=== PATIENT | male | born 1935 | race Caucasian/White ===

== ENCOUNTER 2018-11-12 11:46 | Inpatient (IN) | payer OTHER ==
[2018-11-12] MEDS ORDERED: NA CHLORIDE 0.9% 500 ML ONE (12:29)
[2018-11-12 12:35] LABS: Absolute Lymphocytes (CBC) 0.4 K/uL (0.7-4.9); Absolute Monocytes 0.5 K/uL (0.1-1.3); Absolute Neutrophil 9.8 K/uL (1.8-8.0); Basophils % 0.1 % (0-1.3); Eosinophils % 0.1 % (0-4.4); Hematocrit 33.9 % (39.6-49.0); Lymphocytes % 3.3 % (15.3-44.8); MPV 8.3 fL (7.6-11.3); Monocytes % 4.3 % (3.3-12.3); RBC Red Blood Cell Count 3.61 M/uL (4.33-5.43)
[2018-11-12 12:52] LABS: Albumin 3.4 g/dL (3.4-5.0); Bilirubin Direct 0.2 mg/dL (0-0.2); Bilirubin Total 0.4 mg/dL (0.2-1.0); Potassium 4.3 mmol/L (3.5-5.1); Protein, Total 7.2 g/dL (6.4-8.2); Troponin (Emerg Dept Use Only) 0.26 ng/mL (0.0-0.045)
--- NOTE | 2018-11-12 12:55 | EKG ---
Test Date: 2018-10-12 Test Time: 12:23:55 Mushroom Laborer: LAKESHIA MEASUREMENT RESULTS: Intervals: Rate: 116 NE: 174 QRSD: 94 QT: 324 QTc: 450 [place]: P: 32 NE: 174 QRS: -9 T: 45 INTERPRETIVE STATEMENTS: Sinus tachycardia with premature supraventricular complexes Otherwise normal ECG Compared to ECG 10/25/2011 06:12:33 Atrial premature complex(es) now present Sinus rhythm no longer present Electronically Signed On 11-12-18 12:54:27 KING MAKER by Aaron Mccarty
[2018-11-12 13:58] LABS: Urine White Blood Cell Casts OK
[2018-11-12 13:59] LABS: Blood Morphology Comment NOT SEEN (NOT SEEN); Platelet Estimate ADEQ
--- NOTE | 2018-11-12 14:16 | ER ---
Nurse's Notes [facility] Name: Sheng Mix Age: 82 yrs Sex: Male : 1935 Arrival Date: 11/12/2018 Time: 11:50 Bed 14 Private MD: Diagnosis: Near Syncope;Dehydration;Weakness Presentation: 11/12 11:53 Presenting complaint: EMS states: pt states he went to the park this morning and then tw2 he couldn't get back into his truck, said his knees hurt, denies chest pain, he was sitting on the ground vomiting when we arrived, we gave 4 mg Zofran IV. Transition of care: patient was not received from another setting of care. Onset of symptoms was November 12, 2018. Risk Assessment: Do you want to hurt yourself or someone else? Patient reports no desire to harm self or others. Initial Sepsis Screen: Does the patient meet any 2 criteria? No. Patient's initial sepsis screen is negative. Does the patient have a suspected source of infection? No. Patient's initial sepsis screen is negative. Care prior to arrival: IV initiated. 20 GA, in the left antecubital area. 11:53 Method Of Arrival: EMS: [facility] tw2 11:53 Acuity: HUGO 3 tw2 Historical: - Allergies: 11:56 No Known Allergies; tw2 - Home Meds: 11:56 unknown bp med [Active]; tw2 - PMHx: 11:56 Hypertension; tw2 - PSHx: 11:56 None; tw2 - Immunization history:: Adult Immunizations. - Social history:: Smoking status: . - Ebola Screening: : Patient denies travel to an Ebola-affected area in the 21 days before illness onset. - Family history:: not pertinent. - Hospitalizations: : No recent hospitalization is reported. Screenin:57 Abuse screen: Denies threats or abuse. Nutritional screening: No deficits noted. tw2 Tuberculosis screening: No symptoms or risk factors identified. Fall Risk None identified. Assessment: 12:15 General: Appears in no apparent distress. comfortable, well groomed, Behavior is calm, ph cooperative, appropriate for age, Denies fever, feeling ill. Pain: Complains of pain in allyn knees and R elbow. Neuro: Level of Consciousness is awake, alert, obeys commands, Oriented to person, place, time, situation, Denies weakness dizziness, headache. Cardiovascular: Reports nausea, vomiting, Denies chest pain, lightheadedness, palpitations, shortness of breath, Capillary refill < 3 seconds in bilateral fingers Patient's skin is warm and dry. Edema is 1+ to left midcalf, left ankle, right midcalf and right ankle Rhythm is sinus tachycardia. Respiratory: Airway is patent Respiratory effort is even, unlabored, Respiratory pattern is regular, symmetrical. GI: Reports nausea, vomiting, Patient currently denies abdominal pain, diarrhea. Derm: Skin is fragile, is thin, Skin is pink, warm \\T\\ dry. Derm: Wound noted R elbow and L forearm Wound is skin tears, bleeding controlled. Musculoskeletal: Circulation, motion, and sensation intact. Range of motion: intact in all extremities. 13:30 Reassessment: Patient appears in no apparent distress at this time. Patient and/or ph family updated on plan of care and expected duration. Pain level reassessed. Patient is alert, oriented x 3, equal unlabored respirations, skin warm/dry/pink. Pt cleaned of urinary incontinence and placed in clean gown and brief, attempted to use urinal at bedside but unable to urinate at this time, states, " It feel like I need to go." Pt reports hx of prostate issues. Vital Signs: 11:55 BP 143 / 83; Pulse 117; Resp 19; Temp 100.0(O); Pulse Ox 95% on R/A; Pain 0/10; tw2 13:16 BP 133 / 82; Pulse 122; Resp 22; Pulse Ox 99% on R/A; ph 13:56 BP 133 / 82; Pulse 98; Resp 30; Pulse Ox 98% ; ms 15:08 BP 146 / 92; Pulse 123; Resp 20; Pulse Ox 100% on R/A; ph 15:38 BP 139 / 79; Pulse 123; Resp 20; Temp 100.2(O); Pulse Ox 100% on R/A; ph ED Course: 11:50 Patient arrived in ED. tw2 11:52 Shay Carey MD is Attending Physician. rn 11:53 Bed in low position. Call light in reach. Side rails up X2. monitoring manager on. Pulse tw2 ox on. NIBP on. 11:54 Triage completed. tw2 11:56 Arm band placed on. tw2 12:06 Tere Bernard, RN is Primary Nurse. ph 12:47 EKG done, by pharmacy technician trainee. reviewed by Shay Carey MD. at1 14:15 Jacob Wilson DO is Hospitalizing Provider. rn 15:05 X-ray completed. Portable x-ray completed in exam room. Patient tolerated procedure sw well. 15:10 XRAY Chest (1 view) In Process Unspecified. EDMS 16:11 No provider procedures requiring assistance completed. Patient admitted, IV remains in ph place. Administered Medications: 13:14 Drug: NS 0.9% 500 ml Route: IV; Rate: bolus; Site: left antecubital; ph 15:57 Follow up: Response: No adverse reaction; IV Status: Completed infusion ph 15:57 Drug: Tylenol 500 mg Route: PO; ph 15:57 Follow up: Response: No adverse reaction ph Outcome: 14:15 Discharge ordered by MD. rn 14:15 Decision to Hospitalize by Provider. rn 16:11 Admitted to Tele accompanied by tech, via wheelchair, room 228, with chart. ph 16:11 Condition: stable 16:11 Instructed on the need for admit. 16:12 Patient left the ED. ph Signatures: Dispatcher [employer] EDNC Julee Rodriguez ms, Roman, MD MD rn Gonzales, Amanda, business management associate EKG Tat1 Tere Bernard, RN RN Gabby Acosta Tara, RN RN tw2
--- NOTE | 2018-11-12 14:17 | EDPHYS ---
Physician Documentation [facility] Name: Sheng Mix Age: 82 yrs Sex: Male : 1935 Arrival Date: 11/12/2018 Time: 11:50 Bed 14 Private MD: ED Physician Shay Carey HPI: 11/12 12:27 This 82 yrs old Male presents to ER via EMS with complaints of weakness. rn 12:27 Reports generalized weakness, states knees gave out, sat down on ground, no assoc rn headache/focal neurological complaint/chest pain/sob/syncope/abd pain. Did throw up once, given zofran IV by EMS, now asymptomatic. Reports congestion and decreased appetite for 2 days.. Onset: The symptoms/episode began/occurred 2 day(s) ago. Severity of symptoms: At their worst the symptoms were moderate in the emergency department the symptoms have improved. The patient has not experienced similar symptoms in the past. The patient has not recently seen a physician. Historical: - Allergies: 11:56 No Known Allergies; tw2 - Home Meds: 11:56 unknown bp med [Active]; tw2 - PMHx: 11:56 Hypertension; tw2 - PSHx: 11:56 None; tw2 - Immunization history:: Adult Immunizations. - Social history:: Smoking status: . - Ebola Screening: : Patient denies travel to an Ebola-affected area in the 21 days before illness onset. - Family history:: not pertinent. - Hospitalizations: : No recent hospitalization is reported. ROS: 12:27 Constitutional: + fever Eyes: Negative for injury, pain, redness, and discharge, Neck: rn Negative for injury, pain, and swelling. 12:29 Cardiovascular: Negative for chest pain, palpitations, and edema, Respiratory: Negative rn for shortness of breath, cough, wheezing, and pleuritic chest pain, Abdomen/GI: Negative for abdominal pain, diarrhea, and constipation, MS/Extremity: Negative for injury and deformity, Skin: Negative for injury, rash, and discoloration, Neuro: Negative for headache, numbness, tingling, and seizure. Exam: 12:29 Constitutional: This is a well developed, well nourished patient who is awake, alert, rn and in no acute distress. Head/Face: Normocephalic, atraumatic. Eyes: Pupils equal round and reactive to light, extra-ocular motions intact. Lids and lashes normal. Conjunctiva and sclera are non-icteric and not injected. Cornea within normal limits. Periorbital areas with no swelling, redness, or edema. ENT: dry MM Neck: Trachea midline, no thyromegaly or masses palpated, and no cervical lymphadenopathy. Supple, full range of motion without nuchal rigidity, or vertebral point tenderness. No Meningismus. Cardiovascular: tachycardic, regular, no murmur Respiratory: Lungs have equal breath sounds bilaterally, clear to auscultation and percussion. No rales, rhonchi or wheezes noted. No increased work of breathing, no retractions or nasal flaring. Abdomen/GI: soft, non-tender Skin: Warm, dry. + skin tears to bilateral elbows, no active bleeding. MS/ Extremity: Pulses equal, no cyanosis. Neurovascular intact. Full, normal range of motion. Equal circumference. Neuro: Awake and alert, GCS 15, oriented to person, place, time, and situation. Cranial nerves II-XII grossly intact. Motor strength 5/5 in all extremities. Sensory grossly intact. Cerebellar exam normal. Vital Signs: 11:55 BP 143 / 83; Pulse 117; Resp 19; Temp 100.0(O); Pulse Ox 95% on R/A; Pain 0/10; tw2 13:16 BP 133 / 82; Pulse 122; Resp 22; Pulse Ox 99% on R/A; ph 13:56 BP 133 / 82; Pulse 98; Resp 30; Pulse Ox 98% ; ms 15:08 BP 146 / 92; Pulse 123; Resp 20; Pulse Ox 100% on R/A; ph 15:38 BP 139 / 79; Pulse 123; Resp 20; Temp 100.2(O); Pulse Ox 100% on R/A; ph MDM: 11:52 Patient medically screened. rn 14:12 Differential Diagnosis altered mental status, sepsis, flu, MT, near syncope, rn dehydration. Data reviewed: vital signs, nurses notes, lab test result(s), EKG, and as a result, I will. 14:13 Counseling: I had a detailed discussion with the patient and/or guardian regarding: the rn historical points, exam findings, and any diagnostic results supporting the discharge/admit diagnosis, lab results, the need for further work-up and treatment in the hospital. Response to treatment: the patient's symptoms have mildly improved after treatment, and as a result, I will admit patient. Admission orders: after a detailed discussion of the patient's condition and case, the admit orders are written by me. ED course: Pt with unclear etiology of near syncope and weakness, + CKD and elevated troponin, will admit to [facility] for serial markers and cardiology consult. . 11/12 12:00 Order name: Basic Metabolic Panel; Complete Time: 13:22 rn 11/12 12:00 Order name: CBC with Diff; Complete Time: 14:06 rn 11/12 12:00 Order name: Hepatic Function; Complete Time: 13: rn 11/12 12:00 Order name: Lipase; Complete Time: : rn 11/12 12:00 Order name: Troponin (emerg Dept Use Only); Complete Time: 13: rn 11/12 12:29 Order name: Flu; Complete Time: 14: rn 11/12 12:00 Order name: IV Start; Complete Time: 12:24 rn 11/12 12:00 Order name: EKG; Complete Time: 12:02 rn 11/12 12:00 Order name: Cardiac monitoring; Complete Time: 12:15 rn 11/12 12:08 Order name: EKG Electrocardiogram EDMS 11/12 12:52 Order name: CBC Smear Scan; Complete Time: 14:06 EDMS 11/12 14:12 Order name: XRAY Chest (1 view); Complete Time: 16:12 rn 11/12 12:00 Order name: EKG - Nurse/Tech; Complete Time: 12:24 rn 11/12 12:00 Order name: Labs collected and sent; Complete Time: 12:24 rn 11/12 12:00 Order name: NPO; Complete Time: 12:15 rn 11/12 12:00 Order name: O2 Per Protocol; Complete Time: 12:15 rn 11/12 12:00 Order name: O2 Sat Monitoring; Complete Time: 12:24 rn Administered Medications: 13:14 Drug: NS 0.9% 500 ml Route: IV; Rate: bolus; Site: left antecubital; ph 15:57 Follow up: Response: No adverse reaction; IV Status: Completed infusion ph 15:57 Drug: Tylenol 500 mg Route: PO; ph 15:57 Follow up: Response: No adverse reaction ph Disposition: 11/12/18 14:15 Hospitalization ordered by [facility] for Inpatient Admission. Preliminary diagnosis are Near Syncope, Dehydration, Weakness. - Bed requested for Telemetry/MedSurg (Inpatient). - Status is Inpatient Admission. ph - Condition is Stable. - Problem is new. - Symptoms have improved. UTI on Admission? No Signatures: Dispatcher [employer] EDMS Mata Patricia Mary Constantino RN RN dw Nieto, Roman, MD MD rn BernardTere RN RN Streeter, DANNA Bragg RN tw2 Corrections: (The following items were deleted from the chart) 14:15 14:15 11/12/2018 14:15 Discharged to Home. Impression: Near Syncope; Dehydration. rn Condition is Stable. Forms are Medication Reconciliation Form, Thank You Letter, Antibiotic Education, Prescription Opioid Use. Follow up: Private Physician; When: As needed; Reason: Recheck today's complaints, Re-evaluation by your physician. Problem is new. Symptoms have improved. rn 15:13 14:15 Hospitalization Ordered by Jacob Mandel DO for Inpatient Admission. Preliminary bd diagnosis is Near Syncope; Dehydration; Weakness. Bed requested for Telemetry/MedSurg (Inpatient). Status is Inpatient Admission. Condition is Stable. Problem is new. Symptoms have improved. UTI on Admission? No. rn 15:15 15:13 11/12/2018 14:15 Hospitalization Ordered by Jacob Mandel DO for Inpatient dw Admission. Preliminary diagnosis is Near Syncope; Dehydration; Weakness. Bed requested for Telemetry/MedSurg (Inpatient). Status is Inpatient Admission. Condition is Stable. Problem is new. Symptoms have improved. UTI on Admission? No. bd 16:12 15:15 11/12/2018 14:15 Hospitalization Ordered by Jacob Mandel DO for Inpatient ph Admission. Preliminary diagnosis is Near Syncope; Dehydration; Weakness. Bed requested for Telemetry/MedSurg (Inpatient). Status is Inpatient Admission. Condition is Stable. Problem is new. Symptoms have improved. UTI on Admission? No. dw
--- NOTE | 2018-11-12 14:45 | P.HP ---
Certification for Inpatient Patient admitted to: Inpatient With expected LOS: >2 Midnights Patient will require the following post-hospital care: None Practitioner: I am a practitioner with admitting privileges, knowledge of patient current condition, hospital course, and medical plan of care. Services: Services provided to patient in accordance with Admission requirements found in Title 42 Section 412.3 of the Code of Federal Regulations Patient History Date of Service: 11/12/18 Primary Care Provider: [facility] Reason for admission: Fall, nausea/vomiting History of Present Illness: 82 yo male presented to the emergency room after a fall with nausea and vomiting. Patient reports that he was getting to his vehicle after walking in the park. He reports that his knees gave way and he fell. He had an episode of vomiting with nausea at that time. He denied any syncope, presyncope, chest pain. When EMS arrived his blood pressure was low. Patient reports a history of hypertension. He only takes 1 blood pressure medication. He denies any significant cardiac issues. He is seen at the [facility]. Patient denies any significant palpitation, abdominal pain, shortness of breath. In the ER the patient was evaluated. Blood pressure stable. He was with sinus tachycardia with some PVCs. Initial cardiac enzymes elevated at 0.26. White count 10.6, hemoglobin 11.4. BUN of 29, creatinine 1.8 with a GFR 36. Sodium 140, potassium 4.3. Chest x-ray unremarkable. The patient was admitted for further evaluation. When I saw the patient the ER, he appeared comfortable. He denied any significant chest pain or shortness of breath. Patient reports pedal edema to the lower extremities left greater than right. Home medications list reviewed: Yes - Past Medical/Surgical History Diabetic: No -: Hypertension Past Surgical History: Patient denies surgical history Psychosocial/ Personal History: Patient is a . He has 1 child. - Family History Family History: Reviewed- Non-Contributory - Social History Smoking Status: Never smoker Alcohol use: No CD- Drugs: No Caffeine use: No Place of Residence: Home Review of Systems General: As per HPI Eyes: Unremarkable ENT: Unremarkable Respiratory: Unremarkable Cardiovascular: Edema (Pedal edema to the lower extremities), As per HPI Gastrointestinal: Unremarkable Genitourinary: Unremarkable Musculoskeletal: Pedal edema, As per HPI Neurological: Unremarkable Lymphatics: Unremarkable Physical Examination - Physical Exam General: Alert, In no apparent distress, Oriented x3, Cooperative HEENT: Atraumatic, Normocephalic, PERRLA, Mucous membr. moist/pink Neck: Supple, No Thyromegaly Respiratory: Clear to auscultation bilaterally, Normal air movement Cardiovascular: Abnormal pulses (Sinus tachycardia) Gastrointestinal: Normal bowel sounds, Soft and benign, Non-distended, No tenderness, No masses, No rebound, No guarding Musculoskeletal: No erythema, No tenderness, No warmth Integumentary: Tenderness/swelling (Pedal edema to the lower extremities left greater than right) Neurological: Normal speech, Normal strength at 5/5 x4 extr, Normal tone, Normal affect - Studies Laboratory Data (last 24 hrs) 11/12/18 12:20: WBC 10.6, Hgb 11.4 L, Hct 33.9 L, Plt Count 185 11/12/18 12:20: Sodium 140, Potassium 4.3, BUN 29 H, Creatinine 1.82 H, Glucose 134 H, Total Bilirubin 0.4, AST 14 L, ALT 15, Alkaline Phosphatase 73, Lipase 279 Microbiology Data (last 24 hrs): 11/12/18 13:10 Nasopharnyx Influenza Type A Antigen Screen - Final 11/12/18 13:10 Nasopharnyx Influenza Type B Antigen Screen - Final Assessment and Plan - Plan Impression: Fall with noted nausea, vomiting, and low blood pressure with noted elevated troponin and sinus tachycardia with PVCs likely secondary to NSTEMI Hypertension Pedal edema left greater than right Acute on chronic renal failure Plan: Fall with noted nausea, vomiting, and low blood pressure with noted elevated troponin and sinus tachycardia with PVCs likely secondary to NSTEMI: Patient will be admitted for further evaluation. Will continue monitor cardiac enzymes. Will start Lovenox at 1 milligram/kilogram subcu twice daily-renal dose. Will provide aspirin, Lipitor, metoprolol, nitroglycerin and morphine. Will maintain oxygen saturations above 90%. Will monitor closely. Will obtain echocardiogram. Cardiology consulted to further evaluate. Hypertension: Will obtain home medication. Will start metoprolol twice daily. Pedal edema left greater than right: Will send for Doppler study to evaluate for possible DVT. Acute on chronic renal failure: Will obtain renal ultrasound. Will monitor closely. Will provide IV fluids low dose. Will consult nephrology for further recommendation. Discharge Plan: Home Plan to discharge in: 72 Hours - Advance Directives Does patient have a Living Will: No Does patient have a Durable POA for Healthcare: No - Code Status/Comfort Care Code Status Assessed: Yes (Patient full code.) Time Spent Managing Pts Care (In Minutes): 55
--- NOTE | 2018-11-12 15:24 | RAD REPORT ---
EXAM DESCRIPTION: Estelita Single View11/12/2018 3:18 pm CLINICAL HISTORY: Palpitation COMPARISON: none FINDINGS: The lungs appear clear of acute infiltrate. The heart is normal size Aorta is tortuous/ectatic. Mediastinum is rotated limiting evaluation somewhat IMPRESSION: No acute abnormalities displayed
[2018-11-12] MEDS ORDERED: ACETAMINOPHEN 500 MG TAB ONE (16:00)
[2018-11-12] MEDS ORDERED: ACETAMINOPHEN 500 MG TAB PO PRN (16:36)
[2018-11-12] MEDS ORDERED: MORPHINE 2 MG/ML SYR IV PRN (16:36)
[2018-11-12] MEDS ORDERED: NITROGLYCERIN 0.4 MG/TAB SL PRN (16:36)
[2018-11-12] MEDS ORDERED: ONDANSETRON 4 MG/2 ML VIAL IV PRN (16:36)
[2018-11-12 17:50] LABS: CKMB Creatine Kinase MB 6.6 ng/mL (0.3-3.6); Thyroid Stimulating Hormone 1.59 uIU/mL (0.360-3.740)
[2018-11-12] MEDS: METOPROLOL TAR 25 MG TAB PO SCH (18:03)
[2018-11-12] MEDS: NA CHLORIDE 0.9% 1,000 ML IV SCH (18:03)
[2018-11-12 18:11] VITALS: BMI 27.8
[2018-11-12 18:16] LABS: Troponin I 3.49 ng/mL (0.0-0.045)
--- NOTE | 2018-11-12 19:44 | RAD REPORT ---
EXAM DESCRIPTION: USExtrem Venous W Compress Bil11/12/2018 7:33 pm CLINICAL HISTORY: Bilateral leg swelling COMPARISON: none FINDINGS: The common femoral, superficial femoral, popliteal and posterior tibial veins bilaterally are compressible and demonstrate augmentation. Doppler demonstrates good flow. IMPRESSION: No evidence of deep venous thrombosis involving either lower extremity.
--- NOTE | 2018-11-12 19:48 | RAD REPORT ---
EXAM DESCRIPTION: US - Renal Ultrasound-Complete - 11/12/2018 7:33 pm CLINICAL HISTORY: . Acute renal failure/chronic renal failure COMPARISON: None. FINDINGS: The right kidney measures 9 cm with a normal echotexture. The left kidney measures 9 cm with a normal echotexture. Hydronephrosis is not seen. No gross abnormality of bladder is noted IMPRESSION: Unremarkable renal ultrasound.
[2018-11-12 20:49] LABS: Urine Appearance CLOUDY; Urine Bilirubin NEGATIVE (NEG); Urine Blood 3+ (NEG); Urine Color DK YELLOW; Urine Glucose NEGATIVE (NEG); Urine Protein 2+ (NEG); Urine Specific Gravity 1.025 (1.005-1.030)
[2018-11-12 21:02] LABS: Urine Microscopic Reflex ORDER UMIC
[2018-11-12 21:44] LABS: Urine Bacteria <20 /HPF (NONE SEEN); Urine Culture Reflex Order REFLEXED; Urine RBC >50 /HPF (NONE SEEN)
[2018-11-12] MEDS: ATORVASTATIN 40 MG TAB PO SCH (22:08)
[2018-11-12] MEDS: ENOXAPARIN 100 MG/ML SYR SQ SCH (22:08)
[2018-11-13] MEDS ORDERED: NA CHLORIDE 0.9% 500 ML IV ONE (00:02)
[2018-11-13 01:45] LABS: CKMB Creatine Kinase MB 5.6 ng/mL (0.3-3.6)
[2018-11-13 01:48] LABS: Troponin I 5.13 ng/mL (0.0-0.045)
--- NOTE | 2018-11-13 04:02 | CON ---
Date of Consultation: 11/12/2018 Chief Complaint: Acute kidney. History Of Present Illness: The patient was found to have moderately severe acute kidney injury associated with prerenal azotemia and lower urinary tract symptoms. The patient was evaluated with ultrasound, which did not show hydronephrosis, although he is complaining of difficulty voiding, and bladder scan will be ordered to rule out urinary retention. Nephrology consultation is requested for acute on chronic kidney injury. The patient was found to have moderately severe acute kidney injury. Lab work on admission to the hospital revealed creatinine of 1.8, BUN of 29, and electrolytes as follows; sodium 140, potassium 4.3, chloride 107, CO2 23, BUN 29, and calcium 8.5. The patient was found to have acute coronary syndrome. Troponin level was 3.49, CK level 226. The patient is 82-year-old man, presented to emergency room after he sustained fall. He was complaining of nausea and vomiting. The patient reports that he was getting out of his car after walking in the park. He reported that his knee gave away and he fell. He had episode of vomiting and nausea at that time. He denies syncope, denies chest pain. EMS arrived and the patient was found to have hypotension. The patient although has history of hypertension, he took blood pressure medication this morning. He has history of hypertension , but he denies history of coronary artery disease. He has been seen by [facility] for primary care and he denies previous history of kidney disease. In the emergency room, the patient was found to have sinus tachycardia with PVCs. Enzymes were elevated and troponin was 0.26. Subsequently, second set of troponin was at 3 range. Currently, the patient denies chest pain and denies fever. He looks comfortable. Review of Systems: Constitutional: Denies fever or chills. Eyes: Denies vision changes. Ears, Nose, Mouth, and Throat: Denies sore throat, earache. Respiratory: Denies wheezing. Cardiovascular: Denies chest pain. GI: Denies melena, hematemesis. Has nausea and vomiting. Denies abdominal pain. : He has some difficulty voiding. Denies hematuria or dysuria. All other systems reviewed and all are negative. Past Medical History: Hypertension. Denies history of diabetes. Does not have a history of coronary artery disease. Family History: No kidney disease in the family. Social History: Denies tobacco, alcohol, or illicit drugs. Physical Examination: General: The patient is awake, alert, follows commands. Eyes: Anicteric sclerae. EOMI. Ears, Nose, Mouth, and Throat: Oral mucosa moist. No pallor. Neck: Supple. No JVD. No bruits. Lungs: Clear to auscultation bilaterally. No wheezing. No rhonchi. Cardiovascular: No pericardial friction rub. S1, S2, 2/6 systolic murmur on the left lower sternal border. GI: Abdomen is soft, benign, and nontender. No rebound. No guarding. Musculoskeletal: No erythema. No tenderness. No increased warmth. Neurological: Moving extremities. Cranial nerves intact. Psychiatric: Alert and oriented x3. Normal affect. Laboratory Data: Hemoglobin 11.4, hematocrit 33.9. Platelet count is 185,000. WBC 10.6. Sodium 140, potassium 4.3, BUN 29, creatinine 1.82, and glucose 134. Total bilirubin 0.4, ALT is 14, AST 15, and lipase 279. Impression And Plan: 1. Status post fall. Recommend to continue to monitor electrolytes and CK level to rule out rhabdomyolysis, although the patient was found to have acute coronary syndrome and this may be contributory to cardiorenal syndrome and acute renal failure. The patient had tachycardia with PVC. He will be consulted by [facility] machine operator for [id number] myocardial infarction. The patient is evaluated by Cardiology team. 2. Hypertension. Hold blood pressure medication if systolic blood pressure is below 110 to prevent renal hypoperfusion. 3. Pedal edema, greater in the left lower extremity. Recommend to check for any evidence of DVT. 4. Acute on chronic renal failure. 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 Monitor for an evidence of nephritis, although in view of current illness, the patient likely has prerenal azotemia with renal hypoperfusion and cardiorenal syndrome. Avoid nonsteroidal anti-inflammatory medication. CHRISTIANE/TODD Voice ID: [id number] Report ID: [id number] LULA
[2018-11-13] MEDS: METOPROLOL TAR 25 MG TAB PO SCH (05:34)
[2018-11-13 06:37] LABS: Absolute Lymphocytes (CBC) 1.1 K/uL (0.7-4.9); Absolute Monocytes 0.8 K/uL (0.1-1.3); Absolute Neutrophil 9.9 K/uL (1.8-8.0); Basophils % 0.2 % (0-1.3); Hematocrit 30.8 % (39.6-49.0); Lymphocytes % 9.4 % (15.3-44.8); MPV 7.9 fL (7.6-11.3); RBC Red Blood Cell Count 3.31 M/uL (4.33-5.43)
[2018-11-13 07:00] LABS: Magnesium 2.1 mg/dL (1.8-2.4)
[2018-11-13] MEDS ORDERED: METOPROLOL TAR 25 MG TAB PO SCH (08:19)
[2018-11-13] MEDS: ENOXAPARIN 100 MG/ML SYR SQ SCH ×2 (09:37→20:35)
[2018-11-13] MEDS: ASPIRIN EC 81 MG TAB PO SCH (09:37)
[2018-11-13] MEDS: ACETYLCYST 20% 800 MG/4 ML VIAL PO SCH ×2 (09:49→20:41)
--- NOTE | 2018-11-13 12:21 | ECHO ---
HEIGHT: 6 ft 1 in WEIGHT: 211 lb 8 oz DATE OF STUDY: 11/13/[address]: Jacob Wilson DO 2-DIMENSIONAL: YES M.MODE: YES DOPPLER: YES COLOR FLOW: YES TDS: YES PORTABLE: NO DEFINITY: NO BUBBLE STUDY: NO DIAGNOSIS: NSTEMI CARDIAC HISTORY: CATHERIZATION: NO SURGERY: NO PROSTHETIC VALVE: NO PACEMAKER: NO MEASUREMENTS (cm) DIASTOLIC (NORMALS) SYSTOLIC (NORMALS) IVSd 0.9 (0.6-1.2) LA Diam 2.4 (1.9-4.0) LVEF 34% LVIDd 2.4 (3.5-5.7) LVIDs 2.0 (2.0-3.5) %FS 15% LVPWd 1.0 (0.6-1.2) Ao Diam 3.0 (2.0-3.7) 2 DIMENSIONAL ASSESSMENT: RIGHT ATRIUM: NORMAL LEFT ATRIUM: NORMAL RIGHT VENTRICLE: NORMAL LEFT VENTRICLE: NORMAL TRICUSPID VALVE: NORMAL MITRAL VALVE: NORMAL PULMONIC VALVE: NORMAL AORTIC VALVE: NORMAL PERICARDIAL EFFUSION: NONE AORTIC ROOT: NORMAL LEFT VENTRICULAR WALL MOTION: ANTERIOR APICAL HYPOKINESIS. DOPPLER/COLOR FLOW: MILD MITRAL, TRICUSPID REGURGITATION. NORMAL RIGHT VENTRICULAR SYSTOLIC PRESSURE. COMMENTS: DEPRESSED LEFT VENTRICULAR EJECTION FRACTION WITH WALL MOTION ABNORMALITY. MILD MITRAL AND TRICUSPID REGURGITATION. TECHNICALLY DIFFICULT STUDY. TECHNOLOGIST: SHINE MOORE
[2018-11-13 12:25] LABS: Urine Protein/Creatinine Ratio 0.62 ratio (<0.15)
--- NOTE | 2018-11-13 12:59 | CON ---
History Of Present Illness: Mr. Mix came to the hospital because of some excessive weakness in his legs and falling. Normally, he ambulates with a walker. He has had some workups trying to see why h is legs are so weak, but there has not been anything found definitively to help him. Yesterday, he w as trying to get in his car, could not, somebody tried to help him into the car, that did not work, s o an ambulance was called. He was not having chest pain or shortness of breath. There was no loss o f consciousness, but he was found to have a lot of evidence of a non-ST elevation MA. His troponins were 0.26 on arrival, another 5.13. Mr. Mix has never had any vascular disease before. Does not us e tobacco or illegal drugs. His only outpatient medication is metoprolol 25 mg once a day. He takes that for blood pressure. Does not have a history of coronary heart disease, stroke, myocardial infa rction, dyslipidemia, diabetes. He is unaware of having renal insufficiency. Physical Examination: General: He is alert, oriented, pleasant, 6 feet 1 inch, 211 pounds. HEENT: Normal. Neck: No carotid bruit. Lungs: Clear. Heart: Within normal limits. Abdomen: Soft. Extremities: Palpable but diminished distal pulses. No cyanosis, clubbing, or edema. Vital Signs: Blood pressure 98/55. Impression: The patient probably needs a cardiac cath. With his creatinine at 1.9, we want to limit how much contrast we give. We will try the radial approach tomorrow, pre-treat him with Mucomyst to see if we can minimize the amount of renal insult he gets that way, but I think we are obliged to do a cardiac cath and see exactly what is wrong. He probably had a coronary event without feeling ches t pain. He may have very severe CAD, and the most prudent thing is to do a cardiac cath tomorrow. GERDA/TODD Voice ID: [id number] Report ID: [id number]
[2018-11-13] MEDS: NA CHLORIDE 0.9% 1,000 ML IV SCH (13:50)
[2018-11-13] MEDS: CEFTRIAXONE/SWI 1gm 1 GM/10 ML SYR IV SCH (13:50)
--- NOTE | 2018-11-13 15:16 | P.PN ---
Subjective Date of Service: 11/13/18 Primary Care Provider: [facility] Chief Complaint: Fall, nausea/vomiting Subjective: Doing well Physical Examination - Vital Signs Temperature: 97.7 F Blood Pressure: 120/66 Pulse: 86 Respirations: 18 Pulse Ox (%): 94 - Physical Exam General: Alert, In no apparent distress, Oriented x3, Cooperative HEENT: Atraumatic Neck: Supple Respiratory: Clear to auscultation bilaterally, Normal air movement Cardiovascular: Normal pulses, Regular rate/rhythm Gastrointestinal: Normal bowel sounds, Soft and benign, Non-distended Musculoskeletal: No erythema, No tenderness, No warmth Integumentary: No erythema, No warmth, No cyanosis Neurological: Normal speech, Normal strength at 5/5 x4 extr, Normal tone, Normal affect - Studies Microbiology Data (last 24 hrs): 11/12/18 13:10 Nasopharnyx Influenza Type A Antigen Screen - Final 11/12/18 13:10 Nasopharnyx Influenza Type B Antigen Screen - Final Medications List Reviewed: Yes Assessment & Plan Discharge Plan: Home Plan to discharge in: 24 Hours Physician Review Additional Text: Impression: Fall with noted nausea, vomiting, and low blood pressure with noted elevated troponin and sinus tachycardia with PVCs likely secondary to NSTEMI with possible underlying CAD Hypertension Pedal edema left greater than right Acute on chronic renal failure, stage III Plan: Fall with noted nausea, vomiting, and low blood pressure with noted elevated troponin and sinus tachycardia with PVCs likely secondary to NSTEMI with possible underlying CAD: Spoke with nephrology and cardiology. Cardiology plans for cardiac catheterization to evaluate for underlying CAD. Continue with current medications. Will provide IV fluids as per Nephrology recommendation. Hypertension: Will continue with medication and adjust appropriately Pedal edema left greater than right: Doppler study negative Acute on chronic renal failure, stage 3: Case discussed with nephrology. Patient will be provided IV fluids prior to heart catheterization. Time Spent Managing Pts Care (In Minutes): 55
--- NOTE | 2018-11-13 16:53 | CON ---
Date of Consultation: 11/13/2018 Additional Consulting Physician: Dr. Wilson. Reason For Consultation: Elevated BUN and creatinine, fluid management. History Of Present Illness: This is a pleasant 82-year-old gentleman with significant past medical h istory of hypertension, chronic kidney disease. Reviewing the record, creatinine back in 2013, 1.6 G FR of 40. The patient denied knowing any history of chronic kidney disease. The patient followup [facility] the ID. According to him, he do lab almost twice a year. The patient came to the hospital compla ining of nausea and vomiting, found to have low blood pressure down to the 80s and found to have elev ation of troponin, non-ST elevation PR, for that reason the patient was admitted to the hospital. Pr imary workup showed elevation in BUN and creatinine with creatinine 1.8, GFR of 36, for that reason, we have been consulted. The patient denied taking any nonsteroidal. No recent change in medication. No IV contrast. The patient planned for possible cardiac cath after stabilization. Past Medical History: Include: 1.Hypertension. 2.Chronic kidney disease, baseline creatinine 1.6, GFR of 40 back in 2013. The patient not aware ab out it. Family History: Positive for hypertension. Social History: Denied smoking. Denied drinking. Denied drugs abuse. Home Medication: Metoprolol. Review of Systems: Head and Neck: No red eye. No ear pain. GI: Has nausea and vomiting. : Has nocturia. Cytotechnologist/Histotechnologist: Not applicable. Respiratory: Has shortness of breath. Cardiovascular: Has low blood pressure. Neuro: No neuropathy. Musculoskeletal: Has knee pain. Endocrine: No polydipsia. Skin: No rash. Physical Examination: Vital Signs: When I saw the patient, the patient on IV fluid, 50 of normal saline. Blood pressure o f 107/56, pulse of 82, afebrile. Earlier blood pressure was in the mid 90. Chest: Faint crackles on the base. Heart: S1, S2. Regular. Abdomen: Soft, nontender. Extremity: No edema. Laboratory Data: Renal ultrasound; echogenic kidney, 06/17. No hydronephrosis. WBC 11.9, H and H 10. 4/30.8, platelets 174. Sodium 139, potassium 4, bicarb 22, BUN 32, creatinine 1.9, GFR of 33, calciu m 8.2, magnesium 2.1. Troponin 5.3. TSH 1.5. Urinalysis; specific gravity of 1.025, rbc more than 50, wbc of 10. Current Medications: In the hospital include: 1.Aspirin. 2.Lovenox. 3.Metoprolol. 4.Nitroglycerin. 5.IV fluid. 6.Mucomyst. Assessment And Plan: 1.Acute kidney injury on chronic kidney disease secondary to prerenal, cardiogenic, slightly on the wet side. I had long discussion with the patient, as the patient possible can need cardiac cath, abo ut the risks, benefits, and alternative about the cardiac cath explained possible shut down the kidne y with the catheterization. The patient understand, verbalized understanding. We will go ahead and start gentle hydration 12 hours before and after. We will follow up. We will stop the patient on Mu comyst even though there is no strong data to support that. 2.Hypertension, currently hypotension. Hold blood pressure medication. We will start gentle hydrat ion. 3.Anemia, possible secondary to chronic kidney disease, in the presence of renal failure, I am going to send for the workup. 4.Non-ST elevation myocardial infarction as by Primary and Cardiology. 5.Hypomagnesemia, we will supplement. Thank you Dr. Wilson for allowing us to participate in the care of your patient. MIN Voice ID: [id number] Report ID: [id number]
[2018-11-13] MEDS: ATORVASTATIN 40 MG TAB PO SCH (20:40)
[2018-11-14] MEDS: NA CHLORIDE 0.9% 1,000 ML IV SCH (06:01)
[2018-11-14 06:23] LABS: Absolute Lymphocytes (CBC) 1.1 K/uL (0.7-4.9); Absolute Monocytes 1.1 K/uL (0.1-1.3); Absolute Neutrophil 7.8 K/uL (1.8-8.0); Basophils % 0.2 % (0-1.3); Hematocrit 32.1 % (39.6-49.0); Lymphocytes % 11.4 % (15.3-44.8); MPV 8.7 fL (7.6-11.3); Monocytes % 10.5 % (3.3-12.3); RBC Red Blood Cell Count 3.46 M/uL (4.33-5.43)
[2018-11-14 07:47] LABS: Albumin 2.7 g/dL (3.4-5.0); Ferritin 437.1 ng/mL (26-388); Folic Acid, (Folate) 16.7 ng/mL (3.1-17.5); Phosphorus 2.5 mg/dL (2.5-4.9); Potassium 3.8 mmol/L (3.5-5.1); Uric Acid 6.5 mg/dL (3.5-7.2)
[2018-11-14] MEDS: ACETYLCYST 20% 800 MG/4 ML VIAL PO SCH ×2 (08:05→22:38)
[2018-11-14] MEDS: ASPIRIN EC 81 MG TAB PO SCH (08:05)
[2018-11-14] MEDS: CEFTRIAXONE/SWI 1gm 1 GM/10 ML SYR IV SCH (08:06)
[2018-11-14 09:55] LABS: Rheumatoid Factor NEG (NEG)
[2018-11-14] MEDS ORDERED: MIDAZOLAM HCL 2 MG/2 ML INJ ONE ×2 (09:59→10:11)
[2018-11-14] MEDS ORDERED: FENTANYL CITR 100 MCG/2 ML ONE ×2 (09:59→10:11)
[2018-11-14] MEDS ORDERED: HEPA 1000U/500MLS 2,000 UNIT/1,000 ML BAG IV ONE (10:10)
[2018-11-14] MEDS ORDERED: METOPROLOL TARTRATE 5 MG/5 ML INJ IV ONE (10:11)
[2018-11-14] MEDS ORDERED: NA CHLORIDE 0.9% 0 ML ONE (10:11)
--- NOTE | 2018-11-14 11:17 | P.PN ---
Subjective Date of Service: 11/14/18 Primary Care Provider: [facility] Chief Complaint: Fall, nausea/vomiting Subjective: Other (Patient stable. No complaints noted.) Physical Examination - Vital Signs Temperature: 98.9 F Blood Pressure: 169/81 Pulse: 117 Respirations: 20 Pulse Ox (%): 90 - Physical Exam General: Alert, In no apparent distress, Oriented x3, Cooperative HEENT: Atraumatic Neck: Supple Respiratory: Clear to auscultation bilaterally, Normal air movement Cardiovascular: Normal pulses, Regular rate/rhythm Gastrointestinal: Normal bowel sounds, Soft and benign, Non-distended Musculoskeletal: No erythema, No tenderness, No warmth Integumentary: No erythema, No warmth, No cyanosis Neurological: Normal speech, Normal strength at 5/5 x4 extr, Normal tone - Studies Medications List Reviewed: Yes Assessment & Plan Discharge Plan: Home Plan to discharge in: Greater than 2 days Physician Review Additional Text: Impression: Fall with noted nausea, vomiting, and low blood pressure with noted elevated troponin and sinus tachycardia with PVCs secondary to NSTEMI with possible underlying CAD Hypertension Pedal edema left greater than right Acute on chronic systolic CHF, EF 34% Acute on chronic renal failure, stage III Anemia with noted iron/B12 deficiency Plan: Fall with noted nausea, vomiting, and low blood pressure with noted elevated troponin and sinus tachycardia with PVCs secondary to NSTEMI with possible underlying CAD: Patient had heart catheterization this morning. Cardiology mentioned a lesion to the RCA region. Cardiology plans for delayed stent due to current renal function. Cardiology will go back on Monday for stent placement. Patient will have cardiac stress test tomorrow to further assess. Case discussed with nephrology. Continue with recommendations from cardiology and nephrology. Hypertension: Will continue with medication and adjust appropriately Pedal edema left greater than right: Doppler study negative Acute on chronic systolic CHF, EF 34%: Continue with diuretic therapy. Will adjust IV fluids. Acute on chronic renal failure, stage 3: Case discussed with nephrology. Nephrology to adjust IV fluids due to CHF. Continue as above. Anemia with noted iron/B12 deficiency: Will provide supplementation. Patient will need GI workup as an outpatient. Time Spent Managing Pts Care (In Minutes): 55
[2018-11-14] MEDS ORDERED: POTASSIUM CL SA 10 MEQ TAB PO ONE (11:32)
--- NOTE | 2018-11-14 16:50 | PN ---
Date of Progress Note: 11/14/2018 NEPHROLOGY FOLLOWUP Subjective: The patient was admitted with non-ST elevation MS with acute kidney injury secondary to cardiorenal poor perfusion, ATN. The patient underwent cardiac cath, a plan for stenting Monday. Bl ood pressure has been stabilized. Physical Examination: Vital Signs: Blood pressure 140/90, pulse of 102, afebrile. The patient had good urine output of 12 00. Chest: Faint crackles bilateral base. Heart: S1 and S2, regular. Systolic murmur. Abdomen: Soft, nontender. Extremities: No edema. Laboratory Data: H and H of 11 and 32.1. Sodium 139, potassium 3.8, bicarb 19, BUN 30, creatinine 1 .5, GFR of 42, calcium 7.8, TSAT of 6.5, ferritin 437, albumin 2.7, folate of 16. B12 within normal limit. TSH 1.5, PTH 110, protein creatinine of 0.6. Current Medications: The patient on it includes IV fluid normal saline 50 per hour, ceftriaxone 1 g daily, aspirin, Plavix, atorvastatin, metoprolol 25 b.i.d., nitroglycerin, Zofran, and KCl. Assessment And Plan: 1.Acute kidney injury secondary to cardiorenal poor perfusion, acute tubular necrosis, low blood pre ssure, recovered back close to possible baseline. I think, he is euvolemic to the wet side. I am go ing to continue IV fluid for another 12 hours after catheterization. Then after that, we will try to start diuresing the patient to establish better volume control and we will monitor. 2.Hypertension. The patient was resumed on beta vernell. We will follow up with the primary. 3.Congestive heart failure with recent myocardial infarction, status post catheterization, tolerated first contrast. Plan for another catheterization with stent Monday. We will follow up with Cardiolaney velazco. 4.Iron-deficiency anemia. We will start the patient on oral iron. 5.Urinary tract infection. Follow up culture. Continue cephalosporin. 6.Secondary hyperparathyroid. Calcium and phosphorus within normal limit. No need for vitamin D. We will follow up vitamin D level. BRANDON/TDOD Voice ID: [id number] Report ID: [id number]
--- NOTE | 2018-11-14 17:11 | EKG ---
Test Date: 2018-11-14 Test Time: 09:27:30 Net Manager: MARY MEASUREMENT RESULTS: Intervals: Rate: 118 [place]: QRSD: 94 QT: 382 QTc: 535 [place]: P: KS: QRS: -13 T: -80 INTERPRETIVE STATEMENTS: Sinus tachycardia T wave abnormality, consider inferior ischemia T wave abnormality, consider anterolateral ischemia Abnormal ECG Compared to ECG 10/12/2018 12:23:55 T-wave abnormality now present Possible ischemia now present Sinus tachycardia no longer present Atrial premature complex(es) no longer present Electronically Signed On 11-14-18 17:10:24 FISH HATCHERY ASSISTANT by Aaron Mccarty
[2018-11-14] MEDS: METOPROLOL TAR 25 MG TAB PO SCH (17:14)
--- NOTE | 2018-11-14 21:08 | OP ---
Surgeon: Aaron Mccarty MD Mr. Mix is 82. He had evidence of a non-ST elevation KS. Procedures: Left heart catheterization with coronary angiography. No LV-gram was done because of se javier renal impairment. Findings: The patient's left coronary artery was free of any significant disease. He has a typical right dominant anatomy. His right coronary has an ostial lesion that is 60-70%, and there was a 10 m m pullback gradient with the catheter across the lesion. We decided not to put a stent in the lesion because of his renal impairment, and we elected to do a stent in that artery, based on results of a nuclear stress test and making sure that we give whatever dye is required to do the stent at a separa te setting, so we do not pile up and end up with a large volume of dye given today. 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 Barbeau test indicated no good ulnar pulse, so we recomm ended doing a femoral approach. Right femoral artery identified, anesthetized with lidocaine, entere d with an 18-gauge needle. Short J-wire was used to place a 4-Nigerien sheath. We used a 4-Nigerien JL4 , 4-Nigerien 3DRC to do the angiography. At the end of the procedure, catheters and wires were removed . A sheath shot was done. We found that adequate anatomy was seen, so we will do an Angio-Seal clos ure. If we end up doing the angioplasty, it will be from the left femoral approach or perhaps a radi al approach. GERDA/TODD Voice ID: [id number] Report ID: [id number]
[2018-11-14] MEDS: FERROUS SULFATE 325 MG TAB PO SCH (22:38)
[2018-11-14] MEDS: ATORVASTATIN 40 MG TAB PO SCH (22:38)
[2018-11-15] MEDS: NA CHLORIDE 0.9% 1,000 ML IV SCH (04:36)
[2018-11-15] MEDS: METOPROLOL TAR 25 MG TAB PO SCH (05:53)
[2018-11-15 06:52] LABS: Absolute Lymphocytes (CBC) 1.1 K/uL (0.7-4.9); Absolute Monocytes 0.8 K/uL (0.1-1.3); Absolute Neutrophil 7.7 K/uL (1.8-8.0); Basophils % 0.2 % (0-1.3); Eosinophils % 0.1 % (0-4.4); Hematocrit 32.9 % (39.6-49.0); Lymphocytes % 11.7 % (15.3-44.8); Monocytes % 8.6 % (3.3-12.3); RBC Red Blood Cell Count 3.54 M/uL (4.33-5.43)
[2018-11-15 07:09] LABS: Albumin 2.5 g/dL (3.4-5.0); Magnesium 2.1 mg/dL (1.8-2.4); Phosphorus 2.1 mg/dL (2.5-4.9); Potassium 4.1 mmol/L (3.5-5.1)
[2018-11-15] MEDS: ASPIRIN EC 81 MG TAB PO SCH (08:12)
[2018-11-15] MEDS: FERROUS SULFATE 325 MG TAB PO SCH ×2 (08:12→21:20)
[2018-11-15] MEDS: CLOPIDOGREL 75 MG TABLET PO SCH (08:12)
[2018-11-15] MEDS: CEFTRIAXONE/SWI 1gm 1 GM/10 ML SYR IVP SCH (08:13)
--- NOTE | 2018-11-15 13:19 | PN ---
Mr. Mix's blood test look a lot better today. His creatinine has come down to 1.41, and that despit e having his cardiac cath with x-ray contrast used yesterday, so I am very encouraged about the kidne y function. I plan to do an angioplasty of the ostium of the right coronary on Monday that would be November 18 or November 19 and after that, we will see if he can be discharged the following day. In the meantime, he will stay on beta blockers, aspirin, Plavix, and statin. GERDA/TODD Voice ID: [id number] Report ID: [id number]
--- NOTE | 2018-11-15 13:47 | P.PN ---
Subjective Date of Service: 11/15/18 Primary Care Provider: [facility] Chief Complaint: Fall, nausea/vomiting Subjective: Doing well (No complaints noted.) Physical Examination - Vital Signs Temperature: 97.8 F Blood Pressure: 134/77 Pulse: 102 Respirations: 20 Pulse Ox (%): 92 - Physical Exam General: Alert, In no apparent distress, Oriented x3, Cooperative HEENT: Atraumatic Neck: Supple Respiratory: Clear to auscultation bilaterally, Normal air movement Cardiovascular: Normal pulses, Regular rate/rhythm Gastrointestinal: Normal bowel sounds, Soft and benign, Non-distended, No masses , No rebound, No guarding Musculoskeletal: No erythema, No tenderness, No warmth Integumentary: No erythema, No warmth, No cyanosis Neurological: Normal speech, Normal strength at 5/5 x4 extr, Normal tone - Studies Medications List Reviewed: Yes Assessment & Plan Discharge Plan: Home Plan to discharge in: Greater than 2 days Physician Review Additional Text: Impression: Fall with noted nausea, vomiting, and low blood pressure with noted elevated troponin and sinus tachycardia with PVCs secondary to NSTEMI with 60-70% right Coronary ostial lesion Hypertension Pedal edema left greater than right Acute on chronic systolic CHF, EF 34% Acute on chronic renal failure, stage III Anemia with noted iron/B12 deficiency Possible UTI Plan: Fall with noted nausea, vomiting, and low blood pressure with noted elevated troponin and sinus tachycardia with PVCs secondary to NSTEMI with 60-70% right Coronary ostial lesion noted: Patient is post heart catheterization. Cardiology plans for stent on Monday or Monday of next week. Cardiology wants to have his renal function to his maximum in preparation for heart catheterization. Will continue with aspirin, Plavix, statin medication and beta -vernell therapy. Will continue to monitor closely. Will provide IV fluids 12 hr prior to heart catheterization. Case discussed with nephrology. Hypertension: Will continue with medication and adjust appropriately Pedal edema left greater than right: Doppler study negative Acute on chronic systolic CHF, EF 34%: Continue with diuretic therapy. Will adjust IV fluids. Acute on chronic renal failure, stage 3: Case discussed with nephrology. Renal function has improved. Patient will be provided IV fluids 12 hr prior to heart catheterization. Anemia with noted iron/B12 deficiency: Will provide supplementation. Patient will need GI workup as an outpatient. Possible UTI: Continue with antibiotic therapy. Await urine culture results. Time Spent Managing Pts Care (In Minutes): 55
[2018-11-15] MEDS: METOPROLOL TAR 50 MG TAB PO SCH (17:10)
[2018-11-15] MEDS: ATORVASTATIN 40 MG TAB PO SCH (21:20)
--- NOTE | 2018-11-15 21:43 | P.PN ---
Subjective Date of Service: 11/15/18 Primary Care Provider: [facility] Chief Complaint: Fall, nausea/vomiting Subjective: No new changes The patient was admitted with non-ST elevation [place] with acute kidney injury cardiac cath on 11/14 Cr down to 1.4 p;maricruz for cardiac cath on Monday hold IVF and lasix Start NS 60ml hr on Monday night and cont 12hrs after cardiac cath Physical Examination - Vital Signs Temperature: 98.1 F Blood Pressure: 132/65 Pulse: 94 Respirations: 18 Pulse Ox (%): 93 - Physical Exam General: In no apparent distress, Oriented x3 HEENT: Atraumatic Neck: Supple, JVD not distended, Without JVD or thyroid abnormality Respiratory: Clear to auscultation bilaterally Cardiovascular: No edema, Regular rate/rhythm, Normal S1 S2 Gastrointestinal: Normal bowel sounds, Soft and benign Integumentary: No rashes - Studies Medications List Reviewed: Yes Assessment And Plan - Current Problems (Diagnosis) (1) KARIME (acute kidney injury) Current Visit: Yes Status: Acute - Plan KARIME Improving Cont gentle hydration FU SPEP and serology UA +2 pfot and bld UPC 0.5 S/p cardiac cath on 11/14 Cr 1.4 cardiac cath again on Monday Hydration on Monday night Anemia STIVEN : IV iron B12 def : B12 Sq UTI F?U cultures Rocephin
[2018-11-16 05:29] LABS: Albumin 2.7 g/dL (3.4-5.0); Magnesium 2.4 mg/dL (1.8-2.4); Phosphorus 2.2 mg/dL (2.5-4.9)
[2018-11-16] MEDS: METOPROLOL TAR 50 MG TAB PO SCH ×2 (05:29→17:03)
[2018-11-16] MEDS: ASPIRIN EC 81 MG TAB PO SCH (10:07)
[2018-11-16] MEDS: CYANOCOBALAMIN 1000MCG/ML INJ SQ SCH (10:07)
[2018-11-16] MEDS: CEFTRIAXONE/SWI 1gm 1 GM/10 ML SYR IVP SCH (10:08)
[2018-11-16] MEDS: SOD FERRIC GLUC COMPLX/SUCROSE 125 MG in NA CHLORIDE 0.9% 100 ML IV SCH (10:08)
[2018-11-16] MEDS: CLOPIDOGREL 75 MG TABLET PO SCH (10:11)
--- NOTE | 2018-11-16 11:38 | PN ---
Mr. Mix remains asymptomatic. No further chest pain. Creatinine is stabilizing around 1.4. If abl e, we will do a right coronary ostial stent on Monday. GERDA/TODD Voice ID: [id number] Report ID: [id number]
--- NOTE | 2018-11-16 13:19 | P.PN ---
Subjective Date of Service: 11/16/18 Primary Care Provider: [facility] Chief Complaint: Fall, nausea/vomiting Subjective: Doing well Physical Examination - Vital Signs Temperature: 97.2 F Blood Pressure: 134/85 Pulse: 89 Respirations: 19 Pulse Ox (%): 94 - Physical Exam General: Alert, In no apparent distress, Oriented x3, Cooperative HEENT: Atraumatic Neck: Supple Respiratory: Clear to auscultation bilaterally, Normal air movement Cardiovascular: Normal pulses, Regular rate/rhythm Gastrointestinal: Normal bowel sounds, Soft and benign, Non-distended Musculoskeletal: No erythema, No tenderness, No warmth Integumentary: No erythema, No warmth, No cyanosis Neurological: Normal speech, Normal strength at 5/5 x4 extr, Normal tone, Normal affect - Studies Medications List Reviewed: Yes Assessment & Plan Discharge Plan: Home Plan to discharge in: Greater than 2 days Physician Review Additional Text: Impression: Fall with noted nausea, vomiting, and low blood pressure with noted elevated troponin and sinus tachycardia with PVCs secondary to NSTEMI with 60-70% right Coronary ostial lesion Hypertension Pedal edema left greater than right Acute on chronic systolic CHF, EF 34% Acute on chronic renal failure, stage III Anemia with noted iron/B12 deficiency Possible UTI Plan: Fall with noted nausea, vomiting, and low blood pressure with noted elevated troponin and sinus tachycardia with PVCs secondary to NSTEMI with 60-70% right Coronary ostial lesion noted: Patient doing well post heart catheterization. Cardiology plans for stent on Monday and likely home Monday of next week. Cardiology wants to have his renal function to his maximum in preparation for heart catheterization. Will continue with aspirin, Plavix, statin medication and beta-vernell therapy. Will continue to monitor closely. Will provide IV fluids 12 hr prior to heart catheterization. Case discussed with nephrology. Hypertension: Will continue with medication and adjust appropriately Pedal edema left greater than right: Doppler study negative Acute on chronic systolic CHF, EF 34%: Continue with diuretic therapy. Will adjust IV fluids. Acute on chronic renal failure, stage 3: Case discussed with nephrology. Renal function has improved. Patient will be provided IV fluids 12 hr prior to heart catheterization. Anemia with noted iron/B12 deficiency: Will provide supplementation. Patient will need GI workup as an outpatient. Possible UTI: Continue with antibiotic therapy. Await urine culture results. Time Spent Managing Pts Care (In Minutes): 55
[2018-11-16 18:04] LABS: HIV 1/2 Antibody Diff Not indicated.; HIV AG/AB 4TH GEN Non-reactive (Non-reactive)
[2018-11-16 19:51] LABS: Hepatitis C Virus RNA (PCR)log <1.18 log IU/mL
[2018-11-16] MEDS: ATORVASTATIN 40 MG TAB PO SCH (21:26)
--- NOTE | 2018-11-16 23:34 | P.PN ---
Subjective Date of Service: 11/16/18 Primary Care Provider: [facility] Chief Complaint: Fall, nausea/vomiting Subjective: No new changes The patient was admitted with non-ST elevation [place] with acute kidney injury cardiac cath on 11/14 Cr down to 1.4 p;maricruz for cardiac cath on Monday hold IVF and lasix Start NS 60ml hr on Monday night and cont 12hrs after cardiac cath Physical Examination - Vital Signs Temperature: 97.2 F Blood Pressure: 150/86 Pulse: 104 Respirations: 18 Pulse Ox (%): 92 - Physical Exam General: In no apparent distress, Oriented x3 HEENT: Atraumatic Neck: Supple, Without JVD or thyroid abnormality Respiratory: Clear to auscultation bilaterally, Normal air movement Cardiovascular: No edema, Regular rate/rhythm, Normal S1 S2 Gastrointestinal: Normal bowel sounds, Soft and benign - Studies Medications List Reviewed: Yes Assessment And Plan - Current Problems (Diagnosis) (1) KARIME (acute kidney injury) Current Visit: Yes Status: Acute - Plan KARIME Improving Cont gentle hydration FU SPEP and serology UA +2 pfot and bld UPC 0.5 S/p cardiac cath on 11/14 Cr 1.4 now, Cr 1.6 in 2013 cardiac cath again on Monday Hydration on Monday Anemia STIVEN : IV iron B12 def : B12 Sq UTI Ucx: staph coagulase -ve cont Rocephin for total of 7days
[2018-11-16 23:36] LABS: Vitamin D 1,25-Dihydroxy Total 15 pg/mL (18-72); Vitamin D,1,25-OH2, D2 <8 pg/mL
[2018-11-17 04:56] LABS: Albumin, (SPE) 2.8 g/dL (3.8-4.8); Alpha-1-Globulins 0.4 g/dL (0.2-0.3); Alpha-2-Globulins 0.9 g/dL (0.5-0.9); Gamma Globulins 0.8 g/dL (0.8-1.7); INTERPRETATION REPORT
[2018-11-17 06:26] LABS: Albumin 2.5 g/dL (3.4-5.0); Magnesium 2.4 mg/dL (1.8-2.4); Phosphorus 2.6 mg/dL (2.5-4.9); Potassium 3.9 mmol/L (3.5-5.1)
[2018-11-17] MEDS: METOPROLOL TAR 50 MG TAB PO SCH ×2 (06:35→17:52)
[2018-11-17] MEDS ORDERED: POTASSIUM CL SA 10 MEQ TAB PO ONE (09:00)
[2018-11-17] MEDS: CEFTRIAXONE/SWI 1gm 1 GM/10 ML SYR IVP SCH (09:41)
[2018-11-17] MEDS: CYANOCOBALAMIN 1000MCG/ML INJ SQ SCH (09:41)
[2018-11-17] MEDS: CLOPIDOGREL 75 MG TABLET PO SCH (09:42)
[2018-11-17] MEDS: ASPIRIN EC 81 MG TAB PO SCH (09:42)
[2018-11-17] MEDS: SOD FERRIC GLUC COMPLX/SUCROSE 125 MG in NA CHLORIDE 0.9% 100 ML IV SCH (09:42)
--- NOTE | 2018-11-17 10:31 | P.PN ---
Subjective Date of Service: 11/17/18 Primary Care Provider: [facility] Chief Complaint: Fall, nausea/vomiting Subjective: Improving, Doing well Physical Examination - Vital Signs Temperature: 96.8 F Blood Pressure: 140/81 Pulse: 87 Respirations: 16 Pulse Ox (%): 96 - Physical Exam General: Alert, In no apparent distress, Oriented x3, Cooperative HEENT: Atraumatic Neck: Supple Respiratory: Clear to auscultation bilaterally, Normal air movement Cardiovascular: Normal pulses, Regular rate/rhythm Gastrointestinal: Normal bowel sounds, Soft and benign, Non-distended Neurological: Normal speech, Normal strength at 5/5 x4 extr, Normal tone - Studies Medications List Reviewed: Yes Assessment & Plan Discharge Plan: Home Plan to discharge in: 72 Hours Physician Review Additional Text: Impression: Fall with noted nausea, vomiting, and low blood pressure with noted elevated troponin and sinus tachycardia with PVCs secondary to NSTEMI with 60-70% right Coronary ostial lesion Hypertension Pedal edema left greater than right Acute on chronic systolic CHF, EF 34% Acute on chronic renal failure, stage III Anemia with noted iron/B12 deficiency UTI with culture positive Staph epidermidis Plan: Fall with noted nausea, vomiting, and low blood pressure with noted elevated troponin and sinus tachycardia with PVCs secondary to NSTEMI with 60-70% right Coronary ostial lesion noted: Patient doing well post heart catheterization. No complaints noted today. Cardiology plans for stent on Monday and likely home Monday of next week. Cardiology wants to have his renal function to his baseline status in preparation for heart catheterization. Will continue with aspirin, Plavix, statin medication and beta-vernell therapy. Will continue to monitor closely. Will provide IV fluids 12 hr prior to heart catheterization. Case discussed with nephrology. Hypertension: Will continue with medication and adjust appropriately Pedal edema left greater than right: Doppler study negative. No significant edema noted. Acute on chronic systolic CHF, EF 34%: Continue with diuretic therapy. Acute on chronic renal failure, stage 3: Case discussed with nephrology. Renal function has improved. Patient will be provided IV fluids 12 hr prior to heart catheterization. Anemia with noted iron/B12 deficiency: Will provide supplementation. Patient will need GI workup as an outpatient. UTI with culture positive Staph epidermidis: Antibiotic coverage changed to doxycycline. Time Spent Managing Pts Care (In Minutes): 55
--- NOTE | 2018-11-17 13:21 | PN ---
Mr. Mix is not having angina, seems to be getting stronger. We plan to do a percutaneous coronary intervention of an ostial right coronary stenosis on Monday morning. His creatinine is not going up again, so I am hopeful that we can do it without injuring his kidneys. We will use a minimal amount of contrast, and the reason we did not do it acutely was because of the renal failure. I think it was hooker to stage this. GERDA/TODD Voice ID: [id number] Report ID: [id number] MTDD
--- NOTE | 2018-11-17 17:18 | PN ---
Date of Progress Note: 11/17/2018 Chief Complaint: Cardiorenal syndrome, acute kidney injury. History Of Present Illness: The patient was admitted with non-ST elevation myocardial infarction. Selina silva was found to have nonoliguric acute kidney injury and he underwent cardiac catheterization on 6. Creatinine level has improved to 1.4. The patient is currently on normal saline infusion aft er he had cardiac catheterization. Review of Systems: Denies complaints. Denies fever, chills, chest pain. Physical Examination: Lungs: Clear to auscultation bilaterally. Heart: S1 and S2. ABDOMEN: Soft, benign. Extremities: No edema. Impression And Plan: 1.Acute kidney injury. Renal function is improving. Continue monitor electrolytes and fluid balanc e. The patient had workup done to rule out monoclonal gammopathy of unknown significance. Serum pro tein electrophoresis, result is pending. 2.Anemia of mild degree. Monitor hemoglobin level. 3.Proteinuria. Urinalysis showed 2+ protein, protein creatinine ratio is 0.62. Serologic test for MGUS is pending. Hepatitis panel and other immunologic tests are pending. 4.Hypertension. Continue blood pressure medication. Continue beta- blockers for cardiorenal syndrome and acute kidney injury with acute coronary syndrome. CHRISTIANE/TODD Voice ID: [id number] Report ID: [id number]
[2018-11-17 20:45] LABS: HBsAG Nonreactive (Nonreactive)
[2018-11-17] MEDS: DOXYCYCLINE 100 MG CAP PO SCH (21:48)
[2018-11-17] MEDS: ATORVASTATIN 40 MG TAB PO SCH (21:48)
[2018-11-18 05:23] LABS: Albumin 2.6 g/dL (3.4-5.0); Magnesium 2.3 mg/dL (1.8-2.4); Phosphorus 2.6 mg/dL (2.5-4.9); Potassium 3.9 mmol/L (3.5-5.1)
[2018-11-18] MEDS: METOPROLOL TAR 50 MG TAB PO SCH ×2 (06:11→17:36)
[2018-11-18] MEDS ORDERED: POTASSIUM CL SA 10 MEQ TAB PO ONE (09:00)
[2018-11-18] MEDS: ASPIRIN EC 81 MG TAB PO SCH (09:39)
[2018-11-18] MEDS: CYANOCOBALAMIN 1000MCG/ML INJ SQ SCH (09:39)
[2018-11-18] MEDS: DOXYCYCLINE 100 MG CAP PO SCH ×2 (09:39→21:35)
[2018-11-18] MEDS: SOD FERRIC GLUC COMPLX/SUCROSE 125 MG in NA CHLORIDE 0.9% 100 ML IV SCH (09:40)
[2018-11-18] MEDS: CLOPIDOGREL 75 MG TABLET PO SCH (09:40)
--- NOTE | 2018-11-18 11:49 | P.PN ---
Subjective Date of Service: 11/18/18 Primary Care Provider: [facility] Chief Complaint: Fall, nausea/vomiting Subjective: Doing well Physical Examination - Vital Signs Temperature: 97 F Blood Pressure: 122/60 Pulse: 71 Respirations: 20 Pulse Ox (%): 97 - Physical Exam General: Alert, In no apparent distress, Oriented x3, Cooperative HEENT: Atraumatic Neck: Supple Respiratory: Clear to auscultation bilaterally, Normal air movement Cardiovascular: Normal pulses, Regular rate/rhythm Gastrointestinal: Normal bowel sounds, Soft and benign, Non-distended, No masses , No rebound, No guarding Musculoskeletal: No erythema, No tenderness, No warmth Integumentary: No tenderness/swelling, No erythema, No warmth, No cyanosis Neurological: Normal speech, Normal strength at 5/5 x4 extr, Normal tone, Normal affect - Studies Medications List Reviewed: Yes Assessment & Plan Discharge Plan: Home Plan to discharge in: 48 Hours Physician Review Additional Text: Impression: Fall with noted nausea, vomiting, and low blood pressure with noted elevated troponin and sinus tachycardia with PVCs secondary to NSTEMI with 60-70% right Coronary ostial lesion Hypertension Pedal edema left greater than right Acute on chronic systolic CHF, EF 34% Acute on chronic renal failure, stage III Anemia with noted iron/B12 deficiency UTI with culture positive Staph epidermidis Plan: Fall with noted nausea, vomiting, and low blood pressure with noted elevated troponin and sinus tachycardia with PVCs secondary to NSTEMI with 60-70% right Coronary ostial lesion noted: Patient doing well post heart catheterization. No complaints noted today. Cardiology plans for stent on tomorrow and likely home Monday. Cardiology wants to have his renal function to his baseline status in preparation for heart catheterization. Will continue with aspirin, Plavix, statin medication and beta-vernell therapy. Will continue to monitor closely. Will provide IV fluids 12 hr prior to heart catheterization. Case discussed with nephrology and cardiology. I will turn the service over to Dr. Bangura tomorrow. I will go over the plan of care with her. Hypertension: Will continue with medication and adjust appropriately Pedal edema left greater than right: Doppler study negative. No significant edema noted. Acute on chronic systolic CHF, EF 34%: Continue with diuretic therapy. Acute on chronic renal failure, stage 3: Case discussed with nephrology. Renal function has improved. Patient will be provided IV fluids 12 hr prior to heart catheterization. Anemia with noted iron/B12 deficiency: Will provide supplementation. Patient will need GI workup as an outpatient. UTI with culture positive Staph epidermidis: Antibiotic coverage changed to doxycycline. Time Spent Managing Pts Care (In Minutes): 55
--- NOTE | 2018-11-18 14:49 | PN ---
He is not having any symptoms. The plan is to do a cardiac cath tomorrow, use left femoral approach and place a stent in the ostium of the right coronary, which showed about a 70% stenosis last Vidhya RUIZ Voice ID: [id number] Report ID: [id number]
[2018-11-18 20:02] LABS: P-ANCA Anti-Myeloperoxidase Ab <1.0 AI (<1.0)
[2018-11-18] MEDS: NA CHLORIDE 0.9% 1,000 ML IV SCH (21:35)
[2018-11-18] MEDS: ATORVASTATIN 40 MG TAB PO SCH (21:35)
--- NOTE | 2018-11-19 01:26 | PN ---
Date of Progress Note: 11/18/2018 Chief Complaint: Cardiorenal syndrome, acute kidney injury. History Of Present Illness: The patient was admitted with [id number] myocardial infarction. Selina silva was found to have nonoliguric acute kidney injury and underwent cardiac catheterization on November 14. Creatinine level has improved to 1.4. The patient is currently on IV fluids, and after cardia c catheterization, he completed IV fluids. Today, he denies complaints. Review of Systems: Denies fever or chills. Physical Examination: Lungs: Clear to auscultation bilaterally. Heart: S1, S2. Abdomen: Soft, benign. Extremities: No edema. Laboratory Data: Sodium 142, potassium 3.9, chloride 110, CO2 of 23, BUN 26, creatinine 1.4, calcium 8.2, phosphorus 2.6, magnesium 2.3. Impression And Plan: 1.Acute kidney injury. Renal function has improved. The patient has underlying chronic kidney dise ase stage 3. Renal function has been stable over the last 48 hours. The patient has nonoliguric uri ne output. Electrolytes are stable. There is no evidence of metabolic acidosis. There is some prer enal azotemia corresponding with cardiorenal syndrome. The patient will continue low-sodium diet and adjust blood pressure medication to have systolic blood pressure target 120. 2.Proteinuria. Workup is pending. To rule out monoclonal gammopathy of unknown significance. 3.Congestive heart failure, cardiorenal syndrome, acute kidney injury with acute coronary syndrome, and cardiorenal syndrome. Continue beta-vernell. CHRISTIANE/TODD Voice ID: [id number] Report ID: [id number]
[2018-11-19] MEDS: METOPROLOL TAR 50 MG TAB PO SCH ×2 (06:08→17:59)
[2018-11-19 06:28] LABS: Potassium 4.6 mmol/L (3.5-5.1)
[2018-11-19] MEDS ORDERED: MIDAZOLAM HCL 2 MG/2 ML INJ ONE (07:58)
[2018-11-19] MEDS ORDERED: ATROPINE SULF 1 MG/10 ML SYR IV ONE (07:59)
[2018-11-19] MEDS ORDERED: NA CHLORIDE 0.9% 50 ML ONE (07:59)
[2018-11-19] MEDS ORDERED: FENTANYL CITR 100 MCG/2 ML ONE (07:59)
[2018-11-19] MEDS: ASPIRIN EC 81 MG TAB PO SCH (08:38)
[2018-11-19] MEDS: CLOPIDOGREL 75 MG TABLET PO SCH (08:39)
[2018-11-19] MEDS ORDERED: PRASUGREL (EFFIENT) 10 MG TAB ONE (08:40)
[2018-11-19] MEDS: TAMSULOSIN 0.4 MG SR CAP PO SCH (09:00)
[2018-11-19] MEDS: CYANOCOBALAMIN 1000MCG/ML INJ SQ SCH (09:49)
[2018-11-19] MEDS: DOXYCYCLINE 100 MG CAP PO SCH ×2 (09:49→21:02)
[2018-11-19] MEDS: SOD FERRIC GLUC COMPLX/SUCROSE 125 MG in NA CHLORIDE 0.9% 100 ML IV SCH (09:49)
[2018-11-19] MEDS: NA CHLORIDE 0.9% 1,000 ML IV SCH (12:40)
--- NOTE | 2018-11-19 15:45 | P.PN ---
Subjective Date of Service: 11/19/18 Primary Care Provider: [facility] Chief Complaint: Fall, nausea/vomiting Subjective: No C/O voiced, Improving Patient seen and examined at bedside. No family at bedside. Chart reviewed and case discussed with nursing staff. Review of Systems 10-point ROS is otherwise unremarkable Physical Examination - Vital Signs Temperature: 97.1 F Blood Pressure: 125/67 Pulse: 79 Respirations: 20 Pulse Ox (%): 97 - Physical Exam General: Alert, In no apparent distress, Oriented x3 HEENT: Atraumatic, PERRLA, EOMI Neck: Supple, JVD not distended Respiratory: Clear to auscultation bilaterally, Normal air movement Cardiovascular: Regular rate/rhythm, Normal S1 S2 Gastrointestinal: Normal bowel sounds, No tenderness Musculoskeletal: No tenderness Integumentary: No rashes Neurological: Normal speech, Normal tone, Normal affect Lymphatics: No axilla or inguinal lymphadenopathy - Studies Medications List Reviewed: Yes Assessment And Plan - Current Problems (Diagnosis) (1) NSTEMI (non-ST elevated myocardial infarction) Current Visit: Yes Status: Acute (2) Hypertension Current Visit: Yes Status: Chronic Qualifiers: Hypertension type: essential hypertension Qualified Code(s): I10 - Essential (primary) hypertension (3) Pedal edema Current Visit: Yes Status: Acute (4) Congestive heart failure Current Visit: Yes Status: Acute Qualifiers: Heart failure type: systolic Heart failure chronicity: acute on chronic Qualified Code(s): I50.23 - Acute on chronic systolic (congestive) heart failure (5) Chronic renal failure Current Visit: Yes Status: Chronic Qualifiers: Chronic kidney disease stage: stage 3 (moderate) Qualified Code(s): N18.3 - Chronic kidney disease, stage 3 (moderate) (6) Anemia Current Visit: Yes Status: Chronic Qualifiers: Anemia type: unspecified type Qualified Code(s): D64.9 - Anemia, unspecified (7) UTI (urinary tract infection), bacterial Current Visit: Yes Status: Acute - Plan NSTEMI with 60-70% right Coronary ostial lesion noted: Patient is status post heart catheterization on 11/15/2018. Cardiology was waiting for improvement in kidney function and now patient is status post stent placement (11/19/2018). Patient doing well post heart catheterization. No complaints noted today. We Will continue with aspirin, Plavix, statin medication and beta-vernell therapy. Will continue to monitor closely. Hypertension: Will continue with current medications and adjust appropriately Pedal edema left greater than right: Doppler study negative. No significant edema noted. Acute on chronic systolic CHF, EF 34%: Continue with diuretic therapy. Acute on chronic renal failure, stage 3: Case discussed with nephrology. Renal function has improved. Anemia with noted iron/B12 deficiency: Will provide supplementation. Patient will need GI workup as an outpatient. UTI with culture positive Staph epidermidis: We will continue Antibiotic coverage with doxycycline. DVT prophylaxis: Lovenox GI prophylaxis: Protonix Diet: Heart healthy Disposition: Pending clinical improvement. Likely discharge home in the next 24 hr if he remains stable overnight. Discharge Plan: Home Plan to discharge in: 24 Hours Time Spent Managing PTS Care (In Minutes): 35
--- NOTE | 2018-11-19 20:02 | OP ---
Surgeon: Aaron Mccarty MD Playground Worker: Antonia German Procedure: Mr. Mix had an angioplasty of the ostium of the right coronary with a stent. Indication: Non-ST elevation WI with near syncope and an ostial right coronary stenosis of about 70% . Procedure Findings: The ostial RCA stenosis was successfully dilated, stented and the angiographic r esult was excellent. There was less than 10% residual stenosis. About 1 mm of stent material extend ed beyond the ostium into the ascending aorta. It was too easy to engage the right coronary ostium w ith a 6-Indian catheter. Procedure In Detail: The patient was brought to the cardiac chemical lab technician in a fasting state, sedated wit h Versed and fentanyl, prepared and draped in usual sterile fashion. Left femoral artery was used be cause he has no ulnar pulse, we avoided a radial approach and we used the right femoral approach 5 da ys ago and did a staged procedure. Arteries around the left femoral artery were anesthetized with 1% lidocaine. The artery was entered using an 18-gauge needle, cannulated with a short J-wire and a 6- Indian sheath was used. The sheath was flushed. Angiomax was given, activated clotting time over 35 0 seconds demonstrated. We used a 3DRC 6-Indian guide catheter. We crossed the lesion using a Couga r wire. We used a Synergy 3.0 x 12 stent across the lesion, took the guide catheter completely out o f the ostium and positioned the catheter as well as we could, inflated it to 12 atmospheres and ended up with an excellent angiographic result. At the end of the procedure, no complications. Catheter and wire were withdrawn. After final angiograms, a sheath shot was done. Adequate anatomy was seen and when the ACT was less than 250, we closed using Angio-Seal device. Estimated Blood Loss: 10 cc. Complications: None. SH/MODL Voice ID: [id number] Report ID: [id number]
[2018-11-19] MEDS: ATORVASTATIN 80 MG TAB PO SCH (21:02)
--- NOTE | 2018-11-20 03:50 | PN ---
Date of Progress Note: 11/19/2018 Chief Complaint: Acute kidney injury, cardiorenal syndrome. History Of Present Illness: The patient presented to the hospital because of generalized weakness, status post fall. He was found to have non ST elevation myocardial infarction. He was found to have nonoliguric acute kidney injury, underwent cardiac catheterization. Subsequently, he received IV fluids and serum creatinine improved to 1.4. Currently, the patient is tolerating p.o. intake. Review of Systems: Denies fever, chills. Physical Examination: Lungs: Clear to auscultation bilaterally. Heart: S1, S2. Abdomen: Soft, benign. Extremities: No edema. Laboratory Work: Sodium 142, potassium 4.6, chloride 112, CO2 23, BUN 21, creatinine 1.35, and calcium 8.4. Impression And Plan: 1. Hljbp-ij-uegyuuc kidney injury, cardiorenal syndrome. Renal function is gradually improving. The patient has underlying chronic kidney stage 3 due to benign nephrosclerosis. Monitor urine output and fluid balance. 2. Proteinuria. Workup pending to rule out monoclonal gammopathy of unknown significance. 3. Congestive heart failure, cardiorenal syndrome, acute kidney injury complicated by acute coronary syndrome and cardiorenal syndrome. Continue beta- vernell. CHRISTIANE/TODD Voice ID: [id number] Report ID: [id number] LULA
[2018-11-20] MEDS: NA CHLORIDE 0.9% 1,000 ML IV SCH (04:49)
[2018-11-20] MEDS: METOPROLOL TAR 50 MG TAB PO SCH ×2 (06:15→17:34)
[2018-11-20] MEDS: SOD FERRIC GLUC COMPLX/SUCROSE 125 MG in NA CHLORIDE 0.9% 100 ML IV SCH (09:25)
[2018-11-20] MEDS: CLOPIDOGREL 75 MG TABLET PO SCH (09:25)
[2018-11-20] MEDS: DOXYCYCLINE 100 MG CAP PO SCH ×2 (09:25→21:14)
[2018-11-20] MEDS: ASPIRIN EC 81 MG TAB PO SCH (09:25)
[2018-11-20] MEDS: TAMSULOSIN 0.4 MG SR CAP PO SCH (09:25)
--- NOTE | 2018-11-20 09:47 | PN ---
Mr. Mix's stent yesterday went well. The puncture site looks well. He feels fine. He is ready to be discharged home. He has a good understanding of the procedure that we did, and he is stable enoug h to be discharged. He will have new medications for beta-blockers, atorvastatin, aspirin, and Plavi x. GERDA/TODD Voice ID: [id number] Report ID: [id number]
--- NOTE | 2018-11-20 10:01 | P.DS ---
Admission Date: 11/12/18 Discharge Date: 11/21/18 Primary Care Provider: [facility] Disposition: ROUTINE DISCHARGE Discharge Condition: GOOD Reason for Admission: Fall, nausea/vomiting Consultations: Cardiology Nephrology Procedures: 11/14/2018: Heart catheterization 11/19/2018: Heart catheterization with PCI to RCA - Problems (1) NSTEMI (non-ST elevated myocardial infarction) Current Visit: Yes Status: Acute (2) Hypertension Current Visit: Yes Status: Chronic Qualifiers: Hypertension type: essential hypertension Qualified Code(s): I10 - Essential (primary) hypertension (3) Pedal edema Current Visit: Yes Status: Acute (4) Congestive heart failure Current Visit: Yes Status: Acute Qualifiers: Heart failure type: systolic Heart failure chronicity: acute on chronic Qualified Code(s): I50.23 - Acute on chronic systolic (congestive) heart failure (5) Chronic renal failure Current Visit: Yes Status: Chronic Qualifiers: Chronic kidney disease stage: stage 3 (moderate) Qualified Code(s): N18.3 - Chronic kidney disease, stage 3 (moderate) (6) Anemia Current Visit: Yes Status: Chronic Qualifiers: Anemia type: unspecified type Qualified Code(s): D64.9 - Anemia, unspecified (7) UTI (urinary tract infection), bacterial Current Visit: Yes Status: Acute Brief History of Present Illness: Patient reports that he was getting to his vehicle after walking in the park. He reports that his knees gave way and he fell. He had an episode of vomiting with nausea at that time. He denied any syncope, presyncope, chest pain. When EMS arrived his blood pressure was low. Patient reports a history of hypertension. He only takes 1 blood pressure medication. He denies any significant cardiac issues. He is seen at the [facility]. Patient denies any significant palpitation, abdominal pain, shortness of breath. In the ER the patient was evaluated. Blood pressure stable. He was with sinus tachycardia with some PVCs. Initial cardiac enzymes elevated at 0.26. White count 10.6, hemoglobin 11.4. BUN of 29, creatinine 1.8 with a GFR 36. Sodium 140, potassium 4.3. Chest x-ray unremarkable. The patient was admitted for further evaluation. Hospital Course: Patient was admitted to the hospital for NSTEMI. His cardiac enzymes increased from 3.49-5.13. Patient was started on Lovenox, aspirin, Lipitor, metoprolol, nitroglycerin and morphine. He was given oxygen as needed, morphine and nitro stat for pain control as needed. Cardiology was consulted. Patient underwent a cardiac catheterization to evaluate for underlying coronary artery disease. He was found to have a lesion in the RCA region and a delayed cardiac stent placement was planned because of his underlying renal function. He was started on aggressive IV fluids, per nephrology. After maximizing his kidney function, a coronary stent was placed on 11/19/2018. Patient was monitored for 24 hr, no complications or symptoms noted. He remained hemodynamically stable, alert oriented x4 and without any cardiac symptoms. A renal ultrasound was done for his chronic renal failure, stage III. It was noted that he had some underlying chronic renal disease, nephrology was consulted. His creatinine/kidney function improved, remained stable prior to discharge. A Doppler study was also done due to his pedal edema, left greater than right, which was negative for a DVT. An echo was obtained. He was continued on diuretic therapy for his acute on chronic systolic CHF, with an ejection fraction 34%. He was also noted to have anemia with iron and B12 deficiency. He will have an outpatient follow up with GI for further workup for this. He was found to have a UTI a with culture positive staph epidermidis. He was started on antibiotics, changed /adjusted to doxycycline. He will complete a course of 7 days of doxycycline. Prior to discharge, patient was alert oriented x3, hemodynamically stable, asymptomatic. Will his symptoms/disease/procedures were explained to him in detail, all questions were answered and patient verbalized understanding. He will have outpatient follow up with nephrology for his chronic renal disease. He will also be following up with GI as an outpatient for further workup of his anemia and B12 deficiency. Vital Signs/Physical Exam: Temp Pulse Resp BP Pulse Ox 97.1 F 74 17 114/62 96 11/20/18 08:00 11/20/18 08:00 11/20/18 08:00 11/20/18 08:00 11/20/18 08:00 General: Alert, In no apparent distress, Oriented x3 HEENT: Atraumatic, PERRLA, EOMI Neck: Supple, JVD not distended Respiratory: Clear to auscultation bilaterally, Normal air movement Cardiovascular: No edema, Regular rate/rhythm, Normal S1 S2 Gastrointestinal: Normal bowel sounds, No tenderness Musculoskeletal: No tenderness Integumentary: Skin lesion (On lower extremity, venous stasis ulcers) Neurological: Normal speech, Normal tone, Normal affect Lymphatics: No axilla or inguinal lymphadenopathy Laboratory Data at Discharge: WBC 9.7 K/uL (4.3-10.9) 11/15/18 05:50 Hgb 11.3 g/dL (13.6-17.9) L 11/15/18 05:50 Hct 32.9 % (39.6-49.0) L 11/15/18 05:50 Plt Count 191 K/uL (152-406) 11/15/18 05:50 Sodium 142 mmol/L (136-145) 11/20/18 07:21 Potassium 4.0 mmol/L (3.5-5.1) 11/20/18 07:21 BUN 20 mg/dL (7-18) H 11/20/18 07:21 Creatinine 1.34 mg/dL (0.55-1.3) H 11/20/18 07:21 Glucose 106 mg/dL (74-106) 11/20/18 07:21 Uric Acid 6.5 mg/dL (3.5-7.2) 11/14/18 05:48 Phosphorus 2.6 mg/dL (2.5-4.9) 11/18/18 04:24 Magnesium 2.3 mg/dL (1.8-2.4) 11/18/18 04:24 Total Bilirubin 0.4 mg/dL (0.2-1.0) 11/12/18 12:20 AST 14 U/L (15-37) L 11/12/18 12:20 ALT 15 U/L (12-78) 11/12/18 12:20 Alkaline Phosphatase 73 U/L (45-117) 11/12/18 12:20 Troponin I 5.13 ng/mL (0.0-0.045) H* D 11/13/18 00:50 Triglycerides 71 mg/dL (<150) 11/13/18 06:23 Cholesterol 128 mg/dL (<200) 11/13/18 06:23 HDL Cholesterol 62 mg/dL (40-60) H 11/13/18 06:23 Cholesterol/HDL Ratio 2.06 11/13/18 06:23 Lipase 279 U/L (73-393) 11/12/18 12:20 Home Medications: Aspirin [Aspirin EC 81 MG] 81 mg PO DAILY #30 tablet. 11/20/18 RX: Atorvastatin Calcium [Lipitor] 80 mg PO BEDTIME #30 tab 11/20/18 RX: Clopidogrel Bisulfate [Plavix*] 75 mg PO DAILY #30 tablet 11/20/18 RX: Metoprolol Tartrate [Lopressor*] 50 mg PO BID 6AM 6PM #60 tab 11/20/18 RX: Nitroglycerin [Nitrostat*] 0.4 mg SL UD PRN #15 tab 11/20/18 RX: Doxycycline Hyclate [Vibramycin] 100 mg PO BID #6 capsule 11/21/18 New Medications: Aspirin [Aspirin EC 81 MG] 81 mg PO DAILY #30 tablet. RX: Atorvastatin Calcium [Lipitor] 80 mg PO BEDTIME #30 tab RX: Clopidogrel Bisulfate [Plavix*] 75 mg PO DAILY #30 tablet RX: Doxycycline Hyclate [Vibramycin] 100 mg PO BID #6 capsule RX: Metoprolol Tartrate [Lopressor*] 50 mg PO BID 6AM 6PM #60 tab RX: Nitroglycerin [Nitrostat*] 0.4 mg SL UD PRN #15 tab PRN Reason: Pain Scale 2-4 (Mild) Patient Discharge Instructions: NSTEMI: He will continue to take atorvastatin, Plavix, metoprolol, aspirin after your stent placement. Prescriptions provided to you. Please follow up with the primary care physician in 1 week. Please follow up with electrical instrument maker in 2 weeks. Chronic renal failure, stage III: Please follow up with nephrology for further management/evaluation. Information provided to you. Anemia with iron and B12 deficiency: Continue iron and B12 supplementation. Please follow up with outpatient gastroenterology for further evaluation. Information for Gastroenter[facility] Clinic provided to you. Urinary tract infection: He will complete a course of doxycycline (antibiotic) for 7 days. Prescription provided to you. Diet: AHA Activity: No lifting more than 10 lbs Followup: Dulce Patel MD [ACTIVE - CAN ADMIT] - (Please call the clinic to schedule an appointment for 2 weeks.) Aaron Mccarty MD [ACTIVE - CAN ADMIT] - 1-2 Weeks (Please call the clinic to schedule an appointment) Andreas Gamino MD [ASSOCIATE-ACTIVE - CAN ADMIT] - (Please call their office to make an appointment) Time spent managing pt's care (in minutes): 55
--- NOTE | 2018-11-20 10:12 | P.PN ---
Subjective Date of Service: 11/20/18 Primary Care Provider: [facility] Chief Complaint: Fall, nausea/vomiting Subjective: No C/O voiced, Improving Patient seen and examined at bedside. No family at bedside. Chart reviewed and case discussed with nursing staff. Review of Systems 10-point ROS is otherwise unremarkable Physical Examination - Vital Signs Temperature: 97.1 F Blood Pressure: 114/62 Pulse: 74 Respirations: 17 Pulse Ox (%): 96 - Physical Exam General: Alert, In no apparent distress, Oriented x3 HEENT: Atraumatic, PERRLA, EOMI Neck: Supple, JVD not distended Respiratory: Clear to auscultation bilaterally, Normal air movement Cardiovascular: Regular rate/rhythm, Normal S1 S2 Gastrointestinal: Normal bowel sounds, No tenderness Musculoskeletal: No tenderness Integumentary: No rashes Neurological: Normal speech, Normal tone, Normal affect Lymphatics: No axilla or inguinal lymphadenopathy - Studies Medications List Reviewed: Yes Assessment And Plan - Current Problems (Diagnosis) (1) NSTEMI (non-ST elevated myocardial infarction) Current Visit: Yes Status: Acute (2) Hypertension Current Visit: Yes Status: Chronic Qualifiers: Hypertension type: essential hypertension Qualified Code(s): I10 - Essential (primary) hypertension (3) Pedal edema Current Visit: Yes Status: Acute (4) Congestive heart failure Current Visit: Yes Status: Acute Qualifiers: Heart failure type: systolic Heart failure chronicity: acute on chronic Qualified Code(s): I50.23 - Acute on chronic systolic (congestive) heart failure (5) Chronic renal failure Current Visit: Yes Status: Chronic Qualifiers: Chronic kidney disease stage: stage 3 (moderate) Qualified Code(s): N18.3 - Chronic kidney disease, stage 3 (moderate) (6) Anemia Current Visit: Yes Status: Chronic Qualifiers: Anemia type: unspecified type Qualified Code(s): D64.9 - Anemia, unspecified (7) UTI (urinary tract infection), bacterial Current Visit: Yes Status: Acute - Plan NSTEMI with 60-70% right Coronary ostial lesion noted: Patient is status post heart catheterization on 11/15/2018. Cardiology was waiting for improvement in kidney function and now patient is status post stent placement (11/19/2018). Patient doing well post heart catheterization. No complaints noted today. We Will continue with aspirin, Plavix, statin medication and beta-vernell therapy. Will continue to monitor closely. Hypertension: Will continue with current medications and adjust appropriately Pedal edema left greater than right: Doppler study negative. No significant edema noted. Acute on chronic systolic CHF, EF 34%: Continue with diuretic therapy. Acute on chronic renal failure, stage 3: Case discussed with nephrology. Renal function has improved; observe 24 more hr for changes to creatinine after the catheterization. Anemia with noted iron/B12 deficiency: Will provide supplementation. Patient will need GI workup as an outpatient. UTI with culture positive Staph epidermidis: We will continue Antibiotic coverage with doxycycline. DVT prophylaxis: Lovenox GI prophylaxis: Protonix Diet: Heart healthy Disposition: Pending clinical improvement. Likely discharge home in the next 24 hr if he remains stable overnight. Discharge Plan: Home Plan to discharge in: 24 Hours
--- NOTE | 2018-11-20 11:22 | RAD REPORT ---
EXAM DESCRIPTION: RAD - Chest Single View - 11/20/2018 10:56 am CLINICAL HISTORY: COPD Chest pain. COMPARISON: Chest Single View dated 11/12/2018; CHEST SINGLE VIEW dated 10/27/2011; CHEST SINGLE VIEW d ated 10/25/2011; CHEST SINGLE VIEW dated 10/24/2011 FINDINGS: Portable technique limits examination quality. Since the comparative study, a small opacity has developed in the right lung base laterally associate d with a small pleural effusion, this may represent developing pneumonia or aspiration. The heart is upper limit normal in size. No displaced fractures.
--- NOTE | 2018-11-20 20:03 | PN ---
Date of Progress Note: 11/20/2018 Subjective: The patient is status post angioplasty yesterday, tolerated the procedure. Physical Examination: Vital Signs: Blood pressure 111/60, pulse of 85, afebrile. The patient had good urine output of 130 0. Chest: Clear to auscultation. Heart: S1, S2. Regular. Systolic murmur. Abdomen: Soft, nontender. Extremity: Trace edema. Laboratory Data: WBC 9.7, H and H 11.3/32.5, platelet 191. Sodium 142, potassium 4, bicarb 23, BUN 20, creatinine 1.3. GFR of 51, calcium 8.5. Current Medications: Include; 1.Aspirin. 2.Doxycycline. 3.Flomax. 4.IV iron. 5.Plavix 75. 6.Metoprolol 60 b.i.d. 7.Atorvastatin. 8.Nitroglycerin. 9.Zofran. Assessment And Plan: 1.Acute kidney injury on chronic kidney disease secondary to cardiorenal look to me. Start to being euvolemic. The patient just got cardiac cath yesterday. We will watch for another 24 hour to compl ete 48 hours after contrast, then if kidney function stays stable the patient okay to be discharged t o followup in the office in 2-3 weeks. 2.Hypertension, controlled, optimal. Continue current medication. 3.Coronary artery disease with non-ST elevation myocardial infarction and congestive heart failure e xacerbation. The patient euvolemic currently. We will keep holding on IV fluid. Keep holding diuresis. We will monitor the patient. BRANDON/TODD Voice ID: [id number] Report ID: [id number]
[2018-11-20] MEDS: ATORVASTATIN 80 MG TAB PO SCH (21:14)
[2018-11-21 06:06] LABS: Absolute Lymphocytes (CBC) 1.3 K/uL (0.7-4.9); Absolute Monocytes 0.8 K/uL (0.1-1.3); Absolute Neutrophil 6.1 K/uL (1.8-8.0); Basophils % 0.7 % (0-1.3); Eosinophils % 2.5 % (0-4.4); Hematocrit 29.3 % (39.6-49.0); Lymphocytes % 14.9 % (15.3-44.8); MPV 7.7 fL (7.6-11.3); Monocytes % 9.5 % (3.3-12.3); RBC Red Blood Cell Count 3.14 M/uL (4.33-5.43)
[2018-11-21 06:15] LABS: Albumin 2.6 g/dL (3.4-5.0); Bilirubin Total 0.4 mg/dL (0.2-1.0); Potassium 3.9 mmol/L (3.5-5.1); Protein, Total 6.1 g/dL (6.4-8.2)
[2018-11-21] MEDS: METOPROLOL TAR 50 MG TAB PO SCH (06:17)
[2018-11-21] MEDS ORDERED: POTASSIUM CL SA 10 MEQ TAB PO ONE (09:00)
[2018-11-21] MEDS: ASPIRIN EC 81 MG TAB PO SCH (09:17)
[2018-11-21] MEDS: SOD FERRIC GLUC COMPLX/SUCROSE 125 MG in NA CHLORIDE 0.9% 100 ML IV SCH (09:17)
[2018-11-21] MEDS: DOXYCYCLINE 100 MG CAP PO SCH (09:17)
[2018-11-21] MEDS: CLOPIDOGREL 75 MG TABLET PO SCH (09:17)
[2018-11-21] MEDS: TAMSULOSIN 0.4 MG SR CAP PO SCH (09:17)
[2018-11-21 09:57] VITALS: TEMP 97.4
[2018-11-21 11:10] VITALS: O2SAT 94
[2018-11-21 14:07] VITALS: BP 125/64
--- NOTE | 2018-11-21 17:28 | PN ---
Date of Progress Note: 11/21/2018 Subjective: The patient is feeling well, status post cardiac cath on , tolerated well. The annel ent has no shortness of breath. Physical Examination: Vital Signs: Blood pressure 121/63, pulse of 74, afebrile. Chest: Clear to auscultation. Heart: S1, S2. Regular. Systolic murmur. Abdomen: Soft, nontender. Extremities: Trace edema. Laboratory Data: H and H 9.9/29.3. Sodium 142, potassium 3.9, bicarb 23, BUN 19, creatinine 1.3. V itamin D less than 8. PTH 110. Current Medications: The patient on its include: 1.Aspirin. 2.Doxycycline. 3.Flomax. 4.IV iron. 5.Plavix. 6.Nitroglycerin. 7.Atorvastatin. 8.Metoprolol 50 b.i.d. Assessment And Plan: 1.Acute kidney injury secondary to cardiorenal, recovered, resolved, back to baseline. 2.Chronic kidney disease secondary to cardiorenal. Normal volume. Continue current medication. 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 No need for vitamin D analogue. 4.Vitamin D deficiency. The patient will be started on ergocalciferol. Hopefully as outpatient, we will consider to place the patient on [facility] and we will follow up. 5.Coronary artery disease, [id number] myocardial infarction, congestive heart failure, status post cardiac cath, tolerated the contrast. Okay from the Renal standpoint for discharge to follow up in the office in [address] [facility]. MIN Voice ID: [id number] Report ID: [id number]
[2018-11-22] MEDS ORDERED: VITAMIN D 5,000 UNIT CAP PO SCH (09:00)
== END 2018-11-21 14:57 | disposition home or self-care (01) | DRG 246 ==
LOC: ER 11:46 → 2ND 16:01
PROVIDERS: ADMIT Family Medicine; ATTEND Family Medicine
PROC: 4A023N7 Measurement of Cardiac Sampling and Pressure, Left Heart, Percutaneous Approach (ICD-10-PCS; 2018-11-14)
PROC: B211YZZ Fluoroscopy of Multiple Coronary Arteries using Other Contrast (ICD-10-PCS; 2018-11-14)
PROC: 027034Z Dilation of Coronary Artery, One Artery with Drug-eluting Intraluminal Device, Percutaneous Approach (ICD-10-PCS; principal; 2018-11-19)
DX: I21.4 Non-ST elevation (NSTEMI) myocardial infarction (principal); I50.23 Acute on chronic systolic (congestive) heart failure; N17.0 Acute kidney failure with tubular necrosis; N17.9 Acute kidney failure, unspecified; I13.0 Hypertensive heart and chronic kidney disease with heart failure and stage 1 through stage 4 chronic kidney disease, or unspecified chronic kidney disease; N39.0 Urinary tract infection, site not specified; N25.81 Secondary hyperparathyroidism of renal origin; R60.9 Edema, unspecified; I95.9 Hypotension, unspecified; I24.9 Acute ischemic heart disease, unspecified; N18.3 Chronic kidney disease, stage 3 (moderate); E83.42 Hypomagnesemia; D50.9 Iron deficiency anemia, unspecified; D51.9 Vitamin B12 deficiency anemia, unspecified; B95.7 Other staphylococcus as the cause of diseases classified elsewhere; R80.9 Proteinuria, unspecified; I25.10 Atherosclerotic heart disease of native coronary artery without angina pectoris
CPT/HCPCS: 36415; 71045; 76770; 80048; 80053; 80061; 80069; 80076; 81003; 81015; 82550; 82553; 82570; 82607; 82652; 82728; 82746; 83520; 83540; 83690; 83735; 83970; 84156; 84165; 84439; 84443; 84466; 84484; 84550; 85025; 85044; 85347; 86021; 86038; 86160; 86225; 86317; 86430; 86704; 86706; 87077; 87086; 87088; 87186; 87340; 87389; 87522; 87804; 93005; 93306; 93454; 93970; 96360; 96361; 99285; C1725; C1760; C1893; C9600; J0583; J0696; J1650; J2250; J2916; J3010; J3420; J7030

== ENCOUNTER 2022-05-26 10:59 | Emergency (ER) | payer OTHER ==
--- OUTSIDE RECORDS SUMMARY | 2022-05-26 11:01 | XMS REPORT | Continuity of Care Document ---
:1935 Author Organization [facility] t Address [address] [place] [address] Care Team Providers Name Role Phone MICHAEL GRAY Attending Clinician Unavailable Payers Payer Name Policy Type Policy Number Effective Date Expiration Date S ource [employer] CHOICE [id number] 00:00:00 Problems This patient has no known problems. Allergies, Adverse Reactions, Alerts Allergy Allergy Status Severity Reaction(s) Onset Inactive Treating Comm ents Source Name Type Date Date Clinician NO KNOWN Drug Active [facility] ALLERGIE Class [facility] Medications This patient has no known medications. Procedures This patient has no known procedures. Encounters Start End Encounter Admission Attending Care Care Encounter Source Date/Time Date/Time Type Type Clinicians Facility Department ID 2021-01-03 2021-01-03 Outpatient [facility] [id number] [facility] 15:15:00 15:15:00 [facility] 2020-12-06 2020-12-06 Outpatient Logan GRAY [facility] [id number] [facility] 15:05:00 15:05:00 MICHAEL [facility] Results This patient has no known results.
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
[2022-05-26 12:57] VITALS: BP 155/73; O2SAT 100
== END 2022-05-26 12:40 | disposition home or self-care (01) ==
LOC: ER 10:59
DX: S51.812A Laceration without foreign body of left forearm, initial encounter (principal); S51.811A Laceration without foreign body of right forearm, initial encounter; V47.5XXA Car driver injured in collision with fixed or stationary object in traffic accident, initial encounter; I10 Essential (primary) hypertension
CPT/HCPCS: 70450; 72125; 99284

== ENCOUNTER 2022-10-07 08:04 | Inpatient (IN) | payer OTHER ==
--- OUTSIDE RECORDS SUMMARY | 2022-10-07 08:07 | XMS REPORT | Continuity of Care Document ---
:1935 Author Organization [facility] t Address [address] [place] [address] Care Team Providers Name Role Phone MICHAEL GRAY Attending Clinician Unavailable Payers Payer Name Policy Type Policy Number Effective Date Expiration Date S ource [employer] CHOICE [id number] 00:00:00 Problems This patient has no known problems. Allergies, Adverse Reactions, Alerts Allergy Allergy Status Severity Reaction(s) Onset Inactive Treating Comm ents Source Name Type Date Date Clinician NO KNOWN Drug Active [facility]ERGIE Class [facility] Medications This patient has no known medications. Procedures This patient has no known procedures. Encounters Start End Encounter Admission Attending Care Care Encounter Source Date/Time Date/Time Type Type Clinicians Facility Department ID 2021-01-03 2021-01-03 Outpatient [facility] [id number] [facility] 15:15:00 15:15:00 [facility] 2020-12-06 2020-12-06 Outpatient Logan GRAY [facility] [id number] [facility] 15:05:00 15:05:00 MICHAEL [facility] Results This patient has no known results.
[2022-10-07] MEDS ORDERED: LORazepam 2 MG/ML VIAL ONE (09:41)
[2022-10-07 10:20] LABS: Absolute Lymphocytes (CBC) 0.6 K/uL (0.7-4.9); Hematocrit 32.1 % (39.6-49.0); Lymphocytes % 5.2 % (15.3-44.8); MPV 7.6 fL (7.6-11.3); RBC Red Blood Cell Count 3.41 M/uL (4.33-5.43)
[2022-10-07 10:28] LABS: Protime INR 0.99
[2022-10-07 10:42] LABS: Albumin 3.8 g/dL (3.4-5.0); Bilirubin Total 0.5 mg/dL (0.2-1.0); Potassium 4.6 mmol/L (3.5-5.1); Protein, Total 7.6 g/dL (6.4-8.2)
[2022-10-07 11:01] LABS: SARS-COV-2 RT PCR NEGATIVE (NEGATIVE)
--- NOTE | 2022-10-07 11:25 | RAD REPORT ---
EXAM DESCRIPTION: RAD - Chest Single View - 10/07/2022 10:55 am CLINICAL HISTORY: AMS, fall COMPARISON: Portable 11/20/2018 TECHNIQUE: AP portable chest image was obtained 10/07/2022 10:55 am . FINDINGS: Shallow inspiration and supine position accentuate the cardiomediastinal silhouette and ac centuate the interstitial pattern. No focal consolidation is seen. Central vasculature is prominent. A mild failure or volume overload is possible. Patient has a mild diffuse pulmonary edema appearance which is exaggerated by the exam limitations. No measurable pleural effusion and no pneumothorax. No acute bony abnormality seen. No acute aortic f indings suspected. IMPRESSION: Exam is limited but does show evidence for a mild pulmonary edema. This could be failure or volume overload. No pneumothorax or traumatic changes to the chest identifiable.
[2022-10-07 11:45] LABS: Urine Blood 3+ (Negative); Urine Glucose Negative (Negative); Urine Protein 3+ (Negative); Urine Specific Gravity >=1.030 (1.005-1.030); Urine pH 5.5 (5.0-7.0)
[2022-10-07 11:52] LABS: Urine Bacteria None Seen /HPF (<20); Urine RBC <5 /HPF (None Seen)
--- NOTE | 2022-10-07 11:54 | RAD REPORT ---
EXAM DESCRIPTION: CT - Head C Spine Cap Wo Con - 10/07/2022 11:26 am CLINICAL HISTORY: unwitinessed fall, AMS, began yesterday COMPARISON: Head C Spine Mpr Wo Con dated 05/26/2022Head C Spine Mpr Wo Con dated 05/26/2022 TECHNIQUE: Axial [address] head images were obtained. Axial [address] cervical spine images were obtain ed with sagittal and coronal reconstruction images reviewed. Axial 5 mm images of the chest, abdomen and pelvis were obtained. Oral contrast: None All CT scans are performed using dose optimization technique as appropriate and may include automated exposure control or mA/KV adjustment according to patient size. FINDINGS: No intracranial hemorrhage, mass or edema. No midline shift or abnormal fluid collection. Mastoid air cells and paranasal sinuses are clear. No skull fracture. The patient has moderate sever ity atrophy and chronic ischemic change stable findings from May 26. Ventricles are in proportion to the amount of volume loss. Arterial tree calcifications are present. Cervical spine assessment is limited due to motion. An acute fracture is not identifiable. No alignme nt change since the May examination. 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 No disc space narrowing with prominent anterior endplate spurring seen at T2-3. There i s prominent bony hypertrophy along the posterior aspect of C2-3. This creates critical spinal stenosi s approximately 5 mm with cord flattening certainly present.Cervical spine findings are not clearly d ifferent from prior imaging.No pathologic bone process. No prevertebral soft tissue thickening or par aspinal mass.Central canal detail is inherently limited on CT imaging. Motion limits chest imaging as well. No pneumothorax or pulmonary contusion suspected. Interstitial m arkings are prominent. Areas of airspace opacification are present in the mid and lower lung jessica m ore prominent on the right side. Small bilateral pleural effusions are present. These are suspected t o predate the fall. No mediastinal hematoma and the aorta and pulmonary arteries are unremarkable. Ma terial is seen in the mid esophagus. No chest will mass or abnormal axillary finding. No displaced ri b fracture or other significant bony finding. CT abdomen and pelvis show no injury to solid abdominal viscera. Gallbladder and biliary tree are unr emarkable. No bowel injury or significant finding. No free air, free fluid or abnormal stranding. No hernia, mass or bulky lymphadenopathy. No urinary bladder abnormality. Prominent bilateral hip joint degenerative change. No fracture of the bony pelvis. Ankylosing spondyl itis changes are present along the length of the thoracolumbar spine. Approximately 50% wedge heidi franki of the T12 is believed to be chronic. Irregular appearance to the cortex of the manubrium is bel ieved to be the affects of motion. True fracture of the sternum is unlikely. IMPRESSION: No acute intracranial finding identifiable. No change from prior imaging. Motion degraded cervical spine evaluation shows ankylosing spondylitis changes without identifiable f racture. Patient has clinical but stable spinal stenosis at the C2-3 level. Interstitial thickening with scattered patchy alveolar opacities in the lung jessica. Pattern is nonsp ecific. Pneumonia is possible and needs correlation with any supporting clinical or laboratory findin gs. A noninfectious pulmonary edema is possible. Aspiration cannot be excluded given the patient's ci rcumstances. No traumatic chest findings confirmed. No significant CT Abdomen and Pelvis finding. Ankylosing spondylitis changes throughout the spine without acute bone finding confirmed.
--- NOTE | 2022-10-07 12:02 | ER ---
Nurse's Notes [facility] Name: Sheng Mix Age: 86 yrs Sex: Male : 1935 Arrival Date: 10/07/2022 Time: 08:10 Bed 3 Private MD: Diagnosis: Altered mental status, unspecified;Pneumonia, unspecified organism;Dehydration Presentation: 10/07 08:26 Chief complaint: EMS states: Pt from [facility], last seen by staff yesterday evening ph between 4-6 pm for dinner, when they checked on pt this morning he was found on floor of apartment, responsive only to pain, oriented to none, lying on L side, had urinary and bowel incontinence, VSS, BGL 135, only medication found in apartment was metoprolol. Coronavirus screen: Vaccine status: Patient reports receiving the 1st dose of the Covid vaccine. Ebola Screen: No symptoms or risks identified at this time. Initial Sepsis Screen: Does the patient meet any 2 criteria? Altered Mental Status. HR > 90 bpm. Yes Does the patient have a suspected source of infection? Yes: Dysuria/Frequency/Urgency/UTI. Risk Assessment: Do you want to hurt yourself or someone else? Patient reports desire/thoughts of hurting themselves or someone else. Provider notified. Onset of symptoms was October 07, 2022. 08:26 Method Of Arrival: EMS: [facility] 08:26 Acuity: HUGO 2 ph Triage Assessment: 08:40 General: Appears in no apparent distress. Behavior is quiet, restless, uncooperative. ph Pain: Unable to use pain scale. Patient is disoriented. Neuro: Level of Consciousness is awake, confused, Oriented to none Pupils are PERRLA. Cardiovascular: Capillary refill < 3 seconds in bilateral fingers Patient's skin is warm and dry. Respiratory: Airway is patent Respiratory effort is even, unlabored. GI: Last BM was October 07, 2022. : pt had urinary incontinence. Derm: Skin has skin tears on multiple to bilateral arms Bruising that is bright red, dark purple, on left scapular area and left subscapular area. Musculoskeletal: Circulation, motion, and sensation intact. Range of motion: intact in all extremities. Historical: - Allergies: 08:39 No Known Allergies; ph - Home Meds: 08:39 Metoprolol Tartrate Oral [Active]; ph - PMHx: 08:39 Hypertension; ph - Immunization history:: Adult Immunizations unknown. - Social history:: Smoking status: unknown. - History obtained from: EMS. - Unable to obtain history due to: altered mental status. Screenin:43 [facility] ED Fall Risk Assessment (Adult) History of falling in the last 3 months, ph including since admission Yes- physiologic fall (2 pts) Confusion or Disorientation Yes (5 pts) Intoxicated or Sedated No (0 pts) Impaired Gait Yes (1 pt) Mobility Assist Device Used No (0 pt) Altered Elimination Yes (1 pt) Score/Fall Risk Level 3 or more points = High Risk Oriented to surroundings, Maintained a safe environment, Provided non-skid footwear, Activated bed/chair alarm. Abuse screen: Denies threats or abuse. Denies injuries from another. Nutritional screening: No deficits noted. Tuberculosis screening: No symptoms or risk factors identified. Assessment: 08:39 Reassessment: Code sepsis called overhead. ph 10:26 Reassessment: Patient appears in no apparent distress at this time. Patient and/or ph family updated on plan of care and expected duration. Pain level reassessed. Pt remains restless, oriented to none, unable to follow commands. 11:23 Reassessment: Patient appears in no apparent distress at this time. Patient and/or ph family updated on plan of care and expected duration. Pain level reassessed. Pt unable to follow commands and remain still r=for CT, IV ativan given per ERP order. 11:46 Reassessment: Patient appears in no apparent distress at this time. No changes from db previously documented assessment. Patient and/or family updated on plan of care and expected duration. Pain level reassessed. 13:00 Reassessment: Patient appears in no apparent distress at this time. Patient and/or db family updated on plan of care and expected duration. Pain level reassessed. Reassessment:. 14:36 Neuro: Level of Consciousness is confused. Respiratory: Airway is patent. db Vital Signs: 08:26 Pulse 111; Resp 20; Temp 98.8(O); Pulse Ox 98% ; Weight 73 kg; Height 6 ft. 0 in. ph (182.88 cm); 08:52 BP 167 / 111 LL (/lg); ph 10:26 BP 187 / 102; Pulse 108; Resp 22; Pulse Ox 92% on R/A; ph 12:45 BP 167 / 94; Pulse 98; Resp 18; Pulse Ox 96% ; db 13:00 BP 167 / 94; Pulse 98; Resp 18; Pulse Ox 96% on R/A; db 14:22 BP 145 / 127; Pulse 110; Resp 18; Pulse Ox 94% on R/A; db 08:26 Body Mass Index 21.83 (73.00 kg, 182.88 cm) ph 14:22 patient moving and boxing db Phoenix Coma Score: 14:47 Eye Response: spontaneous(4). Verbal Response: incomprehensible(2). Motor Response: db localizes pain(5). Total: 11. ED Course: 08:10 Patient arrived in ED. rn 08:10 Shay Carey MD is Attending Physician. rn 08:26 Tere Bernard RN is Primary Nurse. ph 08:38 Triage completed. ph 08:42 Arm band placed on Patient placed in an exam room, on a stretcher, on shelter monitor, ph on pulse oximetry. 08:46 Patient has correct armband on for positive identification. Placed in gown. Bed in low ph position. Call light in reach. Side rails up X 1. Client placed on continuous cardiac and pulse oximetry monitoring. NIBP monitoring applied. 09:30 Missed attempt(s): 20 gauge in right antecubital area. Bleeding controlled, band aid ph applied, catheter tip intact. 09:50 Missed attempt(s): 22 gauge in left upper arm. Bleeding controlled, band aid applied, ph catheter tip intact. 10:05 Initial lab(s) drawn, by me, sent to lab. Inserted saline lock: 22 gauge in left ph antecubital area, using aseptic technique. Blood collected. 10:56 Chest Single View XRAY In Process Unspecified. EDMS 11:27 Head C Spine Cap Wo Con In Process Unspecified. EDMS 11:40 Oliva cath inserted, using sterile technique, 16 Fr., by me, balloon inflated, to db gravity drainage, urine specimen collected. 12:01 Santy Cameron is Hospitalizing Provider. rn 14:30 Report given to DANNA Horne. db 14:48 No provider procedures requiring assistance completed. Patient admitted, IV remains in db place. Administered Medications: 09:45 Drug: Ativan (LORazepam) 0.5 mg Route: IM; Site: left deltoid; ph 14:49 Follow up: Response: No adverse reaction db 10:23 Drug: Ativan (LORazepam) 0.5 mg Route: IVP; Site: left antecubital; ph 14:28 Follow up: Response: No adverse reaction db 11:24 Drug: Ativan (LORazepam) 0.5 mg Route: IVP; Site: left antecubital; ph 14:29 Follow up: Response: No adverse reaction db 12:21 Drug: NS 0.9% 500 ml Route: IV; Rate: bolus; Site: left antecubital; ph 14:30 Follow up: Response: No adverse reaction; IV Status: Completed infusion; IV Intake: db 500ml 12:21 Drug: Rocephin (cefTRIAXone) 1 grams Route: IV; Rate: calculated rate; Site: left ph antecubital; 14:29 Follow up: Response: No adverse reaction; IV Status: Completed infusion; IV Intake: db 100ml 14:27 Drug: Zithromax (azithromycin) 500 mg Route: IVPB; Infused Over: 1 hrs; Site: left db antecubital; 14:41 Follow up: Response: No adverse reaction; IV Status: Infusion continued upon transfer db Medication: 08:46 VIS not applicable for this client. ph Intake: 14:29 IV: 100ml; Total: 100ml. db 14:30 IV: 500ml; Total: 600ml. db Outcome: 12:01 Decision to Hospitalize by Provider. rn 14:48 Admitted to Tele accompanied by nurse. db 14:48 Condition: stable 14:48 Instructed on the need for admit. 14:49 Patient left the ED. db Signatures: Dispatcher [employer] Shay Orozco MD MD rn Hall, Patricia, RN RN ph Benton, Danielle, RN RN nakul
--- NOTE | 2022-10-07 12:02 | EDPHYS ---
Physician Documentation [facility] Name: Sheng Mix Age: 86 yrs Sex: Male : 1935 Arrival Date: 10/07/2022 Time: 08:10 Bed 3 Private MD: ED Physician Shay Carey HPI: 10/07 11:29 This 86 yrs old Male presents to ER via EMS with complaints of AMS. rn 11:29 The patient presents with decreased responsiveness. Onset: The symptoms/episode rn began/occurred at an unknown time. Possible causes: unknown. Current symptoms: In the emergency department the patient's symptoms are unchanged from the initial presentation. Unable to obtain HPI due to altered mental status. It is unknown whether or not the patient has had similar symptoms in the past. It is unknown whether or not the patient has recently seen a physician. EMS reports AMS, found on floor at [facility], last seen at baseline yesterday early evening at dinner. Pt confused, found with urine and stool, had soiled himself. . Historical: - Allergies: 08:39 No Known Allergies; ph - Home Meds: 08:39 Metoprolol Tartrate Oral [Active]; ph - PMHx: 08:39 Hypertension; ph - Immunization history:: Adult Immunizations unknown. - Social history:: Smoking status: unknown. - History obtained from: EMS. - Unable to obtain history due to: altered mental status. ROS: 11:29 Unable to obtain ROS due to altered mental status. rn Exam: 11:29 Constitutional: This is a well developed, well nourished patient who is awake, rn confused, nonverbal Head/Face: Normocephalic Cardiovascular: Tachycardic, regular. No pulse deficits. Respiratory: Mild tachypnea, no retractions Abdomen/GI: Soft, non-tender, no ecchymosis Skin: Warm, dry, skin tear left arm, ecchymosis to left shoulder MS/ Extremity: Pulses equal, no cyanosis. Neurovascular intact. Full, normal range of motion. Equal circumference. Neuro: Confused, doesn't fallow commands, moves all 4 extremities, withdraws and localizes pain. 13:30 ECG was reviewed by the Attending Physician. rn Vital Signs: 08:26 Pulse 111; Resp 20; Temp 98.8(O); Pulse Ox 98% ; Weight 73 kg; Height 6 ft. 0 in. ph (182.88 cm); 08:52 BP 167 / 111 LL (/lg); ph 10:26 BP 187 / 102; Pulse 108; Resp 22; Pulse Ox 92% on R/A; ph 12:45 BP 167 / 94; Pulse 98; Resp 18; Pulse Ox 96% ; db 13:00 BP 167 / 94; Pulse 98; Resp 18; Pulse Ox 96% on R/A; db 14:22 BP 145 / 127; Pulse 110; Resp 18; Pulse Ox 94% on R/A; db 08:26 Body Mass Index 21.83 (73.00 kg, 182.88 cm) ph 14:22 patient moving and boxing db Moe Coma Score: 14:47 Eye Response: spontaneous(4). Verbal Response: incomprehensible(2). Motor Response: db localizes pain(5). Total: 11. MDM: 08:10 Patient medically screened. rn 12:00 Differential Diagnosis: CVA, electrolyte abnormality, hypoglycemia, intracranial bleed, rn pneumonia, sepsis, TIA, UTI, volume depletion. Data reviewed: vital signs, nurses notes, lab test result(s), radiologic studies, CT scan, plain films, and as a result, I will admit patient. Counseling: I had a detailed discussion with the patient and/or guardian regarding: the historical points, exam findings, and any diagnostic results supporting the discharge/admit diagnosis, lab results, radiology results, the need for further work-up and treatment in the hospital. Response to treatment: There is no appreciated change of the patient's symptoms at this time, and as a result, I will admit patient. Admission orders: after a detailed discussion of the patient's condition and case, the admit orders are written by me. 10/07 08:11 Order name: Blood Culture Adult (2) rn 10/07 08:11 Order name: CBC with Diff; Complete Time: 11: rn 10/07 08:11 Order name: CMP; Complete Time: 11: rn 10/07 08:11 Order name: Lactate w/ 2H reflex if indic.; Complete Time: 11: rn 10/07 08:11 Order name: Protime (+inr); Complete Time: 11: rn 10/07 08:11 Order name: Ptt, Activated; Complete Time: 11: rn 10/07 08:11 Order name: Urine Culture rn 10/07 08:11 Order name: Urine Microscopic Only; Complete Time: 11:56 rn 10/07 08:11 Order name: Chest Single View XRAY; Complete Time: 11:56 rn 10/07 08:11 Order name: COVID-19/FLU A+B; Complete Time: 11:56 rn 10/07 11:07 Order name: Head C Spine Cap Wo Con; Complete Time: 11:56 EDMS 10/07 11:45 Order name: Urine Dipstick-Ancillary; Complete Time: 11:56 EDMS 10/07 08:11 Order name: EKG; Complete Time: 08:13 rn 10/07 08:11 Order name: Accucheck; Complete Time: 10:23 rn 10/07 08:11 Order name: Cardiac monitoring; Complete Time: 10:23 rn 10/07 08:11 Order name: Cath; Complete Time: 11:45 rn 10/07 08:11 Order name: EKG - Nurse/Tech; Complete Time: 11:56 rn 10/07 08:11 Order name: IV Saline Lock - Large Bore; Complete Time: 10:23 rn 10/07 08:11 Order name: Labs collected and sent; Complete Time: 11:45 rn 10/07 08:11 Order name: O2 Per Protocol; Complete Time: 08:52 rn 10/07 08:11 Order name: O2 Sat Monitoring; Complete Time: 08:52 rn 10/07 08:11 Order name: Urine Dipstick-Ancillary (obtain specimen); Complete Time: 11:45 rn 10/07 08:11 Order name: Vital Signs; Complete Time: 08:52 rn EC:30 Rate is 115 beats/min. Rhythm is regular. QRS Elbert is Normal. RI interval is normal. rn QRS interval is normal. QT interval is normal. No Q waves. T waves are Normal. No ST changes noted. Clinical impression: Sinus tachycardia. Interpreted by me. Reviewed by me. Administered Medications: 09:45 Drug: Ativan (LORazepam) 0.5 mg Route: IM; Site: left deltoid; ph 14:49 Follow up: Response: No adverse reaction db 10:23 Drug: Ativan (LORazepam) 0.5 mg Route: IVP; Site: left antecubital; ph 14:28 Follow up: Response: No adverse reaction db 11:24 Drug: Ativan (LORazepam) 0.5 mg Route: IVP; Site: left antecubital; ph 14:29 Follow up: Response: No adverse reaction db 12:21 Drug: NS 0.9% 500 ml Route: IV; Rate: bolus; Site: left antecubital; ph 14:30 Follow up: Response: No adverse reaction; IV Status: Completed infusion; IV Intake: db 500ml 12:21 Drug: Rocephin (cefTRIAXone) 1 grams Route: IV; Rate: calculated rate; Site: left ph antecubital; 14:29 Follow up: Response: No adverse reaction; IV Status: Completed infusion; IV Intake: db 100ml 14:27 Drug: Zithromax (azithromycin) 500 mg Route: IVPB; Infused Over: 1 hrs; Site: left db antecubital; 14:41 Follow up: Response: No adverse reaction; IV Status: Infusion continued upon transfer db Disposition Summary: 10/07/22 12:01 Hospitalization Ordered Hospitalization Status: Inpatient Admission rn Provider: Santy Cameron rn Location: Telemetry/MedSurg (Inpatient) rn Condition: Stable rn Problem: new rn Symptoms: have improved rn Bed/Room Type: Standard rn Room Assignment: 201(10/07/22 13:29) eb Diagnosis - Altered mental status, unspecified rn - Pneumonia, unspecified organism rn - Dehydration rn Forms: - Medication Reconciliation Form rn - SBAR form rn Signatures: Dispatcher [employer] EDShay Bender MD MD rn Hall, Patricia, RN RN Dali Dorsey Danielle, RN RN db Corrections: (The following items were deleted from the chart) 11:07 08:16 Head C Spine CAP W Con+CT.RAD.BRZ ordered. EDMS EDMS 13:29 12:01 rn eb
[2022-10-07] MEDS ORDERED: AZITHROMYCIN 500 MG INJ IVPB ONE (12:15)
[2022-10-07] MEDS ORDERED: CEFTRIAXONE 1000 MG/VIAL ONE (12:15)
[2022-10-07] MEDS ORDERED: NA CHLORIDE 0.9% 250 ML ONE (12:15)
[2022-10-07] MEDS ORDERED: NA CHLORIDE 0.9% 500 ML ONE (12:15)
[2022-10-07] MEDS ORDERED: NA CHLORIDE 0.9% 100 ML IV ONE (12:16)
[2022-10-07] MEDS ORDERED: ONDANSETRON 4 MG/2 ML VIAL IV PRN (14:29)
[2022-10-07] MEDS ORDERED: ALBUTEROL 2.5 MG/3 ML NEB SOL NEB PRN (14:29)
[2022-10-07] MEDS: NA CHLORIDE 0.9% 1,000 ML IV SCH (15:35)
[2022-10-07 16:03] LABS: Albumin 3.6 g/dL (3.4-5.0); Bilirubin Direct 0.1 mg/dL (0-0.2); Bilirubin Total 0.6 mg/dL (0.2-1.0); CKMB Creatine Kinase MB 6.5 ng/mL (1.0-3.6); Protein, Total 7.2 g/dL (6.4-8.2); Thyroid Stimulating Hormone 2.67 uIU/mL (0.358-3.740)
--- NOTE | 2022-10-07 16:27 | P.HP ---
Certification for Inpatient With expected LOS: >2 Midnights Patient will require the following post-hospital care: [facility] Practitioner: I am a practitioner with admitting privileges, knowledge of patient current condition, hospital course, and medical plan of care. Services: Services provided to patient in accordance with Admission requirements found in Title 42 Section 412.3 of the Code of Federal Regulations Patient History Date of Service: 10/07/22 Primary Care Provider: unknown Reason for admission: AMS, Fall, Dehydration History of Present Illness: This 86 year old Male with PMH of HTN who presents to emergency room via EMS with complaints of AMS. The patient presents with decreased responsiveness. Per EMS, patient was found on floor at [facility], last seen at baseline yesterday early evening at dinner. Patient confused, found with urine and stool, had soiled himself. Unable to obtain history due to patients underlying mental state. Patient will be admitted to the hospital under Dr. Alejandro hodge. CXR shows mild pulmonary edema. We will consult pulmonology and infectious disease. We will trend troponins, CPK. Allergies No Known Allergies Allergy (Verified 11/12/18 18:05) Home Medications: Aspirin [Aspirin EC 81 MG] 81 mg PO DAILY #30 tablet. 11/20/18 Atorvastatin Calcium [Lipitor] 80 mg PO BEDTIME #30 tab 11/20/18 Clopidogrel Bisulfate [Plavix*] 75 mg PO DAILY #30 tablet 11/20/18 Metoprolol Tartrate [Lopressor*] 50 mg PO BID 6AM 6PM #60 tab 11/20/18 Nitroglycerin [Nitrostat*] 0.4 mg SL UD PRN #15 tab 11/20/18 Doxycycline Hyclate [Vibramycin] 100 mg PO BID #6 capsule 11/21/18 - Past Medical/Surgical History Diabetic: No Past Medical History: Unable to obtain -: Hypertension Past Surgical History: Unable to obtain -: Cataract sx allyn Psychosocial/ Personal History: Patient is a . He has 1 child. - Family History Family History: Reviewed- Non-Contributory - Social History Smoking Status: Unknown if ever smoked Alcohol use: Yes CD- Drugs: No Caffeine use: Yes Review of Systems is unable to be obtained Physical Examination - Vital Signs Temperature: 98.8 F Blood Pressure: 145/127 Pulse: 110 Respirations: 18 - Physical Exam General: Demented, Other (respond to painful stimuli) HEENT: Atraumatic Neck: Supple Respiratory: Crackles/rales, Expiratory wheezes Cardiovascular: Normal pulses Capillary refill: <2 Seconds Gastrointestinal: Normal bowel sounds Musculoskeletal: No clubbing Integumentary: No rashes Neurological: Other (respond to painful stimuli) Lymphatics: No axilla or inguinal lymphadenopathy - Studies Laboratory Data (last 24 hrs) 10/07/22 10:05: PT 10.9, INR 0.99, APTT 27.1 10/07/22 10:05: Sodium 140, Potassium 4.6, BUN 39 H, Creatinine 1.83 H, Glucose 146 H, Total Bilirubin 0.5, AST 18, ALT 24, Alkaline Phosphatase 68 10/07/22 10:05: WBC 11.30 H, Hgb 10.6 L, Hct 32.1 L, Plt Count 255 Assessment and Plan - Plan Assessment AMS Fall Community acquired pneumonia UTI Dehydration associated with acute renal injury HTN Plan AMS unknown etiology -CT - Head C Spine Cap Wo Con -No acute intracranial finding identifiable. No change from prior imaging -Motion degraded cervical spine evaluation shows ankylosing spondylitis changes without identifiable fracture. Patient has clinical but stable spinal stenosis at the C2-3 level. -Interstitial thickening with scattered patchy alveolar opacities in the lung jessica. Pattern is nonspecific. Pneumonia is possible and needs correlation with any supporting clinical or laboratory findings. A noninfectious pulmonary edema is possible. Aspiration cannot be excluded given the patient's circumstances. -No traumatic chest findings confirmed. No significant CT Abdomen and Pelvis finding. Ankylosing spondylitis changes throughout the spine without acute bone finding confirmed -Continue neuro check -Urinalysis pending, BCX pending -NPO, then consult speech for evaluation Fall, unwitnessed -CXR- Exam is limited but does show evidence for a mild pulmonary edema. This could be failure or volume overload. No pneumothorax or traumatic changes to the chest identifiable -CT - Head C Spine Cap Wo Con -No acute intracranial finding identifiable. No change from prior imaging -Motion degraded cervical spine evaluation shows ankylosing spondylitis changes without identifiable fracture. Patient has clinical but stable spinal stenosis at the C2-3 level. -Interstitial thickening with scattered patchy alveolar opacities in the lung jessica. Pattern is nonspecific. Pneumonia is possible and needs correlation with any supporting clinical or laboratory findings. A noninfectious pulmonary edema is possible. Aspiration cannot be excluded given the patient's circumstances. -No traumatic chest findings confirmed. No significant CT Abdomen and Pelvis finding. Ankylosing spondylitis changes throughout the spine without acute bone finding confirmed -Continue neuro check -Urinalysis pending, BCX pending, CPK pending rule out rhabdo -PT/OT when stable Community acquired pneumonia -CXR- Exam is limited but does show evidence for a mild pulmonary edema. This could be failure or volume overload. No pneumothorax or traumatic changes to the chest identifiable -Continue antibiotics, nebulizer treatments, oxygen support as needed -Encourage I/S when applicable -Pulmonology consulted, follow recommendations -BCX pending UTI -Continue antibiotics -ID consulted, follow recommendations -Urinalysis pending Dehydration associated with acute renal injury -Creatinine 1.8, BUN 39 -continue IV fluids HTN- PRN Metoprolol PPX- Heparin subq, PPI Discharge Plan: Other Plan to discharge in: 48 Hours - Advance Directives Does patient have a Living Will: Yes Does patient have a Durable POA for Healthcare: Yes - Code Status/Comfort Care Code Status Assessed: Yes (Full code) Critical Care: No Time Spent Managing Pts Care (In Minutes): 60
[2022-10-07] MEDS: FUROSEMIDE 40 MG/4 ML VIAL IV SCH (18:09)
[2022-10-07] MEDS: HEPARIN 5000 UNIT/ML 1 ML VIAL SQ SCH (18:14)
[2022-10-07] MEDS: Levofloxacin 250mg IV 250 MG/50 ML BAG IV SCH (18:15)
[2022-10-07] MEDS: METHYLPREDNISOLONE 40 MG INJ IV SCH (18:17)
[2022-10-07] MEDS: IPRATROPIUM BROM 0.5MG/2.5ML NEB SCH (20:00)
[2022-10-07] MEDS: METOPROLOL TARTRATE 5 MG/5 ML INJ IV PRN (20:54)
[2022-10-07] MEDS: PIPER TAZO 3.375 GM in NA CHLORIDE 0.9% 100 ML IV SCH (20:58)
[2022-10-07] MEDS ORDERED: HALOPERIDOL LACT 5 MG/ML INJ IV PRN (21:21)
[2022-10-08] MEDS: METHYLPREDNISOLONE 40 MG INJ IV SCH ×3 (00:49→11:39)
[2022-10-08] MEDS: HEPARIN 5000 UNIT/ML 1 ML VIAL SQ SCH ×3 (00:49→16:53)
[2022-10-08] MEDS: IPRATROPIUM BROM 0.5MG/2.5ML NEB SCH ×4 (01:20→20:00)
[2022-10-08 05:17] LABS: Absolute Lymphocytes (CBC) 0.3 K/uL (0.7-4.9); Hematocrit 29.3 % (39.6-49.0); Lymphocytes % 3.8 % (15.3-44.8); MCV 93.2 fL (80-100); RBC Red Blood Cell Count 3.15 M/uL (4.33-5.43)
[2022-10-08 05:29] LABS: Protime INR 1.08
[2022-10-08 05:42] LABS: Phosphorus 3.3 mg/dL (2.5-4.9); Potassium 4.1 mmol/L (3.5-5.1)
[2022-10-08 05:43] LABS: Magnesium 2.3 mg/dL (1.6-2.4)
[2022-10-08] MEDS: PIPER TAZO 3.375 GM in NA CHLORIDE 0.9% 100 ML IV SCH ×2 (08:25→21:41)
[2022-10-08] MEDS: FUROSEMIDE 40 MG/4 ML VIAL IV SCH ×2 (08:26→16:52)
[2022-10-08] MEDS: NA CHLORIDE 0.9% 1,000 ML IV SCH ×2 (11:00→21:42)
--- NOTE | 2022-10-08 11:51 | P.PN ---
Subjective Date of Service: 10/08/22 Primary Care Provider: unknown Chief Complaint: AMS, Fall, Dehydration Patient remained confused but not responding verbally. No agitation reported. Patient has not required any Haldol. Physical Examination - Vital Signs Temperature: 98.0 F Blood Pressure: 138/73 Pulse: 95 Respirations: 14 Pulse Ox (%): 100 - Physical Exam General: In no apparent distress, Confused, Obese HEENT: PERRLA, Mucous membr. moist/pink Neck: Supple, JVD not distended Respiratory: Clear to auscultation bilaterally, Normal air movement Cardiovascular: Normal S1 S2, Edema Gastrointestinal: Normal bowel sounds, Soft and benign, Non-distended Musculoskeletal: No tenderness Integumentary: No cyanosis Neurological: Other (No focal motor deficit.) Assessment And Plan - Plan AMS unknown etiology CT - Head C Spine shows no acute intracranial finding identifiable. CT chest-Interstitial thickening with scattered patchy alveolar opacities in the lung jessica. Pattern is nonspecific. Pneumonia is possible. Continue neuro check Urinalysis: No evidence of UTI. Urine culture is pending. Continue antibiotics-Levaquin and Zosyn Keep NPO, speech evaluation is pending. Fall, unwitnessed Imaging shows no acute fracture or contusion or bleed Continue neuro check Urinalysis negative for UTI. PT/OT when stable Pneumonia Suspect aspiration pneumonia Continue antibiotics-Levaquin and Zosyn, nebulizer treatments, oxygen support as needed Encourage I/S when applicable. BCX pending Acute renal failure Secondary to dehydration continue IV fluids and monitor renal function for improvement. HTN- PRN Metoprolol for now. DVT prophylax: Heparin subQ. Dementia with behavioral disturbance No agitation since last night. Haldol as needed for agitation.
[2022-10-08] MEDS: Levofloxacin 250mg IV 250 MG/50 ML BAG IV SCH (15:49)
--- NOTE | 2022-10-08 20:41 | CON ---
Date of Consultation: 10/08/2022 Reason For Consultation: Elevated troponin. History Of Present Illness: An 86-year-old male with history of hypertension, dyslipidemia, presente d with altered mental status, status post fall. He was found on the floor and last was seen early ev ening yesterday after dinner. Patient was confused, found with urine and stool. Saw him by bedside and he said he does not remember and he has no specific complaints. Past Medical History: As outlined above in the HPI. Medications: Refer reconciliation sheet for detailed list. Allergies: NO KNOWN DRUG ALLERGIES. Family History: No premature coronary artery disease or cancer. Social History: Does not smoke or drink. Does not use any drugs. Review of Systems: All systems reviewed were negative except what mentioned in HPI. Physical Examination: Vital Signs: Reviewed. Head and Neck: Pupils are equal, reactive to light. Intact eye movements. No JVD. No cervical lym phadenopathy. Neck: Supple. Thyroid is not enlarged. Lungs: Clear to auscultation bilaterally. No rhonchi, rales, or crackles. No accessory muscle use. Heart: Regular. No extra sounds. Abdomen: Soft, nontender. Bowel sounds positive. No organomegaly. No masses or hernia. No rigidi ty or rebound. Extremities: No edema, clubbing, cyanosis. Intact pulses. Skin: No rash. Neurologic: Alert, awake, oriented x3. No acute focal deficits appreciated. Investigations: Troponin is 201 and then 216, BUN 41, creatinine is 1.7. CK was 677. Hemoglobin is 10.1. Assessment And Recommendations: 1.Elevated troponin. This is likely demand ischemia. Trend troponin further until it trends down a nd obtain echocardiogram. Further recommendation to follow based on the above results. 2.Elevated NT-proBNP, likely history of chronic heart failure. We will obtain an echo and further r ecommendation to follow. SR/MODL Voice ID: [id number] Report ID: [id number]
--- NOTE | 2022-10-09 00:24 | CON ---
History Of Present Illness: This is an 86-year-old male I was consulted for possible pneumonia and u rinary tract infection. The patient has significant past medical history of hypertension, coming to the emergency room with altered mental status. The patient denies any headache, nausea, vomiting, ch est pain, abdominal pain, constipation, or diarrhea. Chest x-ray shows pulmonary infiltrates, possib ly pneumonia versus pulmonary edema. Past Medical History: As per HPI. Social History: Nonsmoker, nondrinker. Family History: Noncontributory. Medications: Levaquin. See MARs for other medications. Allergies: NO KNOWN DRUG ALLERGIES. Review of Systems: A 10-point review was performed. Physical Examination: General: This is an 86-year-old male, lying in bed, not in any acute cardiopulmonary distress. Vital Signs: Temperature 98, pulse 84, respirations 18, blood pressure 137/67. HEENT: Unremarkable. Neck: Supple. Lungs: Basal crackles. Heart S1, S2. Regular. Abdomen: Soft, nontender. Bowel sounds present. Extremities: No edema. Laboratory Data: WBC 9.1 down from 11.3, hemoglobin 10.1, platelets are 223. Elevated neutrophil an d low lymphocyte. Cultures are pending. Assessment And Plan: Altered mental status with bilateral pulmonary infiltrate. The patient is curr ently on Levaquin. Leukocytosis has improved. Urinary tract infection with no evidence on urinalysi s. Cultures are pending. Blood cultures are also pending. Moderate protein-calorie malnourishment and renal insufficiency. Continue supportive care and current treatment. Total course of antibiotic s of 7 days will be sufficient. Can be switched to oral antibiotic on discharge. We will follow the patient as needed. Thank you Dr. Cameron for consult. NF/MODL Voice ID: [id number] Report ID: [id number]
[2022-10-09] MEDS: HEPARIN 5000 UNIT/ML 1 ML VIAL SQ SCH ×3 (00:41→18:37)
[2022-10-09] MEDS: IPRATROPIUM BROM 0.5MG/2.5ML NEB SCH ×4 (02:00→20:45)
[2022-10-09 03:36] LABS: Absolute Lymphocytes (CBC) 1.1 K/uL (0.7-4.9); Hematocrit 30.3 % (39.6-49.0); Lymphocytes % 8.3 % (15.3-44.8); MCV 92.7 fL (80-100); MPV 7.7 fL (7.6-11.3); RBC Red Blood Cell Count 3.27 M/uL (4.33-5.43)
[2022-10-09 03:52] LABS: Potassium 3.8 mmol/L (3.5-5.1)
[2022-10-09] MEDS ORDERED: POTASSIUM CL SA 10 MEQ TAB PO ONE (05:01)
[2022-10-09] MEDS ORDERED: INFLUENZA VACCINE (for 6+ mo) 0.5 ML DOSE IMVAC ONE (08:00)
[2022-10-09] MEDS: FUROSEMIDE 40 MG/4 ML VIAL IV SCH ×2 (08:17→17:00)
[2022-10-09] MEDS: PIPER TAZO 3.375 GM in NA CHLORIDE 0.9% 100 ML IV SCH ×2 (08:17→22:48)
[2022-10-09 09:21] LABS: Specific Gravity 1.012 (1.005-1.030); Transitional Epithelial <5 /HPF (None Seen); Urine Bacteria 20-50 /HPF (<20); Urine Bilirubin NEGATIVE (Negative); Urine Blood 2+ (Negative); Urine Clarity Turbid (Clear); Urine Color Colorless (Yellow); Urine Glucose NEGATIVE (Negative); Urine Mucus Slight /HPF (None Seen); Urine Protein 1+ (Negative); Urine RBC 21-50 /HPF (None Seen); Urine Urobilinogen Normal (Normal)
--- NOTE | 2022-10-09 13:51 | P.PN ---
Subjective Date of Service: 10/09/22 Primary Care Provider: unknown Chief Complaint: AMS, Fall, Dehydration Patient is more awake and interactive today. He is responding appropriately to verbal. He is also tolerating diet. Physical Examination - Vital Signs Temperature: 97.2 F Blood Pressure: 163/83 Pulse: 85 Respirations: 14 Pulse Ox (%): 96 - Physical Exam General: In no apparent distress, Other (Awake) HEENT: Mucous membr. moist/pink Neck: JVD not distended Respiratory: Clear to auscultation bilaterally, Normal air movement Cardiovascular: No edema, Regular rate/rhythm, Normal S1 S2 Gastrointestinal: Soft and benign, Non-distended Musculoskeletal: No swelling Integumentary: No cyanosis Neurological: Other (No focal motor deficit) - Studies Microbiology Data (last 24 hrs): 10/07/22 11:43 Catheterized Urine [place] Count - Final No growth. 10/07/22 11:43 Catheterized Urine - Final No growth. Assessment And Plan - Plan AMS unknown etiology CT - Head C Spine shows no acute intracranial finding identifiable. CT chest-Interstitial thickening with scattered patchy alveolar opacities in the lung jessica. Pattern is nonspecific. Pneumonia is possible. Continue neuro check Urinalysis: No evidence of UTI. Urine culture is negative Continue antibiotics-Levaquin. AMS likely secondary to fall/concussion Fall, unwitnessed Imaging shows no acute fracture or contusion or bleed Continue neuro check Urinalysis negative for UTI. PT/OT when stable Pneumonia Suspect aspiration pneumonia Continue antibiotics-Levaquin and Zosyn, nebulizer treatments, oxygen support as needed Encourage I/S when applicable. Blood cultures: No growth to date. Speech therapy consult is pending. Acute renal failure Secondary to dehydration. KARIME is worse today. Discontinue IV Zosyn Increase IV fluid rate. Nephrology consult. HTN- Resume home antihypertensives. DVT prophylax: Heparin subQ. Dementia with behavioral disturbance No agitation since last night. Patient is more awake and alert.
[2022-10-09] MEDS: Levofloxacin 250mg IV 250 MG/50 ML BAG IV SCH (15:35)
--- NOTE | 2022-10-09 18:43 | PN ---
Date of Progress Note: 10/09/2022 Subjective: Seen by bedside. No chest pain. Fully alert, awake, and oriented. No shortness of ramiro ath. No nausea, vomiting, or diarrhea. All other systems reviewed and they were negative. Physical Examination: Vital Signs: Reviewed. Head and Neck: Pupils are equal, reactive to light. Intact eye movements. No JVD. No cervical lym phadenopathy. Neck is supple. Thyroid is not enlarged. Lungs: Clear to auscultation bilaterally. No rhonchi, wheezing, or crackles. No accessory muscle u se. Heart: Regular rate and rhythm. No extra sounds. Abdomen: Soft, nontender. Bowel sounds positive. No organomegaly. No masses or hernia. No rigidi ty or rebound. Extremities: No clubbing or cyanosis. Intact pulses. Skin: No rash. Neurologic: Alert, awake, oriented x3. No acute focal deficits appreciated. Investigations: BUN 55, creatinine 2.34, and hemoglobin is 10.4. Assessment And Recommendations: 1.Elevated troponin. This is demand ischemia. The patient has no symptoms. Obtain an echocardiogr am in the morning and further recommendations to follow. 2.Elevated NT-proBNP. Obtain an echocardiogram. The patient currently is on IV diuretics. I feel that he is euvolemic. His BUN and creatinine are worsening. I will hold on the Lasix and reassess l abs in the morning. 3.Acute on chronic renal failure. Definitely hold off the Lasix for now and reassess in the morning . SR/MODL Voice ID: [id number] Report ID: [id number]
--- NOTE | 2022-10-09 19:08 | EKG ---
Test Date: 2022-10-07 Test Time: 11:48:49 Container Coordinator: MARIALUISA MEASUREMENT RESULTS: Intervals: Rate: 115 TN: 160 QRSD: 122 QT: 378 QTc: 522 [place]: P: 47 TN: 160 QRS: -17 T: 46 INTERPRETIVE STATEMENTS: Sinus tachycardia with occasional premature ventricular complexes Nonspecific intraventricular conduction delay Nonspecific ST abnormality Abnormal ECG Compared to ECG 11/14/2018 09:27:30 Ventricular premature complex(es) now present Intraventricular conduction delay now present ST (T wave) deviation now present T-wave abnormality no longer present Possible ischemia no longer present Electronically Signed On 10-09-22 19:07:25 PASTE MAKER by Terry Raphael
--- NOTE | 2022-10-09 19:08 | EKG ---
Test Date: 2022-10-07 Test Time: 21:08:01 Sales Strategy Manager: MARC MEASUREMENT RESULTS: Intervals: Rate: 79 IN: 188 QRSD: 124 QT: 474 QTc: 543 [place]: P: 39 IN: 188 QRS: -11 T: -43 INTERPRETIVE STATEMENTS: Sinus rhythm with frequent and consecutive premature ventricular complexes RSR' or QR pattern in V1 suggests right ventricular conduction delay Nonspecific T wave abnormality Abnormal ECG Compared to ECG 10/07/2022 11:48:49 RSR' in V1 or V2 now present T-wave abnormality now present Sinus tachycardia no longer present Intraventricular conduction delay no longer present ST (T wave) deviation no longer present Electronically Signed On 10-09-22 19:06:52 FAC ENGINEER by Terry Raphael
[2022-10-10] MEDS: IPRATROPIUM BROM 0.5MG/2.5ML NEB SCH ×4 (01:30→18:50)
[2022-10-10] MEDS: HEPARIN 5000 UNIT/ML 1 ML VIAL SQ SCH ×3 (01:46→16:12)
[2022-10-10 03:48] LABS: Absolute Lymphocytes (CBC) 1.4 K/uL (0.7-4.9); Hematocrit 32.9 % (39.6-49.0); Lymphocytes % 12.7 % (15.3-44.8); MCV 93.3 fL (80-100); MPV 8.1 fL (7.6-11.3); RBC Red Blood Cell Count 3.53 M/uL (4.33-5.43)
[2022-10-10] MEDS: NA CHLORIDE 0.9% 1,000 ML IV SCH ×2 (05:41→23:00)
[2022-10-10] MEDS ORDERED: POTASSIUM CL SA 10 MEQ TAB PO ONE ×2 (09:00→16:03)
[2022-10-10] MEDS: PIPER TAZO 3.375 GM in NA CHLORIDE 0.9% 100 ML IV SCH ×2 (09:54→21:11)
--- NOTE | 2022-10-10 12:47 | PN ---
Subjective: The patient lying in bed. No new acute event. Chart reviewed. Objective: Vital Signs: Temperature 97, pulse 50, respiration 18, blood pressure 135/85. Lungs: Basal crackles. Heart: S1, S2. Regular. Abdomen: Soft, nontender. Bowel sounds present. Extremity: No edema. Laboratory Data: WBC 11.2, hemoglobin 11.2, platelets are 235. Chemistry shows BUN of 51, creatinin e 2.4. Albumin level is 3.6. Micro data; blood cultures are negative, urine culture is negative. U rinalysis shows 20 to 50 WBC. Medications: The patient currently being treated with Levaquin and Zosyn. Assessment And Plan: 1.Urosepsis. 2.Bilateral pulmonary infiltrates. Consider stopping Levaquin. Continue Zosyn. 3.Leukocytosis. Cultures are negative. 4.Moderate protein-calorie malnourishment, renal insufficiency. We will follow the patient closely. No other recommendation at this time. NF/MODL Voice ID: [id number] Report ID: [id number]
[2022-10-10] MEDS ORDERED: INFLUENZA VACCINE (for 6+ mo) 0.5 ML DOSE IMVAC ONE (13:00)
--- NOTE | 2022-10-10 13:23 | P.PN ---
Subjective Date of Service: 10/10/22 Primary Care Provider: unknown Chief Complaint: AMS, Fall, Dehydration Patient is is awake and communicating appropriately. He denies any complaint He is tolerating his diet Physical Examination - Vital Signs Temperature: 97.9 F Blood Pressure: 135/85 Pulse: 50 Respirations: 18 Pulse Ox (%): 96 - Physical Exam General: In no apparent distress, Oriented x2 HEENT: Mucous membr. moist/pink Neck: JVD not distended Respiratory: Clear to auscultation bilaterally, Normal air movement Cardiovascular: No edema, Regular rate/rhythm, Normal S1 S2 Gastrointestinal: Soft and benign, Non-distended, No tenderness Musculoskeletal: No swelling Integumentary: No rashes Neurological: Normal strength at 5/5 x4 extr - Studies Microbiology Data (last 24 hrs): 10/07/22 11:43 Catheterized Urine [place] Count - Final No growth. 10/07/22 11:43 Catheterized Urine - Final No growth. Assessment And Plan - Plan AMS unknown etiology CT - Head C Spine shows no acute intracranial finding identifiable. CT chest-Interstitial thickening with scattered patchy alveolar opacities in the lung jessica. Pattern is nonspecific. Pneumonia is possible. Continue neuro check Initial urinalysis: No evidence of UTI. Initial urine culture is negative. Repeat UA suggest UTI Continue antibiotics-Levaquin. AMS likely secondary to fall/concussion/UTI Fall, unwitnessed Imaging shows no acute fracture or contusion or bleed Continue neuro check PT and OT evaluation today. Pneumonia Suspect aspiration pneumonia Continue antibiotics-Levaquin and Zosyn, nebulizer treatments. Blood cultures: No growth to date. Speech therapy consult is pending. Acute renal failure Secondary to dehydration. Discontinue IV Lasix. Continue IV fluid Nephrology consult. UTI Continue Levaquin. HTN- Resume home antihypertensives. DVT prophylax: Heparin subQ. Dementia with behavioral disturbance No agitation since last night. Patient is more awake and alert and clinically improved.
[2022-10-10] MEDS: Levofloxacin 250mg IV 250 MG/50 ML BAG IV SCH (16:12)
--- NOTE | 2022-10-10 17:08 | PN ---
Date of Progress Note: 10/10/2022 Subjective: Seen by bedside. Continues to improve. Heart rate is controlled. No chest pain or norbert rtness of breath. Review of Systems: No chest pain, shortness of breath, orthopnea, cough. No nausea, vomiting, diarrhea. No dysuria, po lyuria, or urinary urgency. No skin rash or headache. All other systems reviewed and they were nega tive. Physical Examination: Vital Signs: Reviewed. Head and Neck: Pupils are equal, reactive to light. Intact eye movements. No JVD. No cervical lym phadenopathy. Neck is supple. Thyroid is not enlarged. Lungs: Clear to auscultation bilaterally. No rhonchi, wheezing, or crackles. No accessory muscle u se. Heart: Irregular. No extra sounds. Abdomen: Soft, nontender. Bowel sounds positive. No organomegaly. No masses or hernia. No rigidi ty or rebound. Extremities: No clubbing or cyanosis. No edema. Skin: No rash. Neurologic: Alert, awake, oriented x3. No acute focal deficits appreciated. Investigations: Labs were reviewed. Assessment And Recommendations: 1.Acute renal failure due to dehydration. Lasix was stopped and the patient's BUN and creatinine st abilizing. He might need a gentle hydration. 2.Elevated troponin due to demand ischemia. Await on echocardiogram and further recommendations to follow accordingly. SR/MODL Voice ID: [id number] Report ID: [id number]
--- NOTE | 2022-10-10 19:24 | P.PN ---
Date of Service: 10/11/22 Subjective: no acute events overnight more awake/alert, less confused feels he is improving ROS: A complete review of systems was performed and is negative except as mentioned above Physical Exam: Gen: NAD, AOx2 HEENT: normal conjunctiva, sclera anicteric CV: regular rate & rhythm, no edema Pulm: non-labored respirations, clear bilaterally Abd: soft, non-tender, non-distended Neuro: normal speech, normal affect, moves all extremities vitals reviewed Problem List AMS, acute metabolic encephalopathy Fall, unwitnessed Pneumonia UTI Acute renal failure hypokalemia HTN moderate protein calorie malnutrition AMS , acute metabolic encephalopathy unknown etiology; likely secondary to fall/concussion/UTI CT - Head C Spine shows no acute intracranial finding identifiable. CT chest-Interstitial thickening with scattered patchy alveolar opacities in the lung jessica. Pattern is nonspecific. Pneumonia is possible. Initial urinalysis: No evidence of UTI. Initial urine culture is negative. Repeat UA suggests UTI on Levaquin, zosyn; dc levaquin, transtion to augmentin 1/3 Fall, unwitnessed Imaging shows no acute fracture or contusion or bleed PT and OT consulted Pneumonia Suspect aspiration pneumonia Blood cultures: No growth to date Speech therapy consulted ID consulted Acute renal failure Secondary to dehydration / over-diuresis IV lasix dc'd, continue gentle IVF Nephrology consulted UTI Ur culture without growth, was on antibiotics HTN- Resume home antihypertensives. VTE: Heparin subQ. Code: full Dispo: SNF, patient is from [facility] Dementia with behavioral disturbance Patient is more awake and alert and clinically improving Time Spent Managing Pts Care (In Minutes): 35
[2022-10-11] MEDS: IPRATROPIUM BROM 0.5MG/2.5ML NEB SCH ×4 (01:40→20:40)
[2022-10-11] MEDS: HEPARIN 5000 UNIT/ML 1 ML VIAL SQ SCH ×3 (02:01→16:48)
[2022-10-11 06:21] LABS: Hematocrit 31.9 % (39.6-49.0); MCV 94.1 fL (80-100)
[2022-10-11 06:43] LABS: Magnesium 2.4 mg/dL (1.6-2.4); Potassium 3.2 mmol/L (3.5-5.1)
[2022-10-11] MEDS: PIPER TAZO 3.375 GM in NA CHLORIDE 0.9% 100 ML IV SCH (08:14)
[2022-10-11] MEDS: METOPROLOL TARTRATE 5 MG/5 ML INJ IV PRN ×2 (08:28→21:58)
[2022-10-11] MEDS ORDERED: POTASSIUM CL SA 10 MEQ TAB PO ONE (09:00)
--- NOTE | 2022-10-11 10:11 | P.PN ---
Subjective Date of Service: 10/11/22 Primary Care Provider: unknown Chief Complaint: AMS, Fall, Dehydration Patient sitting in bed pleasant. Denied having any chest pain, SOB, nausea, vomiting, diarrhea, or constipation. Physical Examination - Vital Signs Temperature: 97.8 F Blood Pressure: 179/77 Pulse: 86 Respirations: 18 Pulse Ox (%): 96 - Physical Exam General: In no apparent distress Respiratory: Clear to auscultation bilaterally Cardiovascular: Normal S1 S2 Gastrointestinal: Normal bowel sounds Musculoskeletal: No swelling Integumentary: Other (bialteral arms ecchymoses with right forearm skin tear) Neurological: Normal speech Assessment And Plan - Current Problems (Diagnosis) (1) UTI (urinary tract infection) Current Visit: Yes Status: Acute Plan: 10/07 UC: Pending for culture and currently on IV Zosyn and Levofloxacin. Will stop Levofloxacin and continue Zosyn, and can switch to Levofloxacin PO when d/c to SNF (2) Leukocytosis Current Visit: Yes Status: Acute Plan: Resolved. WBC 8.8 today (3) Moderate protein-calorie malnutrition Current Visit: Yes Status: Acute Plan: Encourage increasing oral intake (4) Renal insufficiency Current Visit: Yes Status: Acute Plan: BUN 56 and Cr 2.22 improving
[2022-10-11] MEDS ORDERED: KCL 20 MEQ/100 mL IVPB 20 MEQ/100 ML BAG IV SCH (13:00)
--- NOTE | 2022-10-11 13:37 | CON ---
Date of Consultation: 10/11/2022 Reason For Consultation: Elevated BUN and creatinine, fluid management. History Of Present Illness: This is an 86-year-old gentleman with significant past medical history o f hypertension, chronic kidney disease with the baseline creatinine 1.3 to 1.4 as of November 2018, h ypertension, hyperlipidemia, the patient came to the hospital with altered mental status and losing c onscious. The patient found to be with pulmonary edema and elevation in cardiac enzyme and elevation in BUN and creatinine. For that reason, we have been consulted. The patient admitted that he had b een feeling weak with polyuria. The patient denied any cough. No fever. Past Medical History: Includes; 1.Hypertension. 2.Chronic kidney disease, stage 3, secondary to hypertension nephrosclerosis. Baseline creatinine 1 .4-1.6, GFR of 50-40. 3.Hyperlipidemia. Family History: Positive for hypertension. Social History: Denied smoking, denied drinking, denied drugs abuse. Home Medications: Include metoprolol. Review of Systems: Head and Neck: No red eye. No ear pain. GI: Has nausea. No vomiting. : No polyuria. No dysuria. Has nocturia. Pit Supervisor: Not applicable. Respiratory: Has shortness of breath. Cardiovascular: Has orthopnea. Endocrine: No polydipsia. Skin: No rash. Neuro: No neuropathy. Has fall. Musculoskeletal: Generalized weakness. Physical Examination: Vital Signs: When I saw the patient; blood pressure 175/81, pulse of 51, afebrile. Chest: Clear to auscultation. Heart: S1, S2. Regular. Abdomen: Soft, nontender. Extremity: No edema. Neurologic: Alert. No focality. Laboratory Data: WBC 8.8, H and H 10.9/31.9. Sodium 146, potassium 3.1, bicarb 22, BUN 56, creatini ne 2.2, GFR of 28, calcium 8.5, magnesium 2.4. CK 461. Urinalysis; specific gravity 1.012, WBC of 5 0, +1 protein. Current Medications: The patient on include; 1.Augmentin. 2.Heparin. 3.Metoprolol. 4.Zofran. 5.IV fluid at 50 per hour. Assessment And Plan: 1.Acute kidney injury secondary to toxic ATN, poor perfusion ATN, questionable of cardiorenal syndro me. Looked to me the patient on the normal volume. I am going to go ahead and discontinue IV fluid and we will monitor the patient. 2.Obstructive uropathy has been ruled out. 3.Hypokalemia. We will supplement and I am going to go ahead and check on his magnesium. 4.Mild rhabdomyolysis. Discontinue IV fluid. 5.Coronary artery disease with congestive heart failure with exacerbation. Discontinue IV fluid and we will monitor. 6.Atypical pneumonia. Continue current antibiotic. 7.Urinary tract infection. Continue current antibiotic. We will follow up. MIN Voice ID: [id number] Report ID: [id number]
--- NOTE | 2022-10-11 14:21 | RAD REPORT ---
EXAM DESCRIPTION: RAD - Chest Single View - 10/11/2022 2:09 pm CLINICAL HISTORY: COPD COMPARISON: Chest Single View dated 10/07/2022; Chest Single View dated 11/20/2018; Chest Single View dated 11/12/2018; CHEST SINGLE VIEW dated 10/27/2011 FINDINGS: Lines: None. Lungs: No evidence of edema or pneumonia. Pleural: No significant pleural effusions or pneumothorax. Cardiac: The heart size is within normal limits. Mediastinum: Within normal limits. Bones: No acute fractures. Other: None IMPRESSION: No acute cardiopulmonary disease.
--- NOTE | 2022-10-11 14:35 | RAD REPORT ---
EXAM DESCRIPTION: US - Renal Ultrasound-Complete - 10/11/2022 2:08 pm CLINICAL HISTORY: KARIME COMPARISON: Renal Ultrasound-Complete dated 11/12/2018 FINDINGS: Both kidneys are normal in size, shape and echotexture. The right kidney measures 9.1 cm. Right lower pole renal cyst measuring 2.7 cm. No hydronephrosis. The left kidney measures 8.5 cm. No hydronephrosis, focal mass or perinephric fluid. The urinary bladder is incompletely distended without gross abnormality seen. IMPRESSION: No evidence of hydronephrosis. Right renal cyst.
[2022-10-11] MEDS: levoFLOXacin 250 MG TAB PO SCH (16:48)
--- NOTE | 2022-10-11 20:34 | PN ---
Date of Progress Note: 10/11/2022 Subjective: Seen at bedside. No new complaints. Review of Systems: No chest pain, shortness of breath, orthopnea, or cough. No nausea, vomiting, or diarrhea. All othe r systems reviewed and they are negative. Physical Examination: Vital Signs: Reviewed. Head And Neck: Pupils are equal and reactive to light. Intact eye movements. No JVD. No cervical lymphadenopathy. Neck is supple. Thyroid is not enlarged. Lungs: Clear to auscultation bilaterally. No rhonchi, wheezing, or crackles. No accessory muscle u se. Heart: Irregular. No extra sounds. Abdomen: Soft, nontender. Bowel sounds positive. No organomegaly. No masses or hernia. No rigidi ty or rebound. Extremities: No clubbing or cyanosis. Intact pulses. Skin: No rashes. Neurologic: Alert and awake. No acute focal deficits appreciated. Investigations: BUN is 56 and creatinine 2.2. Assessment/recommendation: 1.Elevated troponin, likely due to demand ischemia. The patient does not have any chest pain. Awai t on echo results. 2.[id number] renal failure, likely due to dehydration. BUN and creatinine are improving. Abdirashid mendenhall the diuretics on hold. SR/MODL Voice ID: [id number] Report ID: [id number]
[2022-10-11] MEDS ORDERED: AMOX/K CLAV 500 MG TAB PO SCH (21:00)
[2022-10-11] MEDS: MUPIROCIN 2% OINT 22GM TUBE TOP SCH (21:58)
[2022-10-12] MEDS: HEPARIN 5000 UNIT/ML 1 ML VIAL SQ SCH ×3 (00:44→16:38)
[2022-10-12] MEDS: IPRATROPIUM BROM 0.5MG/2.5ML NEB SCH ×4 (01:55→20:00)
[2022-10-12 06:31] LABS: RBC Red Blood Cell Count 3.3 M/uL (4.33-5.43)
--- NOTE | 2022-10-12 06:52 | P.PN ---
Date of Service: 10/12/22 Subjective: feeling better each day worked with PT diarrhea yesterday, but improving today ROS: A complete review of systems was performed and is negative except as mentioned above Physical Exam: Gen: NAD, AOx2 HEENT: normal conjunctiva, sclera anicteric CV: regular rate & rhythm, no edema Pulm: non-labored respirations, clear bilaterally Abd: soft, non-tender, non-distended Neuro: normal speech, normal affect, moves all extremities vitals reviewed Problem List AMS, acute metabolic encephalopathy Fall, unwitnessed Pneumonia UTI Acute renal failure hypokalemia HTN moderate protein calorie malnutrition AMS , acute metabolic encephalopathy unknown etiology; likely secondary to fall/concussion/UTI CT - Head C Spine shows no acute intracranial finding identifiable. CT chest-Interstitial thickening with scattered patchy alveolar opacities in the lung jessica. Pattern is nonspecific. Pneumonia is possible. Initial urinalysis: No evidence of UTI. Initial urine culture is negative. Repeat UA suggests UTI on Levaquin, zosyn diarrhea noted 10/11, so dc'd zosyn, continue levaquin diarrhea with some improvement / Dementia with behavioral disturbance - much improved Fall, unwitnessed Imaging shows no acute fracture or contusion or bleed PT and OT consulted Pneumonia Suspect aspiration pneumonia Blood cultures: No growth to date Speech therapy consulted - tolerating diet ID consulted Acute renal failure Secondary to dehydration / over-diuresis IV lasix dc'd, given gentle IVF - dc'd 10/11, KARIME improving Nephrology consulted UTI Ur culture without growth, was on antibiotics which would effect culture results HTN Resumed home antihypertensives. VTE: Heparin subQ. Code: full Dispo: SNF, patient is from [facility] Time Spent Managing Pts Care (In Minutes): 25
--- NOTE | 2022-10-12 06:56 | ECHO ---
HEIGHT: 6 ft 0 in WEIGHT: 208 lb 6.4 oz DATE OF STUDY: 10/11/[address]: Terry Raphael 2-DIMENSIONAL: YES M.MODE: YES DOPPLER: YES COLOR FLOW: YES TDS: PORTABLE: YES DEFINITY: BUBBLE STUDY: DIAGNOSIS: ELEVATED TROPONIN CARDIAC HISTORY: CATHERIZATION: NO SURGERY: NO PROSTHETIC VALVE: NO PACEMAKER: NO MEASUREMENTS (cm) DIASTOLIC (NORMALS) SYSTOLIC (NORMALS) IVSd 1.1 (0.6-1.2) LA Diam 2.3 (1.9-4.0) LVEF 43% LVIDd 2.9 (3.5-5.7) LVIDs 2.3 (2.0-3.5) %FS 21% LVPWd 1.2 (0.6-1.2) Ao Diam 2.8 (2.0-3.7) 2 DIMENSIONAL ASSESSMENT: RIGHT ATRIUM: NORMAL LEFT ATRIUM: NORMAL RIGHT VENTRICLE: NORMAL LEFT VENTRICLE: MILDLY DEPRESSED EJECTION FRACTION TRICUSPID VALVE: NORMAL MITRAL VALVE: MITRAL ANNULAR CALCIFICATION PULMONIC VALVE: NORMAL AORTIC VALVE: AORTIC VALVE SCLEROSIS, NO AORTIC STENOSIS PERICARDIAL EFFUSION: NONE AORTIC ROOT: NORMAL LEFT VENTRICULAR WALL MOTION: MILD GLOBAL HYPOKINESIS DOPPLER/COLOR FLOW: SEE BELOW COMMENTS: 1. POOR WINDOWS 2. LEFT VENTRICULAR EJECTION FRACTION APPEARS MILDLY DEPRESSED 40-45% 3. MILD GLOBAL HYPOKINESIS 4. AORTIC VALVE SCLEROSIS, NO AORTIC STENOSIS 5. MITRAL ANNULAR CALCIFICATION WITH MILD MITRAL REGURGITATION TECHNOLOGIST: SHINE ALSTON
[2022-10-12 07:13] LABS: Albumin 2.8 g/dL (3.4-5.0); Ferritin 140.8 ng/mL (26-388); Folic Acid, (Folate) 12.3 ng/mL (3.1-17.5); Phosphorus 2.9 mg/dL (2.5-4.9); Potassium 3.5 mmol/L (3.5-5.1); Uric Acid 6.2 mg/dL (3.5-7.2)
[2022-10-12 07:14] LABS: Thyroid Stimulating Hormone 3.91 uIU/mL (0.358-3.740)
[2022-10-12 07:24] LABS: Rheumatoid Factor NEG (NEG)
[2022-10-12] MEDS: levoFLOXacin 250 MG TAB PO SCH (08:19)
[2022-10-12] MEDS: MUPIROCIN 2% OINT 22GM TUBE TOP SCH ×2 (08:20→21:14)
[2022-10-12] MEDS ORDERED: POTASSIUM 25 MEQ EFFERV TAB PO ONE (09:00)
[2022-10-12] MEDS: METOPROLOL TARTRATE 5 MG/5 ML INJ IV PRN ×2 (09:19→21:14)
--- NOTE | 2022-10-12 09:47 | P.PN ---
Subjective Date of Service: 10/12/22 Primary Care Provider: unknown Chief Complaint: AMS, Fall, Dehydration Patient sitting in bed pleasant. Denied having any chest pain, SOB, nausea, vomiting, diarrhea, or constipation. No major events upon examination Physical Examination - Vital Signs Temperature: 97.4 F Blood Pressure: 196/75 Pulse: 72 Respirations: 18 Pulse Ox (%): 100 - Physical Exam General: In no apparent distress Respiratory: Clear to auscultation bilaterally Cardiovascular: Normal S1 S2 Gastrointestinal: Normal bowel sounds Musculoskeletal: No swelling Integumentary: Other (bilateral arms ecchymoses with left forearm skin tear and dressing in place) Neurological: Normal speech Assessment And Plan - Current Problems (Diagnosis) (1) UTI (urinary tract infection) Current Visit: Yes Status: Acute Plan: 10/07 UC: No growth and currently on PO Levofloxacin today (2) Leukocytosis Current Visit: Yes Status: Acute Plan: Resolved. WBC 8.8 today (3) Moderate protein-calorie malnutrition Current Visit: Yes Status: Acute Plan: Encourage increasing oral intake (4) Renal insufficiency Current Visit: Yes Status: Acute Plan: BUN 44 and Cr 1.82 improving. Nephrology is following the patient. - Plan Plan to d/c to SNF Case has been discussed with Hollis Jiang
[2022-10-12] MEDS ORDERED: levoFLOXacin 500 MG TAB PO ONE (10:00)
[2022-10-12 12:23] VITALS: BMI 28.2
--- NOTE | 2022-10-12 13:17 | PN ---
Date of Progress Note: 10/12/2022 Subjective: Patient was admitted to the hospital with acute kidney injury secondary to cardiorenal, mild rhabdo, and toxic ATN. Our suspicious, it was prerenal. IV fluid was discontinued yesterday. Workup did not show any obstructive uropathy. Patient is feeling much better today. Physical Examination: Vital Signs: When I saw the patient; blood pressure 138/79, pulse of 78, afebrile. Patient had good urine output of 700. Chest: Clear to auscultation. Heart: S1, S2 regular. Abdomen: Soft, nontender. Extremities: No edema. Laboratory Data: Hemoglobin 10.9. Sodium 145, potassium 3.5, bicarb 20, BUN 45, creatinine continue d to trend down to 1.8. GFR of 35. Calcium is 8.3. Phosphorus 2.9. Uric acid 6.2. Iron saturatio n 23, ferritin 140. Serum protein electrophoresis is still pending. TSH 3.9. PTH 130. PC ratio is still pending. Assessment And Plan: 1.Acute kidney injury, small size kidney 9.1/8.5 with proteinuric acute kidney injury secondary to c ardiorenal/prerenal on the recovery phase, looked to me on the normal side. I am going to go ahead a nd keep holding IV fluid. We will monitor the patient. 2.Pneumonia. Continue current antibiotic. 3.Urinary tract infection. Continue Levaquin. 4.Hypertension, controlled. Continue current treatment. 5.Secondary hyperparathyroidism with the current kidney function. I do not see the need for calcitr iol. 6.Hypernatremia secondary to depletion. Encourage p.o. intake. 7.Hypokalemia. We will supplement. 8.Rhabdomyolysis, recovered, resolved. BRANDON/JENNIFERL Voice ID: [id number] Report ID: [id number]
[2022-10-13] MEDS: HEPARIN 5000 UNIT/ML 1 ML VIAL SQ SCH ×3 (00:02→15:59)
[2022-10-13] MEDS: IPRATROPIUM BROM 0.5MG/2.5ML NEB SCH ×4 (02:30→19:15)
[2022-10-13 03:36] LABS: Hematocrit 31.1 % (39.6-49.0); MCV 93.7 fL (80-100); RBC Red Blood Cell Count 3.32 M/uL (4.33-5.43)
[2022-10-13 03:52] LABS: Albumin 2.9 g/dL (3.4-5.0); Phosphorus 2.7 mg/dL (2.5-4.9); Potassium 3.6 mmol/L (3.5-5.1)
--- NOTE | 2022-10-13 06:37 | P.PN ---
Date of Service: 10/13/22 Subjective: improving each day no new / worsening symptoms tolerating diet, afebrile working with PT ROS: A complete review of systems was performed and is negative except as mentioned above Physical Exam: Gen: NAD, AOx3, pleasant HEENT: normal conjunctiva, sclera anicteric CV: regular rate & rhythm, no edema Pulm: non-labored respirations, clear bilaterally Abd: soft, non-tender, non-distended Neuro: normal speech, normal affect, moves all extremities vitals reviewed Problem List AMS, acute metabolic encephalopathy Fall, unwitnessed Pneumonia UTI Acute renal failure hypokalemia HTN moderate protein calorie malnutrition AMS , acute metabolic encephalopathy Fall, unwitnessed unknown etiology; likely secondary to fall/concussion/UTI CT - Head C Spine shows no acute intracranial finding identifiable. CT chest-Interstitial thickening with scattered patchy alveolar opacities in the lung jessica. Pattern is nonspecific. Pneumonia is possible. Initial urinalysis: No evidence of UTI. Initial urine culture is negative. Repeat UA suggests UTI on Levaquin, zosyn diarrhea noted 10/11, so dc'd zosyn, continue levaquin diarrhea with some improvement / Dementia with behavioral disturbance - much improved / resolved Imaging shows no acute fracture or contusion or bleed PT and OT consulted Pneumonia Suspect aspiration pneumonia Blood cultures: No growth to date Speech therapy consulted - tolerating diet ID consulted Acute renal failure Secondary to dehydration / over-diuresis IV lasix dc'd, given gentle IVF - dc'd 10/11, KARIME improving Nephrology consulted UTI Ur culture without growth, was on antibiotics which would effect culture results HTN Resumed home antihypertensives. VTE: Heparin subQ. Code: full Dispo: SNF, patient is from [facility] once approved/accepted Time Spent Managing Pts Care (In Minutes): 25
[2022-10-13] MEDS: METOPROLOL XL 25 MG TAB PO SCH (09:28)
[2022-10-13] MEDS: MUPIROCIN 2% OINT 22GM TUBE TOP SCH ×2 (09:29→20:53)
--- NOTE | 2022-10-13 15:59 | PN ---
Subjective: The patient is lying in bed. No new acute event. Denies any headache, nausea, vomiting , chest pain, abdominal pain, constipation, or diarrhea. Objective: Vital Signs: Temperature 97.7, pulse 93, respiration 18, blood pressure 132/71 Lungs: Basal crackles. Heart: S1, S2. Regular. Abdomen: Soft, nontender. Bowel sounds present. Extremity: No edema. Laboratory Data: Reviewed. Assessment And Plan: Pneumonitis, urosepsis, leukocytosis resolved, renal insufficiency, moderate pr otein-calorie malnourishment. We will follow the patient as needed. NF/MODL Voice ID: [id number] Report ID: [id number]
[2022-10-13] MEDS ORDERED: POTASSIUM PHOS 10 MM in NA CHLORIDE 0.9% 250 ML IV ONE (16:00)
--- NOTE | 2022-10-13 22:26 | PN ---
Date of Progress Note: 10/13/2022 Subjective: Patient was admitted with acute kidney injury secondary to cardiorenal syndrome and hypo kalemia with rhabdo. The patient was started on treatment. Kidney function has been improved signif icantly. Creatinine back to close to baseline in the last 48 hours. We discontinued all IV fluids. Patient maintaining good urine output. Physical Examination: Vital Signs: Blood pressure 132/71, pulse of 93, afebrile. Chest: Clear to auscultation. Heart: S1, S2. Regular. Systolic murmur. Abdomen: Soft, nontender. Extremities: No edema. Neurologic: Alert. No focality. Laboratory Data: Sodium 143, potassium 3.6, bicarb 22, BUN 40, creatinine 1.7, calcium 8.5, phosphor us 2.7. Current Medications: The patient on include metoprolol 25, albuterol, heparin, Levaquin 500 daily, b reathing treatment. KCl. Assessment And Plan: 1.Acute kidney injury secondary to pre renal normal size kidney with minimal proteinuria, non nephro tic. Currently look to me normal volume side of IV fluid. We will continue to monitor. 2.Urinary tract infection. Continue current Levaquin dose, appropriate. 3.Hypertension, controlled, optimal. 4.Secondary hyperparathyroidism. Calcium, phosphorus, and PTH on the goal. 5.Hypernatremia secondary to depletion, resolved. 6.Hypokalemia, hypophosphatemia. I am going to go ahead and supplement. 7.Mild rhabdomyolysis, recovered, resolved. BRANDON/TODD Voice ID: [id number] Report ID: [id number]
[2022-10-14] MEDS: HEPARIN 5000 UNIT/ML 1 ML VIAL SQ SCH ×2 (00:27→09:16)
[2022-10-14] MEDS: METOPROLOL TARTRATE 5 MG/5 ML INJ IV PRN (00:28)
[2022-10-14] MEDS: IPRATROPIUM BROM 0.5MG/2.5ML NEB SCH ×3 (01:15→14:00)
[2022-10-14 06:29] LABS: Albumin 2.8 g/dL (3.4-5.0); Phosphorus 2.9 mg/dL (2.5-4.9); Potassium 3.3 mmol/L (3.5-5.1)
[2022-10-14 08:13] VITALS: O2SAT 95
[2022-10-14] MEDS ORDERED: POTASSIUM CL SA 10 MEQ TAB PO ONE (09:00)
[2022-10-14] MEDS ORDERED: levoFLOXacin 750 MG TAB PO SCH (09:00)
[2022-10-14] MEDS: METOPROLOL XL 25 MG TAB PO SCH (09:16)
[2022-10-14] MEDS: MUPIROCIN 2% OINT 22GM TUBE TOP SCH (09:17)
[2022-10-14 12:25] VITALS: BP 130/60; TEMP 97.2
--- NOTE | 2022-10-14 13:58 | P.PN ---
Subjective Date of Service: 10/14/22 Primary Care Provider: unknown Chief Complaint: AMS, Fall, Dehydration Subjective: Other (No urinary complaints.) Physical Examination - Vital Signs Temperature: 97.2 F Blood Pressure: 130/60 Pulse: 93 Respirations: 16 Pulse Ox (%): 98 - Physical Exam General: In no apparent distress HEENT: Atraumatic, Normocephalic Neck: Supple, JVD not distended Respiratory: Other (Symmetric chest expansion) Cardiovascular: No rubs, No murmurs Gastrointestinal: Soft and benign Musculoskeletal: No clubbing Integumentary: No warmth Neurological: Normal tone Urinary: Other (No bladder distention) External genitalia: Deferred Rectal: Deferred Assessment And Plan - Plan 1. Acute kidney injury secondary to prerenal normal size kidney with minimal proteinuria, non nephrotic. SCr improving. [place] po fluid intake. 2. UTI, pneumonia. Abx per primary team. 3. Hypertension. Cont current med regimen. 4. Secondary hyperparathyroidism. Calcium, phosphorus, and PTH at goal. Monitor. 5. Hypernatremia. Resolved, monitor. 6. Hypokalemia. KCl repletion prn. 7. AMS, mechanical fall, malnutriton. Per primary team.
[2022-10-14 14:22] LABS: Hepatitis C Virus RNA (PCR)log <1.18 log IU/mL
--- NOTE | 2022-10-14 16:23 | PN ---
Subjective: Patient is sitting up in bed, eating his lunch. Denies any headache, nausea, vomiting, chest pain, abdominal pain, constipation, or diarrhea. Objective: Vital Signs: Temperature 97, pulse 90, respirations 16, blood pressure 130/60. Lungs: Basal crackles. Heart: S1, S2. Regular. Abdomen: Soft, nontender. Bowel sounds present. Extremities: No edema. Laboratory Data: WBC 10.10, hemoglobin 10.6, platelets 183. Chemistry shows BUN of 33, creatinine 1 .55. Currently, patient is on Levaquin, tolerating well. Assessment And Plan: 1.Urinary tract infection and sepsis, improving. 2.Altered mental status, improved. 3.Pneumonitis, improved. 4.Leukocytosis, improved. 5.Renal insufficiency. 6.Moderate protein-calorie malnourishment. We will follow the patient as needed. NF/MODL Voice ID: [id number] Report ID: [id number]
--- NOTE | 2022-10-15 21:45 | P.DS ---
Admission Date: 10/07/22 Discharge Date: 10/14/22 Primary Care Provider: unknown Disposition: DC HOME/HOME HEALTH CARE Reason for Admission: AMS, Fall, Dehydration Consultations: ID - Dr. Castellanos Nephrology- Ester Vickers Brief History of Present Illness: 86 year old Male with PMH of HTN who presents to emergency room via EMS with complaints of AMS. The patient presents with decreased responsiveness. Per EMS, patient was found on floor at [facility], last seen at baseline yesterday early evening at dinner. Patient confused, found with urine and stool, had soiled himself. Unable to obtain history due to patients underlying mental state. Patient will be admitted to the hospital under Dr. Alejandro hodge. CXR shows mild pulmonary edema. We will consult pulmonology and infectious disease. We will trend troponins, CPK. Hospital Course: Problem List AMS, acute metabolic encephalopathy secondary to infection - UTI/pneumonia Fall, unwitnessed Pneumonia UTI Acute renal failure, resolived hypokalemia HTN moderate protein calorie malnutrition AMS , acute metabolic encephalopathy Fall, unwitnessed unknown etiology; likely secondary to fall/concussion/UTI CT - Head C Spine shows no acute intracranial finding identifiable. Imaging shows no acute fracture or contusion or bleed CT chest-Interstitial thickening with scattered patchy alveolar opacities in the lung jessica. Pattern is nonspecific. Pneumonia is possible. Initial urinalysis: No evidence of UTI. Initial urine culture is negative. Repeat UA suggests UTI, no growth on culture. Completed 7 days of IV antibiotics patient's mentation returned back to baseline, he was eating well, tolerating diet, ambulating with PT Initially looking to get him to SNF for PT and recovery, however he returned to baseline and was doing well while waiting for approval. Pneumonia Suspect mild aspiration pneumonia Blood cultures: No growth to date Speech therapy consulted - tolerating diet complete 7 days of IV antibiotics Acute renal failure Secondary to dehydration / over-diuresis Initially diuresed with lasix and lead to increase in creatinine. IV lasix dc'd, given gentle IVF for 2 days, and patient's renal function returned to baseline Continued to improve off IVF or lasix Continue to hold lasix. Restart as needed / after follow up with Nephrology Follow up: PCP within 1 week Nephrology in 2-3 weeks Vital Signs/Physical Exam: Temp Pulse Resp BP Pulse Ox 97.2 F 93 H 16 130/60 98 10/15/22 08:23 10/15/22 08:23 10/15/22 08:23 10/15/22 08:23 10/15/22 08:23 Physical Exam: Gen: NAD, AOx3, pleasant HEENT: normal conjunctiva, sclera anicteric CV: regular rate & rhythm, no edema Pulm: non-labored respirations, clear bilaterally Abd: soft, non-tender, non-distended Neuro: normal speech, normal affect, moves all extremities Laboratory Data at Discharge: WBC 10.10 K/uL (4.3-10.9) 10/13/22 03:07 Hgb 10.6 g/dL (13.6-17.9) L 10/13/22 03:07 Hct 31.1 % (39.6-49.0) L 10/13/22 03:07 Plt Count 183 K/uL (152-406) 10/13/22 03:07 PT 11.9 SECONDS (9.5-12.5) 10/08/22 04:24 INR 1.08 10/08/22 04:24 APTT 27.1 SECONDS (24.3-36.9) 10/07/22 10:05 Sodium 143 mmol/L (136-145) 10/14/22 05:57 Potassium 3.5 mmol/L (3.5-5.1) 10/14/22 15:02 BUN 33 mg/dL (7-18) H 10/14/22 05:57 Creatinine 1.55 mg/dL (0.70-1.30) H 10/14/22 05:57 Glucose 105 mg/dL (74-106) 10/14/22 05:57 Uric Acid 6.2 mg/dL (3.5-7.2) 10/12/22 06:10 Phosphorus 2.9 mg/dL (2.5-4.9) 10/14/22 05:57 Magnesium 2.4 mg/dL (1.6-2.4) 10/11/22 05:58 Total Bilirubin 0.6 mg/dL (0.2-1.0) 10/07/22 15:17 AST 28 U/L (15-37) 10/07/22 15:17 ALT 22 U/L (16-61) 10/07/22 15:17 Alkaline Phosphatase 67 U/L (45-117) 10/07/22 15:17 Triglycerides 54 mg/dL (<150) 10/08/22 04:24 Cholesterol 172 mg/dL (<200) 10/08/22 04:24 HDL Cholesterol 69 mg/dL (40-60) H 10/08/22 04:24 Cholesterol/HDL Ratio 2.49 10/08/22 04:24 Home Medications: Metoprolol Succinate [Toprol Xl*] 25 mg PO DAILY 10/12/22 Mupirocin Oint [Bactroban 2% Ointment*] 1 appl TOP BID tube 10/14/22 Physician Discharge Instructions: Problem List AMS, acute metabolic encephalopathy secondary to infection - UTI/pneumonia Fall, unwitnessed Pneumonia UTI Acute renal failure, resolived hypokalemia HTN moderate protein calorie malnutrition AMS , acute metabolic encephalopathy Fall, unwitnessed unknown etiology; likely secondary to fall/concussion/UTI CT - Head C Spine shows no acute intracranial finding identifiable. Imaging shows no acute fracture or contusion or bleed CT chest-Interstitial thickening with scattered patchy alveolar opacities in the lung jessica. Pattern is nonspecific. Pneumonia is possible. Initial urinalysis: No evidence of UTI. Initial urine culture is negative. Repeat UA suggests UTI, no growth on culture. Completed 7 days of IV antibiotics patient's mentation returned back to baseline, he was eating well, tolerating diet, ambulating with PT Initially looking to get him to SNF for PT and recovery, however he returned to baseline and was doing well while waiting for approval. Pneumonia Suspect mild aspiration pneumonia Blood cultures: No growth to date Speech therapy consulted - tolerating diet complete 7 days of IV antibiotics Acute renal failure Secondary to dehydration / over-diuresis Initially diuresed with lasix and lead to increase in creatinine. IV lasix dc'd, given gentle IVF for 2 days, and patient's renal function returned to baseline Continued to improve off IVF or lasix Continue to hold lasix. Restart as needed / after follow up with Nephrology Follow up: PCP within 1 week Nephrology in 2-3 weeks Followup: NONE,NONE [Primary Care Provider] - Time spent managing pt's care (in minutes): 45
[2022-10-16 12:23] LABS: Albumin, (SPE) 3.1 g/dL (3.8-4.8); Alpha-1-Globulins 0.4 g/dL (0.2-0.3); Alpha-2-Globulins 0.9 g/dL (0.5-0.9); Gamma Globulins 0.7 g/dL (0.8-1.7); INTERPRETATION REPORT
== END 2022-10-14 16:15 | disposition home health service (06) | DRG 871 ==
LOC: ER 08:04 → ERHOLD 12:57 → 2ND 14:39
PROVIDERS: ADMIT Internal Medicine; ATTEND Hospitalist
DX: A41.9 Sepsis, unspecified organism (principal); G93.41 Metabolic encephalopathy; N17.0 Acute kidney failure with tubular necrosis; I50.23 Acute on chronic systolic (congestive) heart failure; J69.0 Pneumonitis due to inhalation of food and vomit; F03.918 Unspecified dementia, unspecified severity, with other behavioral disturbance; E44.0 Moderate protein-calorie malnutrition; I24.8 Other forms of acute ischemic heart disease; N25.81 Secondary hyperparathyroidism of renal origin; E87.0 Hyperosmolality and hypernatremia; N39.0 Urinary tract infection, site not specified; I13.0 Hypertensive heart and chronic kidney disease with heart failure and stage 1 through stage 4 chronic kidney disease, or unspecified chronic kidney disease; M62.82 Rhabdomyolysis; N18.30 Chronic kidney disease, stage 3 unspecified; R65.20 Severe sepsis without septic shock; E78.5 Hyperlipidemia, unspecified; E87.6 Hypokalemia; E83.39 Other disorders of phosphorus metabolism; E86.0 Dehydration; I25.10 Atherosclerotic heart disease of native coronary artery without angina pectoris; R77.8 Other specified abnormalities of plasma proteins; Z88.8 Allergy status to other drugs, medicaments and biological substances; Z79.82 Long term (current) use of aspirin; Z68.28 Body mass index [BMI] 28.0-28.9, adult; Z79.02 Long term (current) use of antithrombotics/antiplatelets; Z79.899 Other long term (current) drug therapy; Z20.822 Contact with and (suspected) exposure to COVID-19; W18.30XA Fall on same level, unspecified, initial encounter
CPT/HCPCS: 0240U; 36415; 51702; 70450; 71045; 71250; 72125; 76770; 80048; 80053; 80061; 80069; 80076; 81001; 81003; 81015; 82550; 82553; 82607; 82728; 82746; 82947; 83520; 83540; 83605; 83735; 83880; 83970; 84100; 84132; 84165; 84439; 84443; 84466; 84484; 84550; 85025; 85027; 85044; 85610; 85730; 86021; 86038; 86160; 86225; 86430; 87040; 87086; 87088; 87522; 93005; 93306; 96365; 96366; 96372; 96375; 97116; 97161; 97530; 99251; 99285; J0456; J1644; J1940; J2543; J2920; J3480; J7030; J7040; J7050; J7644

== ENCOUNTER 2023-02-06 07:40 | Inpatient (IN) | payer OTHER ==
--- OUTSIDE RECORDS SUMMARY | 2023-02-06 07:43 | XMS REPORT | Continuity of Care Document ---
:1935 Author Organization [facility] t Address [address] [place] [address] Care Team Providers Name Role Phone MICHAEL GRAY Attending Clinician Unavailable Payers Payer Name Policy Type Policy Number Effective Date Expiration Date S ource [employer] CHOICE [id number] 00:00:00 Problems This patient has no known problems. Allergies, Adverse Reactions, Alerts Allergy Allergy Status Severity Reaction(s) Onset Inactive Treating Comm ents Source Name Type Date Date Clinician NO KNOWN Drug Active [facility] ALLERGIE Class [facility] [place] [place] Medications This patient has no known medications. Procedures This patient has no known procedures. Encounters Start End Encounter Admission Attending Care Care Encounter Source Date/Time Date/Time Type Type Clinicians Facility Department ID 2021-01-03 2021-01-03 Outpatient [facility] [id number] [facility] 15:15:00 15:15:00 [facility] 2020-12-06 2020-12-06 Outpatient Logan GRAY [facility] [id number] [facility] 15:05:00 15:05:[address] [facility] Results This patient has no known results.
[2023-02-06 08:46] LABS: Absolute Lymphocytes (CBC) 0.6 K/uL (0.7-4.9); Hematocrit 35.9 % (39.6-49.0); Lymphocytes % 3.8 % (15.3-44.8); MCV 92.5 fL (80-100); MPV 7.3 fL (7.6-11.3); RBC Red Blood Cell Count 3.88 M/uL (4.33-5.43)
[2023-02-06] MEDS ORDERED: NA CHLORIDE 0.9% 500 ML ONE (08:48)
[2023-02-06 08:49] LABS: Protime INR 1.03
[2023-02-06 08:51] LABS: Specific Gravity 1.018 (1.005-1.030); Urine Bacteria None Seen /HPF (<20); Urine Bilirubin NEGATIVE (Negative); Urine Blood 3+ (OVER) (Negative); Urine Clarity Clear (Clear); Urine Color Light-Yellow (Yellow); Urine Glucose NEGATIVE (Negative); Urine Mucus Slight /HPF (None Seen); Urine Protein 2+ (Negative); Urine Urobilinogen Normal (Normal); Urine pH 5.5 (5.0-7.0)
--- NOTE | 2023-02-06 08:56 | RAD REPORT ---
EXAM DESCRIPTION: CT - Head C Spine Cap Wo Con - 02/06/2023 8:34 am CLINICAL HISTORY: Trauma, head and neck injury. Chest, abdomen and pelvis pain. fall, unknown details, found in shower, confused COMPARISON: Head C Spine Cap Wo Con dated 10/07/2022 TECHNIQUE: CT head without contrast. CT cervical spine without contrast with coronal and sagittal reformatted images. CT chest, abdomen and pelvis with coronal and sagittal reformatted images of the spine. All CT scans are performed using dose optimization technique as appropriate and may include automated exposure control or mA/KV adjustment according to patient size. FINDINGS: CT HEAD WITHOUT CONTRAST: No intracranial hemorrhage, hydrocephalus or extra-axial fluid collection. No acute large vascular te rritory infarct. Cerebral atrophy. Chronic small vessel ischemic changes. The paranasal sinuses and mastoids are clear. The calvarium is intact. CT CERVICAL SPINE WITHOUT CONTRAST: No fracture or subluxation. 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 The prevertebral soft tissues are normal in thickness. CT CHEST, ABDOMEN, PELVIS: Thorax: Chest Wall: No abnormal mass Lungs: No acute abnormality. Pleura: Small left pleural effusion. Eneida/Mediastinum: No lymphadenopathy. Aorta/Pulmonary Arteries: Unremarkable Heart: Aortic valve and coronary artery calcifications. Abdomen/Pelvis: Liver: No acute abnormality or suspicious lesions. Biliary: Cholelithiasis. Stomach: No significant focal abnormality. Duodenum: No significant focal abnormality. Pancreas: No significant abnormality. Spleen: No significant abnormality. Adrenal: No suspicious lesions. Left adrenal thickening. Kidney/ureter: No hydronephrosis. No renal calculi. Too small to characterize and/or benign appearing renal lesions are noted. Retroperitoneum: No retroperitoneal adenopathy. Vascular: No aneurysm. 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 Bowel: No significant focal abnormality. Peritoneum: No ascites or free air. Bladder: Grossly unremarkable. Reproductive: Prostatomegaly. Bones: Bridging osteophytes present throughout the thoracic and lumbar spine. Remote T12 compression fracture. Age indeterminate fracture and at the ramus of the right ischium. Other: n/a IMPRESSION: 1. No acute intracranial abnormality. 2. No acute fracture or traumatic malalignment cervical spine. 3. Acute versus subacute nondisplaced fracture of the right ischial ramus. No other evidence of signi ficant trauma identified.
--- NOTE | 2023-02-06 09:08 | RAD REPORT ---
EXAM DESCRIPTION: RAD - Chest Single View - 02/06/2023 8:57 am CLINICAL HISTORY: confusion COMPARISON: Chest Single View dated 10/11/2022; Chest Single View dated 10/07/2022; Chest Single View dated 11/20/2018; Chest Single View dated 11/12/2018 FINDINGS: Lines: None. Lungs: No evidence of edema or pneumonia. Pleural: No significant pleural effusions or pneumothorax. Cardiac: Mild cardiomegaly. Mediastinum: Within normal limits. Bones: No acute fractures. Other: None IMPRESSION: No acute cardiopulmonary disease.
[2023-02-06 09:17] LABS: Albumin 3.8 g/dL (3.4-5.0); Bilirubin Total 0.6 mg/dL (0.2-1.0); Potassium 4.8 mEq/L (3.5-5.1); Protein, Total 7.7 g/dL (6.4-8.2)
--- NOTE | 2023-02-06 09:39 | EDPHYS ---
Physician Documentation [facility] Name: Sheng Mix Age: 87 yrs Sex: Male : 1935 Arrival Date: 02/06/2023 Time: 07:40 Bed 7 Private MD: ED Physician Shay Carey HPI: 02/06 08:32 This 87 yrs old Male presents to ER via EMS with complaints of Found on ground this rn morning. 08:32 The patient presents with confusion, decreased responsiveness. Onset: The rn symptoms/episode began/occurred at an unknown time. Possible causes: unknown. Current symptoms: In the emergency department the patient's symptoms are unchanged from the initial presentation. The patient has experienced a previous episode. The patient has not recently seen a physician. Pt found in bathroom on floor with water running, unknown when fell, patient does not recall events of fall. Lives by himself. Denies pain or injury. Family reports similar episode in past. Family states not at baseline. . Historical: - Allergies: 07:56 No Known Allergies; ld1 - PMHx: 07:56 Hypertension; Arthritis; ld1 - Immunization history:: Adult Immunizations up to date, Client reports receiving the 2nd dose of the Covid vaccine. - Social history:: Smoking status: Patient denies any tobacco usage or history of. Patient/guardian denies using alcohol. - Family history:: not pertinent. - Hospitalizations: : No recent hospitalization is reported. ROS: 08:32 Constitutional: Negative for fever, chills, and weight loss, Eyes: Negative for injury, rn pain, redness, and discharge, Neck: Negative for injury, pain, and swelling, Cardiovascular: Negative for chest pain, palpitations, and edema, Respiratory: Negative for shortness of breath, cough, wheezing, and pleuritic chest pain, Abdomen/GI: Negative for abdominal pain, nausea, vomiting, diarrhea, and constipation, Back: Negative for injury and pain, MS/Extremity: Negative for injury and deformity, Skin: Negative for injury, rash, and discoloration, Neuro: Negative for headache, numbness, tingling, and seizure. Exam: 08:32 Constitutional: This is a well developed, well nourished patient who is somnolent, rn awakens to voice Head/Face: Normocephalic, atraumatic. ENT: Dry MM Cardiovascular: Regular rate and rhythm. No pulse deficits. Respiratory: Mild tachypnea, no cough. Abdomen/GI: Soft, non-tender Back: No spinal tenderness. MS/ Extremity: Pulses equal, no cyanosis. Neurovascular intact. Full, normal range of motion. Equal circumference. Neuro: Somnolent, moves all 4 extremities with equal strength. Vital Signs: 07:53 BP 130 / 81; Pulse 86; Resp 21; Temp 97.7(A); Pain 0/10; ld1 08:34 BP 130 / 81; Pulse 84; Resp 19; Pulse Ox 94% on 2 lpm NC; Height 5 ft. 10 in. ; ld1 08:52 BP 154 / 124; Pulse 87; Resp 17; Pulse Ox 100% on 2 lpm NC; ld1 10:16 BP 171 / 139; Pulse 86; Resp 18; Pulse Ox 100% on R/A; ld1 12:10 Weight 97.98 kg; jl7 12:13 BP 154 / 62; Pulse 89; Resp 18; Pulse Ox 100% on 2 lpm NC; ld1 14:33 BP 141 / 70; Pulse 103; Resp 18; Pulse Ox 100% on 2 lpm NC; ld1 12:10 Body Mass Index 30.99 (97.98 kg, 177.8 cm) jl7 07:53 Pain Scale: Adult ld1 MDM: 07:54 Patient medically screened. rn 09:35 Differential Diagnosis: CVA, electrolyte abnormality, hypoglycemia, intracranial bleed, rn pneumonia, seizure, sepsis, TIA, UTI, volume depletion, rhabdomyolysis. Data reviewed: vital signs, nurses notes, lab test result(s), EKG, radiologic studies, CT scan, plain films, and as a result, I will admit patient. Consideration of Admission/Observation Patient was admitted/placed on observation. Escalation of care including admission/observation considered. Management of patient was discussed with the following: Hospitalist: . Counseling: I had a detailed discussion with the patient and/or guardian regarding: the historical points, exam findings, and any diagnostic results supporting the discharge/admit diagnosis, lab results, radiology results, the need for further work-up and treatment in the hospital. Response to treatment: There is no appreciated change of the patient's symptoms at this time, and as a result, I will admit patient. 02/06 08:05 Order name: Blood Culture Adult (2) rn 02/06 08:05 Order name: CBC with Diff; Complete Time: 09:18 rn 02/06 08:05 Order name: CMP; Complete Time: 09:18 rn 02/06 08:05 Order name: Lactate w/ 2H reflex if indic.; Complete Time: 09:18 rn 02/06 08:05 Order name: Protime (+inr); Complete Time: 09:18 rn 02/06 08:05 Order name: Ptt, Activated; Complete Time: 09:18 rn 02/06 08:05 Order name: Urinalysis w/ reflexes; Complete Time: 09:18 rn 02/06 08:05 Order name: BNP; Complete Time: 09:18 rn 02/06 08:05 Order name: COVID-19 SARS RT PCR; Complete Time: 09:18 rn 02/06 08:05 Order name: Flu; Complete Time: 09:18 rn 02/06 08:05 Order name: CK; Complete Time: 09:18 rn 02/06 09:33 Order name: Glucose, Ancillary Testing; Complete Time: 09:35 EDIL 02/06 11:53 Order name: Magnesium EDIL 02/06 11:53 Order name: Phosphorus EDIL 02/06 11:53 Order name: T4 Free EDIL 02/06 11:53 Order name: Thyroid Stimulating Hormone EDIL 02/06 11:53 Order name: Urinalysis w/ reflexes EDIL 02/06 11:53 Order name: Basic Metabolic Panel EDIL 02/06 11:53 Order name: Basic Metabolic Panel EDIL 02/06 11:53 Order name: CBC with Automated Diff EDMS 02/06 11:53 Order name: CBC with Automated Diff EDMS 02/06 11:53 Order name: Lipid Profile EDMS 02/06 11:53 Order name: Lipid Profile EDIL 02/06 08:05 Order name: Chest Single View XRAY; Complete Time: 09:18 rn 02/06 08:05 Order name: CT Traumagram (Head C Spine CAP wo con); Complete Time: 09:18 rn 02/06 08:05 Order name: EKG; Complete Time: 08:08 rn 02/06 11:53 Order name: Physical Therapy Consult EDIL 02/06 11:53 Order name: CONS Physician Consult EDIL 02/06 11:53 Order name: Heart Healthy EDMS 02/06 08:05 Order name: Accucheck; Complete Time: 09:22 rn 02/06 08:05 Order name: Cardiac monitoring; Complete Time: 08:07 rn 02/06 08:05 Order name: EKG - Nurse/Tech; Complete Time: 08:15 rn 02/06 08:05 Order name: IV Saline Lock - Large Bore; Complete Time: 08:07 rn 02/06 08:05 Order name: Labs collected and sent; Complete Time: 08:34 rn 02/06 08:05 Order name: O2 Per Protocol; Complete Time: 08:07 rn 02/06 08:05 Order name: O2 Sat Monitoring; Complete Time: 08:07 rn 02/06 08:05 Order name: Vital Signs; Complete Time: 08:07 rn Administered Medications: 08:46 Drug: NS 0.9% IV 500 ml Route: IV; Rate: bolus; Site: right antecubital; cm9 Disposition Summary: 02/06/23 09:39 Hospitalization Ordered Hospitalization Status: Inpatient Admission rn Provider: Arun Mario rn Condition: Stable rn Problem: new rn Symptoms: are unchanged rn Bed/Room Type: Standard rn Location: Telemetry/MedSurg (Inpatient)(02/06/23 14:16) bd Room Assignment: 205(02/06/23 14:16) bd Diagnosis - Altered mental status, unspecified rn - Acute kidney failure, unspecified rn - Rhabdomyolysis rn - Fall on same level, unspecified rn Forms: - Medication Reconciliation Form rn - SBAR form rn Signatures: Dispatcher [employer] EDIL Patricia August Shay Carey MD MD rn Leal, Jahala RN RN jl7 Rose Mary Verdugo, RN RN ld1 Wen Baptiste, RN RN cm9 Corrections: (The following items were deleted from the chart) 12:12 09:39 Telemetry/MedSurg (Inpatient) rn [email or web address] 12:12 09:39 rn josh7 14:16 12:12 [facility] ER HOLD jl7 bd 14:16 12:12 ERHOLD- jl7 bd
--- NOTE | 2023-02-06 09:39 | ER ---
Nurse's Notes [facility] Name: Sheng iMx Age: 87 yrs Sex: Male : 1935 Arrival Date: 02/06/2023 Time: 07:40 Bed 7 Private MD: Diagnosis: Altered mental status, unspecified;Acute kidney failure, unspecified;Rhabdomyolysis;Fall on same level, unspecified Presentation: 02/06 07:53 Chief complaint: EMS states: toned out to [facility] for patient found on floor this ld1 morning. Staff found patient laying on ground by toilet and shower. Pt disoriented - unable to report fall or if he hit his head. Coronavirus screen: At this time, the client does not indicate any symptoms associated with coronavirus-19. Ebola Screen: No symptoms or risks identified at this time. Initial Sepsis Screen: Does the patient meet any 2 criteria? No. Patient's initial sepsis screen is negative. Does the patient have a suspected source of infection? No. Patient's initial sepsis screen is negative. Risk Assessment: Do you want to hurt yourself or someone else? Patient reports no desire to harm self or others. Onset of symptoms was February 06, 2023. 07:53 Method Of Arrival: EMS: [facility] ld1 07:53 Acuity: HUGO 3 ld1 Triage Assessment: 07:56 General: Appears in no apparent distress. comfortable, Behavior is calm, cooperative. ld1 Pain: Denies pain. EENT: No signs and/or symptoms were reported regarding the EENT system. Neuro: Level of Consciousness is awake, alert, Oriented to person. Cardiovascular: Capillary refill < 3 seconds Patient's skin is warm and dry. Rhythm is irregular. Respiratory: Airway is patent Respiratory effort is even, unlabored. GI: Abdomen is flat, non-distended. : No signs and/or symptoms were reported regarding the genitourinary system. Derm: No signs and/or symptoms reported regarding the dermatologic system. Musculoskeletal: No signs and/or symptoms reported regarding the musculoskeletal system. Historical: - Allergies: 07:56 No Known Allergies; ld1 - PMHx: 07:56 Hypertension; Arthritis; ld1 - Immunization history:: Adult Immunizations up to date, Client reports receiving the 2nd dose of the Covid vaccine. - Social history:: Smoking status: Patient denies any tobacco usage or history of. Patient/guardian denies using alcohol. - Family history:: not pertinent. - Hospitalizations: : No recent hospitalization is reported. Screenin:34 [facility] ED Fall Risk Assessment (Adult) History of falling in the last 3 months, ld1 including since admission No falls in past 3 months (0 pts). Abuse screen: Denies threats or abuse. Denies injuries from another. Nutritional screening: No deficits noted. Tuberculosis screening: No symptoms or risk factors identified. Assessment: 07:58 Reassessment: ERP at bedside assessing patient. ld1 08:34 Reassessment: See triage assessment\E\. ld1 10:49 Reassessment: Latonya brown - [phone] - daughter. ld1 Vital Signs: 07:53 BP 130 / 81; Pulse 86; Resp 21; Temp 97.7(A); Pain 0/10; ld1 08:34 BP 130 / 81; Pulse 84; Resp 19; Pulse Ox 94% on 2 lpm NC; Height 5 ft. 10 in. ; ld1 08:52 BP 154 / 124; Pulse 87; Resp 17; Pulse Ox 100% on 2 lpm NC; ld1 10:16 BP 171 / 139; Pulse 86; Resp 18; Pulse Ox 100% on R/A; ld1 12:10 Weight 97.98 kg; jl7 12:13 BP 154 / 62; Pulse 89; Resp 18; Pulse Ox 100% on 2 lpm NC; ld1 14:33 BP 141 / 70; Pulse 103; Resp 18; Pulse Ox 100% on 2 lpm NC; ld1 12:10 Body Mass Index 30.99 (97.98 kg, 177.8 cm) jl7 07:53 Pain Scale: Adult ld1 ED Course: 07:52 Patient arrived in ED. ld1 07:53 Shay Carey MD is Attending Physician. rn 07:56 Triage completed. ld1 07:56 Arm band placed on right wrist. ld1 07:57 Cleaned of incontinence. Linen changed. Received patient soiled in feces and urine - ld1 cleaned of incontinence. 07:58 Rose Mary Verdugo, DANNA is Primary Nurse. ld1 07:58 Maintain EMS IV. Dressing intact. Good blood return noted. Site clean \T\ dry. Gauge \T\ ld 1 site: 20G RAC. 08:15 COVID-19 SARS RT PCR Sent. ld1 08:16 EKG done, by ED staff, reviewed by Shay Carey MD. em1 08:34 Patient has correct armband on for positive identification. Placed in gown. Bed in low ld1 position. Call light in reach. Side rails up X2. playground monitor on. Pulse ox on. NIBP on. Door closed. Noise minimized. Warm blanket given. Pillow given. 08:34 Blood Culture Adult (2) Sent. ld1 08:34 Lactate w/ 2H reflex if indic. Sent. ld1 08:34 Urinalysis w/ reflexes Sent. ld1 08:34 Inserted saline lock: 20 gauge in left antecubital area, using aseptic technique. Blood ld1 collected. 08:34 Straight cath inserted, using sterile technique, Returned clear yellow urine. ld1 08:36 CT Traumagram (Head C Spine CAP wo con) In Process Unspecified. EDMS 08:59 Chest Single View XRAY In Process Unspecified. EDMS 09:38 Arun Mario MD is Hospitalizing Provider. rn 15:21 No provider procedures requiring assistance completed. Patient admitted, IV remains in ld1 place. Administered Medications: 08:46 Drug: NS 0.9% IV 500 ml Route: IV; Rate: bolus; Site: right antecubital; cm9 Medication: 08:34 VIS not applicable for this client. ld1 Outcome: 09:39 Decision to Hospitalize by Provider. rn 15:21 Admitted to Med/surg accompanied by tech, via stretcher, room 205, with chart, Report ld1 called to DANNA Ramirez 15:21 Condition: stable 15:39 Patient left the ED. jl7 Signatures: Dispatcher [employer] EDMS Shay Carey MD MD rn Martinez, Eric em1 Yani Sanchez RN RN jl7 Rose Mary Verdugo RN RN ld1 Wen Baptiste RN RN cm9
[2023-02-06] MEDS ORDERED: TRAMADOL HCL 50 MG TAB PO PRN (11:46)
[2023-02-06] MEDS ORDERED: ACETAMINOPHEN 325 MG TABLET PO PRN (11:46)
[2023-02-06] MEDS ORDERED: ONDANSETRON 4 MG/2 ML VIAL IV PRN (11:50)
--- NOTE | 2023-02-06 12:07 | P.HP ---
Certification for Inpatient Patient admitted to: Inpatient With expected LOS: >2 Midnights Patient will require the following post-hospital care: None Practitioner: I am a practitioner with admitting privileges, knowledge of patient current condition, hospital course, and medical plan of care. Services: Services provided to patient in accordance with Admission requirements found in Title 42 Section 412.3 of the Code of Federal Regulations Patient History Date of Service: 02/06/23 Reason for admission: Fall History of Present Illness: Patient is an 87-year-old male with a past medical history significant for hypertension who presents with complaint of fall and altered mental status. Patient currently alert and oriented x1, confused and unable to provide any accurate history. Per family report patient was found seated in the shower. Fall was not witnessed. Is unclear if patient hit his head or not. Patient denies any other signs and symptoms. Symptoms are aggravated or relieved by nothing . Patient was brought to the hospital for medical evaluation. Of note, patient has been having frequent falls per family report. Allergies No Known Allergies Allergy (Verified 11/12/18 18:05) Home Medications: Metoprolol Succinate [Toprol Xl*] 25 mg PO DAILY 10/12/22 Mupirocin Oint [Bactroban 2% Ointment*] 1 appl TOP BID tube 10/14/22 - Past Medical/Surgical History Diabetic: No -: Hypertension -: Cataract sx allyn Psychosocial/ Personal History: Patient is a . He has 1 child. - Social History Smoking Status: Unknown if ever smoked Alcohol use: Yes CD- Drugs: No Caffeine use: Yes Place of Residence: Home Review of Systems is unable to be obtained (unable to assess.) Physical Examination - Physical Exam General: Alert, In no apparent distress, Oriented x1, Cooperative, Confused HEENT: Atraumatic, PERRLA, Mucous membr. moist/pink, EOMI, Sclerae nonicteric Neck: Supple, 2+ carotid pulse no bruit, No LAD, Without JVD or thyroid abnormality Respiratory: Diminished Cardiovascular: No edema, Regular rate/rhythm, Normal S1 S2 Capillary refill: <2 Seconds Gastrointestinal: Normal bowel sounds, No tenderness Musculoskeletal: No tenderness Integumentary: No rashes Neurological: Normal speech, Normal tone, Normal affect, Abnormal gait, Abnormal strength Lymphatics: No axilla or inguinal lymphadenopathy - Studies Laboratory Data (last 24 hrs) 02/06/23 08:29: PT 11.3, INR 1.03, APTT 25.2 02/06/23 08:29: Sodium 138, Potassium 4.8, BUN 60 H, Creatinine 2.30 H, Glucose 125 H, Total Bilirubin 0.6, AST 140 H, ALT 49, Alkaline Phosphatase 79 02/06/23 08:29: WBC 15.30 H, Hgb 11.8 L, Hct 35.9 L, Plt Count 318 Microbiology Data (last 24 hrs): 02/06/23 08:11 Nasopharnyx Influenza Type A Antigen Screen - Final 02/06/23 08:11 Nasopharnyx Influenza Type B Antigen Screen - Final Assessment and Plan - Plan --Nondisplaced fracture of the right ischial ramus. Noted on imaging. Surgeon consulted. Physical therapy eval and treat. We will await further recommendation from surgeon. Continue supportive care. --Acute pain. We will manage pain with current pain medication regimen. --Acute encephalopathy. Unclear etiology. Per family report patient has a history of intermittent confusion. CT head unremarkable for any acute intracranial abnormality. Continue supportive care. -- Anemia of chronic disease. H&H stable. We will continue to monitor hemoglobin and transfuse if less than 7.0. --Leukocytosis. Likely reactive. Will we will continue to monitor WBCs. --Acute on chronic systolic [place] [id number]. Patient placed on diuresis with Lasix. Daily weights and strict I/O. 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 Likely multifactorial secondary to dehydration versus cardio- renal syndrome. Nephrology consulted. Will await further recommendations. --Rhabdomyolysis. Likely secondary to fall. Further management per pneumatic tube fitter. We will reassess CPK in a.m. --DVT prophylaxis with Lovenox subQ. Discharge Plan: Home Plan to discharge in: Greater than 2 days - Advance Directives Does patient have a Living Will: No Does patient have a Durable POA for Healthcare: Yes - Code Status/Comfort Care Code Status Assessed: Yes Physician Review: Patient Assessed, Agree with Above Assessment and Plan Critical Care: No
[2023-02-06] MEDS ORDERED: HYDRALAZINE HCL 20 MG/ML VIAL IV PRN (12:53)
[2023-02-06 13:17] LABS: Magnesium 2.5 mg/dL (1.6-2.4); Phosphorus 5.4 mg/dL (2.5-4.9); Thyroid Stimulating Hormone 3.24 uIU/mL (0.358-3.740)
[2023-02-06] MEDS ORDERED: NA CHLORIDE 0.9% 1,000 ML IV SCH (16:00)
[2023-02-06 16:52] LABS: Hematocrit 34.4 % (39.6-49.0); Lymphocytes % 6.2 % (15.3-44.8); MCV 92.7 fL (80-100); MPV 7.7 fL (7.6-11.3); RBC Red Blood Cell Count 3.71 M/uL (4.33-5.43)
[2023-02-06] MEDS ORDERED: FUROSEMIDE 40 MG/4 ML VIAL IV SCH (17:00)
[2023-02-06 18:19] VITALS: BMI 30.9
[2023-02-06 20:40] LABS: Albumin 3.2 g/dL (3.4-5.0); Bilirubin Total 0.5 mg/dL (0.2-1.0); Magnesium 2.6 mg/dL (1.6-2.4); Potassium 4.6 mEq/L (3.5-5.1); Protein, Total 6.7 g/dL (6.4-8.2)
[2023-02-06] MEDS: NA CHLORIDE 0.9% 1,000 ML IV SCH (22:57)
--- NOTE | 2023-02-07 03:10 | CON ---
Date of Consultation: 02/06/2023 Chief Complaint: Owguk-iz-grfvlxr kidney injury, status post fall, shortness of breath. History Of Present Illness: The patient has multiple medical problems including history of chronic kidney disease, previous history of acute kidney injury, and rhabdomyolysis. The patient presented with complaints of generalized weakness and he was brought to the hospital due to the recent fall. The patient has been seen by [facility] for primary care. He was previously admitted to the hospital in [place] for acute kidney injury back in 2019, creatinine level was 1.8 and BUN 29. He, at that time, was complaining of difficulty voiding and the bladder scan was done to rule out urinary retention, although ultrasound did not show hydronephrosis. During this admission lab work showed elevated CK level . The patient is complaining of shortness of breath. BNP is elevated and the patient was started on Lasix. Chest x-ray did not show significant acute pulmonary changes. The patient has some pedal edema, which appeared to be chronic and previously he was to have evaluation done to rule out DVT. The patient received Lasix in the emergency room for volume control. He remains on O2 nasal cannula. He is an 87-year-old man with past medical history significant for hypertension who presented with complaints of fall and altered mental status. The patient is oriented x1. Remains confused. Unable to provide accurate previous medical history. Apparently, he did not have fever, but fall was not weakness, symptoms of balance problem aggravated sometimes by weakness. He denied chest pain and denies syncope. Past Medical History: Hypertension, cataracts bilaterally, acute kidney injury, and chronic kidney disease. Social History: Denies tobacco, alcohol, or illicit drugs. Family History: The patient cannot provide, previous family history unable to obtain. Review of Systems: The patient does not recall the events and review of systems cannot be obtained. Physical Examination: General: He is alert, arousable, oriented x1. Cooperative, confused. Eyes: Anicteric sclerae. EOMI. Ears, Nose, Mouth, And Throat: Oral mucosa moist. No pallor. Neck: Supple. No bruits. Lungs: Diminished breath sounds at the bases. Heart: S1, S2. Abdomen: Soft. Extremities: Slight edema in both pretibial areas. Laboratory Data: Sodium 138, potassium 4.8, BUN 60, creatinine 2.3, glucose 125, total bilirubin 0.6, ALT 140, and AST 49. Hemoglobin 11.8, WBC 15.3, and platelet count is 318. Impression And Plan: 1. The patient was found to have nondisplaced fracture of the right ischial ramus. The patient will be seen by Orthopedic Service. Continue pain control. Avoid nonsteroidal antiinflammatory medication. 2. Acute encephalopathy, of unclear etiology. Recommend Neurology consult. 3. Anemia of chronic kidney disease. Hemoglobin level is stable. Plan transfusion if hemoglobin is below 7. 4. Leukocytosis. Obtain blood culture and urine culture. 5. Syrar-ik-xsadarc systolic congestive heart failure exacerbation. BNP is elevated up to 4564. The patient received Lasix in ER. Continue daily weights. 6. Acute kidney injury, prerenal secondary to renal hypoperfusion, likely there is an element of chronic cardiorenal syndrome. 7. The patient was found to have rhabdomyolysis. CK level is elevated. Urine showed highly positive blood although there are some red blood cells present as well. Continue to monitor CPK level. Check magnesium and phosphorus level. Patient will start NS with 50 ml/hr in view of rhabdomyolysis. Patient will require work-up for microscopic hematuria. CHRISTIANE/TODD Voice ID: [id number] Report ID: [id number] LULA
[2023-02-07 07:14] LABS: Absolute Lymphocytes (CBC) 1.2 K/uL (0.7-4.9); Hematocrit 29.3 % (39.6-49.0); Lymphocytes % 10.5 % (15.3-44.8); MCV 94.2 fL (80-100); MPV 7.7 fL (7.6-11.3); RBC Red Blood Cell Count 3.11 M/uL (4.33-5.43)
[2023-02-07 07:34] LABS: Albumin 3.1 g/dL (3.4-5.0); Bilirubin Total 0.4 mg/dL (0.2-1.0); Magnesium 2.8 mg/dL (1.6-2.4); Potassium 4.3 mEq/L (3.5-5.1); Protein, Total 6.3 g/dL (6.4-8.2)
--- NOTE | 2023-02-07 07:37 | RAD REPORT ---
EXAM DESCRIPTION: USExtrem Venous W Compress Bil02/07/2023 5:45 am CLINICAL HISTORY: Leg swelling COMPARISON: 2019 FINDINGS: Echogenic material is present within the right common femoral vein extending into the very proximal right superficial femoral vein consistent with thrombus. Vein is partially compressible. The left common femoral, superficial femoral, greater saphenous, popliteal and posterior tibial veins bilaterally are compressible and demonstrate augmentation. Doppler demonstrates good flow. Grayscale, color and spectral analysis performed on all vessels IMPRESSION: Acute thrombus within distal right common femoral/very proximal right superficial femora l vein
[2023-02-07 07:44] LABS: Potassium 4.3 mEq/L (3.5-5.1)
--- NOTE | 2023-02-07 08:12 | EKG ---
Test Date: 2023-02-06 Test Time: 08:11:15 Sweetbread Trimmer: Christiano MONTERO MEASUREMENT RESULTS: Intervals: Rate: 89 OH: 152 QRSD: 114 QT: 418 QTc: 508 [place]: P: 43 OH: 152 QRS: -21 T: 57 INTERPRETIVE STATEMENTS: Normal sinus rhythm Nonspecific ST and T wave abnormality Abnormal ECG Compared to ECG 10/07/2022 21:08:01 ST (T wave) deviation now present Ventricular premature complex(es) no longer present T-wave abnormality no longer present Electronically Signed On 02-07-23 08:11:01 CDT by Fuentes Marrufo
[2023-02-07] MEDS ORDERED: VANCOMYCIN 1.75 GM in NA CHLORIDE 0.9% 500 ML IVPB ONE (09:00)
[2023-02-07] MEDS: ASPIRIN 81 MG CHEWABLE TABLET PO SCH (09:00)
[2023-02-07] MEDS: ENOXAPARIN 30 MG/0.3 ML SQ SCH (09:00)
[2023-02-07] MEDS ORDERED: VANCOMYCIN 1 GM in NA CHLORIDE 0.9% 250 ML IVPB ONE (09:00)
[2023-02-07] MEDS ORDERED: VANCOMYCIN 2 GM in NA CHLORIDE 0.9% 500 ML IVPB ONE (09:00)
--- NOTE | 2023-02-07 09:56 | RAD REPORT ---
EXAM DESCRIPTION: USCarotid Artery Bilateral02/07/2023 9:27 am CLINICAL HISTORY: syncope COMPARISON: None FINDINGS: The velocity of the right internal carotid artery equals 124 cm/sec. The right ICA/CCA rat io 0.7 The velocity of the left internal carotid artery equals 138 cm/sec. The left ICA/CCA ratio 1.3 Mild plaque is present within the carotid arteries. The vertebral arteries demonstrate antegrade flow IMPRESSION: Plaque is present within the left internal carotid artery which appears to result in an approximately 45% stenosis NASCET criteria used. Mild 0-49% stenosis Moderate 50-69% stenosis Severe 70-99% stenosis
[2023-02-07] MEDS: NA CHLORIDE 0.9% 1,000 ML IV SCH (12:17)
--- NOTE | 2023-02-07 13:34 | PN ---
Date of Progress Note: 02/07/2023 Subjective: The patient was admitted to the hospital because of fall. The patient has sacral ulcer. The patient had acute kidney injury secondary to rhabdo with altered mental status. The patient had nondisplaced ischial ramus. He is going to be seen by Ortho. Physical Examination: Vital Signs: When I saw the patient; blood pressure 127/59, pulse of 75, afebrile. Chest: Clear to auscultation. Heart: S1, S2. Systolic murmur. Abdomen: Soft, nontender. Extremity: Trace edema. Neuro: Alert. Pleasantly confused. No focality. Laboratory Data: WBC 11.5, H and H 9.5/29.3. Sodium 140, potassium 4.3, bicarb 20, BUN 75, creatinine 2.2, GFR 27, calcium 8.5, albumin 3.1, corrected calcium 9.3. Urinalysis negative for infection. PC ratio not done. CT abdomen was negative for any hydronephrosis. Current Medications: The patient on include; 1. Aspirin. 2. Vancomycin. 3. Lovenox. 4. Tylenol. 5. IV fluid at 75 per hour. 6. Hydralazine. Assessment And Plan: 1. Acute kidney injury secondary to rhabdomyolysis secondary to poor perfusion ATN, looked to me the patient started to be on the normal volume, CK trending down. I am going to go ahead and discontinue IV fluid and we will continue to monitor the patient. 2. Hypertension, controlled, optimal. Keep holding any EARNEST inhibitor or ARB. 3. Decubitus ulcer. Continue current antibiotic. We will follow up vancomycin trough. 4. Rhabdomyolysis. CK trending down. Kidney function stabilized. I will discontinue IV fluid. 5. Congestive heart failure with possible exacerbation. The patient on room air. I am going to keep holding the diuresis. For the time being, we are just going to discontinue IV fluid for today and we will follow up the patient closely. 6. Pelvis fracture. Follow up with Surgery. Continue supportive care. Time spent examining the patient [id number], reviewing data, lab and radiology, placing order, discussing the case with the patient and cps team lead including hospitalist and nurses more than 35 minutes. MIN Voice ID: [id number] Report ID: [id number] MTDD
[2023-02-07 14:55] LABS: Troponin High Sensitivity 190.2 pg/mL (<58.9)
[2023-02-08] MEDS: Meropenem 500 MG in NA CHLORIDE 0.9% 100 ML IV SCH ×3 (00:55→21:40)
--- NOTE | 2023-02-08 01:37 | CON ---
Date of Consultation: 02/07/2023 Reason For Consultation: Right hip pain. History Of Present Illness: Sheng is an 87-year-old male who presents to clinic after sustaining a f all. The patient had subsequent pain and was brought to the emergency room. Diagnostic studies in [facility] emergency room diagnosed him with a right pubic ramus fracture. The patient was also noted to hav e some altered mental status upon admission. He does have history of chronic kidney disease and the fall was not witnessed. Review of Systems: As above, otherwise negative. Past Medical History: Includes hypertension. Past Surgical History: Includes cataract surgeries. Medications: Metoprolol and Bactroban. Allergies: NO KNOWN DRUG ALLERGIES. Social History: Denies any tobacco use. Reports occasional alcohol use. Denies drug use. Lives at home. Physical Examination: General: No apparent distress. HEENT: Normocephalic, atraumatic. Neck: Supple. Cardiovascular: Brisk cap refill to all digits. Chest: Nonlabored breathing. Abdomen: Nondistended. Psychiatric: Responsive to exam. Musculoskeletal: Right lower extremity pain with range of motion of the right hip. No significant s welling or tenderness over the knee or ankle. Neurovascularly intact distally. Bilateral upper extr emities with functional range of motion without pain. No gross deformities. No obvious dislocations . Left lower extremity with functional range of motion without pain. No gross deformities. No obvi ous dislocations. Diagnostic Studies: Demonstrate a right-sided pubic ramus fracture with minimal displacement. Assessment And Plan: Sheng is an 87-year-old male with a right-sided pubic ramus fracture. No surgi rodrigo intervention is indicated at this time. Physical Therapy may be consulted today with mobilizatio n. The patient will be weightbearing as tolerated to bilateral lower extremities. He will follow up in clinic in 2 to 3 weeks for re-evaluation and x-rays of his pelvis. The patient may be a candidat e for inpatient rehabilitation and we will await their evaluation and insurance approval. VINICIO/TODD Voice ID: [id number] Report ID: [id number]
[2023-02-08 06:57] LABS: Hematocrit 30.2 % (39.6-49.0); Lymphocytes % 9.7 % (15.3-44.8); MCV 92.5 fL (80-100); MPV 7.9 fL (7.6-11.3); RBC Red Blood Cell Count 3.27 M/uL (4.33-5.43)
[2023-02-08 07:17] LABS: Bilirubin Total 0.5 mg/dL (0.2-1.0); Magnesium 2.5 mg/dL (1.6-2.4); Phosphorus 2.4 mg/dL (2.5-4.9); Potassium 3.8 mEq/L (3.5-5.1); Protein, Total 6.5 g/dL (6.4-8.2)
[2023-02-08 07:19] LABS: Troponin High Sensitivity 146.7 pg/mL (<58.9)
[2023-02-08] MEDS ORDERED: POTASSIUM PHOS IN 0.9 % NACL 15 MMOL/250 ML BAG IV ONE (08:14)
--- NOTE | 2023-02-08 08:27 | RAD REPORT ---
EXAM DESCRIPTION: RAD - Chest Single View - 02/08/2023 5:20 am CLINICAL HISTORY: pneumonia Chest pain. COMPARISON: Chest Single View dated 02/06/2023; Chest Single View dated 10/11/2022; Chest Single View da elmo 10/07/2022; Chest Single View dated 11/20/2018 FINDINGS: Portable technique limits examination quality. Mildly prominent interstitial lung markings. The heart is moderately enlarged. No displaced fractures . IMPRESSION: Mild CHF is possible.
--- NOTE | 2023-02-08 09:00 | CON ---
Date of Consultation: 02/07/2023 Reason For Consultation: Syncope. History Of Present Illness: Mr. Mix is 87. He was a patient of Dr. Mccarty at one point. In 2019, he underwent an ostial RCA stent, but has never come back for followup. He has a history of hyperten franki as well. He was found actually unresponsive, brought to the hospital. Workup so far revealed a 40% left ICA stenosis, white count of 15,000, creatinine is 2.3. His troponin was 190. BNP was 84, 000, DVT in acute common femoral vein was found. He is now on antibiotics, aspirin, Lovenox. Echoca rdiogram is pending. He does not himself remember having any chest pain. Past Medical History: As stated above. Allergies: NONE. Review of Systems: Negative. Social History: Negative. Family History: Negative. Medications: Present medications include antibiotics, aspirin, and Lovenox. Physical Examination: General: He was alert and oriented x3. HEENT: Negative. Neck: Supple with no bruit. Chest: Clear. Cardiac: Revealed a regular rhythm and rate with S4 gallops and an aortic sclerosis murmur. Abdomen: Benign. Extremities: Revealed no clubbing, cyanosis, or edema. Diagnostic Data: As stated earlier. Impression And Plan: 1.Syncope secondary to dehydration and renal failure. 2.History of coronary artery disease, status post ostial RCA stent. No followup since. 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 4.Acute deep vein thrombosis in the right common femoral vein. The patient needs to be on antibioti cs, needs to be hydrated, needs to be anticoagulation long-term. Echocardiogram is pending. If his mental status improves to normal, we will consider doing an outpatient Lexiscan. For now, we will co royer to follow, we will see what the echo shows. The elevated troponin and BNP may be demand ische hermann. NB/MODL Voice ID: [id number] Report ID: [id number]
[2023-02-08] MEDS: ASPIRIN 81 MG CHEWABLE TABLET PO SCH (10:18)
[2023-02-08] MEDS: ENOXAPARIN 30 MG/0.3 ML SQ SCH (10:18)
--- NOTE | 2023-02-08 10:42 | CON ---
Date of Consultation: 02/07/2023 Brief History Of Present Illness: The patient is an 87-year-old male with past medical history signi ficant for hypertension, who presented after a fall and altered mental status. He was confused in e ER, unable to provide a significant accurate history. He was apparently found seated in the shower , fall was not witnessed. It is unclear how long he was down. There were no complaints other than m ild pain to the tailbone area. He was brought to the hospital for medical evaluation. He had been h aving more frequent falls per report in the chart as reported by family. Past Medical History: Hypertension. Past Surgical History: Bilateral cataract surgery. Allergies: NO KNOWN DRUG ALLERGIES. Medications: Include metoprolol and mupirocin ointment. Social History: He is . He has 1 child. He denies smoking. Drinks alcohol recreationally. Lives at home. Review of Systems: Ten-point review of systems unable to obtain as the patient has low grade confusion. Physical Examination: General: At the time of my examination; the patient is awake, alert, and oriented x2. He has poor i nsight into his medical condition. HEENT: Otherwise normocephalic. His sclerae were anicteric. His mucous membranes are moist. His o ropharynx is clear. Neck: Supple without JVD. Chest: Expansion and excursion. Cardiovascular: Regular rate and rhythm. Pulmonary: Clear to auscultation bilaterally. Abdomen: Soft. Extremities: Focused examination of extremities; he has bilateral stage I pressure ulcers on bilater al heels. Focused examination of his sacrum; he has a black eschar in his sacrococcygeal region with necrotic tissue in his sole with stool at the time of my examination, but clearly necrotic tissue wa s evident with some surrounding cellulitis under his dressings which were applied. Laboratory Data: Revealed a white blood cell count of 11.5, hemoglobin 9.4, hematocrit of 29.3, plat elet count was 235, neutrophils 77%. His sodium of 140, potassium 4.3, chloride 114, carbon dioxide 20, BUN 75, creatinine 2.2, glucose 95, his calcium 8.5, magnesium 2.8, total bilirubin 0.4, AST 75, ALT 40, alkaline phosphatase was 58. His CK was 1174, it was 2939 on admission. His troponin was 19 0.2. His proBNP was 54,000 on admission, 18,000 on the day of the exam. Imaging: He had a CT head, C-spine, chest, abdomen, and pelvis on 02/06/2023 in the ER, which was of ficially read as CT of the head showed no intracranial hemorrhage, hydrocephalus, or extra-axial flui d collection. No acute large vascular territory infarct, cerebral atrophy and chronic small vessel i schemic changes. Calvarium is intact. 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 Paravertebral soft tissues are normal in ickness. 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 Bridging osteophytes present throughout the thoracic and lumbar region, remote T12 compression fracture and indeterminate fracture of the ramus of the right ischium. Assessment And Plan: This is an 87-year-old male, status post fall, who has a chronic pressure decub itus lesion of his sacral prominent with necrosis and cellulitis. 1.IV fluid hydration. 2.Medical management. 3.I have explained risks, benefits, and alternatives of debridement of the sacral wound including, b ut not limited to bleeding, infection, damage to surrounding tissue, need for further operation and p rocedures. We will review with the patient's family to ensure that everyone is in agreement to proce ed as the patient's mental status is variable at the time. Continue medical optimization prior to an y surgical intervention. We will speak with Dr. Mario regarding optimization. Thank you for this interesting consult. LISA/JENNIFERL Voice ID: [id number] Report ID: [id number]
[2023-02-08] MEDS: AMLODIPINE 10 MG TAB PO SCH (11:16)
[2023-02-08] MEDS: carvediloL 6.25 MG TAB PO SCH ×2 (11:16→21:40)
--- NOTE | 2023-02-08 11:42 | PN ---
Date of Progress Note: 02/08/2023 Subjective: The patient was admitted with fall, hip fracture. The patient had acute kidney injury secondary to rhabdo and prerenal. The patient was started on IV hydration. Kidney function has been improved. Yesterday, we discontinued IV fluid. Kidney function continued to improve. The patient feeling better. The patient on room air. The patient is scheduled for debridement for decubitus ulcer tomorrow. Physical Examination: Vital Signs: When I saw the patient; blood pressure 180/76, pulse of 100, afebrile. The patient had good urine output, voiding, on diaper. Chest: Clear to auscultation. Heart: S1, S2. Regular. Abdomen: Soft, nontender. Extremities: No edema. Neurologic: Alert. Pleasantly confused. Laboratory Data: Hemoglobin 10. Sodium 138, potassium 3.8, bicarb 19, BUN 70, creatinine down to 2, calcium 8.4, phosphorus 2.4, magnesium 2.5. Current Medications: The patient on include meropenem, vancomycin, hydralazine, Lovenox, Tylenol, Zofran, tramadol. Assessment And Plan: 1. Acute kidney injury, multifactorial, secondary to prerenal, poor perfusion ATN and rhabdomyolysis secondary to fall. Continued on the recovery of IV fluid, maintained very good. I am going to continue holding IV fluid. We will monitor the patient. 2. Hypertension. We will start the patient on Norvasc and carvedilol and we will follow up the patient. 3. Rhabdomyolysis, status post hydration. Kidney function continued to improve. CK down to 400. Off IV fluid. We will continue holding IV fluid. We will monitor the patient. 4. Acidosis. I am going to start the patient on oral bicarb. Mostly, it is secondary to IV fluid, non-anion gap. 5. Decubitus ulcer. Plan for debridement tomorrow. The patient cleared from the Renal standpoint for debridement as blood pressure systolic below 160, diastolic below 90. 6. Congestive heart failure, currently normal volume. Keep holding diuresis. Keep holding IV fluid. 7. Pelvic fracture. Continue supportive care. Time spent examining the patient [id number], reviewing data, lab and radiology, placing order, discussing the case with the patient and human resources team member including hospitalist and nurses more than 35 minutes. MIN Voice ID: [id number] Report ID: [id number]
[2023-02-08] MEDS: SODIUM BICARB 325 MG TAB PO SCH (21:39)
[2023-02-08] MEDS: MELATONIN 5 MG TABLET PO PRN (22:35)
[2023-02-08] MEDS: VANCOMYCIN 1.75 GM in NA CHLORIDE 0.9% 500 ML IVPB SCH (22:35)
[2023-02-09 04:18] LABS: Albumin 2.8 g/dL (3.4-5.0); Phosphorus 3.2 mg/dL (2.5-4.9); Potassium 3.9 mEq/L (3.5-5.1)
[2023-02-09] MEDS ORDERED: KCL 20 MEQ/100 mL IVPB 20 MEQ/100 ML BAG IV SCH (05:00)
[2023-02-09] MEDS ORDERED: NA CHLORIDE 0.9% 250 ML ONE (05:01)
[2023-02-09] MEDS: AMLODIPINE 10 MG TAB PO SCH (08:32)
[2023-02-09] MEDS: carvediloL 6.25 MG TAB PO SCH ×2 (08:32→21:50)
[2023-02-09] MEDS: ENOXAPARIN 30 MG/0.3 ML SQ SCH (08:33)
[2023-02-09] MEDS: ASPIRIN 81 MG CHEWABLE TABLET PO SCH (08:33)
[2023-02-09] MEDS: SODIUM BICARB 325 MG TAB PO SCH ×2 (08:34→21:50)
[2023-02-09] MEDS: Meropenem 500 MG in NA CHLORIDE 0.9% 100 ML IV SCH ×2 (08:37→21:50)
--- NOTE | 2023-02-09 10:16 | PN ---
Date of Progress Note: 02/09/2023 The patient is was seen today on 02/09/2023 as a followup following a hip fracture. He came in with some renal insufficiency. Troponin was slightly elevated, it is trending down. Creatinine is about the same. He has some rhabdomyolysis. He is known to have chronic systolic congestive heart failure with an ejection fraction of 40% without any cardiac symptoms at this point. He has decubitus ulcer s. He has hip fracture that for now is being treated conservatively. EKG showed nonspecific changes . His vital signs are stable. No cardiac complaints. When he goes home, we will make arrangements for outpatient event monitor and a Lexiscan because of his troponin elevation. We will sign off his case for now. LENI/TODD Voice ID: [id number] Report ID: [id number]
[2023-02-09] MEDS ORDERED: NA CHLORIDE 0.9% 500 ML ONE (12:16)
--- NOTE | 2023-02-09 12:40 | PN ---
Date of Progress Note: 02/09/2023 Subjective: The patient was admitted with acute kidney injury secondary to rhabdo secondary to fall with poor perfusion, ATN. The patient is status post decubitus ulcer debridement yesterday, tolerated well. Physical Examination: Vital Signs: Blood pressure 141/62, pulse of 89, afebrile. The patient had good urine output, voiding in diaper. Chest: Clear to auscultation. Heart: S1, S2. Systolic murmur. Regular. Abdomen: Soft, nontender. Extremity: Trace edema. Neurologic: Alert. Pleasantly confused. No focality. Laboratory Data: WBC 9.9, H and H 10/30.2. Sodium 137, potassium 3.9, bicarb 21, BUN 49, creatinine 2.2, GFR of 27, calcium 8.3, phosphorus 3.2, albumin 2.8. Corrected calcium 9.3. Current Medications: The patient on include; 1. Meropenem. 2. Vancomycin. 3. Lovenox. 4. Amlodipine 10 mg daily. 5. Carvedilol 6.25 b.i.d. 6. Sodium bicarb 650 b.i.d. 7. Zofran. 8. Melatonin. Assessment And Plan: 1. Acute kidney injury secondary to rhabdomyolysis. Continued to recover, looked to me normal volume, off IV fluid. I am going to keep holding IV fluid for the time being. 2. Hypertension, controlled, optimal. Continue current treatment. We will start the patient on the hydralazine and blood pressure has been better controlled. 3. Rhabdomyolysis, off IV fluid for the last 72 hours. Blood pressure stable and kidney function stable. We will continue to monitor. 4. Acidosis secondary to IV fluids, recovered, resolved. Continue oral bicarb. 5. Decubitus ulcer, status post debridement. We will follow up with Surgery. Continue current treatment. 6. Congestive heart failure. The patient normal volume. Keep holding diuresis. 7. Pelvic fracture. Continue supportive care. Time spent examining the patient [id number], reviewing data, lab and radiology, placing order, discussing the case with the patient and team otr truck driver including hospitalist and nurses more than 35 minutes. MIN Voice ID: [id number] Report ID: [id number] [facility]
[2023-02-09] MEDS ORDERED: BUPIVACAINE 0.25% PF 10 ML VIAL ONE (12:56)
[2023-02-09] MEDS ORDERED: FENTANYL CITR 100 MCG/2 ML ONE (13:17)
[2023-02-09] MEDS ORDERED: propofoL 200 MG/20 ML VIAL IV ONE (13:18)
[2023-02-09] MEDS ORDERED: LIDOCAINE 2% MPF 5 ML VIAL ONE (13:18)
[2023-02-09] MEDS ORDERED: ONDANSETRON 4 MG/2 ML VIAL ONE (13:25)
[2023-02-09] MEDS ORDERED: Phenylephrine HCl 10 MG/ML 1 ML VIAL ONE (13:32)
[2023-02-09] MEDS ORDERED: EPHEDRINE SULF 50 MG/ML VIAL ONE (13:35)
--- NOTE | 2023-02-09 14:04 | P.OP ---
Preoperative diagnosis: Sacral Pressure Ulcer Postoperative diagnosis: Sacral Pressure Ulcer Primary procedure: Wide Excision of Sacral Pressure Ulcer Anesthesia: GETA + Local Estimated blood loss: <5cc Specimen: debridement tissue, cultures Findings: ~ 4cm x 2 cm to facia ( stageIII) Complications: None Transferred to: Recovery Room Condition: Good
[2023-02-09] MEDS ORDERED: HYDROCODONE/APAP 5/325 MG TAB PO PRN (14:08)
--- NOTE | 2023-02-09 14:30 | OP ---
Date of Procedure: 02/09/2023 Surgeon: Flavio Sy MD, Preoperative Diagnosis: Sacral pressure ulcer. Postoperative Diagnosis: Sacral pressure ulcer. Procedure Performed: Wide local excision of sacral pressure ulcer, stage III. Anesthesia: General endotracheal plus local with 0.25% Marcaine. Estimated Blood Loss: Less than 5 cc. Specimen: Debridement of tissue, culture sent for both aerobic and anaerobic speciation. Findings: Approximately 4 cm x 2 cm sacral pressure ulcer down extending to the fascia, stage III, d ecubitus ulcer type. Complications: None. Disposition: The patient was transferred to the recovery room in good condition. Procedure In Detail: After informed consent obtained, the patient was prepped and draped in the usua l sterile fashion after adequate anesthesia was achieved. I made a curvilinear incision around the a matias of the obviously necrotic sacral tissue down to subcutaneous tissue using a 15 blade. I then cir cumferentially dissected using electrocautery down to expose and remove all necrotic tissue, which wa s sent off for pathologic examination. Some murky fluid was appreciated. This was cultured for both aerobic and anaerobic speciation at this time. The specimen was sent off for pathologic examination at this point. I then copiously irrigated the area, achieved hemostasis easily with electrocautery, and then packed the wound with Vashe-soaked Kerlix and sterile dressing placed over top. The patien t tolerated the procedure well without evidence of complication and transferred to PACU in good condition. All counts were correct at the end of the ca se. LISA/MODL Voice ID: [id number] Report ID: [id number]
[2023-02-09] MEDS: JUVEN PACKET PO SCH (21:50)
[2023-02-09] MEDS: MELATONIN 5 MG TABLET PO PRN (21:50)
[2023-02-09 22:03] VITALS: O2SAT 92
[2023-02-10] MEDS: SODIUM BICARB 325 MG TAB PO SCH (07:42)
[2023-02-10] MEDS: carvediloL 6.25 MG TAB PO SCH (07:43)
[2023-02-10] MEDS: ENOXAPARIN 30 MG/0.3 ML SQ SCH (07:43)
[2023-02-10] MEDS: ASPIRIN 81 MG CHEWABLE TABLET PO SCH (07:43)
[2023-02-10] MEDS: AMLODIPINE 10 MG TAB PO SCH (07:43)
[2023-02-10] MEDS: Meropenem 500 MG in NA CHLORIDE 0.9% 100 ML IV SCH (07:43)
[2023-02-10 07:44] VITALS: BP 135/71
[2023-02-10] MEDS: JUVEN PACKET PO SCH (07:44)
[2023-02-10 07:49] LABS: Albumin 2.9 g/dL (3.4-5.0); Potassium 4.4 mEq/L (3.5-5.1)
[2023-02-10] MEDS: VANCOMYCIN 1.75 GM in NA CHLORIDE 0.9% 500 ML IVPB SCH (08:15)
[2023-02-10 08:35] VITALS: TEMP 97.2
--- NOTE | 2023-02-10 08:44 | P.PN ---
Date of Service: 02/07/23 Subjective Patient denies any significant pain today. He is going to work with physical therapy. Patient mentation is much better. Patient's hemoglobin is stable as well. Patient renal function is still elevated so we will recommend continued with IV fluids. Patient has significant uremia so we will need to continue monitoring this closely. He has a eschar on his lower back. Patient will need cardiac clearance. Cardiology has been consulted. Will need surgery consultation for debridement of the wound. Physical Examination - Physical Exam General: Alert, In no apparent distress, Oriented x1, Cooperative, Confused Respiratory: Clear bilaterally Cardiovascular: No edema, Regular rate/rhythm, Normal S1 S2 Gastrointestinal: Normal bowel sounds, No tenderness Musculoskeletal: No tenderness; good range of motion Integumentary: Escar of the lower back; sacral decubitus ulcer Neurological: No focal deficits Assessment and Plan -Assessment/Plan --Nondisplaced fracture of the right ischial ramus. Continue with physical therapy; will work on inpatient rehab --Acute encephalopathy. Mental status is much better after hydration. Continue monitoring renal function closely. --Anemia of chronic disease. Patient's hemoglobin is stable at this time. --Leukocytosis. White blood cell count is stable --Acute on chronic systolic CHF exacerbation. Heart failure is compensated. 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 Appreciate nephrology consultation. Continue monitoring renal function closely --Rhabdomyolysis. CPK has improved --DVT prophylaxis with Lovenox subQ. Discharge Plan: Rehab Plan to discharge in: Greater than 2 days - Advance Directives Does patient have a Living Will: No Does patient have a Durable POA for Healthcare: Yes - Code Status/Comfort Care Code Status Assessed: Yes Physician Review: Patient Assessed, Agree with Above Assessment and Plan Critical Care: No
--- NOTE | 2023-02-10 08:46 | P.PN ---
Date of Service: 02/08/23 Subjective Patient doing well. Patient seen by cardiology and patient cleared for surgery for in the morning. No further cardiac work-up until discharge. Continue with working with inpatient rehab. After surgery patient should be able to go to inpatient rehabilitation. Patient renal function is still elevated so we will continue with gently hydrating and we will continue monitoring renal function closely. Physical Examination - Physical Exam General: Alert, In no apparent distress, Oriented x1, Cooperative, Confused Respiratory: Clear bilaterally Cardiovascular: No edema, Regular rate/rhythm, Normal S1 S2 Gastrointestinal: Normal bowel sounds, No tenderness Musculoskeletal: No tenderness; good range of motion Integumentary: Escar of the lower back; sacral decubitus ulcer Neurological: No focal deficits Assessment and Plan -Assessment/Plan --Nondisplaced fracture of the right ischial ramus. Continue working with physical therapy at inpatient rehab; insurance approval pending --Acute encephalopathy. Encephalopathy has improved. Mental status is much better. --Anemia of chronic disease. Patient's hemoglobin is stable; continue to monitor closely --Leukocytosis. White blood cell count is stable: Debridement of eschar in the morning --Acute on chronic systolic CHF exacerbation. Heart failure is compensated. We will go ahead and change Lasix to oral. 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 Appreciate nephrology consultation. Continue monitoring renal function closely --Rhabdomyolysis. CPK has improved --DVT prophylaxis with Lovenox subQ. Discharge Plan: Rehab Plan to discharge in: Greater than 2 days - Advance Directives Does patient have a Living Will: No Does patient have a Durable POA for Healthcare: Yes - Code Status/Comfort Care Code Status Assessed: Yes Physician Review: Patient Assessed, Agree with Above Assessment and Plan Critical Care: No
--- NOTE | 2023-02-10 08:48 | P.PN ---
Date of Service: 02/09/23 Subjective Patient to the OR today for debridement of eschar. Continue with physical therapy after treatment and outpatient cardiology and nephrology work-up. Renal function is remaining elevated so we will continue with monitoring volume status closely especially in the setting of heart failure. Cardiology consultation and rehab as well Physical Examination - Physical Exam General: Alert, In no apparent distress, Oriented x1, Cooperative, Confused Respiratory: Clear bilaterally Cardiovascular: No edema, Regular rate/rhythm, Normal S1 S2 Gastrointestinal: Normal bowel sounds, No tenderness Musculoskeletal: No tenderness; good range of motion Integumentary: Escar of the lower back; sacral decubitus ulcer Neurological: No focal deficits Assessment and Plan -Assessment/Plan --Nondisplaced fracture of the right ischial ramus. Accepted to inpatient reha b; insurance approval pending --Acute encephalopathy. Encephalopathy has improved. Mental status is much better. --Anemia of chronic disease. Patient's hemoglobin is stable; continue to monitor closely --Leukocytosis. White blood cell count is stable: Debridement of eschar in the morning --Acute on chronic systolic CHF exacerbation. Heart failure is compensated. Lasix and additional cardiac meds. 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 Appreciate nephrology consultation. Continue monitoring renal function closely. Stable --Rhabdomyolysis. CPK has improved --DVT prophylaxis with Lovenox subQ. Discharge Plan: Rehab Plan to discharge in: Greater than 2 days - Advance Directives Does patient have a Living Will: No Does patient have a Durable POA for Healthcare: Yes - Code Status/Comfort Care Code Status Assessed: Yes Physician Review: Patient Assessed, Agree with Above Assessment and Plan Critical Care: No
--- NOTE | 2023-02-10 08:53 | P.DS ---
Discharge Date: 02/10/23 Disposition: TRANSFER TO INPATIENT REHAB Discharge Condition: GOOD Reason for Admission: Fall Consultations: Nephrology Cardiology Brief History of Present Illness: Patient is an 87-year-old male with a past medical history significant for hypertension who presents with complaint of fall and altered mental status. Patient currently alert and oriented x1, confused and unable to provide any accurate history. Per family report patient was found seated in the shower. Fall was not witnessed. Is unclear if patient hit his head or not. Patient denies any other signs and symptoms. Symptoms are aggravated or relieved by nothing . Patient was brought to the hospital for medical evaluation. Of note, patient has been having frequent falls per family report. Hospital Course: Patient has done well during hospital stay. Patient status post debridement of eschar of the sacral wound. We will continue with monitoring renal function. Continue monitoring cardiac status to make sure patient's heart failure remains compensated. At this time, patient is doing well and anticipate discharge to inpatient rehab. Would advise continued follow-up with cardiology and nephrology to monitor volume status and renal function. Patient remains with significant uremia which may be somewhat related to refeeding but we need to monitor hemoglobin and labs closely. We will also need to continue with wound care. At this time, patient is stable for discharge home with outpatient follow-up. Vital Signs/Physical Exam: Temp Pulse Resp BP Pulse Ox 97.2 F 90 14 135/71 98 02/10/23 08:00 02/10/23 08:00 02/10/23 08:00 02/10/23 08:00 02/10/23 08:00 General: Alert, In no apparent distress, Oriented x3 Laboratory Data at Discharge: WBC 9.90 thou/uL (4.3-10.9) 02/08/23 06:38 Hgb 10.0 g/dL (13.6-17.9) L 02/08/23 06:38 Hct 30.2 % (39.6-49.0) L 02/08/23 06:38 Plt Count 196 thou/uL (152-406) 02/08/23 06:38 PT 11.3 SECONDS (9.5-12.5) 02/06/23 08:29 INR 1.03 02/06/23 08:29 APTT 25.2 SECONDS (24.3-36.9) 02/06/23 08:29 Sodium 138 mEq/L (136-145) 02/10/23 07:02 Potassium 4.4 mEq/L (3.5-5.1) 02/10/23 07:02 BUN 77 mg/dL (7-18) H 02/10/23 07:02 Creatinine 2.31 mg/dL (0.70-1.30) H 02/10/23 07:02 Glucose 132 mg/dL (74-106) H 02/10/23 07:02 Phosphorus 3.0 mg/dL (2.5-4.9) 02/10/23 07:02 Magnesium 2.5 mg/dL (1.6-2.4) H 02/08/23 06:38 Total Bilirubin 0.5 mg/dL (0.2-1.0) 02/08/23 06:38 AST 50 U/L (15-37) H 02/08/23 06:38 ALT 38 U/L (16-61) 02/08/23 06:38 Alkaline Phosphatase 62 U/L (45-117) 02/08/23 06:38 Triglycerides 108 mg/dL (<150) 02/07/23 06:55 Cholesterol 176 mg/dL (<200) 02/07/23 06:55 HDL Cholesterol 66 mg/dL (40-60) H 02/07/23 06:55 Cholesterol/HDL Ratio 2.67 02/07/23 06:55 Home Medications: Acetaminophen [Tylenol*] 650 mg PO Q6H PRN tab 02/10/23 Amlodipine [Norvasc*] 10 mg PO DAILY tab 02/10/23 Aspirin Chewable [Aspirin Chewable*] 81 mg PO DAILY tab.chew 02/10/23 Enoxaparin Sodium [Lovenox 30 MG INJ*] 30 mg SQ DAILY syr 02/10/23 Hydrocodone 5/APAP 325 [[place] 5/325*] 1 tab PO Q6H PRN #0 tab 02/10/23 Reji [Reji*] 1 pkt PO BID #0 02/10/23 Melatonin 5 mg PO BEDTIME PRN PRN #0 02/10/23 Na Bicarb Tab [Sodium Bicarb 325 MG Tab*] 650 mg PO BID #0 tab 02/10/23 Na Chloride 0.9% [Ns 1000 ml Ivbag] 50 ml IV DAILY #1000 ml 02/10/23 carvediloL [Coreg*] 6.25 mg PO BID tab 02/10/23 levoFLOXacin [Levaquin] 500 mg PO DAILY #14 tab 02/10/23 New Medications: levoFLOXacin [Levaquin] 500 mg PO DAILY #14 tab Na Chloride 0.9% [Ns 1000 ml Ivbag] 50 ml IV DAILY #1000 ml Physician Discharge Instructions: -DC to inpatient rehab -Follow-up with PCP in 1 to 2 weeks -Follow-up with Nephrology and Cardiology in 1 to 2 weeks -Please call Dr. Mario at [phone] if any questions regarding hospital stay -Please call nursing station at [phone] if any nursing or medication questions -Return to the emergency room if symptoms worsen Diet: Renal (low sodium) Activity: Fall precautions Followup: NONE,NONE [Primary Care Provider] - Time spent managing pt's care (in minutes): 35
== END 2023-02-10 09:15 | DRG 463 ==
LOC: ER 07:40 → ERHOLD 11:41 → 2ND 15:03
PROVIDERS: ADMIT Hospitalist; ATTEND Hospitalist
PROC: 0JB70ZZ Excision of Back Subcutaneous Tissue and Fascia, Open Approach (ICD-10-PCS; principal; 2023-02-09 13:15)
DX: S32.691A Other specified fracture of right ischium, initial encounter for closed fracture (principal); G93.41 Metabolic encephalopathy; L89.153 Pressure ulcer of sacral region, stage 3; I50.23 Acute on chronic systolic (congestive) heart failure; N17.0 Acute kidney failure with tubular necrosis; I13.0 Hypertensive heart and chronic kidney disease with heart failure and stage 1 through stage 4 chronic kidney disease, or unspecified chronic kidney disease; M62.82 Rhabdomyolysis; I82.411 Acute embolism and thrombosis of right femoral vein; I96 Gangrene, not elsewhere classified; L03.818 Cellulitis of other sites; N18.32 Chronic kidney disease, stage 3b; D63.1 Anemia in chronic kidney disease; D63.8 Anemia in other chronic diseases classified elsewhere; L89.621 Pressure ulcer of left heel, stage 1; L89.611 Pressure ulcer of right heel, stage 1; L89.309 Pressure ulcer of unspecified buttock, unspecified stage; M19.90 Unspecified osteoarthritis, unspecified site; E86.0 Dehydration; I25.10 Atherosclerotic heart disease of native coronary artery without angina pectoris; Z60.2 Problems related to living alone; Z95.5 Presence of coronary angioplasty implant and graft; Z79.82 Long term (current) use of aspirin; Z91.81 History of falling; Z79.899 Other long term (current) drug therapy; W18.30XA Fall on same level, unspecified, initial encounter; Y93.9 Activity, unspecified; Y92.012 Bathroom of single-family (private) house as the place of occurrence of the external cause
CPT/HCPCS: 36415; 51702; 70450; 71045; 71250; 72125; 80048; 80053; 80061; 80069; 80202; 81001; 82550; 82947; 83605; 83735; 83880; 84100; 84145; 84439; 84443; 84484; 85025; 85610; 85730; 86021; 87040; 87070; 87075; 87077; 87186; 87205; 87804; 88304; 93005; 93880; 93970; 97110; 97161; 97530; 99285; J0360; J1650; J2001; J2370; J2405; J2704; J3010; J3480; J7040; J7050; U0003

== ENCOUNTER 2023-02-10 09:15 | Inpatient (IN) | payer OTHER ==
--- OUTSIDE RECORDS SUMMARY | 2023-02-10 09:21 | XMS REPORT | Continuity of Care Document ---
:1935 Author Organization [facility] t Address [address] [place] [address] Care Team Providers Name Role Phone MICHAEL GRAY Attending Clinician Unavailable Payers Payer Name Policy Type Policy Number Effective Date Expiration Date S ource [employer] CHOICE [id number] 00:00:00 Problems This patient has no known problems. Allergies, Adverse Reactions, Alerts Allergy Allergy Status Severity Reaction(s) Onset Inactive Treating Comm ents Source Name Type Date Date Clinician NO KNOWN Drug Active [facility] ALLERGIE Class [facility] Medications This patient has no known medications. Procedures This patient has no known procedures. Encounters Start End Encounter Admission Attending Care Care Encounter Source Date/Time Date/Time Type Type Clinicians Facility Department ID 2021-01-03 2021-01-03 Outpatient [facility] [id number] [facility] 15:15:00 15:15:00 [facility] 2020-12-06 2020-12-06 Outpatient Logan GRAY [facility] [id number] [facility] 15:05:00 15:05:00 MICHAEL [facility] Results This patient has no known results.
[2023-02-10] MEDS ORDERED: MELATONIN 5 MG TABLET PO PRN (10:24)
[2023-02-10] MEDS ORDERED: ACETAMINOPHEN 325 MG TABLET PO PRN (10:26)
[2023-02-10] MEDS: carvediloL 6.25 MG TAB PO SCH (20:07)
[2023-02-10] MEDS: SODIUM BICARB 325 MG TAB PO SCH (20:08)
[2023-02-10] MEDS: JUVEN PACKET PO SCH (20:08)
[2023-02-10] MEDS: APIXABAN 5 MG TABLET PO SCH (20:08)
--- NOTE | 2023-02-10 20:50 | HP ---
Date of Admission: 02/10/2023 [facility] Ad[facility] History And Physical Time Of Service: 10:30 a.m. Chief Complaint: Mr. Mix reports a fall and pain in the buttocks region and some mild confusion. History Of Present Illness: Mr. Mix is an 87-year-old patient with chronic kidney disease and hyper tension who was found in his shower confused after a fall. [facility], and his trauma series identified a right ischium ramus fracture where he h as severe pain. 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 The prevertebral soft tissues were normal. He had a Doppler study of the extremities, which identified acute thrombus in the distal right comm on femoral and in the proximal right superficial vein, he was put on anticoagulation for that. His e xamination also revealed an area of significant tissue breakdown in the sacral region for which he wa s evaluated by both the Orthopedic Service and General Surgery Service. Dr. Sy on the determined that he had a chronic pressure ulcer lesion in the sacral prominence with necrosis and c ellulitis. He did have elevated procalcitonin of 0.25 and lactic acid was normal at 1.7. His creati ne kinase was elevated to 485, creatinine was elevated to 2.02, beta natriuretic peptide elevated at 12,702, and troponin I elevated to 190. The patient was seen by Cardiology Service for myocardial in farction as well. Given the area of prominence and necrosis with cellulitis in the sacral region, he was taken to surgery by Dr. Sy for debridement on February 09, which was yesterday and he performed a wide local excision at the stage III pressure ulcer and packed the wound for healing. The patient 's cultures from the blood on the did grow gram-negative rods identified as Pseudomonas Stutzeri, which is found to be pansensitive. He was treated with Levaquin 500 mg daily, in addition to merope nem 100 mg every 12 hours and vancomycin 1.75 g every 36 hours. For his deep vein thrombosis, he was treated with Lovenox, he received 30 mg subcutaneously daily and aspirin 81 mg daily and now he was placed on Eliquis 5 mg twice daily. It should be noted the patient does have thin skin with easy bru ising. There is bleeding with minor tear of skin. Given his complicated course, the patient's sever e spinal stenosis, sepsis and with elevated white blood cell count of 15,000 along with the rhabdomyo lysis, the patient has become significantly incapacitated, requiring [id number] assist for trans fers, mobilization, and performance of activities of daily living. Previously he was in an independe nt living facility and at this point, he is unable to return there without aggressive therapy. It is likely he will require a 24 hour supervision, perhaps for a while given his severe stenosis of the c ervical region and the potential for significant worsening. As a result, he is admitted to the [facility] [place] [facility] for aggressive physical, occupational, and speech therapy along with custodial and daily medical management. 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 Past Surgical History: Bilateral cataract surgery. Allergies: NO KNOWN DRUG ALLERGIES. Family History: Noncontributory. Social History: He lives in a local independent living. He does occasionally drink alcohol and caff einated beverages. No tobacco. No illegal drugs. Medications: At home are Toprol-XL 25 mg daily and Bactroban ointment applied topically twice daily. Review of Systems: As noted, pain in the sacral area, mild shortness of breath, mild myalgias and arthralgias, and mild confusion. No rash. No psychiatric issues. No gastrointestinal issues. He does have some bruising noted in the arms and has easy bleeding from thin skin. Laboratory Studies: White blood cell count 9.9 on the 3rd and on the 1st it was 15.3, hemoglobin 10. 0 on the 3rd and on the 1st was 11.8, and platelets of 196. INR 1.03. Sodium 138, potassium 4.4, ch loride 114, carbon dioxide 21, BUN 77, creatinine 2.31, glucose 132, calcium 8.7, phosphorus 3.0, mag nesium 2.5, AST 50, ALT 38, alkaline phosphatase is 62. Creatine kinase is 485. Troponin I 146. Be ta natriuretic peptide 11,071. Total serum protein 6.5, albumin 2.9, and from the 2nd, procalcitonin 0.25. Urinalysis on the 1st with 5 to 10 red blood cells, 5 to 10 granular casts, 2+ protein, 3+ bl ood, and trace ketones. Vancomycin trough on 02/08/2023 is 11.5. Anti-proteinase 3 and anti-myelope roxidase studies pending. COVID testing is negative. X-ray/imaging: Chest x-ray from the 3rd showed mild CHF pattern. Doppler ultrasounds study done on 02/06/2023 shows acute thrombus within the distal right common femoral and very proximal right superf icial femoral artery. CT trauma series shows no intracranial hemorrhage, no hydrocephalus or extraax ial fluid, and no large vascular territory infarct. There is cerebral atrophy and chronic small vess el ischemic disease. Cervical spine study shows bridging osteophytes consistent with diffuse idiopat hic skeletal hyperostosis. There is calcification of posterior longitudinal ligament at C2-3 resulti ng in severe central spinal stenosis. The prevertebral soft tissues are normal in thickness. Review of Systems: Mr. Mix reports some mild pain in the sacral area where he had recent surgery. There are myalgias a nd arthralgias. Denies any other findings. Physical Examination: Neurologic: On cranial nerve examination, he has full jessica to confrontation and pupils are round a nd reactive to light and accommodation. Extraocular moves intact. His strength is diffusely weak in upper and lower extremities. No focal weakness. Stocking-glove loss to light touch and temperature . He does have some difficulty following complex commands. Extremities: Mild trace edema in lower extremities. Lungs: Decreased breath sounds bilaterally. Abdomen: Soft. Vital Signs: Blood pressure ranged 100 to 135/49 to 71, pulse ranged from 79 to 90, temperature 97.2 , O2 saturation 99% on room air. HEENT: He is normocephalic, atraumatic. Current Functional Status: Toilet hygiene is dependent, tub and shower transfer activity is at maxim um assistance level, upper body dressing with supervision, lower body dressing with maximum assistanc e, maximum assistance for footwear, sit to stand with moderate assistance, sitting on side of bed wit h moderate assistance, toilet transfer with maximal assistance, maximum assistance for ambulation at 5 feet with a rolling walker. Rehabilitation And Medical Assessment And Plan: Mr. Mix was admitted to the inpatient rehabilitatio n unit with 06 neurological condition as the rehabilitation impairment category. His rehabilitation impairment group code is 03.8, neuromuscular disorder. His etiologic diagnosis is rhabdomyolysis and active comorbids are acute renal injury, congestive heart failure, hypertension, metabolic acidosis, severe C2-3 cervical spinal stenosis, sacral decubital ulcer status post debridement, and nondisplac ed fracture of the right ischial ramus. Plan: 1.He will have physical and occupational therapy for 3 hours a day, 5 of 7 days along with speech th erapy 0.5 hours, 5 of 7 days. 2.His comorbid conditions will be managed by continuing Norvasc 5 mg daily for hypertension and Core g 6.25 mg twice daily as well. 3.For his fluid management for mild congestive heart failure, with Lasix 20 mg daily. 4.For his deep vein thrombosis, he will have Eliquis 5 mg twice daily. 5.For his positive bacterial cultures with rodriguez sensitivity, he will have levofloxacin orally continu ed. IV antibiotics have been finished. 6.For pain, [place] 5/325 along with Tylenol as needed. 7.Stool softener, Senokot-S. 8.For sleep, melatonin 3 at night. Impact Of Comorbids: Given his severe cervical spinal stenosis, he is at high risk of falls and inju ry and therefore should be ambulating with a walker at all times and with a gait belt. He will requi re assistance as he is transferring and may mobilize mostly by wheelchair until he is satisfactorily evaluated and cleared by Neurosurgery. In addition, he has deep vein thrombosis and is at risk for p ulmonary embolus and will be continued on Eliquis. He also has systemic infection with treatment wit h Levaquin. Rehabilitation Specific Plan: As noted, he will have aggressive physical, occupational, and speech t herapy 3.5 hours, 5 of 7 days to improve his ability to transfer from bed, to chair, to toilet, [facility]; to ambulate household distances safely 200 feet with independence, where he was previously and go up and down 10 steps independently; perform cognitive functioning independently and he will have s killed nursing to manage all of his medical issues with blood draws and vitals per shift and if need be, modification of medications for pain, for stool management, and for sleep. Mr. Mix has a good understanding and his daughter with whom I discussed his case, reason for admissi on to the inpatient rehabilitation unit and given his need for at least 2 and actually 3 of the disci plines, he will likely do well with those combined. Additionally, he will likely need continued medi rodrigo management and custodial. Also Respiratory Service, Cardiology Service, and General Surger y Service will be sought as he was being seen in the acute care floor by those services. Given the c omplex medical condition and risk of further medical complications, rehabilitation of Mr. Mix cannot be performed safely at a lower level of care such as custodial facility. Barriers To Discharge: Given his significant canal stenosis at C2-3, he is at high risk of falling a gain and actually he had reportedly fallen several times, in addition to the one in the shower that l ed to the fracture. He will have bed alarm appropriate and will have fall precautions at all times. Estimated Length Of Stay: 12 to 14 days. Disposition: Ideally he would go back to a facility where there is a 24 hour supervision, which may be Memory Care Unit if possible. Prognosis: Good, despite his complicated medical history. Rehabilitation Goals: 1.As noted, transfer from bed, toilet, shower, chair independently. 2.Ambulate 250 feet independently with a rolling walker. 3.Up and down 5 steps independently with bilateral handrails. 4.To perform cognitive functioning including speech interaction, memory, language independently. I acknowledge I have personally performed a full physical examination on Mr. Sheng Mix, no later alan n 24 hours after admission to the inpatient rehabilitation facility and determined he is able to tole rate the above course of treatment at the intensive level as stated. A detailed individualized plan of care for him will be completed by hospital day 4 based on the pre-admission screen, admission hist ory and physical, and therapy evaluations. UMER/TODD Voice ID: [id number]
[2023-02-11 07:38] LABS: Absolute Lymphocytes (CBC) 0.6 K/uL (0.7-4.9); Hematocrit 29.1 % (39.6-49.0); Lymphocytes % 6.2 % (15.3-44.8); MCV 92.4 fL (80-100); MPV 7.8 fL (7.6-11.3); RBC Red Blood Cell Count 3.15 M/uL (4.33-5.43)
[2023-02-11] MEDS ORDERED: levoFLOXacin 500 MG TAB PO SCH (08:00)
[2023-02-11] MEDS ORDERED: AMLODIPINE 10 MG TAB PO SCH (08:00)
[2023-02-11] MEDS: carvediloL 6.25 MG TAB PO SCH ×2 (08:39→19:49)
[2023-02-11] MEDS: APIXABAN 5 MG TABLET PO SCH ×2 (08:39→19:49)
[2023-02-11] MEDS: SODIUM BICARB 325 MG TAB PO SCH ×2 (08:39→19:49)
[2023-02-11] MEDS: FUROSEMIDE 20 MG TABLET PO SCH (08:39)
[2023-02-11 09:06] LABS: Prealbumin 8.6 mg/dL (20-40)
[2023-02-11 10:56] LABS: Potassium 4.6 mEq/L (3.5-5.1)
[2023-02-11 10:58] LABS: Albumin 2.9 g/dL (3.4-5.0); Magnesium 2.7 mg/dL (1.6-2.4)
[2023-02-11] MEDS ORDERED: levoFLOXacin 250 MG TAB PO ONE (11:00)
[2023-02-11] MEDS: JUVEN PACKET PO SCH ×2 (11:06→19:50)
[2023-02-12 06:28] LABS: Absolute Lymphocytes (CBC) 0.9 K/uL (0.7-4.9); Hematocrit 27.3 % (39.6-49.0); Lymphocytes % 9.3 % (15.3-44.8); MCV 92.6 fL (80-100); MPV 7.8 fL (7.6-11.3); RBC Red Blood Cell Count 2.95 M/uL (4.33-5.43)
[2023-02-12 06:45] LABS: Potassium 4.4 mEq/L (3.5-5.1)
[2023-02-12] MEDS: carvediloL 6.25 MG TAB PO SCH ×2 (08:10→19:26)
[2023-02-12] MEDS: FE SULF/FA/VIT B COMP & C TAB PO SCH (08:11)
[2023-02-12] MEDS: ZINC SULFATE 220 MG CAP PO SCH (08:11)
[2023-02-12] MEDS: SODIUM BICARB 325 MG TAB PO SCH ×2 (08:11→19:26)
[2023-02-12] MEDS: APIXABAN 5 MG TABLET PO SCH ×2 (08:11→19:26)
[2023-02-12] MEDS: ASCORBIC ACID 500 MG TABLET PO SCH (08:11)
[2023-02-12] MEDS: AMLODIPINE 5 MG TAB PO SCH (08:11)
[2023-02-12] MEDS: FERROUS SULFATE 325 MG TAB PO SCH (08:12)
[2023-02-12] MEDS: FUROSEMIDE 20 MG TABLET PO SCH (08:12)
[2023-02-12] MEDS: JUVEN PACKET PO SCH ×2 (08:13→19:27)
--- NOTE | 2023-02-12 12:17 | CON ---
Date of Consultation: 02/12/2023 Reason For Consultation: Elevated BUN and creatinine, fluid management. 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 The patient was treated with hydration, which recovered. The patient transferred to the rehab for further PT/OT. The patient was off diuresis. Past Medical History: Includes; 1. Hypertension. 2. Hyperlipidemia. 3. Congestive heart failure. 4. Chronic kidney disease, stage 3B, baseline creatinine according to the current admission in 2s-2.3 with GFR 25-30. Family History: Positive for hypertension. Social History: Denied smoking, denied drinking, denied drugs abuse. Current Medications: The patient on include; 1. Levofloxacin 750 q.48 hours. 2. Eliquis. 3. Ferrous sulfate. 4. Amlodipine 5 mg daily. 5. Carvedilol. 6. Tylenol. 7. Lasix 20 daily. 8. Sodium bicarb. 9. Melatonin. Review of Systems: Head and Neck: No red eye. No ear pain. GI: No nausea. No vomiting. : No polyuria. No dysuria. No hematuria. Storage Specialist: Not applicable. Respiratory: Has shortness of breath. Cardiovascular: No chest pain. Has leg swelling. Endocrine: No polydipsia. Skin: No rash. Neuro: Has fall. Musculoskeletal: Generalized body ache and weakness. Physical Examination: Vital Signs: Blood pressure 148/78, pulse of 77, afebrile. Chest: Crackles bilateral. Heart: S1, S2. Regular. Systolic murmur. Abdomen: Soft, nontender. Extremities: Plus edema. Dressing on the leg. Neurologic: Alert. Pleasantly confused. Laboratory Data: Sodium 138, potassium 4.4, bicarb 23, BUN 78, creatinine 2.4, GFR 25, calcium 8.6, hemoglobin of 9. Current Medications: The patient is on as above. Assessment And Plan: 1. Chronic kidney disease with acute kidney injury secondary to rhabdomyolysis, slightly on the wet side. I am going to go ahead and increase his Lasix to 40 mg and we will continue to monitor the patient. 2. Hypertension. Continue current medication, except increasing the Lasix. 3. Rhabdomyolysis, recovered, resolved. Last CK from the medical floor was down to 485. 4. Iron deficiency anemia, status post IV iron. 5. Secondary hyperparathyroidism, stable. Calcium, phosphorus, and PTH on the goal. 6. Deconditioning. Continue PT, OT. time spend exam the patient face to face , reviewing the DATA lab and Radiology, placing the order, discussing the case with the patient ,reviewing the care plan with operations team leader including the nursing staff , discussing with the hospitalist >75 min MIN Voice ID: [id number] Report ID: [id number] LULA
[2023-02-12] MEDS ORDERED: EPOETIN ALFA-EPBX 10,000 UNIT/ML VIAL SQ ONE (13:00)
--- NOTE | 2023-02-12 13:52 | RAD REPORT ---
EXAM DESCRIPTION: Estelita Single View02/12/2023 1:40 pm CLINICAL HISTORY: sob COMPARISON: February 08, 2023 FINDINGS: The lungs appear clear of acute infiltrate. The heart is mildly enlarged IMPRESSION: No acute abnormalities displayed
[2023-02-12] MEDS ORDERED: FUROSEMIDE 20 MG TABLET PO ONE (14:00)
[2023-02-12] MEDS: DOCUSATE NA/SENNA CONC 1 TAB PO PRN (20:17)
[2023-02-13] MEDS: carvediloL 6.25 MG TAB PO SCH ×2 (07:09→20:24)
[2023-02-13] MEDS: FE SULF/FA/VIT B COMP & C TAB PO SCH (07:10)
[2023-02-13] MEDS: APIXABAN 5 MG TABLET PO SCH ×2 (07:10→20:24)
[2023-02-13] MEDS: JUVEN PACKET PO SCH ×2 (07:10→20:24)
[2023-02-13] MEDS: levoFLOXacin 750 MG TAB PO SCH (07:10)
[2023-02-13] MEDS: FERROUS SULFATE 325 MG TAB PO SCH (07:10)
[2023-02-13] MEDS: ASCORBIC ACID 500 MG TABLET PO SCH (07:10)
[2023-02-13] MEDS: FUROSEMIDE 40 MG TABLET PO SCH (07:11)
[2023-02-13] MEDS: SODIUM BICARB 325 MG TAB PO SCH ×2 (07:11→20:24)
[2023-02-13] MEDS: ZINC SULFATE 220 MG CAP PO SCH (07:11)
[2023-02-13] MEDS: AMLODIPINE 5 MG TAB PO SCH (08:00)
[2023-02-13] MEDS ORDERED: levoFLOXacin 500 MG TAB PO SCH (08:00)
[2023-02-13] MEDS: HYDROCODONE/APAP 5/325 MG TAB PO PRN (08:25)
--- NOTE | 2023-02-13 09:11 | P.CNS ---
Date of Consult: 02/13/23 Reason for Consult: Painful toenails Allergies No Known Allergies Allergy (Verified 02/10/23 10:31) Home Medications: Acetaminophen [Tylenol*] 650 mg PO Q6H PRN tab 02/10/23 Amlodipine [Norvasc*] 10 mg PO DAILY tab 02/10/23 Apixaban [Eliquis *] 2.5 mg PO BID 02/10/23 Furosemide [Lasix*] 20 mg PO DAILY 02/10/23 Hydrocodone 5/APAP 325 [Pedro 5/325*] 1 tab PO Q6H PRN #0 tab 02/10/23 Melatonin 5 mg PO BEDTIME PRN PRN #0 02/10/23 Na Bicarb Tab [Sodium Bicarb 325 MG Tab*] 650 mg PO BID #0 tab 02/10/23 carvediloL [Coreg*] 6.25 mg PO BID tab 02/10/23 levoFLOXacin [Levaquin] 500 mg PO DAILY #14 tab 02/10/23 - Past Medical/Surgical History Diabetic: No -: Hypertension -: Cataract sx allyn Psychosocial/ Personal History: Patient is a . He has 1 child. - Social History Smoking Status: Unknown if ever smoked Alcohol use: Yes CD- Drugs: No Caffeine use: Yes Place of Residence: [place]term Review of Systems 10-point ROS is otherwise unremarkable Physical Examination Temp Pulse Resp BP Pulse Ox 97.6 F 83 18 140/65 93 02/13/23 07:22 02/13/23 07:22 02/13/23 08:25 02/13/23 07:22 02/13/23 08:25 General: Alert, In no apparent distress, Oriented x3 Cardiovascular: No edema, Abnormal pulses (0/4 dorsalis pedis and posterior tibial pulses bilateral) Capillary refill: >2 Seconds Musculoskeletal: No clubbing, No swelling, No contractures, No erythema, No tenderness, No warmth Integumentary: No rashes, No breakdown, No tenderness/swelling, No erythema, No warmth, No cyanosis, Other (Thickened hypertrophic nails with subungual debris x 10. Focal hyperkeratotic lesion sub 5th mpj bilateral. Absent hair growth noted) Neurological: Abnormal sensation - Problems (1) Tinea unguium Current Visit: Yes Status: Acute (2) Corns and callosities Current Visit: Yes Status: Acute (3) Generalized atherosclerosis without gangrene Current Visit: Yes Status: Acute Conclusions/Impression: Debridement of nails and callouses at bedside Physician Review: Patient Assessed, Agree with Above Assessment and Plan
[2023-02-13] MEDS ORDERED: POLYETHYL GLY 3350 17 GM/DOSE PO PRN (11:02)
--- NOTE | 2023-02-13 14:11 | PN ---
Date of Progress Note: 02/13/2023 Time Of Service: 8:30 a.m. Subjective: Mr. Mix is doing well. He has no new complaints. He is sitting in a chair beside bed, getting ready to start his morning session. He denied any pain. He did report some difficulty slee ping and would like an additional sleep aid. Otherwise, no subjective complaints. Review of Systems: No fevers, chills, nausea, vomiting. No significant myalgias, arthralgias, rash, headache, weight ch nolan. No active psychiatric issues, gastrointestinal issues, genitourinary issues. Physical Examination: Vital Signs: Blood pressure 140/65, pulse 83, respiratory rate 16, temperature 97.6, oxygen saturati on 93%. Weight 217 pounds. Height 6 feet 1 inch, BMI 28.7. General: Mr. Mix is sitting comfortably. He is in no acute distress. HEENT: Normocephalic, atraumatic. Sclerae anicteric. Oropharynx is moist. Neck: Supple. Chest: Clear. Heart: Regular. Extremities: Show no significant edema or cyanosis. Neurologic: Follows commands appropriately aside from diffuse weakness. No focal neurological defic its. Laboratory Studies: White blood cell count 9.4, hemoglobin 9.0, platelets 219. Chemistry; sodium 13 8, potassium 4.4, chloride 111, carbon dioxide 23, BUN 78, creatinine 2.44, glucose 114, calcium 8.6. X-ray/imaging: Chest x-ray on 02/12/2023 showed lungs are clear. No acute abnormalities. Consultations: He was seen by Dr. Patel on the Renal Service for fluid management along with his renal insufficiency. Their assessment is chronic kidney disease secondary to rhabdomyolysis, increas e Lasix and noted iron deficiency anemia. The patient did receive IV iron and we will continue to fo llow the patient from Renal Service. Medications: Tylenol 650 every 6 hours, [place] 5/325 every 6 hours as needed, Norvasc 5 mg daily, Kaylin kanika 5 mg twice daily, vitamin C 500 mg daily, Coreg 6.25 mg twice daily, ferrous sulfate 325 mg shaniqua y, Lasix 40 mg daily, levofloxacin 750 mg every 48 hours to end on 02/25, melatonin 5 mg at bedtime, Hemocyte-Plus 1 tab daily, Senokot-S 2 at bedtime, sodium bicarb 325 mg twice daily, trazodone 25 mg at bedtime, zinc sulfate 220 mg daily. Current Functional Status: Today [id number] transfers done with maximum assistance using a rolling walker. Did complete stand to step pivot into the wheelchair with maximal assistance, cuing needed. Transfer onto bed with maximum assistance. Performed lateral functional reach 2 times, 6 sets to i ncrease range of motion needed for activities of daily living independence. Progress Towards Rehabilitation Goals: Mr. Mix is beginning to make fair progress so far with his r ehabilitation goals of becoming independent with upper and lower body dressing, transferring, toileti ng, showering, and ambulating more than household distances 250 feet with independence, up and down 1 0 steps with independence, performing cognitive functioning with independence as well. Assessment: Mr. Mix is an 87-year-old patient, admitted to the inpatient rehabilitation unit with r habdomyolysis, renal injury, congestive heart failure, hypertension, metabolic acidosis, severe C2-3 cervical spinal stenosis, sacral decubital ulcer, status post debridement, and nondisplaced fracture of the right ischial ramus. Plan: 1.Continue physical, occupational therapy, and maybe speech therapy for a total of 3.5 hours, 5 of 7 days. 2.Norvasc for hypertension along with Coreg 6.25 mg twice daily. Norvasc is 5 mg daily. 3.Lasix was adjusted by the Renal Service for CHF. 4.Eliquis 5 mg twice daily with stroke and DVT risk reduction. 5.Levaquin for urinary tract infection. 6.[place] 5/325 and Tylenol for pain. 7.Senokot-S 2 at night for constipation. 8.Melatonin 3 mg and trazodone 25 mg up to 50 mg at night for insomnia. 9.His decubital ulcer is managed by dressing changes, dry and applying protective barrier. 10.Given his severe cervical spinal stenosis, he will have to ambulate very carefully with the rolli ng walker as he is a very high fall risk. Impact Of Comorbids: His comorbidities are continuing to impact rehabilitation process. Given his s evere C2-3 cervical spinal stenosis, he has a high risk of falls as he may not sense where his foot i s placed and signals may be interrupted towards his lower extremities resulting in high risk of falls , so he should ambulate at all times with a walker and care should be taken with a gait belt includin g all transfers done with gait belt and high care. He does have renal injury and Renal Service is saleem worthy. He has resolving rhabdomyolysis. It could potentially worsen and he does have deep vein th rombus and that could result in pulmonary embolus. He is on Eliquis and will be continued. UMER/TODD Voice ID: [id number] Report ID: [id number]
[2023-02-13] MEDS: DOCUSATE NA/SENNA CONC 1 TAB PO PRN (20:24)
[2023-02-13] MEDS: TRAZODONE 50 MG TABLET PO PRN (20:24)
[2023-02-13 22:48] LABS: Specific Gravity 1.011 (1.005-1.030); Urine Bacteria None Seen /HPF (<20); Urine Bilirubin NEGATIVE (Negative); Urine Blood 3+ (OVER) (Negative); Urine Clarity Clear (Clear); Urine Color Light-Yellow (Yellow); Urine Glucose NEGATIVE (Negative); Urine Protein TRACE (Negative); Urine RBC >50 /HPF (None Seen); Urine Urobilinogen Normal (Normal); Urine WBC Clump Rare /HPF (None Seen)
--- NOTE | 2023-02-14 02:05 | PN ---
Date of Progress Note: 02/13/2023 Chief Complaint: Chronic kidney disease, acute kidney injury, cardiorenal syndrome, rhabdomyolysis, status post fall. Subjective: The patient was transferred to rehab floor. He has history of coronary artery disease, history of hypertension, benign nephrosclerosis, and chronic kidney disease stage 3. He came to the hospital after he sustained a fall at home and was found to have acute kidney injury secondary to lexie al hypoperfusion, hypovolemia, cardiorenal syndrome, and rhabdomyolysis. The patient was treated wit h gentle hydration for rhabdomyolysis and CK level has improved. The patient is undergoing physical therapy. He denies chest pain or palpitations. Denies nausea or vomiting. Objective: Abdomen: Soft, benign, nontender. Heart: S1, S2. No pericardial friction or rub. Extremities: Slight edema. Impression And Plan: 1.Chronic kidney disease with acute kidney injury with underlying rhabdomyolysis and cardiorenal syn drome. Continue Lasix for volume control. 2.Hypertension. Continue blood pressure medication. Lasix was increased for volume control. 3.Rhabdomyolysis. The patient recovered and CK level has improved to 485. The patient denies myalg ia. 4.Secondary hyperparathyroidism. Monitor calcium, phosphorus, and PTH. EB/MODL Voice ID: [id number] Report ID: [id number]
[2023-02-14] MEDS ORDERED: BISACODYL 10 MG RECTAL SUPP PR PRN (05:52)
[2023-02-14] MEDS: FUROSEMIDE 40 MG TABLET PO SCH (07:35)
[2023-02-14] MEDS: FERROUS SULFATE 325 MG TAB PO SCH (07:36)
[2023-02-14] MEDS: JUVEN PACKET PO SCH ×2 (07:36→19:39)
[2023-02-14] MEDS: FE SULF/FA/VIT B COMP & C TAB PO SCH (07:36)
[2023-02-14] MEDS: ZINC SULFATE 220 MG CAP PO SCH (07:36)
[2023-02-14] MEDS: APIXABAN 5 MG TABLET PO SCH ×2 (07:36→19:38)
[2023-02-14] MEDS: ASCORBIC ACID 500 MG TABLET PO SCH (07:36)
[2023-02-14] MEDS: SODIUM BICARB 325 MG TAB PO SCH ×2 (07:36→19:38)
[2023-02-14] MEDS: carvediloL 6.25 MG TAB PO SCH ×2 (08:00→19:38)
[2023-02-14] MEDS: AMLODIPINE 5 MG TAB PO SCH (08:00)
[2023-02-14] MEDS: HYDROCODONE/APAP 5/325 MG TAB PO PRN ×2 (08:22→19:38)
[2023-02-14] MEDS: DOCUSATE NA/SENNA CONC 1 TAB PO PRN (19:37)
[2023-02-14] MEDS: TRAZODONE 50 MG TABLET PO PRN (19:38)
--- NOTE | 2023-02-14 23:58 | PN ---
Date of Progress Note: 02/14/2023 [facility] Progress Note Visit Time Of Service: 1:30 p.m. Subjective: Mr. Mix is resting in his room between therapy sessions. He has no complaints. He is happy with his progress as he improved his strength in the lower extremities. He is eating and sleep ing and bowel movements are in good order. Review of Systems: No fevers, chills, nausea, vomiting, myalgias, arthralgias, rash, headache, or weight change. No psy chiatric issues. Physical Examination: Vital Signs: Blood pressure 144/67, pulse 96, respiratory rate 16, temperature 97.3, and oxygen satu ration 94%. General: Mr. Mix is resting comfortably. He is in no significant distress. HEENT: He is normocephalic, atraumatic. Sclerae anicteric. Oropharynx pink and moist. Neck: Supple. Lungs: Clear. Heart: Regular. Extremities: No significant edema or cyanosis. He does have diffuse weakness in the upper and lower extremities. Laboratory Studies: No new laboratory studies. X-ray/imaging: No new x-ray or imaging. Consultations: He is followed by the Renal Service, Dr. Lynn and again yesterday evaluation by Dr. Mela ceballos, nursing coordinator. Kidney Service actually is managing him with Lasix for volume overload, adjusted h is Lasix and noted that his rhabdomyolysis is improving and is monitoring the rest of his comorbids. Medications: His medications have been reviewed and are unchanged compared to yesterday. Current Functional Status: Today he ambulated 150 feet with a rolling walker and another 40 feet wit h a rolling walker with contact guard assist. He did require verbal cues to stay upright. He also c ompleted mobilization of wheelchair by covering 100 feet with standby assistance and verbal cues were required. With his occupational therapy, with showering, he required moderate assistance for cuing and to address all body regions. Upper body dressing done independently and moderate assistance for lower body dressing. He had improved attention with transfer training and carry over. With speech, working memory was used during different functional reading tasks and recall information. He needed aywjluzu-hy-gezemxb cues to recall and locate information within a written format with 70% accuracy. He demonstrated knowledge of cause and effect relationship with 73% accuracy and moderate cues. He had delayed speech processing. Progress Towards Rehabilitation Goals: Mr. Mix is making fair progress overall with his goals of be coming independent with upper and lower body dressing, transferring, toileting, showering, ambulating 250 feet with modified independence, up and down 10 steps with modified independence, and performing cognitive functioning independently. Assessment: Mr. Mix is admitted to the rehabilitation unit with rhabdomyolysis, kidney failure, con gestive heart failure, hypertension, metabolic acidosis, severe C2-3 cervical spinal stenosis, sacral decubitus ulcer status post debridement, and nondisplaced fracture of the right ischial ramus. Plan: 1.Continue with physical, occupational, and speech therapy, 3.5 hours, 5 of 7 days. 2.His comorbids are addressed by continuing Norvasc and Coreg for hypertension, Lasix for fluid jessie gement, Eliquis 5 mg twice daily for DVT and stroke risk reduction, complete Levaquin for urinary tra ct infection, Mcmillan for pain, Senokot for constipation, melatonin for insomnia and that is also along with trazodone for insomnia. 3.Dressing changes to the decubital ulcer region. 4.Ambulate with a rolling walker at all times, given his high risk of complications due to his sever e C2-3 spinal stenosis if he were to fall. Impact Of Comorbids On His Rehabilitation Process: As noted, he has severe C2-3 spinal stenosis and is at high risk of falling with injury that could lead him to be quadriplegic. He is ambulating with a rolling walker at all times. He does have renal insufficiency and Renal Service is following that . His rhabdomyolysis is improving and he is on Eliquis for DVT prophylaxis. UMER/TODD Voice ID: [id number] Report ID: [id number]
[2023-02-15] MEDS: FUROSEMIDE 40 MG TABLET PO SCH (07:50)
[2023-02-15] MEDS: HYDROCODONE/APAP 5/325 MG TAB PO PRN (07:51)
[2023-02-15] MEDS: APIXABAN 5 MG TABLET PO SCH ×2 (07:52→19:46)
[2023-02-15] MEDS: FERROUS SULFATE 325 MG TAB PO SCH (07:52)
[2023-02-15] MEDS: SODIUM BICARB 325 MG TAB PO SCH (07:52)
[2023-02-15] MEDS: ASCORBIC ACID 500 MG TABLET PO SCH (07:52)
[2023-02-15] MEDS: ZINC SULFATE 220 MG CAP PO SCH (07:52)
[2023-02-15] MEDS: FE SULF/FA/VIT B COMP & C TAB PO SCH (07:52)
[2023-02-15] MEDS: JUVEN PACKET PO SCH ×2 (07:53→19:46)
[2023-02-15] MEDS: levoFLOXacin 750 MG TAB PO SCH (07:53)
[2023-02-15] MEDS: AMLODIPINE 5 MG TAB PO SCH (08:00)
[2023-02-15] MEDS: carvediloL 6.25 MG TAB PO SCH ×2 (08:00→19:46)
--- NOTE | 2023-02-15 13:29 | PN ---
Date of Progress Note: 02/15/2023 Subjective: The patient was admitted with acute kidney injury secondary to cardiorenal. The patient was treated. The patient also had rhabdo secondary to the Oliva, treated, recovered. The patient t ransferred to rehab. Physical Examination: Vital Signs: Blood pressure 101/50, pulse of 87. Chest: Clear to auscultation. Heart: S1, S2. Regular. Abdomen: Soft, nontender. Extremities: Trace edema. Neuro: Alert. Pleasantly confused. Laboratory Data: Hemoglobin 9. Sodium 138, potassium 4.4, bicarb 23, BUN 78, creatinine 2.4, GFR of 20, calcium 8.6. Current Medications: The patient on include; 1.Levofloxacin 750 q.48 hours. 2.Ferrous sulfate. 3.Amlodipine. 4.Carvedilol. 5.Tylenol. 6.Lasix 40 daily. 7.Sodium bicarb 325 b.i.d. 8.Zinc sulfate. 9.Bisacodyl. 10.Melatonin. Assessment And Plan: 1.Acute kidney injury secondary to rhabdomyolysis, recovered, resolved. 2.Hypertension, controlled, optimal. Continue current treatment. 3.Cardiorenal syndrome. Continue Lasix current dose. 4.Acidosis, recovered, resolved. Discontinue bicarb. 5.Rhabdomyolysis secondary to fall, resolved. MIN Voice ID: [id number] Report ID: [id number]
--- NOTE | 2023-02-16 01:30 | PN ---
Date of Progress Note: 02/15/2023 Qwpu[facility][id number]-Nvwv Progress Note Time Of Service: 1:30 p.m. Subjective: Mr. Mix is doing well, resting in between therapy sessions. No complaints. Review of Systems: No significant fevers, chills, myalgias, or arthralgias. He is improving in strength, although slowl y. Physical Examination: Vital Signs: Blood pressure 120/46, pulse 89, respiratory rate 18, temperature 97.3, and oxygen satu ration 100%. Neurologic: Mr. Mix has no focal deficits. He has diffuse weakness in the lower and upper extremities, improvin g slowly. He denies any significant pain or any other new findings on examination. Laboratory Studies: No new laboratory studies. X-ray/imaging: No new x-ray or imaging. Consultations: He is followed by the Renal Service. Dr. Patel saw him today noting that his rhab domyolysis and acute kidney failure have resolved. Hypertension is controlled and is still following as needed. Current Functional Status: Today sit to stand done with moderate assistance, also with a rolling wal ker. Transfers done with moderate assistance. With gait, he ambulated 80 feet, 25 feet, and 40 feet with minimum assistance. Wheelchair mobilization 75 feet with minimum assistance and verbal cues. With speech, he demonstrated working memory with 90% accuracy and moderate assistance for repetition of words and with questions. With occupational therapy, he did perform lower body dressing while lyi ng on his side with moderate assistance and rolling left to right while donning his pants with maximu m assistance. Progress Towards Rehabilitation Goals: Mr. Sheng Mix has made fair progress so far with goals of tr sedrick to be independent with upper and lower body dressing, transferring, toileting, showering, and am bulating household distances with modified independence and also performed cognitive functioning with modified independence and fair progress. Assessment: Mr. Mix is an 87-year-old patient in the rehabilitation unit with rhabdomyolysis, kidne y failure, congestive heart failure, hypertension, metabolic acidosis, severe C2-[address]osis, sacral decubital ulcer status post debridement, and nondisplaced fracture of the right ischia l ramus. Plan: 1.Continue with physical, occupational, and speech therapy for 3.5 hours, 5 of 7 days. 2.Continue with management of his comorbid conditions with Norvasc and Coreg along with Lasix for hy pertension and fluid management, Eliquis 5 mg twice daily for DVT and stroke risk reduction, [place] Day fo r pain, Senokot for constipation, and melatonin for insomnia, and dressing changes to his decubital u lcer. 3.He will be ambulating with a walker given his significant spinal stenosis. Comorbids That Continue To Impact His Rehabilitation Process: He does have spinal stenosis, which pu ts him at significant risk of falling and becoming quadriplegic and he should be ambulating with a ro lling walker at all times. Otherwise, his other comorbids are managed well including with help from the Renal Service. UMER/TODD Voice ID: [id number] Report ID: [id number]
[2023-02-16 04:21] LABS: Absolute Lymphocytes (CBC) 0.6 K/uL (0.7-4.9); Lymphocytes % 4.9 % (15.3-44.8); MCV 91.6 fL (80-100); MPV 7.6 fL (7.6-11.3); RBC Red Blood Cell Count 2.73 M/uL (4.33-5.43)
[2023-02-16 04:33] LABS: Albumin 2.3 g/dL (3.4-5.0); Magnesium 2.6 mg/dL (1.6-2.4); Potassium 4.5 mEq/L (3.5-5.1); Prealbumin 5.9 mg/dL (20-40)
[2023-02-16] MEDS: AMLODIPINE 5 MG TAB PO SCH (08:00)
[2023-02-16] MEDS: FUROSEMIDE 40 MG TABLET PO SCH (08:49)
[2023-02-16] MEDS: FERROUS SULFATE 325 MG TAB PO SCH (08:49)
[2023-02-16] MEDS: ZINC SULFATE 220 MG CAP PO SCH (08:49)
[2023-02-16] MEDS: FE SULF/FA/VIT B COMP & C TAB PO SCH (08:49)
[2023-02-16] MEDS: ASCORBIC ACID 500 MG TABLET PO SCH (08:50)
[2023-02-16] MEDS: APIXABAN 5 MG TABLET PO SCH (08:50)
[2023-02-16] MEDS: carvediloL 6.25 MG TAB PO SCH ×2 (11:44→19:13)
[2023-02-16] MEDS: JUVEN PACKET PO SCH ×2 (11:45→19:14)
[2023-02-16] MEDS: NA CHLORIDE 0.9% 1,000 ML IV SCH (12:17)
--- NOTE | 2023-02-16 12:27 | PN ---
Date of Progress Note: 02/16/2023 Subjective: The patient was admitted to the rehab for deconditioning, PT, OT. The patient had acute kidney injury secondary to fall secondary to rhabdo. Today, kidney function significantly declined. Physical Examination: Vital Signs: When I saw the patient; blood pressure 115/58, pulse of 84, afebrile. The patient still voiding. Chest: Clear to auscultation. Heart: S1, S2. Regular. Abdomen: Soft, nontender. Extremities: Trace edema. Neurologic: Alert. No focality. No tremor. Laboratory Data: Sodium 138, potassium 4.5, bicarb 23, BUN 124, creatinine 4.1, calcium 8.3, magnesium 2.6, albumin 2.3. Current Medications: The patient on include; 1. Amlodipine 5 mg. 2. Carvedilol 6.25. 3. Ferrous sulfate oral. 4. Eliquis 5 mg b.i.d. 5. Tylenol. 6. Lasix 40 daily. 7. Zinc sulfate. 8. Docusate. 9. Bisacodyl. 10. Melatonin. 11. Vitamin C. Assessment And Plan: 1. Acute kidney injury. I am going to go ahead discontinue Lasix and discontinue amlodipine to establish better blood pressure and to avoid any prerenal. We will start the patient on gentle hydration and I am going to go ahead and send for the workup and we will follow up the patient closely. 2. Hypertension with the presence of acute kidney injury. Discontinue Lasix, discontinue amlodipine. 3. Rhabdomyolysis, resolved. 4. Anemia of chronic kidney disease, stable. 5. Deconditioning. Continue PT, OT. time spend exam the patient face to face , reviewing the DATA lab and Radiology, placing the order, discussing the case with the patient ,reviewing the care plan with nut steamer including the nursing staff , discussing with the hospitalist >35 min BRANDON/TODD Voice ID: [id number] Report ID: [id number] LULA
--- NOTE | 2023-02-16 14:21 | RAD REPORT ---
EXAM DESCRIPTION: US - Renal Ultrasound-Complete - 02/16/2023 1:44 pm CLINICAL HISTORY: KARIME COMPARISON: Renal Ultrasound-Complete dated 10/11/2022; Head C Spine Cap Wo Con dated 02/06/2023 FINDINGS: Both kidneys are normal in size, shape and echotexture. The right kidney measures 8.4 cm. Mild right-sided hydronephrosis . Right lower pole renal cyst. The left kidney measures 11 cm. Mild left-sided hydronephrosis. Distended bladder with trabeculation and debris. IMPRESSION: Mild bilateral hydronephrosis with distended bladder could indicate bladder outlet obstr uction.
[2023-02-16] MEDS: APIXABAN 2.5 MG TABLET PO SCH (19:13)
--- NOTE | 2023-02-16 20:45 | PN ---
[facility] Progress Note Subjective: Mr. Mix is doing well, resting in bed. He has no new complaints. He did have an ultra sound of the kidneys done today ordered by the Renal Service. His BUN is significantly elevated. Hi s renal ultrasound that showed bilateral hydronephrosis with distended bladder, which could indicate bladder outlet obstruction. Review of Systems: Mr. Mix does report some diffuse myalgias. He is somewhat weaker today, but has no rash. No active psychiatric issues. No gastrointestinal or genitourinary issues, although some difficulty with urin ation. Physical Examination: Vital Signs: Blood pressure 115/58, pulse 84, respiratory rate 16, and temperature 97.2. General: Mr. Mix is resting in bed. He came back from renal ultrasound, which as noted suggested b ilateral hydronephrosis with obstruction. The patient is under Renal Service and may have Urology in volved as needed. Neurologic: He has no focal deficits in the upper and lower extremities, diffuse weakness proximally more than distally and his sensory examination shows again no focal deficits there. Laboratory Studies: His blood work did reveal a very elevated BUN that increased to 124, creatinine increased to 4.1, and prealbumin decreased to 5.9. Magnesium is elevated at 2.6. Sodium 138, potass ium 4.5, and chloride 111. White blood cell count 11.9, hemoglobin 8.4, and platelets 264. X-ray/imaging: As noted, renal ultrasound as mentioned. Medications: His medications have been reviewed and remained unchanged. Renal Service again is in c onsultation. Current Functional Status: Today he ambulated 75 feet twice with contact guard assistance, did requi re verbal cues to improve posture. He mobilized the wheelchair 75 feet with minimal assistance and v erbal cues. Phlylz-ks-qym transfers done with moderate assistance. Iaa-pw-erjox transfers with mini mum assistance using a rolling walker. With his occupational therapy, sit to stand, with the bed jeremy vated, with moderate assistance. With speech therapy, he demonstrated organizational think task by ramírez muse 5 abstract category members with 60% accuracy and moderate cues. Assessment: Mr. Mix is an 87-year-old patient in the rehabilitation unit with rhabdomyolysis and ki dney failure. He has had significant worsening of his BUN and creatinine and his renal ultrasound id entifies possible obstruction of outflow and hydronephrosis, which is managed by the Renal Service. He is making fair progress with his physical, occupational, and speech therapy. He does have hyperte nsion, metabolic acidosis, severe C2-3 cervical spinal stenosis, and sacral decubital ulcer. We will actually have the surgeon Dr. Sy come back to take a look at it as the nurses did indicate ther e was some extra drainage from his decubital debridement site. He does have a fracture of the right ischial ramus. Plan: 1.Continue physical, occupational, and speech therapy for 3.5 hours, 5 of 7 days. 2.The sacral decubital ulcer that has been debrided will be followed up by Dr. Sy. 3.His renal hydronephrosis will be followed by the Renal Service. 4.Continue Eliquis for DVT prophylaxis. 5.Traver for pain. 6.Senokot for constipation. 7.Melatonin for insomnia. Comorbids That Continue To Impact Rehabilitation Process: At this point, his renal function and poss ible outflow obstruction is potentially a significant impacting factor and may require further evalua tion by the Nephrology Service with possible perhaps stent or dilatation to address outflow. In addition, the decubital ulcer area is being evaluated by the Wound Care and the surgeon Dr. Sy. UMER/TODD Voice ID: [id number] Report ID: [id number]
[2023-02-17 05:47] LABS: Absolute Lymphocytes (CBC) 0.6 K/uL (0.7-4.9); Lymphocytes % 5.9 % (15.3-44.8); MCV 91.6 fL (80-100); MPV 7.2 fL (7.6-11.3); RBC Red Blood Cell Count 2.62 M/uL (4.33-5.43)
[2023-02-17 06:07] LABS: Albumin 2.2 g/dL (3.4-5.0); Phosphorus 4.2 mg/dL (2.5-4.9); Potassium 4.2 mEq/L (3.5-5.1); Uric Acid 10.2 mg/dL (3.5-7.2)
[2023-02-17] MEDS: ASCORBIC ACID 500 MG TABLET PO SCH (07:35)
[2023-02-17] MEDS: APIXABAN 2.5 MG TABLET PO SCH ×2 (07:35→19:56)
[2023-02-17] MEDS: carvediloL 6.25 MG TAB PO SCH ×2 (07:35→19:56)
[2023-02-17] MEDS: FERROUS SULFATE 325 MG TAB PO SCH (07:35)
[2023-02-17] MEDS: ZINC SULFATE 220 MG CAP PO SCH (07:35)
[2023-02-17] MEDS: FE SULF/FA/VIT B COMP & C TAB PO SCH (07:35)
[2023-02-17] MEDS: NA CHLORIDE 0.9% 1,000 ML IV SCH (07:37)
[2023-02-17] MEDS: JUVEN PACKET PO SCH ×2 (08:00→19:57)
--- NOTE | 2023-02-17 08:22 | P.RH.PN ---
Estimated Length of Stay: 13 Expected Discharge Date: 02/22/23 Discharge Disposition Plan: Home Family Support: Yes [facility] Goal: Mobility, Transfers, Self Care Vital Signs: Last Vital Signs Temp 97.0 F 02/17/23 07:16 Pulse 81 02/17/23 07:35 Resp 18 02/17/23 07:16 BP 121/59 L 02/17/23 07:35 Pulse Ox 93 02/17/23 07:16 Laboratory: Laboratory Last Values WBC 10.30 thou/uL (4.3-10.9) 02/17/23 05:28 RBC 2.62 M/uL (4.33-5.43) L 02/17/23 05:28 Hgb 8.2 g/dL (13.6-17.9) L 02/17/23 05:28 Hct 24.0 % (39.6-49.0) L 02/17/23 05:28 MCV 91.6 fL (80-100) 02/17/23 05:28 MCH 31.3 pg (27.0-35.0) 02/17/23 05:28 MCHC 34.1 g/dL (32.0-36.0) 02/17/23 05:28 RDW 14.5 % (12.1-15.2) 02/17/23 05:28 Plt Count 279 thou/uL (152-406) 02/17/23 05:28 MPV 7.2 fL (7.6-11.3) L 02/17/23 05:28 Neutrophils % 84.9 % (41.7-73.7) H 02/17/23 05:28 Lymphocytes % 5.9 % (15.3-44.8) L 02/17/23 05:28 Monocytes % 7.1 % (3.3-12.3) 02/17/23 05:28 Eosinophils % 1.4 % (0-4.4) 02/17/23 05:28 Basophils % 0.7 % (0-1.3) 02/17/23 05:28 Absolute Neutrophils 8.7 K/uL (1.8-8.0) H 02/17/23 05:28 Absolute Lymphocytes 0.6 K/uL (0.7-4.9) L 02/17/23 05:28 Absolute Monocytes 0.7 K/uL (0.1-1.3) 02/17/23 05:28 Absolute Eosinophils 0.1 K/uL (0-0.5) 02/17/23 05:28 Absolute Basophils 0.1 K/uL (0-0.5) 02/17/23 05:28 Sodium 137 mEq/L (136-145) 02/17/23 05:28 Potassium 4.2 mEq/L (3.5-5.1) 02/17/23 05:28 Chloride 109 mEq/L (98-107) H 02/17/23 05:28 Carbon Dioxide 22 mEq/L (21-32) 02/17/23 05:28 Anion Gap 10.2 mEq/L (5.0-15.0) 02/17/23 05:28 BUN 113 mg/dL (7-18) H 02/17/23 05:28 Creatinine 4.24 mg/dL (0.70-1.30) H 02/17/23 05:28 Est GFR (CKD-EPI) 13 ml/min (=/>90) L 02/17/23 05:28 Glucose 109 mg/dL (74-106) H 02/17/23 05:28 Uric Acid 10.2 mg/dL (3.5-7.2) H 02/17/23 05:28 Calcium 8.1 mg/dL (8.5-10.1) L 02/17/23 05:28 Phosphorus 4.2 mg/dL (2.5-4.9) 02/17/23 05:28 Magnesium 2.6 mg/dL (1.6-2.4) H 02/16/23 03:44 Creatine Kinase 30 U/L (39-308) L 02/17/23 05:28 Albumin 2.2 g/dL (3.4-5.0) L 02/17/23 05:28 Prealbumin 5.9 mg/dL (20-40) L 02/16/23 03:44 Urine Color Light-yellow (Yellow) 02/13/23 21:45 Urine Clarity Clear (Clear) 02/13/23 21:45 Urine pH 5.0 (5.0-7.0) 02/13/23 21:45 Ur Specific [place] 1.011 (1.005-1.030) 02/13/23 21:45 Glucose (UA)(Auto) Negative (Negative) 02/13/23 21:45 Urine Ketones Negative (Negative) 02/13/23 21:45 Urine Blood 3+ (over) (Negative) H 02/13/23 21:45 Urine Nitrite Negative (Negative) 02/13/23 21:45 Urine Bilirubin Negative (Negative) 02/13/23 21:45 Urine Urobilinogen Normal (Normal) 02/13/23 21:45 Ur Leukocyte Esterase Negative Eduard/uL (Negative) 02/13/23 21:45 Urine RBC >50 /HPF (None Seen) H 02/13/23 21:45 Urine WBC 5-10 /HPF (<5) 02/13/23 21:45 Urine WBC Clumps Rare /HPF (None Seen) 02/13/23 21:45 Ur Squamous Epith Cells <5 /HPF (None Seen) 02/13/23 21:45 Urine Bacteria None seen /HPF (<20) 02/13/23 21:45 Urine Culture Reflexed Not needed 02/13/23 21:45 Urine Total Protein Trace (Negative) H 02/13/23 21:45 Weight: 217 lb 3.2 oz Wound Present: Yes Closed Surgical Incision Present: Yes Negative Pressure Wound Therapy Present: No Physician Update: His decubital wound may be contaminated with stool at times. The surgeon looked at the wound and does not recomment a colostomy at this time. He gave orders to change care of the wound. He appears to decline in cognitive functioning, decreasing. His renal ultrasound showed obstructive urine outflow. He is moderate assistance with mobilization and ADLs. He has declined with his cognition due to his kidney issues. 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 Please see the Rehabilitation Signature page for all necessary signatures.
[2023-02-17] MEDS: COLLAGENASE 30 GM OINTMENT TOP SCH (09:54)
[2023-02-17] MEDS: levoFLOXacin 750 MG TAB PO SCH (09:56)
--- NOTE | 2023-02-17 13:42 | P.CNS ---
Date of Consult: 02/17/23 Reason for Consult: KARIME, CKD Requesting Physician: Higinio Artis Chief Complaint: Generalized weakness History of Present Illness: 87M w/ PMHx of [id number] presumed to be 2/2 Htn nephrosclerosis, Htn, CAD, & HLD who recently had KARIME from ATN & rhabdo, improved. Transferred to rehab flr for PT/OT. SCr worsened. Renal US showed obstructive uropathy. Catherine placed today. Allergies No Known Allergies Allergy (Verified 02/10/23 10:31) Home Medications: Acetaminophen [Tylenol*] 650 mg PO Q6H PRN tab 02/10/23 Amlodipine [Norvasc*] 10 mg PO DAILY tab 02/10/23 Apixaban [Eliquis *] 2.5 mg PO BID 02/10/23 Furosemide [Lasix*] 20 mg PO DAILY 02/10/23 Hydrocodone 5/APAP 325 [[place] 5/325*] 1 tab PO Q6H PRN #0 tab 02/10/23 Melatonin 5 mg PO BEDTIME PRN PRN #0 02/10/23 Na Bicarb Tab [Sodium Bicarb 325 MG Tab*] 650 mg PO BID #0 tab 02/10/23 carvediloL [Coreg*] 6.25 mg PO BID tab 02/10/23 - Past Medical/Surgical History Diabetic: No -: Hypertension -: Cataract sx allyn Psychosocial/ Personal History: Patient is a . He has 1 child. - Social History Smoking Status: Unknown if ever smoked Alcohol use: Yes CD- Drugs: No Caffeine use: Yes Place of Residence: [facility] Review of Systems General: Weakness Eyes: Unremarkable ENT: Unremarkable Respiratory: Unremarkable Cardiovascular: Unremarkable Gastrointestinal: Unremarkable Genitourinary: Retention Musculoskeletal: Other (weakness) Integumentary: Unremarkable Neurological: Weakness Lymphatics: Unremarkable Physical Examination Temp Pulse Resp BP Pulse Ox 97.0 F 81 18 121/59 L 93 02/17/23 07:16 02/17/23 07:35 02/17/23 07:16 02/17/23 07:35 02/17/23 07:16 General: Other (Chronically ill-appearing) HEENT: Atraumatic, Normocephalic Neck: Supple Respiratory: Other (Symmetric chest expansion) Cardiovascular: No rubs, No murmurs Gastrointestinal: Soft and benign, No guarding Musculoskeletal: No clubbing Integumentary: No warmth Neurological: Normal speech, Normal tone Lymphatics: No axilla or inguinal lymphadenopathy Urinary: Other (No catherine) External genitalia: Deferred Rectal: Deferred Laboratory Data (last 24 hrs) 02/17/23 05:28: WBC 10.30, Hgb 8.2 L, Hct 24.0 L, Plt Count 279 02/17/23 05:28: Sodium 137, Potassium 4.2, BUN 113 H, Creatinine 4.24 H, Glucose 109 H, Uric Acid 10.2 H, Phosphorus 4.2 Conclusions/Impression: 1. Recurrent KARIME 2/2 obstructive uropathy. Renal ultrasound on 02/16 showed mild bilateral hydronephrosis and distended urinary bladder. Has mild proteinuria 1.1g. Urine chem non-prerenal. Insert catherine. IV fluid NS at 50 cc/hr. 2. CKD 3b, baseline GFR 35-43 as of 10/14/2022, presumed to be 2/2 Htn nephrosclerosis. Monitor renal panel. 2. Hypertension. Cont current med regimen. 3. Rhabdomyolysis, resolved. 4. Anemia of chronic kidney disease, stable. 5. Deconditioning. Continue PT, OT.
--- NOTE | 2023-02-17 14:55 | RAD REPORT ---
EXAM DESCRIPTION: RAD - Chest Single View - 02/17/2023 2:47 pm CLINICAL HISTORY: TB Check Chest pain. COMPARISON: <Comparisons> FINDINGS: Portable technique limits examination quality. The lungs are grossly clear. No finding typical of TB. The heart is enlarged with a tortuous thoracic aorta. No displaced fractures.
[2023-02-17 16:13] LABS: Specific Gravity 1.011 (1.005-1.030); Urine Bacteria None Seen /HPF (<20); Urine Bilirubin NEGATIVE (Negative); Urine Blood 3+ (OVER) (Negative); Urine Clarity Clear (Clear); Urine Color Light-Yellow (Yellow); Urine Glucose NEGATIVE (Negative); Urine Protein TRACE (Negative); Urine RBC 21-50 /HPF (None Seen); Urine Urobilinogen Normal (Normal); Urine WBC Clump Rare /HPF (None Seen)
[2023-02-17 16:23] LABS: UR PROTEIN 49.6 mg/dL (<11.9); Urine Protein/Creatinine Ratio 1.08 ratio (<0.15)
[2023-02-17] MEDS: NEPRO SHAKE 237 ML CAN PO SCH (19:57)
[2023-02-18] MEDS: NA CHLORIDE 0.9% 1,000 ML IV SCH ×2 (01:53→22:21)
[2023-02-18 05:26] LABS: Absolute Lymphocytes (CBC) 0.6 K/uL (0.7-4.9); Hematocrit 23.6 % (39.6-49.0); Lymphocytes % 6.9 % (15.3-44.8); MCV 91.4 fL (80-100); MPV 7.3 fL (7.6-11.3); RBC Red Blood Cell Count 2.58 M/uL (4.33-5.43)
[2023-02-18 05:36] VITALS: BMI 28.0
[2023-02-18 05:37] LABS: Albumin 2.1 g/dL (3.4-5.0); Phosphorus 3.6 mg/dL (2.5-4.9); Potassium 3.9 mEq/L (3.5-5.1)
[2023-02-18] MEDS: NEPRO SHAKE 237 ML CAN PO SCH ×2 (08:00→19:44)
[2023-02-18] MEDS: JUVEN PACKET PO SCH ×2 (08:00→19:44)
[2023-02-18] MEDS: FERROUS SULFATE 325 MG TAB PO SCH (08:37)
[2023-02-18] MEDS: ZINC SULFATE 220 MG CAP PO SCH (08:37)
[2023-02-18] MEDS: ASCORBIC ACID 500 MG TABLET PO SCH (08:37)
[2023-02-18] MEDS: FE SULF/FA/VIT B COMP & C TAB PO SCH (08:38)
[2023-02-18] MEDS: APIXABAN 2.5 MG TABLET PO SCH ×2 (08:38→19:43)
[2023-02-18] MEDS: carvediloL 6.25 MG TAB PO SCH ×2 (08:38→19:43)
[2023-02-18] MEDS: COLLAGENASE 30 GM OINTMENT TOP SCH (08:40)
--- NOTE | 2023-02-18 20:44 | PN ---
Date of Progress Note: 02/18/2023 Chief Complaint: Acute kidney injury. Patient has history of chronic kidney disease stage 3B advanc ing to stage 4 secondary to hypertension, benign nephrosclerosis. Subjective: Patient has multiple medical problems including coronary artery disease, hyperlipidemia, hypertension. He recently recovered from acute kidney injury. He was found to have ATN and rhabdom yolysis, which improved with IV fluids. Patient subsequently was transferred to rehab for physical t herapy. A serum creatinine has worsened and renal ultrasound showed obstructive uropathy. Oliva cat heter was placed yesterday. Serum creatinine level is improving slightly over last 24 hours. Urine output is improving as well. Patient has nonoliguric urine output. Review of Systems: Denies fevers or chills. Physical Examination: Lungs: Diminished breath sounds at the bases. Heart: S1, S2. Abdomen: Soft. Extremities: Bilateral mild edema in both ankles. Laboratory Data: Sodium 137, potassium 4.2, BUN 113, creatinine 4.24, glucose 109, uric acid 10.2, p hosphorus 4.2. Impression And Plan: Recurrent acute kidney injury secondary to obstructive uropathy. Ultrasound on February 16 showed mild bilateral hydronephrosis, distended urinary bladder. Patient has mild proteinuri a of nonnephrotic range. Urine chemistry consistent with hyperazotemia and non-prerenal acute kidney injury. A Oliva catheter was inserted, and IV fluids with normal saline is started for hydration an d to manage acute kidney injury. Patient has underlying chronic kidney disease stage 3B. Baseline G FR is 35 to 43 secondary to hypertension and nephrosclerosis complicated by mild proteinuria. Contin ue to re-evaluate proteinuria and monitor for any evidence of rhabdomyolysis. According to recent la b, rhabdomyolysis resolved and recent acute kidney injury is secondary to bladder outlet obstruction. Patient may need a urology consultation. Currently, Oliva catheter is inserted for management of b ladder outlet obstruction. Plan is to monitor renal function and continue hydration. EB/MODL Voice ID: [id number] Report ID: [id number]
[2023-02-19 06:58] LABS: Absolute Lymphocytes (CBC) 0.9 K/uL (0.7-4.9); Hematocrit 23.3 % (39.6-49.0); MCV 91.4 fL (80-100); RBC Red Blood Cell Count 2.55 M/uL (4.33-5.43)
[2023-02-19 07:09] LABS: Albumin 2.2 g/dL (3.4-5.0); Phosphorus 3.2 mg/dL (2.5-4.9); Potassium 3.9 mEq/L (3.5-5.1)
[2023-02-19] MEDS: carvediloL 6.25 MG TAB PO SCH ×2 (07:38→20:09)
[2023-02-19] MEDS: levoFLOXacin 750 MG TAB PO SCH (07:38)
[2023-02-19] MEDS: ASCORBIC ACID 500 MG TABLET PO SCH (07:38)
[2023-02-19] MEDS: FE SULF/FA/VIT B COMP & C TAB PO SCH (07:38)
[2023-02-19] MEDS: ZINC SULFATE 220 MG CAP PO SCH (07:39)
[2023-02-19] MEDS: FERROUS SULFATE 325 MG TAB PO SCH (07:39)
[2023-02-19] MEDS: APIXABAN 2.5 MG TABLET PO SCH ×2 (07:39→20:09)
[2023-02-19] MEDS: JUVEN PACKET PO SCH ×2 (07:40→20:00)
[2023-02-19] MEDS: NEPRO SHAKE 237 ML CAN PO SCH ×2 (07:40→20:00)
[2023-02-19] MEDS: COLLAGENASE 30 GM OINTMENT TOP SCH (10:18)
[2023-02-19] MEDS: NA CHLORIDE 0.9% 1,000 ML IV SCH (17:53)
--- NOTE | 2023-02-20 02:37 | PN ---
Date of Progress Note: 02/19/2023 Chief Complaint: Acute kidney injury. History Of Present Illness: The patient has history of chronic kidney disease stage 3B, advancing to stage 4 secondary to hypertension, benign nephrosclerosis. The patient has multiple medical problem s including history of coronary artery disease, hyperlipidemia, hypertension. He recently recovered from acute kidney injury which was due to ATN and rhabdomyolysis. Renal function improved with IV fl uids. The patient did not require dialysis. Recent lab work showed elevated serum creatinine 11 and ultrasound showed obstructive uropathy and urinary retention. Patient had a Oliva catheter placed f or urinary retention and the renal function is gradually improving. There is no hyperkalemia and no evidence of metabolic acidosis. Review of Systems: Denies fever or chills. Physical Examination: Lungs: Clear to auscultation bilaterally. Heart: S1, S2. Abdomen: Soft. Extremities: Mild bilateral edema. Impression And Plan: Recurrent acute kidney injury secondary to obstructive uropathy. Ultrasound on February 16 showed mild bilateral hydronephrosis, distended urinary bladder. Patient has mild proteinuri a of nonnephrotic range. Urine chemistry consistent with hyperazotemia and non-prerenal kidney injur y. Oliva catheter was inserted and IV fluids with normal saline were started for hydration. The pat ient has underlying chronic kidney disease stage 3B. Baseline GFR is 35 to 43 secondary to hypertens ion and benign nephrosclerosis associated with mild proteinuria. Continue adequate hydration. Diego nue Oliva catheter. Evaluate lab work in few days. Patient currently needs a Oliva catheter to prev ent bladder outlet obstruction. Plan is to monitor renal function and continue hydration. EB/MODL Voice ID: [id number] Report ID: [id number]
[2023-02-20 04:23] LABS: Absolute Lymphocytes (CBC) 1.2 K/uL (0.7-4.9); Hematocrit 23.6 % (39.6-49.0); Lymphocytes % 12.6 % (15.3-44.8); MCV 91.2 fL (80-100); MPV 6.9 fL (7.6-11.3); RBC Red Blood Cell Count 2.59 M/uL (4.33-5.43)
[2023-02-20 04:36] LABS: Albumin 2.1 g/dL (3.4-5.0); Phosphorus 2.6 mg/dL (2.5-4.9); Potassium 3.9 mEq/L (3.5-5.1)
[2023-02-20] MEDS: ZINC SULFATE 220 MG CAP PO SCH (07:10)
[2023-02-20] MEDS: FE SULF/FA/VIT B COMP & C TAB PO SCH (07:10)
[2023-02-20] MEDS: APIXABAN 2.5 MG TABLET PO SCH ×2 (07:10→19:44)
[2023-02-20] MEDS: carvediloL 6.25 MG TAB PO SCH ×2 (07:10→19:44)
[2023-02-20] MEDS: NEPRO SHAKE 237 ML CAN PO SCH (07:11)
[2023-02-20] MEDS: ASCORBIC ACID 500 MG TABLET PO SCH (07:11)
[2023-02-20] MEDS: FERROUS SULFATE 325 MG TAB PO SCH (07:11)
[2023-02-20] MEDS: JUVEN PACKET PO SCH (07:11)
[2023-02-20] MEDS: COLLAGENASE 30 GM OINTMENT TOP SCH (13:49)
--- NOTE | 2023-02-20 14:05 | PN ---
Date of Progress Note: 02/20/2023 Time Of Service: 8:30 a.m. Subjective: Mr. Mix is in the dining area having breakfast. He denies any complaints, problems, or issues. Says his therapy is going well. He did note he just wanted some coffee instead of a full b reakfast. Review of Systems: No fevers or chills. No myalgias, arthralgias. No significant rash, headache, or weight change. He is having improved strength. Physical Examination: Vital Signs: Blood pressure 133/63, pulse 63, respiratory rate 16, temperature 97.6, ox saturation 9 8%. Weight 212 pounds, height 6 feet 1 inch, BMI 28. General: Mr. Mix is resting comfortably. Neuro: Cranial nerves, no focal motor, coordination, or gait or sensory deficits. Lungs: Clear to auscultation. Abdomen: Soft. Extremities: Show no significant edema, cyanosis. Laboratory Studies: White blood cell count 9.3, hemoglobin 7.9, platelets 292. Chemistry: Sodium 1 39, potassium 3.9, chloride 112, carbon dioxide 23, BUN 51, creatinine 2.17, it the best creatinine s sary he was admitted. Glucose 102, calcium 8.0. Phosphorus 2.6. Albumin 2.1. X-ray Imaging: No new x-rays or imaging studies. Consultations: He is followed by the renal service for renal failure and the renal service when eval uating the patient had renal ultrasounds that showed obstructive uropathy with distended urinary blad rayna, mild hydronephrosis with mild proteinuria. He did have a Oliva catheter inserted and was receiv ing normal saline. The patient is not yet on hemodialysis, but is being monitored. Medications: Eliquis 2.5 mg twice daily, vitamin C 500 mg daily, Coreg 6.25 mg daily, ferrous sulfat e 325 mg daily, melatonin 5 mg at bedtime, levofloxacin 750 mg every 48 hours, zinc sulfate 220 mg da carla, Senokot S 2 at bedtime. Current Functional Status: He was able to ambulate 75 feet with contact guard assistance using a rol ling walker, did stand and pivot transfers with minimum assistance using a rolling walker. Performs supine and sit transfers with minimum assistance. Goals for next week will be to ambulate 150 feet w ith standby assist using a rolling walker, to perform car transfer with contact guard assistance usin g a rolling walker, to stand pivot transfer with standby assistance using a rolling walker. Progress Towards Rehabilitation Goals: Mr. Mix is making good progress towards his goals as noted a nd the plan is for him to continue with therapy even after his discharge. However, he should be in g ood enough condition to be able to go home and continue with home health for his therapy. Assessment: Mr. Mix is an 87-year-old patient in the rehabilitation unit with rhabdomyolysis and ac barbara on chronic kidney failure. He is followed by the renal service. He does have obstructive uropat hy with hydronephrosis. He has made very good progress so far with physical, occupational, and speec h therapy. He does have severe C2-3 cervical spinal stenosis and sacral decubital ulcer, which was s een and followed by Dr. Sy. He indicated that the patient does not require a colostomy as the w ound looks okay despite the wound being close to where there is stool. Plan: 1.Continue physical, occupational, speech therapy for 3.5 hours, 5 of 7 days. 2.Continue with management of the sacral decubital ulcer by Dr. Sy. 3.Continue with management of hydronephrosis and obstructive uropathy by the renal service. 4.Eliquis for DVT. 5.[place] for pain. 6.Senokot for constipation. 7.Melatonin for insomnia. Comorbidities That Continue To Impact Rehabilitation Process: His obstructive uropathy is being foll owed by renal service and he is not yet requiring dialysis. In addition, he does have a significant wound in the sacral area and there is a chance it may become infected. It is followed by Dr. Suarez. Selina silva is on antibiotics. LB/MODL Voice ID: [id number] Report ID: [id number]
[2023-02-20] MEDS: NA CHLORIDE 0.9% 1,000 ML IV SCH (15:44)
[2023-02-20] MEDS: AMINO ACIDS/PROTEIN HYDROLYS 30 ML LIQUID.PKT PO SCH (19:45)
[2023-02-20] MEDS: ENSURE HIGH PROTEIN 237 ML CAN PO SCH (19:45)
--- NOTE | 2023-02-21 04:15 | PN ---
Date of Progress Note: 02/20/2023 Chief Complaint: Acute kidney injury secondary to urinary retention. Subjective: Patient came to the hospital because of generalized weakness. Patient was found to have rhabdomyolysis due to recent fall. There was also an element of acute tubular necrosis secondary to renal hypoperfusion. Patient received IV fluids and he did not require dialysis. Renal function leslie s improved to baseline. Ultrasound at that time showed obstructive uropathy and urinary retention and Oliva catheter was plac ed for urinary retention and renal function is gradually improving. Patient denies fever or chills. Physical Examination: Lungs: Clear to auscultation bilaterally. Heart: S1-S2. Abdomen: Soft. Extremities: Slight edema. Impression And Plan: Recurrent acute kidney injury secondary to obstructive uropathy. Ultrasound on February 16 showed mild bilateral hydronephrosis and distended urinary bladder. The patient has mild pro teinuria of nonnephrotic range. Urine prerenal kidney injury. Oliva catheter was inserte d and IV fluids will be used for hydration. Patient will continue as tolerated. The patient has chronic kidney disease stage 3B. Monitor renal function, fluid balance, avoid nephrot oxic medication. The patient has underlying medications. EB/MODL Voice ID: [id number] Report ID: [id number]
[2023-02-21 04:29] LABS: Absolute Lymphocytes (CBC) 1.3 K/uL (0.7-4.9); Hematocrit 23.6 % (39.6-49.0); Lymphocytes % 12.1 % (15.3-44.8); MCV 90.3 fL (80-100); MPV 6.9 fL (7.6-11.3); RBC Red Blood Cell Count 2.62 M/uL (4.33-5.43)
[2023-02-21 04:38] LABS: Albumin 2.2 g/dL (3.4-5.0); Phosphorus 2.8 mg/dL (2.5-4.9); Potassium 3.7 mEq/L (3.5-5.1)
[2023-02-21] MEDS: ENSURE HIGH PROTEIN 237 ML CAN PO SCH (08:00)
[2023-02-21] MEDS: AMINO ACIDS/PROTEIN HYDROLYS 30 ML LIQUID.PKT PO SCH ×2 (08:00→19:36)
[2023-02-21] MEDS: COLLAGENASE 30 GM OINTMENT TOP SCH (08:11)
[2023-02-21] MEDS: levoFLOXacin 750 MG TAB PO SCH (08:12)
[2023-02-21] MEDS: APIXABAN 2.5 MG TABLET PO SCH ×2 (08:12→19:15)
[2023-02-21] MEDS: ASCORBIC ACID 500 MG TABLET PO SCH (08:12)
[2023-02-21] MEDS: FE SULF/FA/VIT B COMP & C TAB PO SCH (08:12)
[2023-02-21] MEDS: carvediloL 6.25 MG TAB PO SCH ×2 (08:12→19:16)
[2023-02-21] MEDS: ZINC SULFATE 220 MG CAP PO SCH (08:12)
[2023-02-21] MEDS: FERROUS SULFATE 325 MG TAB PO SCH (08:12)
--- NOTE | 2023-02-21 13:29 | CON ---
Date of Consultation: 02/17/2023 Brief History Of Present Illness: The patient is an 87-year-old male known to me from previous surge ry approximately 2 weeks prior whereby he had a stage III sacral pressure ulcer which I debrided in t he OR approximately 2 weeks prior, who is now in the rehab facility and has been up, moving around. He had a wound care with Vashe and Santyl. However, his wound care had been modified somewhat on the rehabilitation floor as the patient was not being seen by me at this time. His wound care was not b eing as closely monitored by myself personally. Patient had some significant soilage of the wound on multiple occasions, and as such, concern for wound infection was noted. As such, I am consulted to see the patient regarding this. Patient has no specific complaints, but is incontinent of stool. 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 Past Surgical History: Bilateral cataract surgery and sacral stage III decubitus ulcer debridement. Allergies: NO KNOWN DRUG ALLERGIES. Family History: Reviewed and noncontributory. Social History: He is in local independent living. Does drink alcohol occasionally. No tobacco. N o illicit drugs. Medications: At home include Toprol, and Bactroban ointment to the sacral area. Review of Systems: 10-point review of systems other than HPI, denies. Physical Examination: At the time of my examination: General: He is awake, alert, and oriented. Psychiatric: Appropriate, conversive. HEENT: Normocephalic. Sclerae anicteric. Mucous membranes are moist. Oropharynx is clear. Neck: Supple. No JVD. Chest: Normal expansion and excursion. Skin: Focused examination of his buttock area, there is some soiling of his wound, but no obvious in fection necrosis. There is some fibrin buildup. The wound was not packed appropriately as it was no t tight enough, but no obvious need for debridement. There is good granulation tissue with simple fi brinous buildup. The remainder of skin exam is unremarkable. Assessment And Plan: This is an 87-year-old male who presents after debridement of a sacral ulcer, w ho is currently in the rehabilitation floor. 1.Continue medical management. 2.Continue local wound care with Santyl a nickel thickness applied to the sacral wound daily with Va she soaked damp to dry, packed tightly into the wound. 3.Pressure reduction strategies. 4.Continue frequent checks and fecal management with Benefiber or similar fiber to allow for binding of stool and redirection of flow. An impervious dressing should be applied to prevent cross contami nation of stool to the wound and continue pressure reduction strategies. 5.Discussion of fecal diversion has been addressed at this point. The patient is not in favor of leslie ving any fecal diversion at this point. I have discussed the risks, benefits, and alternatives of pl acement of a temporary or permanent colostomy, including but not limited to, bleeding, infection, dam age to surrounding tissues, need for further operative procedures. The patient wants to wait at this point and does not want to submit to a surgical procedure for a colostomy diversion at this time. Sudhakar silva will revisit in the future should the patient have continued issues related to his wound and see if the patient is a better surgical candidate at that time per his purview. Thank you for this interesting consult. LISA/TODD Voice ID: [id number] Report ID: [id number]
[2023-02-21] MEDS: NA CHLORIDE 0.9% 1,000 ML IV SCH (13:39)
--- NOTE | 2023-02-21 16:54 | P.CNS ---
Date of Consult: 02/21/23 Reason for Consult: Hydronephrosis Requesting Physician: Higinio Artis Chief Complaint: Generalized weakness History of Present Illness: 87-year-old gentleman with CKD stage IV and hypertension who was found in his shower confused after having taken a fall. He was seen in the emergency department 02/06/2023 where a right ischial ramus fracture was observed and he was in severe pain. There was also severe central spinal stenosis C2-3. An acute right common femoral DVT was observed and he was started on anticoagulation. He also had evidence of sacral decubitus ulcer formation. Evidence of CHF was also present and he was evaluated by cardiology for acute WA. He underwent surgical debridement of the ulcer 02/09/2023 and is currently under care and wound management. Since that time, he had progressively developed worsening issues with his lower urinary tract symptoms resulting in significant incontinence. Eventually, an ultrasound was obtained and a Oliva catheter was placed with over 1900 cc of urine emitted on 02/17/2023. Despite the absence of any significant gross hematuria, subsequently the catheter failed to drain properly, and required irrigation where an additional 700 to 900 cc did drain. While the patient is oriented to person and place, he did not recall a significant degree of history relevant to his lower urinary tract. He does not recall significant bothersome LUTS outside of the hospital but acknowledges some significant LUTS since he has been in the hospital over the last few days. Past medical history: CKD stage IV, CAD with stent, sacral decubitus ulcer, right common femoral DVT, C2-3 severe central cord stenosis Past surgical history: Cataract surgery, sacral ulcer debridement No known drug allergies Social history: Independent living with no tobacco use. Examination: Patient well-appearing, well-nourished, well-developed and in no acute distress He was alert and awake, oriented to person and place No dyspnea or sign of respiratory distress Abdomen soft, nontender Phallus circumcised with orthotopic meatus and urethral Oliva catheter in place draining clear yellow urine 02/13/2023 urinalysis 3+ heme, greater than 50 RBCs per hpf, 5-10 WBCs per hpf 02/19/2023 hemoglobin 7.7/hematocrit 23.3, white blood count 7.2, platelets 277, creatinine 2.63 with EGFR 23 range creatinine 2.3-4.24 Apparently the rise in his creatinine associated with the incontinence prompted urethral Oliva catheter placement as recommended by nephrology. 02/06/2023 CT head, chest abdomen and pelvis: I reviewed the images in detail with the following findings: Bilateral atrophic renal units without hydronephrosis or nephrolithiasis. Bladder decompressed with evident prostatomegaly. Radiologist impression: No acute intracranial abnormality. No acute fracture or traumatic malalignment of the cervical spine. Acute versus subacute nondisplaced fracture of the right ischial ramus. No other significant evidence of trauma identified. Findings: Adrenals normal with left adrenal thickening only. No hydronephrosis or renal calculi. Bladder grossly unremarkable. 02/16/2023 renal ultrasound revealed mild bilateral hydronephrosis Assessment and recommendation: 87-year-old gentleman with CKD stage IV, hypertension, CAD with stent, right common femoral DVT on Eliquis, C2-3 spinal stenosis severe, and sacral decubitus ulcer p debridement 02/09/2023 with postoperative acute urinary retention resulting in overflow incontinence and mild hydronephrosis in the setting of prostatomegaly with microscopic hematuria. -Recommend leave the urethral Oliva catheter in place for at least 7 to 10 days, given the large volume, greater than 1900 cc, urine evacuated upon initial catheter placement. Patient may be arranged for voiding trial in the urology clinic after 02/25/2023 -Flomax 0.4 mg daily recommended at bedtime given the prostatomegaly seen -Follow-up for cystoscopy intervally with PSA done prior to the cystoscopic evaluation -Likely a role for finasteride, which will be determined after the above evaluation complete. Allergies No Known Allergies Allergy (Verified 02/10/23 10:31) Home medications list reviewed: Yes Home Medications: Acetaminophen [Tylenol*] 650 mg PO Q6H PRN tab 02/10/23 Amlodipine [Norvasc*] 10 mg PO DAILY tab 02/10/23 Apixaban [Eliquis *] 2.5 mg PO BID 02/10/23 Furosemide [Lasix*] 20 mg PO DAILY 02/10/23 Hydrocodone 5/APAP 325 [[place] 5/325*] 1 tab PO Q6H PRN #0 tab 02/10/23 Melatonin 5 mg PO BEDTIME PRN PRN #0 02/10/23 Na Bicarb Tab [Sodium Bicarb 325 MG Tab*] 650 mg PO BID #0 tab 02/10/23 carvediloL [Coreg*] 6.25 mg PO BID tab 02/10/23 - Past Medical/Surgical History Diabetic: No -: Hypertension -: Cataract sx allyn Psychosocial/ Personal History: Patient is a . He has 1 child. - Social History Smoking Status: Unknown if ever smoked Alcohol use: Yes CD- Drugs: No Caffeine use: Yes Place of Residence: Residential Physical Examination Temp Pulse Resp BP Pulse Ox 97.6 F 83 17 124/53 L 98 02/20/23 21:27 02/21/23 08:12 02/20/23 21:27 02/21/23 08:12 02/20/23 21:27 Laboratory Data (last 24 hrs) 02/21/23 03:54: WBC 11.00 H, Hgb 7.8 L, Hct 23.6 L, Plt Count 314 02/21/23 03:54: Sodium 138, Potassium 3.7, BUN 40 H, Creatinine 1.95 H, Glucose 105, Phosphorus 2.8 Conclusions/Impression: see HPI A&P Critical Care: No Time Spent Managing Pts care (In Minutes): 45
[2023-02-21] MEDS: ENSURE CLEAR 200 ML CAN PO SCH (19:36)
[2023-02-21] MEDS ORDERED: TAMSULOSIN 0.4 MG SR CAP PO SCH (21:00)
--- NOTE | 2023-02-21 22:51 | PN ---
Date of Progress Note: 02/21/2023 [facility] Progress Note Visit Time Of Service: 1:30 p.m. Subjective: Mr. Mix is resting in bed between therapy sessions. He has no new complaints. He had visits from Dr. Flavio Sy, Dr. Thai Nathan, and the Renal Service, Dr. Thomas. Dr. Nathan was called because of obstructive uropathy with retention of urine. He recommended leaving the Oliva catheter in place as the patient did have a large volume of urine upon initial catheter placement an d he recommended Flomax 0.4 mg daily and a followup of cystoscope with PSA and also a possibility of being treated with finasteride. Review of Systems: No recent fevers or chills. Again, the urinary retention with the Oliva in place. No significant my algias, those are improving. No arthralgias that are significant. No rash. No headache or weight c hange. No other complaints. Physical Examination: Vital Signs: Blood pressure 136/66, pulse 95, respiratory rate 18, temperature 97.3, and oxygen satu ration 100%. General: Mr. Mix is resting in bed. He is in no significant distress. HEENT: He appears normocephalic, atraumatic. Sclerae anicteric. Oropharynx is moist. Neck: Supple. Chest: Clear. Heart: Regular. Extremities: No significant edema or cyanosis. Laboratory Studies: White blood cell count 11, hemoglobin 7.8, and platelets 314. Sodium 138, potas sium 3.7, chloride 113, BUN 40, creatinine 1.95, glucose 105, and albumin 2.2. X-ray/imaging: No new x-ray or imaging. It should be noted that he was also seen by Dr. Flavio Sy. He did recommend, due to his significan t sacral wound that was debrided, that a diversion with colostomy may be needed, but the patient has refused that. The patient is now having Santyl in nickel thickness applied to the sacral wound daily with Vashe soaked damp-to-dry eye packing into the wound and the patient will reconsider potential f or the procedure to remove the stool from the area by having a diversion colostomy. Medications: Have been reviewed and remain unchanged. Current Functional Status: Currently, Mr. Mix was able to ambulate 250 feet twice and 150 feet twic e with standby assistance requiring verbal cues. He mobilized a wheelchair 100 feet independently. With speech therapy, he recalled 4/4 words after 5 minutes. Using verbal rehearsal, he provided 5 it ems in abstract category to improve organizational thinking with 88% accuracy and minimum assistance. He was able to 10 [id number] transfers with a rolling walker at varying heights with supervision. Progress Towards Rehabilitation Goals: Mr. Mix is making excellent progress towards his goals of be coming independent with upper and lower body dressing, transferring, toileting, ambulating 250 feet i ndependently, and performing activities of daily living independently. He does, however, have signif icant medical needs to address his sacral wound and his bladder outflow obstruction. He is seen by [facility] and by the Surgical Service along with the Renal Service for his renal insufficien cy. Assessment: Mr. Mix is an 87-year-old patient in the rehabilitation unit with rhabdomyolysis, acute -on-chronic renal failure, obstructive uropathy, hydronephrosis, severe C2-3 cervical spinal stenosis , and sacral decubital ulcer. He is making excellent progress with his physical and occupational the rapy. Plan: He will possibly have to go to [facility] because of his medical needs, despite doing ana y well with his physical, occupational, and speech therapy. He will continue with management of his sacral decubital ulcer by Dr. Sy. Continue with obstructive uropathy management by Dr. Nathan and the Renal Service will keep managing the patient. As noted, the patient will have to have wound care. Therefore, he will likely require [facility] instead of going home. Comorbids That Continue To Impact Rehabilitation Process: Obstructive uropathy and sacral wound are factors that continue to impact him, but he is still doing very well with all therapy despite this. LB/MODL Voice ID: [id number] Report ID: [id number]
[2023-02-22 04:30] LABS: Absolute Lymphocytes (CBC) 1.5 K/uL (0.7-4.9); Hematocrit 23.4 % (39.6-49.0); Lymphocytes % 15.6 % (15.3-44.8); MCV 91.6 fL (80-100); MPV 6.7 fL (7.6-11.3); RBC Red Blood Cell Count 2.56 M/uL (4.33-5.43)
[2023-02-22 07:15] VITALS: BP 142/63; TEMP 97.1
[2023-02-22] MEDS: AMINO ACIDS/PROTEIN HYDROLYS 30 ML LIQUID.PKT PO SCH (08:00)
[2023-02-22] MEDS: ENSURE CLEAR 200 ML CAN PO SCH (08:00)
[2023-02-22] MEDS: ZINC SULFATE 220 MG CAP PO SCH (08:13)
[2023-02-22] MEDS: FERROUS SULFATE 325 MG TAB PO SCH (08:13)
[2023-02-22] MEDS: APIXABAN 2.5 MG TABLET PO SCH (08:13)
[2023-02-22] MEDS: carvediloL 6.25 MG TAB PO SCH (08:13)
[2023-02-22] MEDS: ASCORBIC ACID 500 MG TABLET PO SCH (08:13)
[2023-02-22] MEDS: FE SULF/FA/VIT B COMP & C TAB PO SCH (08:13)
[2023-02-22] MEDS: COLLAGENASE 30 GM OINTMENT TOP SCH (09:42)
[2023-02-22] MEDS: NA CHLORIDE 0.9% 1,000 ML IV SCH (10:06)
--- NOTE | 2023-02-22 12:28 | PN ---
Date of Progress Note: 02/22/2023 Subjective: The patient was admitted to the hospital with acute kidney injury. The patient had bounce back on his acute kidney injury secondary to obstructive uropathy. Oliva was inserted. Kidney function back to normal to baseline. Physical Examination: Vital Signs: Blood pressure 142/63, pulse of 83. Chest: Clear to auscultation. Heart: S1, S2. Regular. Abdomen: Soft, nontender. Extremities: No edema. Neurologic: Alert. No focality. Laboratory Data: Hemoglobin 8. Sodium 140, potassium 4, bicarb 25, BUN 34, creatinine 2, calcium 8. Current Medications: The patient on include; 1. Levaquin. 2. Flomax. 3. Eliquis. 4. Carvedilol 6.25. 5. Tylenol. 6. IV fluid. Assessment And Plan: 1. Acute kidney injury secondary to obstructive uropathy/prerenal looked to me normal volume. Discontinue IV fluid. Continue Oliva, continue Flomax, and we will monitor. 2. Obstructive uropathy. Continue current Oliva. Continue Flomax. 3. Chronic kidney disease stage 3B/4, status post acute kidney injury as above. 4. Hypertension, controlled, optimal. Continue current treatment. 5. Rhabdomyolysis, resolved. 6. Anemia of chronic kidney disease, stable. 7. Deconditioning. Continue PT/OT. 8. Hypokalemia, status post supplement, resolved. time spend exam the patient face to face , reviewing the DATA lab and Radiology, placing the order, discussing the case with the patient ,reviewing the care plan with steamtable attendant railroad including the nursing staff , discussing with the hospitalist >35 min MIN Voice ID: [id number] Report ID: [id number] LULA
--- NOTE | 2023-02-22 18:51 | P.PN ---
Subjective Date of Service: 02/21/23 Chief Complaint: Generalized weakness Subjective: Improving (Patient has no complaints with respect to wounds) Physical Examination - Vital Signs Temperature: 97.1 F Blood Pressure: 142/63 Pulse: 82 Respirations: 18 Pulse Ox (%): 98 - Physical Exam General: Alert, In no apparent distress, Cooperative Integumentary: Other (sacral wound is stable, not-soiled, clean, granulating, no infection) - Studies Laboratory Data (last 24 hrs) 02/22/23 04:13: Sodium 140, Potassium 4.0, BUN 34 H, Creatinine 2.09 H, Glucose 106 02/22/23 04:13: WBC 9.90, Hgb 8.0 L, Hct 23.4 L, Plt Count 305 Assessment And Plan - Plan Patient has intermittent soilage of his wound with stool contents - I have discussed surgical options for fecal diversion, but patient does not want this procedure @ this time - continue ongoing wound care with with protection of wound from fecal stream - continue current treatment plan - I remain available to revisit treatment options Physician Review: Patient Assessed, Agree with Above Assessment and Plan
== END 2023-02-22 18:10 | DRG 557 ==
LOC: 5TH 09:15
PROVIDERS: ADMIT Psychiatry & Neurology Neurology with Special Qualifications in Child Neurology; ATTEND Psychiatry & Neurology Neurology with Special Qualifications in Child Neurology
PROC: 0HBRXZZ Excision of Toe Nail, External Approach (ICD-10-PCS; principal; 2023-02-13)
PROC: 0HBRXZZ Excision of Toe Nail, External Approach (ICD-10-PCS; 2023-02-13)
PROC: 0HBRXZZ Excision of Toe Nail, External Approach (ICD-10-PCS; 2023-02-13)
PROC: 0HBRXZZ Excision of Toe Nail, External Approach (ICD-10-PCS; 2023-02-13)
PROC: 0HBRXZZ Excision of Toe Nail, External Approach (ICD-10-PCS; 2023-02-13)
PROC: 0HBRXZZ Excision of Toe Nail, External Approach (ICD-10-PCS; 2023-02-13)
PROC: 0HBRXZZ Excision of Toe Nail, External Approach (ICD-10-PCS; 2023-02-13)
PROC: 0HBRXZZ Excision of Toe Nail, External Approach (ICD-10-PCS; 2023-02-13)
PROC: 0HBRXZZ Excision of Toe Nail, External Approach (ICD-10-PCS; 2023-02-13)
PROC: 0HBRXZZ Excision of Toe Nail, External Approach (ICD-10-PCS; 2023-02-13)
PROC: 0T9B70Z Drainage of Bladder with Drainage Device, Via Natural or Artificial Opening (ICD-10-PCS; 2023-02-17)
DX: M62.82 Rhabdomyolysis (principal); L89.153 Pressure ulcer of sacral region, stage 3; N17.0 Acute kidney failure with tubular necrosis; I13.0 Hypertensive heart and chronic kidney disease with heart failure and stage 1 through stage 4 chronic kidney disease, or unspecified chronic kidney disease; E87.20 Acidosis, unspecified; N25.81 Secondary hyperparathyroidism of renal origin; N13.30 Unspecified hydronephrosis; N18.4 Chronic kidney disease, stage 4 (severe); I82.411 Acute embolism and thrombosis of right femoral vein; M17.9 Osteoarthritis of knee, unspecified; I50.9 Heart failure, unspecified; M48.02 Spinal stenosis, cervical region; S32.601D Unspecified fracture of right ischium, subsequent encounter for fracture with routine healing; I25.10 Atherosclerotic heart disease of native coronary artery without angina pectoris; D50.9 Iron deficiency anemia, unspecified; B35.1 Tinea unguium; L84 Corns and callosities; I70.91 Generalized atherosclerosis; D63.1 Anemia in chronic kidney disease; G47.00 Insomnia, unspecified; K59.00 Constipation, unspecified; N13.9 Obstructive and reflux uropathy, unspecified; E78.5 Hyperlipidemia, unspecified; N32.0 Bladder-neck obstruction; E87.6 Hypokalemia; Z20.822 Contact with and (suspected) exposure to COVID-19
CPT/HCPCS: 36415; 71045; 76770; 80048; 80069; 81001; 82040; 82550; 82570; 83735; 83935; 84132; 84134; 84156; 84300; 84550; 85025; 87086; 87088; 92523; 94010; 97110; 97112; 97116; 97129; 97162; 97165; 97530; 97542; J3590; J7030; Q5106; U0003

== ENCOUNTER 2023-04-14 18:24 | Inpatient (IN) | payer OTHER ==
--- OUTSIDE RECORDS SUMMARY | 2023-04-14 18:27 | XMS REPORT | Continuity of Care Document ---
:1935 Author Organization [facility] t Address [address] [place] [address] Care Team Providers Name Role Phone Pcp, Patient Does Not Have A Primary Care Physician +[id number] Doctor Unassigned, [place] Attending Clinician Unavailable MICHAEL GRAY Attending Clinician Unavailable Payers Payer Name Policy Type Policy Number Effective Date Expiration Date S ource Problems This patient has no known problems. Allergies, Adverse Reactions, Alerts Allergy Allergy Status Severity Reaction(s) Onset Inactive Treating Comm ents Source Name Type Date Date Clinician NO KNOWN Drug Active Univers ALLERGIE Class ity of S [facility] Social History Social Habit Start Date Stop Date Quantity Comments Source Tobacco use and 2019-08-28 2019-08-28 Smokeless tobacco Un iversity of exposure 00:00:00 00:00:00 non-user [facility] Sex Assigned At [birth year] Univers[facility] y of 00:00:00 00:00:00 [facility] Smoking Status Start Date Stop Date Source Never smoked tobacco [facility] Medications Ordered Filled Start Stop Current Ordering Indication Dosage Frequency Signature Comments Components Source Medication Medication Date Date Medication? Clinician (SIG) Name Name atorvastati Yes Univer s n 80 mg 9-30 ity of tablet 00:00: [place] 00 [facility] clopidogrel 2019-0 Yes Univer s 75 mg 9-30 ity of tablet 00:00: [address] [place] [address] Immunizations Ordered Filled Immunization Date Status Comments Sour e Immunization Name Name SARS-COV-2 COVID-19 2021-01-04 Completed Unive rsity of MODERNA 12+ YRS 00:00:00 [facility] ical VACCINE Branch SARS-COV-2 COVID-19 2020-12-06 Completed Unive rsity of MODERNA 12+ YRS 00:00:00 [facility] VACCINE Branch Procedures Procedure Date / Time Performed Performing Clinician Sour e HOME HEALTH - OTHER 2023-04-06 05:01:00 Doctor Unassigned, No Un iversity of [facility] Encounters Start End Encounter Admission Attending Care Care Encounter Source Date/Time Date/Time Type Type Clinicians Facility Department ID 2023-04-06 2023-04-06 Orders Doctor PHAN [id number] Univers 00:00:00 00:00:00 Only Unassigned, KELBY [id number] ity of [place] [facility] [id number] Nilesh as [id number] [address] 2021-01-03 2021-01-03 Outpatient [facility] [id number] Univers 15:15:00 15:15:00 ity of [facility] 2020-12-06 2020-12-06 Outpatient Logan GRAY [facility] [id number] Univers 15:05:00 15:05:00 MICHAEL ity [facility] Results This patient has no known results.
[2023-04-14 19:12] LABS: Absolute Lymphocytes (CBC) 0.9 K/uL (0.7-4.9); Hematocrit 27.3 % (39.6-49.0); Lymphocytes % 4.2 % (15.3-44.8); MCV 87.6 fL (80-100); MPV 6.6 fL (7.6-11.3); RBC Red Blood Cell Count 3.12 M/uL (4.33-5.43)
[2023-04-14 19:18] LABS: Protime INR 1.84
[2023-04-14 19:54] LABS: Albumin 2.3 g/dL (3.4-5.0); Bilirubin Total 0.4 mg/dL (0.2-1.0); Potassium 3.4 mEq/L (3.5-5.1); Protein, Total 6.2 g/dL (6.4-8.2)
--- NOTE | 2023-04-14 20:02 | RAD REPORT ---
EXAM DESCRIPTION: RADChest Single View04/14/2023 7:18 pm CLINICAL HISTORY: hypotensive COMPARISON: Chest Single View dated 02/17/2023; Chest Single View dated 02/12/2023; Chest Single View d ated 02/08/2023; Chest Single View dated 02/06/2023 TECHNIQUE: Portable AP view of the chest. FINDINGS: The lungs are clear. No pneumothorax or effusion. The cardiomediastinal contours are unch anged. IMPRESSION: No acute cardiopulmonary process.
[2023-04-14 20:21] LABS: SARS-CoV-2 Antigen Rapid Res Negative (Negative)
--- NOTE | 2023-04-14 21:08 | RAD REPORT ---
EXAM DESCRIPTION: CT - Abdomen Pelvis Wo Contrast - 04/14/2023 8:20 pm CLINICAL HISTORY: sacral wound COMPARISON: CTSTONE PROTOCOL dated 08/26/2014 TECHNIQUE: Thin cut axial CT imaging of the abdomen and pelvis was performed without IV contrast. Mu ltiplanar reformats were generated and reviewed. All CT scans are performed using dose optimization technique as appropriate and may include automated exposure control or mA/KV adjustment according to patient size. FINDINGS: No suspicious findings in the lung bases. The liver, spleen, and pancreas show no suspicious findings. Cholelithiasis. No evidence of intra or extrahepatic biliary ductal dilation. Linear mineralization along the right adrenal gland is stable, and could relate to sequelae of prior hemorrhage or infarct. Symmetric renal contour, without suspicious parenchymal findings within limits of noncontrast techniq ue. Mild right hydroureter and hydronephrosis without evidence of obstructing calculi. Prostatomegaly . Mild colonic diverticulosis. Wall thickening, asymmetrically more pronounced on the right, along the anal canal, with adjacent fat stranding. No appreciable fluid collections within limits of noncontras t CT. Short segments of bowel wall thickening along the proximal and distal sigmoid colon with minima l adjacent fat stranding. No dilated bowel loops. No free air, free fluid or inflammatory stranding. No hernia, mass or bulky lymphadenopathy. Pericystic fat stranding, and wall thickening throughout most of the bladder. Numerous bladder divert icula, many of which are increased in size since the prior exam. Diffuse osteopenia which limits evaluation. Subtle lucency a right inferior pubic ramus, could repres ent a healing fracture. Anterior wedge compression deformity at T12, appears stable. Left paramidline ulcer overlying the lower sacral segments. Underlying soft tissue thickening. Subtle sclerosis within the underlying bone at S5 level and the coccygeal segments. No soft tissue gas or a ppreciable fluid collections. IMPRESSION: Wall thickening, asymmetrically more pronounced on the right, along the anal canal, with adjacent fat stranding. Short segments of bowel wall thickening along the proximal and distal sigmoi d colon with minimal adjacent fat stranding. Findings are suggestive of segmental colitis and proctit is. No appreciable fluid collections within limits of noncontrast CT. Bladder wall thickening and pericystic fat stranding. Numerous bladder diverticula. Mild right hydrou reter and hydronephrosis without evidence of obstructing calculi. Findings are suggestive of cystitis , with or without ascending right urinary tract infection. Please correlate clinically and with urina lysis results. Left paramidline decubitus ulcer. Subtle osseous sclerosis within the underlying S5 and coccygeal seg ments, appears progressive since the prior exam, and raises concern for acute osteomyelitis. Questionable healing right inferior pubic ramus fracture. Other stable findings as above.
--- NOTE | 2023-04-14 21:16 | ER ---
Nurse's Notes [facility] Name: Sheng Mix Age: 87 yrs Sex: Male : 1935 Arrival Date: 04/14/2023 Time: 18:24 Bed 4 Private MD: Diagnosis: Severe sepsis without septic shock;Acidosis;Osteomyelitis, unspecified;UTI/ Urinary tract infection, site not specified;Infectious gastroenteritis and colitis, unspecified Presentation: 04/14 18:36 Chief complaint: EMS states: They were called to [facility] for pt cm10 that was hypotensive and was showing signs of being septic. Pt has a stage 4 decubitus ulcer. Per EMS report when they arrived pt was found to have a BP of 88/54 which then dropped to 78/53. Heart rate was 120-130s. Pt received 1L of NS en Route and BP increased and heart rate decreased. Upon arrival pt is A\T\Ox4, has not complaints. Coronavirus screen: Vaccine status: Patient reports receiving the 2nd dose of the covid vaccine. Ebola Screen: No symptoms or risks identified at this time. Initial Sepsis Screen: Does the patient meet any 2 criteria? Systolic BP < 90 mmHg. Mean Arterial Pressure (MAP) < 65. HR > 90 bpm. Yes Does the patient have a suspected source of infection? Yes: Skin breakdown/wound. Risk Assessment: Do you want to hurt yourself or someone else? Patient reports no desire to harm self or others. Onset of symptoms was April 14, 2023. 18:36 Method Of Arrival: EMS: [facility] cm10 18:36 Acuity: HUGO 2 cm10 19:02 Care prior to arrival: Medication(s) given: Normal saline infusion, 1000 mL, IV cm10 initiated. 18 GA, 20 GA, in the left in the right antecubital area. Historical: - Allergies: 18:43 No Known Allergies; cm10 - PMHx: 18:43 Arthritis; Hypertension; cm10 - Immunization history:: Adult Immunizations unknown. - Social history:: Smoking status: unknown. - Family history:: not pertinent. - Hospitalizations: : No recent hospitalization is reported. Screenin:19 [facility] ED Fall Risk Assessment (Adult) History of falling in the last 3 months, rv including since admission No falls in past 3 months (0 pts) Confusion or Disorientation No (0 pts) Intoxicated or Sedated No (0 pts) Impaired Gait No (0 pts) Mobility Assist Device Used No (0 pt) Altered Elimination No (0 pt) Score/Fall Risk Level 0 - 2 = Low Risk Oriented to surroundings, Maintained a safe environment, Educated pt \T\ family on fall prevention, incl call for assistance when getting out of bed, Assessed \T\ reinforced patient's understanding of fall precautions, Provided non-skid footwear, Hourly rounding (assess needs \T\ fall precautionary measures) done, Used ambulatory aids as needed (educated on \T\ assisted with), Used gait belt as appropriate. Abuse screen: Denies threats or abuse. Denies injuries from another. Nutritional screening: No deficits noted. Tuberculosis screening: No symptoms or risk factors identified. Assessment: 19:00 General: Appears uncomfortable, Behavior is calm, cooperative. rv 19:00 Pain: Denies pain. Neuro: Level of Consciousness is awake, alert, obeys commands, rv Oriented to person, place, time, situation. Cardiovascular: Capillary refill < 3 seconds. Respiratory: Airway is patent Respiratory effort is even, unlabored. GI: No signs and/or symptoms were reported involving the gastrointestinal system. : No signs and/or symptoms were reported regarding the genitourinary system. Vital Signs: 18:36 BP 136 / 65; Pulse 111; Resp 18; Temp 98.6(O); Pulse Ox 100% on R/A; cm10 20:00 BP 110 / 52; Pulse 96; Resp 16; Pulse Ox 100% on R/A; rv 21:00 BP 113 / 85; Pulse 94; Resp 16; Pulse Ox 100% on R/A; rv 22:00 BP 100 / 51; Pulse 94; Resp 18; Pulse Ox 97% on R/A; rv ED Course: 18:29 Patient arrived in ED. ds4 18:37 Shay Carey MD is Attending Physician. rn 18:40 Radiology exam delayed due to lab results not completed at this time. (BUN/Creatinine) jg10 IV insertion attempt and/or patient not having appropriate IV at this time. 18:43 Triage completed. cm10 18:43 Arm band placed on Patient placed in an exam room, on a stretcher. cm10 19:00 Patient has correct armband on for positive identification. Placed in gown. Bed in low rv position. Call light in reach. Side rails up X 1. Client placed on continuous cardiac and pulse oximetry monitoring. NIBP monitoring applied. forensics analyst on. 19:00 No provider procedures requiring assistance completed. Maintain EMS IV. Dressing rv intact. Good blood return noted. Site clean \T\ dry. Gauge \T\ site: g18 RAC. 19:00 Maintain EMS IV. Dressing intact. Good blood return noted. Site clean \T\ dry. Gauge \T\ rv site: G20 LAC. 19:04 Ptt, Activated Sent. cm10 19:04 Protime (+inr) Sent. cm10 19:04 Lactate w/ 2H reflex if indic. Sent. cm10 19:05 CMP Sent. cm10 19:05 CBC with Diff Sent. cm10 19:20 Chest Single View XRAY In Process Unspecified. EDMS 20:21 Abdomen In Process Unspecified. EDMS 20:41 Maxi Springer RN is Primary Nurse. rv 21:15 Kyle Lares MD is Hospitalizing Provider. rn 21:30 Oliva cath inserted, using sterile technique, 16 Fr., by nc, balloon inflated, urine rv specimen collected. returned cloudy urine. Patient tolerated well. 22:20 Patient admitted, IV remains in place. rv Administered Medications: 20:42 Drug: NS 0.9% IV 1000 ml Route: IV; Rate: 1000 ml; Site: right antecubital; rv 22:13 Follow up: IV Status: Completed infusion; IV Intake: 1000ml rv 21:28 Drug: Cefepime IVPB 1 grams Route: IVPB; Rate: 200 ml/hr; Infused Over: 30 mins; Site: rv right antecubital; 22:00 Follow up: Response: No adverse reaction; IV Status: Completed infusion rv 22:00 Drug: vancoMYCIN IVPB 1 grams Route: IVPB; Infused Over: 2 hrs; Site: right antecubital;rv 22:22 Follow up: IV Status: Infusion continued upon admission rv Medication: 22:19 VIS not applicable for this client. rv Intake: 22:13 IV: 1000ml; Total: 1000ml. rv Outcome: 21:16 Decision to Hospitalize by Provider. rn 22:20 Admitted to Tele accompanied by [facility], via stretcher, room 403, with chart, Report rv called to LAKESHIA 22:20 Condition: improved 22:20 Instructed on the need for admit. 22:22 Patient left the ED. rv Signatures: Dispatcher [employer] EDShay Bender MD MD rn Swanson, Donovan ds4 Maxi Springer RN RN Camilla Davisg10 Jacy Rodrigeuz RN RN cm10
--- NOTE | 2023-04-14 21:16 | EDPHYS ---
Physician Documentation [facility] Name: Sheng Mix Age: 87 yrs Sex: Male : 1935 Arrival Date: 04/14/2023 Time: 18:24 Bed 4 Private MD: ED Physician Shay Carey HPI: 04/14 19:58 This 87 yrs old Male presents to ER via EMS with complaints of low blood pressure. rn 19:58 EMS reports fdc called 911 for hypotension. No fever. Has deep sacral ulcer. rn No vomiting/diarrhea. + generalized weakness. Given 300cc fluid bolus by EMS and BP improving. No trauma. . Onset: The symptoms/episode began/occurred at an unknown time. Severity of symptoms: At their worst the symptoms were moderate in the emergency department the symptoms have improved. The patient has experienced similar episodes in the past. The patient has not recently seen a physician. Historical: - Allergies: 18:43 No Known Allergies; cm10 - PMHx: 18:43 Arthritis; Hypertension; cm10 - Immunization history:: Adult Immunizations unknown. - Social history:: Smoking status: unknown. - Family history:: not pertinent. - Hospitalizations: : No recent hospitalization is reported. ROS: 19:58 Constitutional: Negative for fever, chills, and weight loss, Cardiovascular: Negative rn for chest pain, palpitations, and edema, Respiratory: Negative for shortness of breath, cough, wheezing, and pleuritic chest pain, Abdomen/GI: + nausea Back: Negative for injury and pain, MS/Extremity: Negative for injury and deformity, Skin: + sacral ulcer Neuro: + generalized weakness Exam: 19:58 Constitutional: This is a well developed, well nourished patient who is awake, alert, rn answering all questions Head/Face: Normocephalic, atraumatic. ENT: dry MM Cardiovascular: Tachycardic, regular Respiratory: No increased work of breathing, no retractions or nasal flaring. Abdomen/GI: soft, non-tender, dark green stool on exam, no blood, no melena Skin: Warm, dry MS/ Extremity: Pulses equal, no cyanosis. Neuro: Awake and alert, GCS 15, oriented to person, place, time, and situation. Cranial nerves II-XII grossly intact. Vital Signs: 18:36 BP 136 / 65; Pulse 111; Resp 18; Temp 98.6(O); Pulse Ox 100% on R/A; cm10 20:00 BP 110 / 52; Pulse 96; Resp 16; Pulse Ox 100% on R/A; rv 21:00 BP 113 / 85; Pulse 94; Resp 16; Pulse Ox 100% on R/A; rv 22:00 BP 100 / 51; Pulse 94; Resp 18; Pulse Ox 97% on R/A; rv MDM: 18:37 Patient medically screened. rn 21:13 Differential Diagnosis sepsis, UTI, osteomyelitis, dehydration, colitis. Data reviewed: rn vital signs, nurses notes, lab test result(s), radiologic studies, CT scan, plain films, and as a result, I will admit patient. Consideration of Admission/Observation Patient was admitted/placed on observation. Escalation of care including admission/observation considered. Counseling: I had a detailed discussion with the patient and/or guardian regarding: the historical points, exam findings, and any diagnostic results supporting the discharge/admit diagnosis, lab results, radiology results, the need for further work-up and treatment in the hospital. Response to treatment: the patient's symptoms have mildly improved after treatment, and as a result, I will admit patient. 04/14 18:38 Order name: Blood Culture Adult (2) 04/14 18:38 Order name: CBC with Diff; Complete Time: 19:55 04/14 18:38 Order name: CMP; Complete Time: 19:55 04/14 18:38 Order name: Lactate w/ 2H reflex if indic.; Complete Time: 19:55 04/14 18:38 Order name: Protime (+inr); Complete Time: 19:55 04/14 18:38 Order name: Ptt, Activated; Complete Time: 19:55 04/14 18:38 Order name: Urinalysis w/ reflexes rn 04/14 18:48 Order name: Wound Culture 04/14 18:48 Order name: Flu; Complete Time: 20:37 04/14 18:48 Order name: SARS RAPID; Complete Time: 20:27 04/14 20:58 Order name: Stool Culture 04/14 21:12 Order name: CDIFF rn 04/14 21:41 Order name: Urine Culture EDNH 04/14 18:38 Order name: Chest Single View XRAY; Complete Time: 20:27 rn 04/14 20:06 Order name: Abdomen ; Complete Time: 21:09 EDMS 04/14 18:38 Order name: EKG; Complete Time: 18:39 rn 04/14 18:38 Order name: Accucheck; Complete Time: 20:42 rn 04/14 18:38 Order name: Cardiac monitoring; Complete Time: 20:42 rn 04/14 18:38 Order name: Cath; Complete Time: 21:31 rn 04/14 18:38 Order name: EKG - Nurse/Tech; Complete Time: 21:31 rn 04/14 18:38 Order name: IV Saline Lock - Large Bore; Complete Time: 20:43 rn 04/14 18:38 Order name: Labs collected and sent; Complete Time: 20:42 rn 04/14 18:38 Order name: O2 Per Protocol; Complete Time: 20:42 rn 04/14 18:38 Order name: O2 Sat Monitoring; Complete Time: 20:42 rn 04/14 18:38 Order name: Vital Signs; Complete Time: 20:42 rn Administered Medications: 20:42 Drug: NS 0.9% IV 1000 ml Route: IV; Rate: 1000 ml; Site: right antecubital; rv 22:13 Follow up: IV Status: Completed infusion; IV Intake: 1000ml rv 21:28 Drug: Cefepime IVPB 1 grams Route: IVPB; Rate: 200 ml/hr; Infused Over: 30 mins; Site: rv right antecubital; 22:00 Follow up: Response: No adverse reaction; IV Status: Completed infusion rv 22:00 Drug: vancoMYCIN IVPB 1 grams Route: IVPB; Infused Over: 2 hrs; Site: right antecubital;rv 22:22 Follow up: IV Status: Infusion continued upon admission rv Disposition Summary: 04/14/23 21:16 Hospitalization Ordered Hospitalization Status: Inpatient Admission rn Provider: Kyle Lares [facility]n [facility]n Condition: Stable rn Problem: new rn Symptoms: have improved rn Bed/Room Type: Standard rn Room Assignment: 403(04/14/23 21:49) cg Diagnosis - Severe sepsis without septic shock rn - Acidosis rn - Osteomyelitis, unspecified rn - UTI/ Urinary tract infection, site not specified rn - Infectious gastroenteritis and colitis, unspecified rn Forms: - Medication Reconciliation Form rn - SBAR form chief crna time excluding procedures: 21:15 Critical care time: Bedside Care: 35 minutes, Family Intervention: 5 minutes. Total rn time: 40 minutes Signatures: Dispatcher [employer] [facility] Shay Carey MD MD rn Garcia, Cindy, RN RN cg Maxi Springer, RN RN Jacy Patten, RN RN cm10 Corrections: (The following items were deleted from the chart) 20:06 18:39 Abdomen Pelvis W Con+CT.RAD.BRZ ordered. [facility] 21:11 19:58 Constitutional: This is a well developed, well nourished patient who is awake, rn alert, answering all questions Head/Face: Normocephalic, atraumatic. ENT: dry MM Cardiovascular: Tachycardic, regular Respiratory: No increased work of breathing, no retractions or nasal flaring. Abdomen/GI: soft, non-tender Skin: Warm, dry MS/ Extremity: Pulses equal, no cyanosis. Neuro: Awake and alert, GCS 15, oriented to person, place, time, and situation. Cranial nerves II-XII grossly intact. rn 21:49 21:16 rn jorge
[2023-04-14] MEDS ORDERED: CEFEPIME 2 GM VIAL ONE (21:30)
[2023-04-14] MEDS ORDERED: VANCOMYCIN 1 GM/VIAL ONE (21:31)
[2023-04-14] MEDS ORDERED: NA CHLORIDE 0.9% 250 ML ONE (21:31)
[2023-04-14] MEDS ORDERED: NA CHLORIDE 0.9% 100 ML ONE ×2 (21:31→21:33)
[2023-04-14] MEDS ORDERED: CEFEPIME 1 GM/VIAL ONE (21:33)
[2023-04-14 21:37] LABS: Calcium Oxalate Crystals- Ur Few /HPF (None Seen); Specific Gravity 1.013 (1.005-1.030); Urine Bacteria 20-50 /HPF (<20); Urine Bilirubin NEGATIVE (Negative); Urine Blood 2+ (Negative); Urine Clarity Extremely Turbid (Clear); Urine Color Light-Orange (Yellow); Urine Glucose NEGATIVE (Negative); Urine Mucus Slight /HPF (None Seen); Urine Protein 3+ (Negative); Urine Urobilinogen Normal (Normal); Urine pH 8.5 (5.0-7.0)
--- NOTE | 2023-04-14 21:58 | P.HP ---
Certification for Inpatient Patient admitted to: Inpatient With expected LOS: >2 Midnights Patient will require the following post-hospital care: None Practitioner: I am a practitioner with admitting privileges, knowledge of patient current condition, hospital course, and medical plan of care. Services: Services provided to patient in accordance with Admission requirements found in Title 42 Section 412.3 of the Code of Federal Regulations Patient History Date of Service: 04/14/23 Reason for admission: Sepsis History of Present Illness: 87-year-old male with history of chronic systolic congestive heart failure, CKD 4, hypertension, sacral decubitus ulceration who is a resident of [facility] presents to the emergency department with chief complaint of low blood pressure. detention staff report that his blood pressure was in the 70s to 80s systolic and heart rate in the 120-130 range. EMS was called, patient started on IV fluids as blood pressure improved significantly in route and he is currently normotensive. He is evaluated in the emergency department and his labs are significant for leukocytosis white blood cell count 12.4 hemoglobin 8.9 hematocrit 27.3 PT 20.2 INR 1.84 creatinine 2.86, baseline is in the 2 range, bicarb 18 potassium 3.4 lactic acid 1.7 urinalysis concerning for urinary tract infection chest x-ray was negative CT abdomen pelvis without IV contrast with multiple findings including findings suggestive of segmental colitis and proctitis, bladder wall thickening and pericystic fat stranding, mild right hydroureter and hydronephrosis without evidence of obstructing calculi suggestive of cystitis with or without a sending right urinary tract infection, left paramidline decubitus ulcer, subtle osseous sclerosis within the underlying S5 and coccygeal segments appearing progressive since prior exam which raise the concern for osteomyelitis. Patient is criteria for severe sepsis, will need to admitted. Allergies No Known Allergies Allergy (Verified 02/10/23 10:31) Home Medications: Acetaminophen [Tylenol*] 650 mg PO Q6H PRN tab 02/22/23 Amino Acids/Protein Hydrolys [Prosource No Carb Liquid Pkt] 30 ml PO BID packet 02/22/23 Apixaban [Eliquis *] 2.5 mg PO BID 02/22/23 Ascorbic Acid [Vitamin C*] 500 mg PO DAILY 02/22/23 Bisacodyl [Dulcolax*] 10 mg ND DAILY PRN supp 02/22/23 Collagenase [Santyl Ointment*] 1 appl TOP DAILY tube 02/22/23 Docusate/Senna [Senokot-S*] 2 tab PO BEDTIME PRN tab 02/22/23 Ensure Clear 200 ml PO BID can 02/22/23 Ferrous Sulfate [Ferrous Sulfate*] 325 mg PO DAILY tab 02/22/23 Iron/FA/Vit B-Com W/C [Hemocyte Plus*] 1 tab PO DAILY WITH BREAKFAST tab 02/22/23 Melatonin 5 mg PO BEDTIME PRN PRN 02/22/23 Polyethyl Gly 3350 [Glycolax*] 17 gm PO DAILY PRN udbot 02/22/23 Tamsulosin [Flomax*] 0.4 mg PO BEDTIME cap 02/22/23 Trazodone [Desyrel*] 25 mg PO BEDTIME PRN PRN 02/22/23 Zinc Sulfate [Zinc Sulfate*] 220 mg PO DAILY cap 02/22/23 carvediloL [Coreg*] 6.25 mg PO BID tab 02/22/23 levoFLOXacin [Levaquin*] 750 mg PO Q48H tab 02/22/23 - Past Medical/Surgical History Diabetic: No -: Hypertension -: Chronic systolic congestive heart failure -: CKD 4 -: Cataract sx allyn Psychosocial/ Personal History: Patient is a . He has 1 child. - Social History Alcohol use: Yes CD- Drugs: No Caffeine use: Yes Place of Residence: Assisted Review of Systems 10-point ROS is otherwise unremarkable Gastrointestinal: Abdominal Pain, Diarrhea Physical Examination - Physical Exam General: Alert, In no apparent distress, Oriented x3 HEENT: Atraumatic, PERRLA, Mucous membr. moist/pink, EOMI, Sclerae nonicteric Neck: Supple, 2+ carotid pulse no bruit, No LAD, Without JVD or thyroid abnormality Respiratory: Clear to auscultation bilaterally, Normal air movement Cardiovascular: Regular rate/rhythm, Normal S1 S2 Capillary refill: <2 Seconds Gastrointestinal: Normal bowel sounds, Tenderness (Mild generalized abdominal tenderness) Musculoskeletal: No tenderness Integumentary: Pressure ulcer (Stage IV decubitus ulceration sacral area) Neurological: Normal gait, Normal speech, Normal strength at 5/5 x4 extr, Normal tone, Normal affect Lymphatics: No axilla or inguinal lymphadenopathy Urinary: Oliva catheter (Placed in ED) - Studies Laboratory Data (last 24 hrs) 07/07/23 18:59: PT 20.2 H, INR 1.84, APTT 25.6 04/14/23 18:59: Sodium 140, Potassium 3.4 L, BUN 80 H, Creatinine 2.86 H, Glucose 134 H, Total Bilirubin 0.4, AST 10 L, ALT 12 L, Alkaline Phosphatase 71 04/14/23 18:59: WBC 21.40 H, Hgb 8.9 L, Hct 27.3 L, Plt Count 385 Microbiology Data (last 24 hrs): 04/14/23 19:56 Nasopharnyx Influenza Type A Antigen Screen - Final 04/14/23 19:56 Nasopharnyx Influenza Type B Antigen Screen - Final Assessment and Plan - Plan Assessment: Severe sepsis-multifactorial with cystitis/possible ascending UTI, coli tis/proctitis, stage IV sacral decubitus ulceration with concern for osteomyelitis KARIME on CKD 4 Chronic systolic congestive heart failure Hypertension Plan: Severe sepsis-multifactorial with cystitis/possible ascending UTI, colitis/proctitis, stage IV sacral decubitus ulceration with concern for osteomyelitis SIRS criteria present including leukocytosis, tachycardia. Source of infection confirmed on CT, UA. Severe sepsis criteria present with INR greater than 1.5. Continue broad-spectrum antibiotics including vancomycin, cefepime, Flagyl. MRI ordered to evaluate for osteomyelitis, blood and urine cultures as well as stool culture and C. difficile test ordered given patient has been experiencing diarrhea recently and has marked leukocytosis. Infectious disease consult in place as well as wound consult. KARIME on CKD [address], continue IV fluids overnight. Chronic systolic congestive heart failure Appears compensated at this time, hold off on any diuretics. Hypertension Hold oral antihypertensives in the setting of sepsis, restart when appropriate. DVT PPX: Heparin subcu Code status: Full Discharge Plan: Home Plan to discharge in: Greater than 2 days - Advance Directives Does patient have a Living Will: No Does patient have a Durable POA for Healthcare: No - Code Status/Comfort Care Code Status Assessed: Yes (Full code) Critical Care: No Time Spent Managing Pts Care (In Minutes): 70
[2023-04-14] MEDS ORDERED: ONDANSETRON 4 MG/2 ML VIAL IV PRN (22:23)
[2023-04-14] MEDS ORDERED: ACETAMINOPHEN 500 MG TAB PO PRN (22:23)
[2023-04-14] MEDS: NA CHLORIDE 0.9% 1,000 ML IV SCH (22:57)
[2023-04-14] MEDS ORDERED: NA CHLORIDE 0.9% 1,000 ML IV ONE (23:04)
[2023-04-15] MEDS: METRONIDAZOLE 500mg IVPB 500 MG/100 ML BAG IV SCH ×2 (01:03→09:17)
[2023-04-15] MEDS ORDERED: VANCOMYCIN 500 MG in NA CHLORIDE 0.9% 100 ML IVPB ONE (01:45)
[2023-04-15] MEDS ORDERED: NA CHLORIDE 0.9% 500 ML IV ONE (04:42)
--- NOTE | 2023-04-15 04:46 | P.PN ---
Date of Service: 04/15/23 Patient has now had two blood pressure readings less than 90 systolic meeting criteria for septic shock. He is currently receiving the last 500cc bolus to meet requirements for 30cc/kg IV fluid total. Repeat lactate ordered now. Will move to ICU for close monitoring and possible vasopressor medications. He did respond to IVF earlier.
[2023-04-15] MEDS ORDERED: NA CHLORIDE 0.9% 500 ML ONE (04:54)
--- NOTE | 2023-04-15 05:36 | P.PN ---
Date of Service: 04/15/23 Sepsis reassessment complete, patient moved to ICU, BP improved now to 116 systolic. Has received 30 cc/kg IVF bolus, repeat lactate pending.
[2023-04-15 07:01] LABS: C.diff Antigen/Toxin Ag pos : Tox pos (NEG : NEG)
[2023-04-15 07:17] LABS: Absolute Lymphocytes (CBC) 0.9 K/uL (0.7-4.9); Hematocrit 26.5 % (39.6-49.0); Lymphocytes % 4.7 % (15.3-44.8); MCV 88.4 fL (80-100); MPV 6.7 fL (7.6-11.3)
[2023-04-15 07:48] LABS: Bilirubin Total 0.3 mg/dL (0.2-1.0); Potassium 3.3 mEq/L (3.5-5.1); Protein, Total 5.4 g/dL (6.4-8.2); Thyroid Stimulating Hormone 3.98 uIU/mL (0.358-3.740)
[2023-04-15] MEDS ORDERED: HEPARIN 5000 UNIT/ML 1 ML VIAL SQ SCH (09:00)
[2023-04-15 09:12] LABS: Blood Morphology Comment NOT SEEN (NOT SEEN); Platelet Estimate ADEQ; White Blood Cell Scan OK (OK)
[2023-04-15] MEDS: HEPARIN 5000 UNIT/ML 1 ML VIAL SQ SCH ×2 (09:16→20:25)
[2023-04-15] MEDS: VANCOMYCIN ORAL SOLN 250 MG/5 ML OSYR PO SCH ×3 (09:17→17:20)
[2023-04-15] MEDS: NA CHLORIDE 0.9% 1,000 ML IV SCH (11:43)
--- NOTE | 2023-04-15 15:25 | P.PN ---
Subjective Date of Service: 04/15/23 Chief Complaint: Sepsis No acute events since admission. His blood pressure values continue to fluctuate. He reports generalized weakness. He denies any chest pain, palpitations, or shortness of breath. Review of Systems 10-point ROS is otherwise unremarkable General: Weakness (generalized) Physical Examination - Vital Signs Temperature: 97.2 F Blood Pressure: 103/47 Pulse: 99 Respirations: 17 Pulse Ox (%): 100 - Physical Exam General: Alert, In no apparent distress, Oriented x3 HEENT: Atraumatic, Other (mucous membranes dry), Sclerae nonicteric Neck: JVD not distended Respiratory: Clear to auscultation bilaterally, Normal air movement Cardiovascular: No edema, Regular rate/rhythm, Normal S1 S2, No gallops, No rubs, No murmurs Gastrointestinal: Soft and benign, Non-distended, No rebound, No guarding, Hyperactive, Tenderness (mild, generalized) Musculoskeletal: No clubbing Integumentary: Pressure ulcer (stage IV sacral [clean-based], stage II right buttock [clean-based]), Other (Examined alongside bedside RN, Karena) Neurological: Normal speech, Normal affect - Studies Laboratory Data (last 24 hrs) 04/14/23 18:59: PT 20.2 H, INR 1.84, APTT 25.6 04/14/23 18:59: Sodium 140, Potassium 3.4 L, BUN 80 H, Creatinine 2.86 H, Glucose 134 H, Total Bilirubin 0.4, AST 10 L, ALT 12 L, Alkaline Phosphatase 71 04/14/23 18:59: WBC 21.40 H, Hgb 8.9 L, Hct 27.3 L, Plt Count 385 Microbiology Data (last 24 hrs): 04/14/23 21:00 Wound - Sacral Gram Stain - Final 04/14/23 19:56 Nasopharnyx Influenza Type A Antigen Screen - Final 04/14/23 19:56 Nasopharnyx Influenza Type B Antigen Screen - Final Assessment And Plan - Plan # Suspect Septic Shock secondary to Clostridioides Difficile Colitis and/or Acute Cystitis - POA # Stage IV Sacral Decubitus Pressure Ulcer with concern for Acute Osteomyelitis - POA # Stage II Right Buttock Pressure Ulcer - POA # Non-Anion Gap Metabolic Acidosis suspect due to Normal Saline He met SIRS criteria based on HR > 90 bpm and WBC > 12,000, and the suspected source is C. Difficile colitis +/- UTI. Severe sepsis was suspected due to concern for tissue hypoperfusion/organ dysfunction based on hypotension (SBP < 90), creatinine > 2 (without ESRD), and coagulopathy (INR > 1.5). Septic shock was suspected due to multiple SBP < 90 mmHg. - Infectious Diseases consulted - recommendations appreciated - Infectious evaluation: - Chest x-ray = "no acute cardiopulmonary process." - CT abdomen/pelvis = "wall thickening, asymmetrically more pronounced on the right, along the anal canal, with adjacent fat stranding. Short segments of bowel wall thickening along the proximal and distal sigmoid colon with minimal adjacent fat stranding. Findings are suggestive of segmental colitis and proctitis. No appreciable fluid collections within limits of noncontrast CT.Bladder wall thickening and pericystic fat stranding. Numerous bladder diverticula. Mild right hydroureter and hydronephrosis without evidence of obstructing calculi. Findings are suggestive of cystitis, with or without ascending right urinary tract infection. Please correlate clinically and with urinalysis results. Left paramidline decubitus ulcer. Subtle osseous sclerosis within the underlying S5 and coccygeal segments, appears progressive since the prior exam, and raises concern for acute osteomyelitis. Questionable healing right inferior pubic ramus fracture. Other stable findings as above." - Urinalysis = 2+ blood, 500 leukocyte esterase, 11-20 RBCs, >50 WBCs, 20-50 bacteria, 3+ protein - Sepsis order set was initiated - Lactate trend: 1.7 -> 1.1 - Blood cultures drawn before antibiotics were given: - Broad spectrum antibiotics started: Vancomycin + Cefepime + PO Vancomycin - In regards to fluids: - 30 mL/kg of IV fluids were given based on patient's actual body weight - MRI sacrum requested - Wound care consulted - Sepsis reassessment completed by Kristian Luis NP at 05:34 AM on 04/15/2023 # KDIGO Stage I Acute Kidney Injury on Chronic Kidney Disease Stage IV # Microscopic Hematuria - Nephrology consulted - recommendations appreciated - Creatinine = 2.86 -> 2.44 (baseline creatinine ~1.9-2.1) - Urinalysis = 2+ blood, 500 leukocyte esterase, 11-20 RBCs, >50 WBCs, 20-50 bacteria, 3+ protein - IV fluids as mentioned above - Monitor creatinine and urine output - If worsening, obtain renal ultrasound - Renally dose medications # Questionable Healing Right Inferior Pubic Ramus Fracture - Noted on CT scan - hip x-ray requested - PRN pain control # Prostatomegaly with Mild Right Hydroureter and Hydronephrosis without evidence of Obstructing Calculi - Urology currently unavailable for consult until 04/17/2023 - Continue IV antibiotics as mentioned above - Creatinine is improving - Monitor creatinine and urine output # Chronic Compensated Systolic Congestive Heart Failure # Hypertension - No evidence of acute exacerbation - Hold home meds given hypotension and concern for shock # Cholelithiasis - Does not appear to have clinical signs of acute cholecystitis - Follow-up with General Surgery as an outpatient Kyle Lares M.D.
--- NOTE | 2023-04-15 16:17 | EKG ---
Test Date: 2023-04-14 Test Time: 20:49:04 [employer] Painting: RV MEASUREMENT RESULTS: Intervals: Rate: 104 HI: 162 QRSD: 120 QT: 374 QTc: 491 [place]: P: 53 HI: 162 QRS: -10 T: 65 INTERPRETIVE STATEMENTS: Sinus tachycardia with premature atrial complexes with aberrant conduction Nonspecific intraventricular conduction delay Nonspecific ST abnormality Abnormal ECG Compared to ECG 02/06/2023 08:11:15 Atrial premature complex(es) now present Aberrant conduction of supraventricular beat(s) now present Intraventricular conduction delay now present Sinus rhythm no longer present ST (T wave) deviation still present Electronically Signed On 04-15-23 16:16:19 CDT by Terry Raphael
[2023-04-15] MEDS: Ringers Lactate 1,000 ML IV SCH (16:40)
--- NOTE | 2023-04-15 16:54 | P.CNS ---
Date of Consult: 04/15/23 Reason for Consult: KARIME Chief Complaint: Sepsis History of Present Illness: AN 87M [place] resident w/ PMHx of [id number] presumed to be 2/2 Htn nephrosclerosis, Htn, CAD, & HLD with HX of Obstructive uropathy Pt was sent from [place] for Hypotension, pt had C.Diff diarrhea, in ER Cr elevated , pt started on IVF , unknown if ot was on NSAID ROS Limited General : denies fever, chills, HEENT: Denies headache Resp: denies SOB, cough or wheezes Cardiovascular: : denies chest pain, palpitation GI: have diarrhea : denies dysuria, urgency, foamy urine or blood tinged urine Muscloskeltal: denies muscle aches, joint pain Extre: denies pain numbness and swelling Physical exam General: Awake, look chronically ill CHEST; CTAB, no wheezes or rales HEART : RRR. Normal S1,2 no murmur or rub Abd: soft, Nt, catherine catheter Ext: no edema Skin : Sacral wound A/p # KARIME on CKD IIIB due to dehydration cont IVF renal dose meds AVoid NSAID and contrast # Hx of obstructive uropathy. 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 #Septic shock due to UTI and C.Diff #C.diff diarrhea on Vancomycin might benfit from Fidaxomicin #Sacral wound cont ABx and wound care time spend exam the patient face to face , discussing with patient , reviewing la and radiology date, placing order , discussing the case with staff and with other team heritage consultant and hospitalist 75 min. Allergies No Known Allergies Allergy (Verified 02/10/23 10:31) Home Medications: Acetaminophen [Tylenol*] 650 mg PO Q6H PRN tab 02/22/23 Amino Acids/Protein Hydrolys [Prosource No Carb Liquid Pkt] 30 ml PO BID packet 02/22/23 Apixaban [Eliquis *] 2.5 mg PO BID 02/22/23 Ascorbic Acid [Vitamin C*] 500 mg PO DAILY 02/22/23 Docusate/Senna [Senokot-S*] 2 tab PO BEDTIME PRN tab 02/22/23 Ferrous Sulfate [Ferrous Sulfate*] 325 mg PO DAILY tab 02/22/23 Melatonin 5 mg PO BEDTIME PRN PRN 02/22/23 Polyethyl Gly 3350 [Glycolax*] 17 gm PO DAILY PRN udbot 02/22/23 Tamsulosin [Flomax*] 0.4 mg PO BEDTIME cap 02/22/23 Trazodone [Desyrel*] 25 mg PO BEDTIME PRN PRN 02/22/23 Zinc Sulfate [Zinc Sulfate*] 220 mg PO DAILY cap 02/22/23 carvediloL [Coreg*] 3.125 mg PO BID 04/15/23 - Past Medical/Surgical History Diabetic: No -: Hypertension -: Chronic systolic congestive heart failure -: CKD 4 -: arthritis -: Cataract sx allyn Psychosocial/ Personal History: Patient is a . He has 1 child. - Social History Smoking Status: Unknown if ever smoked Alcohol use: No CD- Drugs: No Caffeine use: No Place of Residence: [place] Physical Examination Temp Pulse Resp BP Pulse Ox 97.2 F 99 H 17 103/47 L 100 04/15/23 16:10 04/15/23 16:10 04/15/23 16:10 04/15/23 16:10 04/15/23 16:10 Laboratory Data (last 24 hrs) 04/14/23 18:59: PT 20.2 H, INR 1.84, APTT 25.6 04/14/23 18:59: Sodium 140, Potassium 3.4 L, BUN 80 H, Creatinine 2.86 H, Glucose 134 H, Total Bilirubin 0.4, AST 10 L, ALT 12 L, Alkaline Phosphatase 71 04/14/23 18:59: WBC 21.40 H, Hgb 8.9 L, Hct 27.3 L, Plt Count 385
--- NOTE | 2023-04-15 19:36 | RAD REPORT ---
EXAM DESCRIPTION: RAD - Pelvis - 04/15/2023 7:21 pm CLINICAL HISTORY: Pelvic pain FINDINGS: Subacute nondisplaced fracture right inferior pubic ramus. Osteoporosis. No dislocation
[2023-04-15] MEDS: CEFEPIME 1 GM in NA CHLORIDE 0.9% 100 ML IV SCH (20:25)
[2023-04-16] MEDS: VANCOMYCIN ORAL SOLN 250 MG/5 ML OSYR PO SCH ×5 (00:13→23:37)
[2023-04-16 05:11] LABS: Absolute Lymphocytes (CBC) 0.9 K/uL (0.7-4.9); Hematocrit 24.4 % (39.6-49.0); Lymphocytes % 6.6 % (15.3-44.8); MCV 88.3 fL (80-100); MPV 6.6 fL (7.6-11.3); RBC Red Blood Cell Count 2.76 M/uL (4.33-5.43)
[2023-04-16 05:38] LABS: ALT/SGPT < 10 U/L (16-61); AST/SGOT 5 U/L (15-37); Albumin 1.9 g/dL (3.4-5.0); Alkaline Phosphatase 63 U/L (45-117); BUN Blood Urea Nitrogen 61 mg/dL (7-18); Bicarbonate 18 mEq/L (21-32); Bilirubin Total 0.3 mg/dL (0.2-1.0); Glomerular Filtration Rate 31 ml/min (=/>90); Glucose Level 88 mg/dL (74-106); Potassium 3.2 mEq/L (3.5-5.1); Protein, Total 5.2 g/dL (6.4-8.2); Sodium Level 148 mEq/L (136-145)
[2023-04-16] MEDS: Ringers Lactate 1,000 ML IV SCH (06:29)
[2023-04-16] MEDS ORDERED: POTASSIUM CL 40 MEQ in NA CHLORIDE 0.9% 500 ML IV ONE (12:00)
--- NOTE | 2023-04-16 12:06 | P.PN ---
Subjective Date of Service: 04/16/23 Chief Complaint: Sepsis AN 87M [place] resident w/ PMHx of [id number] presumed to be 2/2 Htn nephrosclerosis, Htn, CAD, & HLD with HX of Obstructive uropathy Pt was sent from [place] for Hypotension, pt had C.Diff diarrhea, in ER Cr elevated , pt started on IVF , unknown if ot was on NSAID today no overnight events diarrhea improving K replacement Na 148, cont IVF , encouraged to increase fluid intake will monitor will consider to dc IVF if diarrhea cont to improve Physical exam General: Awake, look chronically ill CHEST; CTAB, no wheezes or rales HEART : RRR. Normal S1,2 no murmur or rub Abd: soft, Nt, catherine catheter Ext: no edema Skin : Sacral wound A/p # KARIME on CKD IIIB resolved due to dehydration cont IVF renal dose meds AVoid NSAID and contrast # Hx of obstructive uropathy. 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 #Septic shock due to UTI and C.Diff #C.diff diarrhea improving on Vancomycin #Sacral wound cont ABx and wound care time spend exam the patient face to face , discussing with patient , reviewing la and radiology date, placing order , discussing the case with staff and with other team economic consultant and hospitalist 75 min. Physical Examination - Vital Signs Temperature: 96.9 F Blood Pressure: 154/99 Pulse: 96 Respirations: 19 Pulse Ox (%): 99 - Studies Microbiology Data (last 24 hrs): 04/14/23 21:00 Wound - Sacral Gram Stain - Final 04/14/23 21:15 Clean Catch Urine [place] Count - Final >100,000 CFU/ML. 04/14/23 21:15 Clean Catch Urine - Final Proteus Mirabilis
[2023-04-16] MEDS: HEPARIN 5000 UNIT/ML 1 ML VIAL SQ SCH ×2 (12:38→20:15)
[2023-04-16 16:54] LABS: Potassium 3.5 mEq/L (3.5-5.1)
[2023-04-16] MEDS: CEFEPIME 1 GM in NA CHLORIDE 0.9% 100 ML IV SCH (20:15)
--- NOTE | 2023-04-16 20:16 | P.PN ---
Subjective Date of Service: 04/16/23 Chief Complaint: Sepsis No acute events overnight. He reports that his diarrhea is slightly more formed. He denies any abdominal pain or nausea/vomiting this morning. Blood pressure seems to be gradually improving. He denies any chest pain, palpitations, or shortness of breath. Review of Systems 10-point ROS is otherwise unremarkable Gastrointestinal: Diarrhea Physical Examination - Vital Signs Temperature: 98.1 F Blood Pressure: 161/66 Pulse: 108 Respirations: 19 Pulse Ox (%): 100 - Studies Microbiology Data (last 24 hrs): 04/14/23 21:00 Wound - Sacral Gram Stain - Final 04/14/23 21:15 Clean Catch Urine [place] Count - Final >100,000 CFU/ML. 04/14/23 21:15 Clean Catch Urine - Final Proteus Mirabilis Assessment And Plan - Plan - Physical Exam General: Alert, In no apparent distress, Oriented x3 HEENT: Atraumatic, Other (mucous membranes dry), Sclerae nonicteric Respiratory: Clear to auscultation bilaterally, Normal air movement Cardiovascular: No edema, Regular rate/rhythm, No murmurs Gastrointestinal: Soft and benign, Non-distended, No rebound, No guarding, Hyperactive, Tenderness (minimal) Musculoskeletal: No clubbing Integumentary: Pressure ulcer (stage IV sacral [clean-based], stage II right buttock [clean-based]), Other (Examined alongside bedside RNMercedes) Neurological: Normal speech, Normal affect # Suspect Septic Shock secondary to Clostridioides Difficile Colitis and/or Acute Multi-drug Resistant Proteus Mirabilis Cystitis - POA # Stage IV Sacral Decubitus Pressure Ulcer with concern for Acute Osteomyelitis - POA # Stage II Right Buttock Pressure Ulcer - POA # Non-Anion Gap Metabolic Acidosis suspect due to Normal Saline He met SIRS criteria based on HR > 90 bpm and WBC > 12,000, and the suspected source is C. Difficile colitis +/- UTI. Severe sepsis was suspected due to concern for tissue hypoperfusion/organ dysfunction based on hypotension (SBP < 90), creatinine > 2 (without ESRD), and coagulopathy (INR > 1.5). Septic shock was suspected due to multiple SBP < 90 mmHg. - Infectious Diseases consulted - recommendations appreciated - Infectious evaluation: - Chest x-ray = "no acute cardiopulmonary process." - CT abdomen/pelvis = "wall thickening, asymmetrically more pronounced on the right, along the anal canal, with adjacent fat stranding. Short segments of bowel wall thickening along the proximal and distal sigmoid colon with minimal adjacent fat stranding. Findings are suggestive of segmental colitis and proctitis. No appreciable fluid collections within limits of noncontrast CT.Bladder wall thickening and pericystic fat stranding. Numerous bladder diverticula. Mild right hydroureter and hydronephrosis without evidence of obstructing calculi. Findings are suggestive of cystitis, with or without ascending right urinary tract infection. Please correlate clinically and with urinalysis results. Left paramidline decubitus ulcer. Subtle osseous sclerosis within the underlying S5 and coccygeal segments, appears progressive since the prior exam, and raises concern for acute osteomyelitis. Questionable healing right inferior pubic ramus fracture. Other stable findings as above." - Urinalysis = 2+ blood, 500 leukocyte esterase, 11-20 RBCs, >50 WBCs, 20-50 bacteria, 3+ protein - Sepsis order set was initiated - Lactate trend: 1.7 -> 1.1 - Blood cultures drawn before antibiotics were given: - Broad spectrum antibiotics started: Vancomycin + Cefepime + PO Vancomycin - In regards to fluids: - 30 mL/kg of IV fluids were given based on patient's actual body weight - MRI sacrum requested - Wound care consulted - Sepsis reassessment completed by Kristian Luis NP at 05:34 AM on 04/15/2023 # KDIGO Stage I Acute Kidney Injury on Chronic Kidney Disease Stage IV # Microscopic Hematuria - Nephrology consulted and spoke with Dr. Blackburn - recommendations appreciated - Creatinine = 2.86 -> 2.44 -> 2.02 (baseline creatinine ~1.9-2.1) - Urinalysis = 2+ blood, 500 leukocyte esterase, 11-20 RBCs, >50 WBCs, 20-50 bacteria, 3+ protein - IV fluids as mentioned above - Monitor creatinine and urine output - If worsening, obtain renal ultrasound - Renally dose medications # Questionable Healing Right Inferior Pubic Ramus Fracture - Noted on CT scan - hip x-ray requested - PRN pain control # Prostatomegaly with Mild Right Hydroureter and Hydronephrosis without evidence of Obstructing Calculi - Urology currently unavailable for consult until 04/17/2023 - Continue IV antibiotics as mentioned above - Creatinine is improving - Monitor creatinine and urine output # Chronic Compensated Systolic Congestive Heart Failure # Hypertension - No evidence of acute exacerbation - Hold home meds given hypotension and concern for shock # Cholelithiasis - Does not appear to have clinical signs of acute cholecystitis - Follow-up with General Surgery as an outpatient Kyle Lares M.D.
[2023-04-16] MEDS ORDERED: VANCOMYCIN 1 GM in NA CHLORIDE 0.9% 250 ML IVPB SCH ×4 (21:00)
[2023-04-16 23:19] LABS: Potassium 3.9 mEq/L (3.5-5.1)
[2023-04-17 05:32] LABS: Absolute Lymphocytes (CBC) 0.9 K/uL (0.7-4.9); Hematocrit 24.9 % (39.6-49.0); Lymphocytes % 6.8 % (15.3-44.8); MCV 88.6 fL (80-100); RBC Red Blood Cell Count 2.81 M/uL (4.33-5.43)
[2023-04-17] MEDS: VANCOMYCIN ORAL SOLN 250 MG/5 ML OSYR PO SCH ×3 (05:56→17:15)
[2023-04-17 06:00] LABS: AST/SGOT 9 U/L (15-37); Albumin 1.9 g/dL (3.4-5.0); Alkaline Phosphatase 60 U/L (45-117); BUN Blood Urea Nitrogen 47 mg/dL (7-18); Bicarbonate 14 mEq/L (21-32); Bilirubin Total 0.3 mg/dL (0.2-1.0); Glomerular Filtration Rate 37 ml/min (=/>90); Glucose Level 81 mg/dL (74-106); Potassium 3.7 mEq/L (3.5-5.1); Protein, Total 5.1 g/dL (6.4-8.2); Sodium Level 145 mEq/L (136-145)
[2023-04-17 06:04] LABS: ALT/SGPT < 10 U/L (16-61)
[2023-04-17] MEDS: HEPARIN 5000 UNIT/ML 1 ML VIAL SQ SCH ×2 (08:01→21:22)
--- NOTE | 2023-04-17 09:11 | P.CNS ---
Date of Consult: 04/17/23 Reason for Consult: Severe sepsis Chief Complaint: Sepsis History of Present Illness: Patient is an 87 yo male with a history of systolic CHF, CKD IV, hypertension, sacral pressure ulcer who presented to the ED from [facility] with complaints of hypotension. ED workup revealing c.diff and urinary tract infection with proteus. Patient admitted for severe sepsis and ID was consulted. Allergies No Known Allergies Allergy (Verified 02/10/23 10:31) Home medications list reviewed: Yes Home Medications: Acetaminophen [Tylenol*] 650 mg PO Q6H PRN tab 02/22/23 Amino Acids/Protein Hydrolys [Prosource No Carb Liquid Pkt] 30 ml PO BID packet 02/22/23 Apixaban [Eliquis *] 2.5 mg PO BID 02/22/23 Ascorbic Acid [Vitamin C*] 500 mg PO DAILY 02/22/23 Docusate/Senna [Senokot-S*] 2 tab PO BEDTIME PRN tab 02/22/23 Ferrous Sulfate [Ferrous Sulfate*] 325 mg PO DAILY tab 02/22/23 Melatonin 5 mg PO BEDTIME PRN PRN 02/22/23 Polyethyl Gly 3350 [Glycolax*] 17 gm PO DAILY PRN udbot 02/22/23 Tamsulosin [Flomax*] 0.4 mg PO BEDTIME cap 02/22/23 Trazodone [Desyrel*] 25 mg PO BEDTIME PRN PRN 02/22/23 Zinc Sulfate [Zinc Sulfate*] 220 mg PO DAILY cap 02/22/23 carvediloL [Coreg*] 3.125 mg PO BID 04/15/23 - Past Medical/Surgical History Diabetic: No -: Hypertension -: Chronic systolic congestive heart failure -: CKD 4 -: arthritis -: Cataract sx allyn Psychosocial/ Personal History: Patient is a . He has 1 child. - Social History Smoking Status: Unknown if ever smoked Alcohol use: No CD- Drugs: No Caffeine use: No Place of Residence: [place] Review of Systems 10-point ROS is otherwise unremarkable General: Weakness Gastrointestinal: Nausea Integumentary: As per HPI Physical Examination Temp Pulse Resp BP Pulse Ox 97.9 F 101 H 15 164/88 H 100 04/17/23 04:00 04/17/23 06:00 04/17/23 06:00 04/17/23 06:00 04/17/23 06:00 General: Alert, In no apparent distress HEENT: Atraumatic, Normocephalic Neck: Supple, JVD not distended Respiratory: Clear to auscultation bilaterally, Normal air movement Cardiovascular: No edema, Regular rate/rhythm, No murmurs Gastrointestinal: Soft and benign, Hyperactive, Tenderness Musculoskeletal: No clubbing Integumentary: Pressure ulcer (sacrum stage 4. right buttock stage 2) Neurological: Normal speech, Normal affect Laboratory Data - Reviewed Microbiology Data - Reviewed Imagings Data: - CT Abdomen Pelvis 04/14: "IMPRESSION: Wall thickening, asymmetrically more pronounced on the right, along the anal canal, with adjacent fat stranding. Short segments of bowel wall thickening along the proximal and distal sigmoid colon with minimal adjacent fat stranding. Findings are suggestive of segmental colitis and proctitis. No appreciable fluid collections within limits of noncontrast CT. Bladder wall thickening and pericystic fat stranding. Numerous bladder diverticula. Mild right hydroureter and hydronephrosis without evidence of obstructing calculi. Findings are suggestive of cystitis, with or without ascending right urinary tract infection. Please correlate clinically and with urinalysis results. Left paramidline decubitus ulcer. Subtle osseous sclerosis within the underlying S5 and coccygeal segments, appears progressive since the prior exam, and raises concern for acute osteomyelitis. Questionable healing right inferior pubic ramus fracture." Medication List: Reviewed Conclusions/Impression: Problem List Severe Sepsis Pressure Ulcer, Sacrum Stage IV Pressure Ulcer, Right Buttock Stage II Acute on Chronic Kidney Disease Prostatomegaly Systolic CHF Hypertension Cholelithiasis Severe PCM C.diff Colitis Severe Sepsis Complicated Urinary Tract Infection - Urine culture 04/14: Proteus mirabilis - CT Abdomen pelvis 04/14: "Bladder wall thickening and pericystic fat stranding. Numerous bladder diverticula. Mild right hydroureter and hydronephrosis without evidence of obstructing calculi. Findings are suggestive of cystitis, with or without ascending right urinary tract infection. Please correlate clinically and with urinalysis results." - Currently on Cefepime (started 04/15) Infection of Sacral Pressure Ulcer Stage IV - Wound culture sacru 04/14: Proteus mirabilis - CT Abdomen pelvis 04/14: "Left paramidline decubitus ulcer. Subtle osseous sclerosis within the underlying S5 and coccygeal segments, appears progressive since the prior exam, and raises concern for acute osteomyelitis._ - Concern for possible Osteomyelitis of sacrum. - MRI 04/17: Pending C.difficile Colitis - 04/14 C.diff Ag positive, Toxin positive - CT Abdomen pelvis 04/14: "Wall thickening, asymmetrically more pronounced on the right, along the anal canal, with adjacent fat stranding. Short segments of bowel wall thickening along the proximal and distal sigmoid colon with minimal adjacent fat stranding. Findings are suggestive of segmental colitis and proctitis. No appreciable fluid collections within limits of noncontrast CT." - On Vancomycin PO (started 04/15) Blood culture 04/14: No growth to date Leukocytosis (WBC 13.8) Afebrile Recommendations - C.diff: Continue Vancomycin PO x 10 days. Currently day 3 of 10 - Proteus mirabilis: Continue Cefepime for now x 5-7 days. Currently day 3. - Concern for possible osteomyelitis of sacrum per CT. MRI pending, follow up with results. - WBC trends - Nutritional Support - Turn patient Q2H. Pressure offloading measures Case discussed with Dr. Castellanos, N. ID will continue to follow patient closely.
--- NOTE | 2023-04-17 13:16 | P.PN ---
Subjective Date of Service: 04/17/23 Chief Complaint: Sepsis No issues overnight. No major changes from yesterday. Nursing staff report patient had 2 diarrheal bowel movements. Physical Examination - Vital Signs Temperature: 97.5 F Blood Pressure: 165/77 Pulse: 101 Respirations: 22 Pulse Ox (%): 100 - Studies Microbiology Data (last 24 hrs): 04/14/23 21:03 Stool Culture & Sensitivity - Final 04/14/23 21:00 Wound - Sacral Gram Stain - Final 04/14/23 21:00 Wound - Sacral Culture & Sensitivity - Final Proteus Mirabilis Assessment And Plan - Plan Physical Exam General: Alert, In no apparent distress, Oriented x3 Respiratory: Clear to auscultation bilaterally, Normal air movement Cardiovascular: No edema, Regular rate/rhythm, No murmurs Gastrointestinal: Soft and benign, Non-distended, No rebound, No guarding, Hyperactive, Tenderness (minimal) Musculoskeletal: No clubbing Integumentary: Pressure ulcer stage IV sacral, stage II right buttock. Neurological: Normal speech, Normal affect Assessment and plan Suspect Septic Shock secondary to Clostridioides Difficile Colitis and/or Acute Multi-drug Resistant Proteus Mirabilis Cystitis - POA Stage IV Sacral Decubitus Pressure Ulcer with concern for Acute Osteomyelitis - POA Stage II Right Buttock Pressure Ulcer - POA Non-Anion Gap Metabolic Acidosis. He met SIRS criteria based on HR > 90 bpm and WBC > 12,000, and the suspected source is C. Difficile colitis +/- UTI. Severe sepsis was suspected due to concern for tissue hypoperfusion/organ dysfunction based on hypotension (SBP < 90), creatinine > 2 (without ESRD), and coagulopathy (INR > 1.5). Septic shock was suspected due to multiple SBP < 90 mmHg. Seen by infectious Diseases. Infectious evaluation: - Chest x-ray = "no acute cardiopulmonary process." - CT abdomen/pelvis = "wall thickening, asymmetrically more pronounced on the right, along the anal canal, with adjacent fat stranding. Short segments of bowel wall thickening along the proximal and distal sigmoid colon with minimal adjacent fat stranding. Findings are suggestive of segmental colitis and proctitis. No appreciable fluid collections within limits of noncontrast CT.Bladder wall thickening and pericystic fat stranding. Numerous bladder diverticula. Mild right hydroureter and hydronephrosis without evidence of obstructing calculi. Findings are suggestive of cystitis, with or without ascending right urinary tract infection. Please correlate clinically and with urinalysis results. Left paramidline decubitus ulcer. Subtle osseous sclerosis within the underlying S5 and coccygeal segments, appears progressive since the prior exam, and raises concern for acute osteomyelitis. Questionable healing right inferior pubic ramus fracture. Other stable findings as above." - Urinalysis = 2+ blood, 500 leukocyte esterase, 11-20 RBCs, >50 WBCs, 20-50 bacteria, 3+ protein - Sepsis order set was initiated - Lactate trend: 1.7 -> 1.1 - Blood cultures: No growth to date -Urine culture: Proteus, wound culture: Proteus. - On Vancomycin + Cefepime + PO Vancomycin - MRI sacrum results is pending. - Local wound care. KDIGO Stage I Acute Kidney Injury on Chronic Kidney Disease Stage IV Microscopic Hematuria - Nephrology consulted. - Creatinine = 2.86 -> 2.44 -> 2.02 (baseline creatinine ~1.9-2.1) - Urinalysis = 2+ blood, 500 leukocyte esterase, 11-20 RBCs, >50 WBCs, 20-50 bacteria, 3+ protein -Creatinine has improved to baseline - IV fluids per nephrology. - Monitor creatinine and urine output - Renally dose medications Questionable Healing Right Inferior Pubic Ramus Fracture - Noted on CT scan. - PRN pain control Prostatomegaly with Mild Right Hydroureter and Hydronephrosis without evidence of Obstructing Calculi - Continue IV antibiotics as mentioned above - Creatinine has improved to baseline. Chronic Compensated Systolic Congestive Heart Failure Hypertension - No evidence of acute exacerbation - Hold home meds given hypotension and concern for shock Cholelithiasis - Does not appear to have clinical signs of acute cholecystitis - Follow-up with General Surgery as an outpatient DVT prophylaxis: Heparin subQ
--- NOTE | 2023-04-17 13:53 | RAD REPORT ---
EXAM DESCRIPTION: MRI - Sacrum/Coccyx Wo Cont - 04/17/2023 11:33 am CLINICAL HISTORY: eval for osteo COMPARISON: Pelvis dated 04/15/2023; Abdomen Pelvis Wo Contrast dated 04/14/2023 TECHNIQUE: Multiplanar multisequence MRI of the sacrum and coccyx, obtained without IV contrast. FINDINGS: Patchy low T1, and increased T2 signal involving the L5 segment and upper coccygeal segmen t, underlying the paramidline ulcer, concerning for osteomyelitis. No findings to suggest a fluid opa cified tract or fluid collections within limits of noncontrast CT. Wall thickening along the anal canal. Presacral diffuse edema. Trace free pelvic fluid. Apparent wall thickening of the urinary bladder, which is nondistended, with Oliva catheter in place. This is nonspecific. Prostatomegaly. No suspicious osseous findings elsewhere. No suspicious adenopathy in the pelvis. Remainder of the whit wel and visualized vascular structures are unremarkable. IMPRESSION: Signal abnormalities at S5 and upper coccygeal segments, concerning for acute osteomyeli tis. Nonspecific wall thickening along the anal canal with surrounding presacral edema, suggesting inflamm ation of unclear etiology. Trace free pelvic fluid. Nonspecific wall prominence of the nondistended urinary bladder. This could relate to underlying trab eculation in the setting of longstanding outlet obstruction, or ongoing cystitis. Please correlate cl inically.
[2023-04-17] MEDS: Banana Flakes/T-Galactooligos 1 Dose Packet PO SCH (21:00)
[2023-04-17] MEDS: CEFEPIME 1 GM in NA CHLORIDE 0.9% 100 ML IV SCH (21:20)
[2023-04-17] MEDS: JUVEN PACKET PO SCH (21:33)
--- NOTE | 2023-04-17 22:25 | PN ---
Date of Progress Note: 04/17/2023 Chief Complaint: Acute on chronic kidney injury. 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 Patient had also history of obstructive uropathy as well as hypert ension coronary artery disease, hyperlipidemia. Patient was sent from [facility] for hypotension a nd he is admitted to ICU for severe hypotension. He was found to have C diff colitis and he had michelle re diarrhea in the ER and creatinine level was elevated. Patient was started on IV fluids for volume resuscitation. Review of Systems: Patient cannot provide review of systems. He is lethargic. He does not recall recent history. Physical Examination: General: Patient looks chronically ill. Chest: Clear to auscultation bilaterally. Heart: S1, S2. Abdomen: Soft. Oliva catheter in place. Extremities: No edema. The patient has sacral wounds. Impression And Plan: 1.Acute kidney injury on chronic kidney disease stage 3B. Renal function is fluctuating, overall im proved. Continue IV fluids. Adjust the IV fluids for the current status of hydration. Continue to monitor electrolytes including phosphorus and magnesium. Continue renal dose of medication. Avoid n onsteroidal antiinflammatory medication. Avoid contrast. 2.History of obstructive uropathy. Continue Oliva catheter. Monitor urine output. 3.Hypokalemia secondary to diarrhea and decreased p.o. intake. Monitor electrolytes and replace pot assium and magnesium. Monitor phosphorus. 4.Hypernatremia due to normal saline fluids, which were used for volume resuscitation. Patient has poor fluid intake. Continue to adjust IV fluids. Patient was started on D5W to prevent hypernatremi a. 5.Chronic kidney disease stage 3. Baseline GFR 35 to 43, as of October 14, 2022, presumed to be seco ndary to hypertensive nephrosclerosis. 6.Septic shock due to urinary tract infection and Clostridium difficile. Continue antibiotics for u rinary tract infection and continue Oliva catheter to prevent hydronephrosis. The patient has histor y of bladder outlet obstruction. Patient will need to follow up with urologist when stable. 7.Sacral wound, on antibiotics. Wound care per primary team. EB/MODL Voice ID: [id number] Report ID: [id number]
[2023-04-18 05:08] LABS: Absolute Lymphocytes (CBC) 1.1 K/uL (0.7-4.9); Hematocrit 23.4 % (39.6-49.0); Lymphocytes % 11.3 % (15.3-44.8); MCV 88.1 fL (80-100); MPV 6.5 fL (7.6-11.3); RBC Red Blood Cell Count 2.65 M/uL (4.33-5.43)
[2023-04-18 05:21] LABS: Potassium 3.4 mEq/L (3.5-5.1)
[2023-04-18] MEDS: VANCOMYCIN ORAL SOLN 250 MG/5 ML OSYR PO SCH ×5 (05:31→23:03)
[2023-04-18] MEDS ORDERED: POTASSIUM 25 MEQ EFFERV TAB PO ONE (05:38)
[2023-04-18] MEDS ORDERED: KCL 20 MEQ/100 mL IVPB 20 MEQ/100 ML BAG IV ONE (07:00)
--- NOTE | 2023-04-18 07:01 | ECHO ---
HEIGHT: 6 ft 1 in WEIGHT: 190 lb 11.2 oz DATE OF STUDY: 04/17/[address]: Kyle Lares MD 2-DIMENSIONAL: YES M.MODE: YES DOPPLER: YES COLOR FLOW: YES TDS: YES PORTABLE: YES DEFINITY: BUBBLE STUDY: DIAGNOSIS: CHRONIC SYSTOLIC CONGESTIVE HEART FAILURE, HYPOTENSION CARDIAC HISTORY: CATHERIZATION: NO SURGERY: NO PROSTHETIC VALVE: NO PACEMAKER: NO MEASUREMENTS (cm) DIASTOLIC (NORMALS) SYSTOLIC (NORMALS) IVSd (0.6-1.2) LA Diam (1.9-4.0) LVEF % LVIDd (3.5-5.7) LVIDs (2.0-3.5) %FS % LVPWd (0.6-1.2) Ao Diam (2.0-3.7) 2 DIMENSIONAL ASSESSMENT: RIGHT ATRIUM: NOT WELL SEEN LEFT ATRIUM: NOT WELL SEEN RIGHT VENTRICLE: NOT WELL SEEN LEFT VENTRICLE: NOT WELL SEEN TRICUSPID VALVE: NOT WELL SEEN MITRAL VALVE: NOT WELL SEEN PULMONIC VALVE: NOT WELL SEEN AORTIC VALVE: NOT WELL SEEN PERICARDIAL EFFUSION: NOT WELL SEEN AORTIC ROOT: NOT WELL SEEN LEFT VENTRICULAR WALL MOTION: DOPPLER/COLOR FLOW: COMMENTS: 1. EXTREMELY LIMITED STUDY. VERY POOR WINDOWS 2. UNABLE TO EVALUATE THIS ECHOCARDIOGRAM DUE TO ABOVE. TECHNOLOGIST: SHINE ALSTON
[2023-04-18] MEDS: HEPARIN 5000 UNIT/ML 1 ML VIAL SQ SCH ×2 (08:06→20:07)
[2023-04-18] MEDS: JUVEN PACKET PO SCH ×2 (08:38→20:07)
[2023-04-18] MEDS: Banana Flakes/T-Galactooligos 1 Dose Packet PO SCH ×2 (08:38→20:07)
[2023-04-18] MEDS ORDERED: VANCOMYCIN 1 GM in NA CHLORIDE 0.9% 250 ML IVPB SCH (09:00)
--- NOTE | 2023-04-18 09:02 | P.PN ---
Subjective Date of Service: 04/19/23 Chief Complaint: Sepsis Subjective: No new changes Physical Examination - Vital Signs Temperature: 97.8 F Blood Pressure: 145/68 Pulse: 87 Respirations: 18 Pulse Ox (%): 100 - Physical Exam General: Alert, In no apparent distress, Oriented x2 HEENT: Atraumatic, Normocephalic Respiratory: Normal air movement, Diminished Cardiovascular: Abnormal pulses (weak pedal pulses) Gastrointestinal: Hyperactive, Tenderness Musculoskeletal: No clubbing Integumentary: Pressure ulcer (stage 4 sacrum) - Studies Laboratory Data - Reviewed Microbiology Data (last 24 hrs): 04/14/23 21:03 Stool Culture & Sensitivity - Final 04/14/23 21:00 Wound - Sacral Gram Stain - Final 04/14/23 21:00 Wound - Sacral Culture & Sensitivity - Final Proteus Mirabilis Imagings Data: - CT Abdomen Pelvis 04/14: "Wall thickening, asymmetrically more pronounced on the right, along the anal canal, with adjacent fat stranding. Short segments of bowel wall thickening along the proximal and distal sigmoid colon with minimal adjacent fat stranding. Findings are suggestive of segmental colitis and proctitis. No appreciable fluid collections within limits of noncontrast CT. Bladder wall thickening and pericystic fat stranding. Numerous bladder diverticula. Mild right hydroureter and hydronephrosis without evidence of obstructing calculi. Findings are suggestive of cystitis, with or without ascending right urinary tract infection. Please correlate clinically and with urinalysis results. Left paramidline decubitus ulcer. Subtle osseous sclerosis within the underlying S5 and coccygeal segments, appears progressive since the prior exam, and raises concern for acute osteomyelitis. Questionable healing right inferior pubic ramus fracture." - MRI Sacrum/Coccyx 04/17: " Signal abnormalities at S5 and upper coccygeal segments, concerning for acute osteomyelitis. Nonspecific wall thickening along the anal canal with surrounding presacral edema, suggesting inflammation of unclear etiology. Trace free pelvic fluid. Nonspecific wall prominence of the nondistended urinary bladder. This could relate to underlying trabeculation in t he setting of longstanding outlet obstruction, or ongoing cystitis. Please correlate clinically." Medications List Reviewed: Yes Assessment And Plan - Plan Problem List Severe Sepsis Pressure Ulcer, Sacrum Stage IV Pressure Ulcer, Right Buttock Stage II Acute on Chronic Kidney Disease Prostatomegaly Systolic CHF Hypertension Cholelithiasis Severe PCM C.diff Colitis Osteomyelitis of Sacrum Severe Sepsis Complicated Urinary Tract Infection - Urine culture 04/14: Proteus mirabilis - CT Abdomen pelvis 04/14: "Bladder wall thickening and pericystic fat stranding. Numerous bladder diverticula. Mild right hydroureter and hydronephrosis without evidence of obstructing calculi. Findings are suggestive of cystitis, with or without ascending right urinary tract infection. Please correlate clinically and with urinalysis results." - Currently on Cefepime (started 04/15) Infection of Sacral Pressure Ulcer Stage IV Osteomyelitis - Wound culture sacrum 04/14: Proteus mirabilis - CT Abdomen pelvis 04/14: "Left paramidline decubitus ulcer. Subtle osseous sclerosis within the underlying S5 and coccygeal segments, appears progressive since the prior exam, and raises concern for acute osteomyelitis." - MRI Sacrum/Coccyx 04/17: "Signal abnormalities at S5 and upper coccygeal segments, concerning for acute osteomyelitis." C.difficile Colitis - 04/14 C.diff Ag positive, Toxin positive - CT Abdomen pelvis 04/14: "Wall thickening, asymmetrically more pronounced on the right, along the anal canal, with adjacent fat stranding. Short segments of bowel wall thickening along the proximal and distal sigmoid colon with minimal adjacent fat stranding. Findings are suggestive of segmental colitis and proctitis. No appreciable fluid collections within limits of noncontrast CT." - On Vancomycin PO (started 04/15) Blood culture 04/14: No growth to date Leukocytosis improving (WBC 13.8 -> 9.9) Afebrile Recommendations - C.diff: Continue Vancomycin PO x 10 days. Currently day 4 of 10 - Proteus mirabilis: Continue Cefepime for now x 5-7 days. Currently day 4. - Osteomyelitis: patient will require 6 weeks of IV antibiotics. Consider LTAC placement. - WBC trends - Nutritional Support - Turn patient Q2H. Pressure offloading measures Case discussed with Dr. Castellanos N. ID will continue to follow patient closely.
--- NOTE | 2023-04-18 10:35 | PN ---
Date of Progress Note: 04/18/2023 Subjective: The patient was admitted with acute kidney injury secondary to toxic ATN, poor perfusion, ATN secondary to sepsis, and possible osteomyelitis. The patient's kidney function started being improving significantly, creatinine down to 1.5 with GFR of 44. The patient has still poor intake. Physical Examination: Vital Signs: Blood pressure 145/68, pulse of 86, afebrile. The patient had good urine output voiding. Chest: Clear to auscultation. Heart: S1, S2. Regular. Abdomen: Soft, nontender. Extremity: No edema. Neuro: Alert. Confused. No focality. Laboratory Data: Sodium 145, potassium 3.4, bicarb 19, BUN 40, creatinine 1.5, GFR of 44, calcium 7.8. WBC 9.9, H and H 7.6/23.4. Current Medications: The patient on include; 1. Cefepime. 2. Vancomycin p.o. 3. Tylenol. 4. KCl. Assessment And Plan: 1. Acute kidney injury secondary to prerenal and toxic ATN, chronic kidney disease, off IV fluid, on the recovery. We will continue to monitor the patient. 2. Obstructive uropathy. Continue Oliva. 3. Hypokalemia secondary to GI loss secondary to diarrhea. I am going to go ahead and add magnesium. We will continue supplement. 4. Sepsis secondary to urinary tract infection/gastroenteritis, colitis. Continue current antibiotic. We will follow up culture. 5. Possible osteomyelitis. Continue current antibiotic. Follow up MRI today. 6. Acidosis secondary to renal failure. Continue to recover. Off bicarb. 7. Hypernatremia secondary to poor intake. I am going to start the patient on gentle hydration and we will follow up the patient. Time spent examining the patient [id number], reviewing data, lab and radiology, placing order, discussing the case with the inspector outside steam distribution including hospitalist and nursing staff more than 35 minutes. MIN Voice ID: [id number] Report ID: [id number] LULA
[2023-04-18] MEDS: D5W 1,000 ML with POTASSIUM CL 20 MEQ IV SCH ×2 (12:15)
--- NOTE | 2023-04-18 15:18 | P.PN ---
Subjective Date of Service: 04/18/23 Chief Complaint: Sepsis No issues overnight. Patient had 2 formed BM today. Physical Examination - Vital Signs Temperature: 97.8 F Blood Pressure: 104/70 Pulse: 96 Respirations: 24 Pulse Ox (%): 100 - Studies Medications List Reviewed: Yes Assessment And Plan - Plan Physical Exam General: Alert, In no apparent distress, Oriented x3 Respiratory: Clear to auscultation bilaterally, Normal air movement Cardiovascular: No edema, Regular rate/rhythm, No murmurs Gastrointestinal: Soft and benign, Non-distended, No rebound, No guarding, Hyp eractive, Tenderness (minimal) Musculoskeletal: No clubbing Integumentary: Pressure ulcer stage IV sacral, stage II right buttock. Neurological: Normal speech, Normal affect Assessment and plan Suspect Septic Shock secondary to Clostridioides Difficile Colitis and/or Acute Multi-drug Resistant Proteus Mirabilis Cystitis - POA Stage IV Sacral Decubitus Pressure Ulcer with concern for Acute Osteomyelitis - POA Stage II Right Buttock Pressure Ulcer - POA Non-Anion Gap Metabolic Acidosis. He met SIRS criteria based on HR > 90 bpm and WBC > 12,000, and the suspected source is C. Difficile colitis +/- UTI. Severe sepsis was suspected due to concern for tissue hypoperfusion/organ dysfunction based on hypotension (SBP < 90), creatinine > 2 (without ESRD), and coagulopathy (INR > 1.5). Septic shock was suspected due to multiple SBP < 90 mmHg. Seen by infectious Diseases. Infectious evaluation: - Chest x-ray = "no acute cardiopulmonary process." - CT abdomen/pelvis = "wall thickening, asymmetrically more pronounced on the right, along the anal canal, with adjacent fat stranding. Short segments of bowel wall thickening along the proximal and distal sigmoid colon with minimal adjacent fat stranding. Findings are suggestive of segmental colitis and proctitis. No appreciable fluid collections within limits of noncontrast CT.Bladder wall thickening and pericystic fat stranding. Numerous bladder diverticula. Mild right hydroureter and hydronephrosis without evidence of obstructing calculi. Findings are suggestive of cystitis, with or without ascending right urinary tract infection. Please correlate clinically and with urinalysis results. Left paramidline decubitus ulcer. Subtle osseous sclerosis within the underlying S5 and coccygeal segments, appears progressive since the prior exam, and raises concern for acute osteomyelitis. Questionable healing right inferior pubic ramus fracture. Other stable findings as above." - Urinalysis = 2+ blood, 500 leukocyte esterase, 11-20 RBCs, >50 WBCs, 20-50 bacteria, 3+ protein - Sepsis order set was initiated - Lactate trend: 1.7 -> 1.1 - Blood cultures: No growth to date -Urine culture: Proteus, wound culture: Proteus. - On Vancomycin + Cefepime + PO Vancomycin - MRI sacrum:Signal abnormalities at S5 and upper coccygeal segments, concerning for acute osteomyelitis. -Patient will need 6 weeks of IV antibiotics. -He may be a candidate for LTAC -Family open to hospice - Local wound care. KDIGO Stage I Acute Kidney Injury on Chronic Kidney Disease Stage IV Microscopic Hematuria - Nephrology consulted. - Creatinine = 2.86 -> 2.44 -> 2.02 -> 1.5. Currently at baseline. - Urinalysis = 2+ blood, 500 leukocyte esterase, 11-20 RBCs, >50 WBCs, 20-50 bacteria, 3+ protein - IV fluids per nephrology. - Monitor creatinine and urine output - Renally dose medications Questionable Healing Right Inferior Pubic Ramus Fracture - Noted on CT scan. - PRN pain control Prostatomegaly with Mild Right Hydroureter and Hydronephrosis without evidence of Obstructing Calculi - Continue IV antibiotics as mentioned above - Creatinine has improved to baseline. Chronic Compensated Systolic Congestive Heart Failure Hypertension - No evidence of acute exacerbation - Hold home meds given hypotension and concern for shock Cholelithiasis - Does not appear to have clinical signs of acute cholecystitis - Follow-up with General Surgery as an outpatient DVT prophylaxis: Heparin subQ
[2023-04-18] MEDS: CEFEPIME 1 GM in NA CHLORIDE 0.9% 100 ML IV SCH (20:07)
[2023-04-19 04:42] LABS: Absolute Lymphocytes (CBC) 1.1 K/uL (0.7-4.9); Lymphocytes % 14.5 % (15.3-44.8); MCV 87.1 fL (80-100); MPV 6.4 fL (7.6-11.3); RBC Red Blood Cell Count 2.65 M/uL (4.33-5.43)
[2023-04-19 04:52] LABS: Magnesium 1.9 mg/dL (1.6-2.4); Potassium 3.7 mEq/L (3.5-5.1)
[2023-04-19 05:00] VITALS: O2SAT 99
[2023-04-19] MEDS ORDERED: POTASSIUM CL SA 10 MEQ TAB PO ONE (05:01)
[2023-04-19 05:23] LABS: Blood Morphology Comment NOT SEEN (NOT SEEN); Platelet Estimate ADEQ
[2023-04-19 05:32] VITALS: BMI 25.6
[2023-04-19] MEDS: VANCOMYCIN ORAL SOLN 250 MG/5 ML OSYR PO SCH ×3 (06:29→17:48)
[2023-04-19] MEDS: D5W 1,000 ML with POTASSIUM CL 20 MEQ IV SCH ×2 (08:08)
[2023-04-19] MEDS: HEPARIN 5000 UNIT/ML 1 ML VIAL SQ SCH (08:08)
[2023-04-19] MEDS: JUVEN PACKET PO SCH (08:14)
[2023-04-19] MEDS: Banana Flakes/T-Galactooligos 1 Dose Packet PO SCH (08:15)
--- NOTE | 2023-04-19 08:57 | P.PN ---
Date of Service: 04/19/23 Chief Complaint: sepsis Subjective: Patient sitting in chair, NAD, breathing comfortably on room air. Reports decreased appetite. Otherwise no new or worsening complaints. No acute events reported overnight. Physical Examination Temp Pulse Resp BP Pulse Ox 97.8 F 87 18 145/68 H 100 04/19/23 08:48 04/19/23 08:48 04/19/23 08:48 04/19/23 08:48 04/19/23 08:48 General: Alert, In no apparent distress HEENT: Atraumatic, Normocephalic Neck: Supple, JVD not distended Respiratory: Clear to auscultation bilaterally, Normal air movement Cardiovascular: No edema, Regular rate/rhythm, No murmurs Gastrointestinal: Soft and benign, Hyperactive, Tenderness Musculoskeletal: No clubbing Integumentary: Pressure ulcer (sacrum stage 4. right buttock stage 2) Neurological: Normal speech, Normal affect Studies Laboratory Data - Reviewed Microbiology Data - Reviewed Imagings Data: - CT Abdomen Pelvis 04/14: "Wall thickening, asymmetrically more pronounced on the right, along the anal canal, with adjacent fat stranding. Short segments of bowel wall thickening along the proximal and distal sigmoid colon with minimal adjacent fat stranding. Findings are suggestive of segmental colitis and proctitis. No appreciable fluid collections within limits of noncontrast CT. Bladder wall thickening and pericystic fat stranding. Numerous bladder diverticula. Mild right hydroureter and hydronephrosis without evidence of obstructing calculi. Findings are suggestive of cystitis, with or without ascending right urinary tract infection. Please correlate clinically and with urinalysis results. Left paramidline decubitus ulcer. Subtle osseous sclerosis within the underlying S5 and coccygeal segments, appears progressive since the prior exam, and raises concern for acute osteomyelitis. Questionable healing right inferior pubic ramus fracture." - MRI Sacrum/Coccyx 04/17: " Signal abnormalities at S5 and upper coccygeal segments, concerning for acute osteomyelitis. Nonspecific wall thickening along the anal canal with surrounding presacral edema, suggesting inflammation of unclear etiology. Trace free pelvic fluid. Nonspecific wall prominence of the nondistended urinary bladder. This could relate to underlying trabeculation in the setting of longstanding outlet obstruction, or ongoing cystitis. Please correlate clinically." Medication List: Reviewed Assessment and Plan Problem List Severe Sepsis Pressure Ulcer, Sacrum Stage IV Pressure Ulcer, Right Buttock Stage II Acute on Chronic Kidney Disease Prostatomegaly Systolic CHF Hypertension Cholelithiasis Severe PCM Anemia C.diff Colitis Osteomyelitis of Sacrum Severe Sepsis Cystitis, Proteus mirabilis - Urine culture 04/14: Proteus mirabilis - CT Abdomen pelvis 04/14: "Bladder wall thickening and pericystic fat stranding. Numerous bladder diverticula. Mild right hydroureter and hydronephrosis without evidence of obstructing calculi. Findings are suggestive of cystitis, with or without ascending right urinary tract infection. Please correlate clinically and with urinalysis results." - Currently on Cefepime (started 04/15) Infection of Sacral Pressure Ulcer Stage IV Osteomyelitis of Sacrum/Coccyx - Wound culture sacrum 04/14: Proteus mirabilis - CT Abdomen pelvis 04/14: "Left paramidline decubitus ulcer. Subtle osseous sclerosis within the underlying S5 and coccygeal segments, appears progressive since the prior exam, and raises concern for acute osteomyelitis." - MRI Sacrum/Coccyx 04/17: "Signal abnormalities at S5 and upper coccygeal segments, concerning for acute osteomyelitis." C.difficile Colitis - 04/14 C.diff Ag positive, Toxin positive - CT Abdomen pelvis 04/14: "Wall thickening, asymmetrically more pronounced on the right, along the anal canal, with adjacent fat stranding. Short segments of bowel wall thickening along the proximal and distal sigmoid colon with minimal adjacent fat stranding. Findings are suggestive of segmental colitis and proctitis. No appreciable fluid collections within limits of noncontrast CT." - On Vancomycin PO (started 04/15) Blood culture 04/14: No growth to date Leukocytosis improving (WBC 7.7) Afebrile Recommendations - C.diff: Continue Vancomycin PO x 10 days. Currently day 5 of 10 - Proteus mirabilis: Continue Cefepime x 7 days. Currently day 5 of 7 - Osteomyelitis: patient will require 6 weeks of IV antibiotics. 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 ID will continue to follow patient closely.
[2023-04-19] MEDS ORDERED: LACTOBACILLUS/ACIDOPHILUS TAB PO SCH (09:00)
--- NOTE | 2023-04-19 13:29 | PN ---
Date of Progress Note: 04/19/2023 Subjective: The patient is doing much better, started physical therapy. The patient was admitted to the hospital with acute kidney injury, sepsis with acidosis. Creatinine was up to 2.8, currently cr eatinine down to 1.4. The patient had good urine output. Physical Examination: Vital Signs: When I saw the patient; blood pressure 145/68, pulse of 87, afebrile. Chest: Clear to auscultation. Heart: S1, S2. Regular. Abdomen: Soft, nontender. Extremities: Trace edema. Neuro: Alert. No focality. Laboratory Data: Sodium 141, potassium 3.7, bicarb 21, BUN 31, creatinine 1.46, calcium 7.5, magnesi um 1.9. Current Medications: The patient on include; 1.Banana bag. 2.D5 at 50 per hour. 3.KCl. Assessment And Plan: 1.Acute kidney injury secondary to toxic ATN, poor perfusion ATN, recovered. 2.Obstructive uropathy. We will continue Oliva. 3.Hypokalemia, status post supplement. We will give . 4.Osteomyelitis. Continue current antibiotic. 5.Acidosis secondary to renal failure, resolved. 6.Hypernatremia. Sodium continued to trend down. We will continue on the D5 on the current rate. 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 MIN Voice ID: [id number] Report ID: [id number]
--- NOTE | 2023-04-19 13:32 | P.PN ---
Subjective Date of Service: 04/19/23 Chief Complaint: Sepsis Patient reports loss of appetite. 2 formed BM since last night. Physical Examination - Vital Signs Temperature: 97.8 F Blood Pressure: 145/68 Pulse: 87 Respirations: 18 Pulse Ox (%): 100 - Studies Medications List Reviewed: Yes Assessment And Plan - Plan Physical Exam General: Alert, In no apparent distress, Oriented x3 Respiratory: Clear to auscultation bilaterally, Normal air movement Cardiovascular: No edema, Regular rate/rhythm, No murmurs Gastrointestinal: Soft and benign, Non-distended, No rebound, No guarding, Hyperactive, Tenderness (minimal) Musculoskeletal: No clubbing Integumentary: Pressure ulcer stage IV sacral, stage II right buttock. Neurological: Normal speech, Normal affect Assessment and plan Suspect Septic Shock secondary to Clostridioides Difficile Colitis and/or Acute Multi-drug Resistant Proteus Mirabilis Cystitis - POA Stage IV Sacral Decubitus Pressure Ulcer with concern for Acute Osteomyelitis - POA Stage II Right Buttock Pressure Ulcer - POA Non-Anion Gap Metabolic Acidosis. He met SIRS criteria based on HR > 90 bpm and WBC > 12,000, and the suspected source is C. Difficile colitis +/- UTI. Severe sepsis was suspected due to concern for tissue hypoperfusion/organ dysfunction based on hypotension (SBP < 90), creatinine > 2 (without ESRD), and coagulopathy (INR > 1.5). Septic shock was suspected due to multiple SBP < 90 mmHg. Seen by infectious Diseases. Infectious evaluation: - Chest x-ray = "no acute cardiopulmonary process." - CT abdomen/pelvis = "wall thickening, asymmetrically more pronounced on the right, along the anal canal, with adjacent fat stranding. Short segments of bowel wall thickening along the proximal and distal sigmoid colon with minimal adjacent fat stranding. Findings are suggestive of segmental colitis and proctitis. No appreciable fluid collections within limits of noncontrast CT.Bladder wall thickening and pericystic fat stranding. Numerous bladder d iverticula. Mild right hydroureter and hydronephrosis without evidence of obstructing calculi. Findings are suggestive of cystitis, with or without ascending right urinary tract infection. Please correlate clinically and with urinalysis results. Left paramidline decubitus ulcer. Subtle osseous sclerosis within the underlying S5 and coccygeal segments, appears progressive since the prior exam, and raises concern for acute osteomyelitis. Questionable healing right inferior pubic ramus fracture. Other stable findings as above." - Urinalysis = 2+ blood, 500 leukocyte esterase, 11-20 RBCs, >50 WBCs, 20-50 bacteria, 3+ protein - Sepsis order set was initiated - Lactate trend: 1.7 -> 1.1 - Blood cultures: No growth to date -Urine culture: Proteus, wound culture: Proteus. - On Vancomycin + Cefepime + PO Vancomycin - MRI sacrum:Signal abnormalities at S5 and upper coccygeal segments, concerning for acute osteomyelitis. -Patient will need 6 weeks of IV antibiotics. -He may be a candidate for LTAC -Social service consulted for arrangement for LTAC. - Local wound care. KDIGO Stage I Acute Kidney Injury on Chronic Kidney Disease Stage IV Microscopic Hematuria - Nephrology consulted. - Creatinine = 2.86 -> 2.44 -> 2.02 -> 1.5. Currently at baseline. - Urinalysis = 2+ blood, 500 leukocyte esterase, 11-20 RBCs, >50 WBCs, 20-50 bacteria, 3+ protein - IV fluids per nephrology. - Monitor creatinine and urine output - Renally dose medications Questionable Healing Right Inferior Pubic Ramus Fracture - Noted on CT scan. - PRN pain control Prostatomegaly with Mild Right Hydroureter and Hydronephrosis without evidence of Obstructing Calculi - Continue IV antibiotics as mentioned above - Creatinine has improved to baseline. Chronic Compensated Systolic Congestive Heart Failure Hypertension - No evidence of acute exacerbation - Hold home meds given hypotension and concern for shock Cholelithiasis - Does not appear to have clinical signs of acute cholecystitis - Follow-up with General Surgery as an outpatient. Anorexia Trial of Remeron. DVT prophylaxis: Heparin subQ
[2023-04-19 18:10] VITALS: BP 105/70; TEMP 97.1
--- NOTE | 2023-04-19 19:06 | P.DS ---
Admission Date: 04/14/23 Discharge Date: 04/19/23 Disposition: LONGTERM ACUTE CARE FACILITY Discharge Condition: FAIR Reason for Admission: Sepsis Brief History of Present Illness: 87-year-old male with history of chronic systolic congestive heart failure, CKD 4, hypertension, sacral decubitus ulceration who is a resident of [facility] presents to the emergency department with chief complaint of low blood pressure. long-term staff report that his blood pressure was in the 70s to 80s systolic and heart rate in the 120-130 range. EMS was called, patient started on IV fluids as blood pressure improved significantly in route and he is currently normotensive. He is evaluated in the emergency department and his labs were significant for leukocytosis white blood cell count 12.4 hemoglobin 8.9 hematocrit 27.3 PT 20.2 INR 1.84 creatinine 2.86, baseline is in the 2 range, bicarb 18 potassium 3.4 lactic acid 1.7 urinalysis concerning for urinary tract infection, chest x-ray was negative, CT abdomen pelvis without IV contrast with multiple findings including findings suggestive of segmental colitis and proctitis, bladder wall thickening and pericystic fat stranding, mild right hydroureter and hydronephrosis without evidence of obstructing calculi suggestive of cystitis with or without a sending right urinary tract infection, left paramidline decubitus ulcer, subtle osseous sclerosis within the underlying S5 and coccygeal segments appearing progressive since prior exam which raise the concern for osteomyelitis. Patient met criteria for severe sepsis and was admitted for further management. Hospital Course: Assessment and plan Suspect Septic Shock secondary to Clostridioides Difficile Colitis and/or Acute Multi-drug Resistant Proteus Mirabilis Cystitis - POA Stage IV Sacral Decubitus Pressure Ulcer with concern for Acute Osteomyelitis - POA Stage II Right Buttock Pressure Ulcer - POA Non-Anion Gap Metabolic Acidosis. He met SIRS criteria based on HR > 90 bpm and WBC > 12,000, and the suspected source is C. Difficile colitis +/- UTI. Severe sepsis was suspected due to concern for tissue hypoperfusion/organ dysfunction based on hypotension (SBP < 90), creatinine > 2 (without ESRD), and coagulopathy (INR > 1.5). Septic shock was suspected due to multiple SBP < 90 mmHg. Seen by infectious Diseases. Infectious evaluation: - Chest x-ray = "no acute cardiopulmonary process." - CT abdomen/pelvis = "wall thickening, asymmetrically more pronounced on the right, along the anal canal, with adjacent fat stranding. Short segments of bowel wall thickening along the proximal and distal sigmoid colon with minimal adjacent fat stranding. Findings are suggestive of segmental colitis and proctitis. No appreciable fluid collections within limits of noncontrast CT.Bladder wall thickening and pericystic fat stranding. Numerous bladder diverticula. Mild right hydroureter and hydronephrosis without evidence of obstructing calculi. Findings are suggestive of cystitis, with or without ascending right urinary tract infection. Please correlate clinically and with urinalysis results. Left paramidline decubitus ulcer. Subtle osseous sclerosis within the underlying S5 and coccygeal segments, appears progressive since the prior exam, and raises concern for acute osteomyelitis. Questionable healing right inferior pubic ramus fracture. Other stable findings as above." - Urinalysis = 2+ blood, 500 leukocyte esterase, 11-20 RBCs, >50 WBCs, 20-50 bacteria, 3+ protein - Sepsis order set was initiated - Lactate trend: 1.7 -> 1.1 - Blood cultures: No growth to date -Urine culture: Proteus, wound culture: Proteus. - On Vancomycin + Cefepime + PO Vancomycin - MRI sacrum:Signal abnormalities at S5 and upper coccygeal segments, concerning for acute osteomyelitis. -Patient will need 6 weeks of IV antibiotics. -He may be a candidate for LTAC -Social service consulted for arrangement for LTAC. - Local wound care. KDIGO Stage I Acute Kidney Injury on Chronic Kidney Disease Stage IV Microscopic Hematuria - Nephrology consulted. - Creatinine = 2.86 -> 2.44 -> 2.02 -> 1.5. Creatinine improved to baseline. - Urinalysis = 2+ blood, 500 leukocyte esterase, 11-20 RBCs, >50 WBCs, 20-50 bacteria, 3+ protein -Patient treated with IV fluid - Monitor creatinine and urine output - Renally dose medications Questionable Healing Right Inferior Pubic Ramus Fracture - Noted on CT scan. - PRN pain control Prostatomegaly with Mild Right Hydroureter and Hydronephrosis without evidence of Obstructing Calculi - Continue IV antibiotics as mentioned above - Creatinine has improved to baseline. Chronic Compensated Systolic Congestive Heart Failure Hypertension - No evidence of acute exacerbation - Held home meds given hypotension. -Resumed Coreg on discharge Cholelithiasis - Does not appear to have clinical signs of acute cholecystitis - Follow-up with General Surgery as an outpatient. Anorexia Patient has very poor appetite Trial of Remeron. Anemia Anemia has been chronic and suspect related to malnutrition. Transfuse as needed for hemoglobin less than 7. No evidence of active bleed. Resume home dose Eliquis on discharge. Vital Signs/Physical Exam: Temp Pulse Resp BP Pulse Ox 97.1 F 79 16 105/70 99 04/19/23 16:00 04/19/23 18:00 04/19/23 18:00 04/19/23 18:00 04/19/23 18:00 General: Alert, In no apparent distress, Oriented x3, Other (Ill looking) HEENT: Mucous membr. moist/pink Neck: JVD not distended Respiratory: Clear to auscultation bilaterally, Normal air movement Gastrointestinal: Soft and benign, Non-distended Integumentary: No cyanosis Neurological: Other (No focal motor deficit.) Laboratory Data at Discharge: WBC 7.70 thou/uL (4.3-10.9) 04/19/23 04:12 Hgb 7.6 g/dL (13.6-17.9) L 04/19/23 04:12 Hct 23.0 % (39.6-49.0) L 04/19/23 04:12 Plt Count 285 thou/uL (152-406) 04/19/23 04:12 PT 20.2 SECONDS (9.5-12.5) H 04/14/23 18:59 INR 1.84 04/14/23 18:59 APTT 25.6 SECONDS (24.3-36.9) 04/14/23 18:59 Sodium 141 mEq/L (136-145) 04/19/23 04:12 Potassium 3.7 mEq/L (3.5-5.1) 04/19/23 04:12 BUN 31 mg/dL (7-18) H 04/19/23 04:12 Creatinine 1.46 mg/dL (0.70-1.30) H 04/19/23 04:12 Glucose 101 mg/dL (74-106) 04/19/23 04:12 Magnesium 1.9 mg/dL (1.6-2.4) 04/19/23 04:12 Total Bilirubin 0.3 mg/dL (0.2-1.0) 04/17/23 04:58 AST 9 U/L (15-37) L 04/17/23 04:58 ALT < 10 U/L (16-61) L 04/17/23 04:58 Alkaline Phosphatase 60 U/L (45-117) 04/17/23 04:58 Home Medications: Acetaminophen [Tylenol*] 650 mg PO Q6H PRN tab 02/22/23 Amino Acids/Protein Hydrolys [Prosource No Carb Liquid Pkt] 30 ml PO BID packet 02/22/23 Apixaban [Eliquis *] 2.5 mg PO BID 02/22/23 Ascorbic Acid [Vitamin C*] 500 mg PO DAILY 02/22/23 Ferrous Sulfate [Ferrous Sulfate*] 325 mg PO DAILY tab 02/22/23 Tamsulosin [Flomax*] 0.4 mg PO BEDTIME cap 02/22/23 Zinc Sulfate [Zinc Sulfate*] 220 mg PO DAILY cap 02/22/23 carvediloL [Coreg*] 3.125 mg PO BID 04/15/23 Reji [Reji*] 1 pkt PO BID 04/19/23 Medihoney [Medihoney Woundcare Gel*] 1 appl TOP DAILY tube 04/19/23 Mirtazapine [Remeron*] 15 mg PO BEDTIME tab 04/19/23 Vancomycin Oral Soln [Vancocin HCl*] 5 ml PO Q6HR osyr 04/19/23 Followup: OOT,OOT [Primary Care Provider] -
[2023-04-19] MEDS ORDERED: MIRTAZAPINE 15 MG TAB PO SCH (21:00)
[2023-04-20] MEDS ORDERED: MEDIHONEY 44 ML TOPICAL TUBE TOP SCH (09:00)
== END 2023-04-19 18:35 | DRG 871 ==
LOC: ER 18:24 → ERHOLD 21:39 → 4TH 22:09 → 3RD-ICU 04-15 05:33
PROVIDERS: ADMIT Internal Medicine; ATTEND Internal Medicine
DX: A41.9 Sepsis, unspecified organism (principal); E43 Unspecified severe protein-calorie malnutrition; L89.154 Pressure ulcer of sacral region, stage 4; R65.21 Severe sepsis with septic shock; N17.0 Acute kidney failure with tubular necrosis; E87.20 Acidosis, unspecified; I50.22 Chronic systolic (congestive) heart failure; I13.0 Hypertensive heart and chronic kidney disease with heart failure and stage 1 through stage 4 chronic kidney disease, or unspecified chronic kidney disease; N18.4 Chronic kidney disease, stage 4 (severe); A04.72 Enterocolitis due to Clostridium difficile, not specified as recurrent; M46.28 Osteomyelitis of vertebra, sacral and sacrococcygeal region; N13.6 Pyonephrosis; E87.0 Hyperosmolality and hypernatremia; Z16.24 Resistance to multiple antibiotics; D63.1 Anemia in chronic kidney disease; E87.6 Hypokalemia; E86.0 Dehydration; K52.9 Noninfective gastroenteritis and colitis, unspecified; M19.90 Unspecified osteoarthritis, unspecified site; L89.312 Pressure ulcer of right buttock, stage 2; K80.20 Calculus of gallbladder without cholecystitis without obstruction; I25.10 Atherosclerotic heart disease of native coronary artery without angina pectoris; S32.591D Other specified fracture of right pubis, subsequent encounter for fracture with routine healing; B96.4 Proteus (mirabilis) (morganii) as the cause of diseases classified elsewhere; R31.29 Other microscopic hematuria; Z68.23 Body mass index [BMI] 23.0-23.9, adult; Z79.01 Long term (current) use of anticoagulants; Z79.899 Other long term (current) drug therapy; Z20.822 Contact with and (suspected) exposure to COVID-19
CPT/HCPCS: 36415; 51702; 71045; 72170; 72195; 74176; 80048; 80053; 80202; 81001; 83605; 83735; 84132; 84439; 84443; 85025; 85610; 85730; 86850; 86900; 86901; 87040; 87045; 87046; 87070; 87077; 87086; 87088; 87186; 87205; 87324; 87804; 87811; 93005; 93306; 96361; 96365; 96367; 97110; 97116; 97162; 97530; 99285; J0692; J1644; J2405; J3480; J7030; J7040; J7050; J7120